=== PATIENT | female | born 1970 | race Caucasian/White ===

== ENCOUNTER 2023-07-26 13:59 | Inpatient (IN) | payer MEDICAID, SELFPAY ==
[2023-07-26] VITALS (73 sets, daily range): BP systolic 99–124; BP diastolic 61–95; PULSE 79–120; RESP 12–30; TEMP 36.8–37.5; O2SAT 90–100
--- NOTE | 2023-07-26 | DI.RAD_ITS ---
Exam(s) XR PORTABLE CHEST AP EXAM: XR PORTABLE CHEST AP CLINICAL HISTORY: Coarse cough with tachypnea TECHNIQUE: 2D digital imaging was performed. COMPARISON: No exams were available for comparison FINDINGS: Leads overlie the chest. LUNGS: Clear. No pleural abnormality seen. HEART: Normal size. AORTA: Normal diameter. BONES: Unremarkable for age. Soft tissues: Unremarkable. IMPRESSION: No acute findings. DATA REPOSITORY: RADIATION DOSE DELIVERED:
--- NOTE | 2023-07-26 14:21 | W.ED.GENAD ---
Discharge Plan Disposition Patient Disposition: Admit to [facility] Condition: Stable Discharge Details Clinical Impression: Anemia, Alcohol use disorder, Liver dysfunction, Acute pancreatitis, Chronic hyponatremia, Acute hypokalemia Primary Care Provider: Unknown,Unknown ED Provider: Diego Roque Home Meds and New Rx's Prescriptions: No Action No Known Home Meds Medical Decision Making This is a 53-year-old female who presents with abdominal pain. Could represent bowel obstruction or intra-abdominal abscess and will get CT abdomen pelvis with contrast. We will get broad labs look for electrolyte or metabolic cause of the patient's symptoms. We will get biliary labs to look for signs of hepatitis, pancreatitis, or other biliary disease. We will get broad labs look for electrolyte or metabolic causes of the patient's symptoms. Could be related to the patient's marijuana use or that daily alcohol use and could have some dyspepsia or GERD/gastritis but this would be a diagnosis of exclusion. We will give some medications to treat her nausea and give some IV fluids while awaiting initial testing and reevaluate. 1920 Labs showing elevated lipase and bilirubin. Added ultrasound that she not showing any biliary pathology or signs of biliary obstruction or stones. CT is showing pancreatitis consistent with the elevated lipase. Likely secondary from alcohol use. Significant hypokalemia likely from the pancreatitis and alcohol use. Repleted with IV potassium and magnesium. Added INR and triglyceride levels at the hospitalist request. Patient and family agreeable with admission. Certainly could withdraw from alcohol while here though no signs of alcohol withdrawal presently. Care transitioned at this time to the hospitalist service. Medical Records Medical records reviewed: Yes I reviewed the patient's medical records. Imaging Data Radiologic Study: Attestation: I personally reviewed and interpreted this imaging study as follows: Imaging: CT Scan (abd and pelvis) Radiologist's impression: ct abd and pelvis IMPRESSION:: Findings consistent with pancreatitis with wall thickening involving the duodenum and left upper quadrant loops of small bowel. Severe hepatic steatosis. Radiologic Study #2: Attestation: I personally reviewed and interpreted this imaging study as follows: Imaging: Ultrasound (ruq) Radiologist's impression: IMPRESSION: Hepatic steatosis. No evidence of gallstones or biliary dilatation. Lab Data Lab results reviewed: Yes I reviewed the patient's lab results. Labs: Hypokalemia. Hyponatremia. Anion gap likely secondary from the patient's elevated EtOH and dehydration. Hypomagnesemia. Elevated bilirubin at 3.4. Very elevated lipase greater than 375. Anemia of unknown chronicity but does have elevated MCV consistent with a chronic anemia. Leukocytosis of unknown significance. HPI General Date/Time Provider Initiated Documentation: 07/26/23 14:10. Limitations to Documentation: no limitations. Information obtained by: patient. HPI Narrative: This is a 53-year-old female with no reported past history who is presenting with abdominal pain. Says she has had intermittent abdominal pain over the last year. Would come and go. Consistent over the last 2 to 3 weeks. Says she is not farting. Says she has not pooped. She says she has only had a small amount of poop over the last 3 weeks. She is nauseous and not eating and is endorsing weight loss. No night sweats or fevers. No urinary symptoms. No black or bloody stools. No vaginal bleeding or discharge. Denying any other complaints. No surgeries ever. Denies any medications or any allergies. Not reporting any family history of any medical conditions. Smokes 10 cigarettes a day. Drinks 3 alcoholic beverages daily. Smokes marijuana occasionally for sleep. Related Data Home Medications Medication Instructions Recorded Confirmed Unknown [No Known Home Meds] 07/26/23 07/26/23 Allergies Allergy/AdvReac Type Severity Reaction Status Date / Time No Known Allergies Allergy Unverified 07/26/23 14:08 General Stated Complaint: Abd Prob BRIAN: 3 Review of Systems Constitutional Constitutional: Denies chills, Denies fever(s) and Denies headache(s) Eyes Eyes: Denies change in vision ENT Ears, Nose, Mouth, and Throat: Denies headache(s) and Denies odynophagia Cardiovascular Cardiovascular: Denies chest pain and Denies dyspnea Respiratory Respiratory: Denies dyspnea Gastrointestinal Gastrointestinal: Reports abdominal pain, Denies melena, Reports constipation, Denies diarrhea, Reports nausea, Denies odynophagia and Reports vomiting Genitourinary Genitourinary: Denies dysuria Musculoskeletal Musculoskeletal: Denies myalgias Integumentary/Breasts Skin/Breast: Denies changing lesions Neurologic Neurologic: Denies behavioral changes and Denies headache(s) Psychiatric Psychiatric: Denies behavioral changes Endocrine Endocrine: Denies heat intolerance Hematologic/Lymphatic Hematologic/Lymphatic: Denies lymphadenopathy PFSH All Active Problems (Updated 07/26/23 @ 19:24 by Diego Roque MD) Acute hypokalemia (Acute) Chronic hyponatremia (Acute) Acute pancreatitis (Acute) Liver dysfunction (Acute) Alcohol use disorder (Acute) Anemia (Chronic) Hypomagnesemia (Acute) Hypokalemia (Acute) Alcoholic hepatitis without ascites (Acute) Pancreatitis, acute (Acute) Social History Smoking/Tobacco Use Status: Current every day Tobacco Type: cigarettes Smoking risk assessment performed?: Yes Alcohol Intake: current Alcohol Intake frequency: 3 or more drinks per day Alcohol type: hard liquor Drug use: Daily Substance use type: marijuana Details: at night to sleep Housing: apartment Do you feel safe at home: Yes Do you feel safe in your relationship?: Yes Exam Const General: cooperative Nutritional Appearance: average body habitus Orientation: alert, awake and oriented x3 HENMT Head: normal to inspection Ears: external ears normal Mouth: moist mucous membranes Eyes Pupils: PERRL EOM: EOM intact bilaterally and No nystagmus Neck Neck: full ROM and no tracheal deviation Chest Chest: normal inspection of the chest Resp Auscultation: clear to auscultation bilaterally Cardio Rate: regular rate Rhythm: regular rhythm GI Inspection: normal to inspection Palpation: soft, no guarding, not rigid and tender Other: Tenderness in all 4 abdominal quadrants. No voluntary guarding and no rigidity or rebound. Otherwise unremarkable abdominal exam. Back/Spine/Pelvis Back: No no CVA tenderness Thoracic/Lumbar Spine: thoracic and lumbar spine normal to inspection Skin General skin exam: no rashes or lesions noted Neuro General: patient alert, patient awake and patient oriented x3 Cranial Nerves: CN's II-XI intact bilaterally, PERRL and no nystagmus Cognition: normal cognition Motor: muscle tone normal throughout and strength 5/5 throughout Sensory Exam: no sensory deficits noted Extrem General: normal to inspection Course Vital Signs Vital signs: Vital Signs Temperature 36.8 C 07/26/23 14:04 Pulse 120 H 07/26/23 14:04 Respiratory Rate 20 07/26/23 14:04 Blood Pressure 112/82 07/26/23 14:04 Pulse Oximetry 97 07/26/23 14:04 Temperature 36.8 C 07/26/23 14:04 Temperature Source Oral 07/26/23 14:04 Pulse 120 H 07/26/23 14:04 Respiratory Rate 20 07/26/23 14:04 Respiratory Effort Normal, Non-Labored 07/26/23 14:09 Blood Pressure 112/82 07/26/23 14:04 Blood Pressure Position Sitting 07/26/23 14:04 Pulse Oximetry 97 07/26/23 14:04 Oxygen Delivery Method Room Air 07/26/23 14:04 Oxygen Flow Rate 0 07/26/23 14:04 Pain Level 10 07/26/23 14:04 PAWSS Have you Been Recently Intoxicated or Drunk Within the Last 30 days?: No Have you Ever Experienced Previous Episodes of Alcohol Withdrawal?: No Have you ever Experienced Withdrawal Seizures?: No Have you ever Experienced Delirium Tremens(DT)s?: No Have you ever undergone Alcohol Rehabilitation Treatment (i.e, inpt ot outpatient treatment programs)?: No Have you ever Experienced Blackouts?: No Have you ever Combined Alcohol with other Downers within the last 90 days?: No Have you ever Combined Alcohol with any other Substance of Abuse during the last 90 days?: No Positive Blood Alcohol level on Presentation? [PCS.BAL]: No Evidence of Increased Autonomic Activity (i.e. HR>120, tremor, sweating, agitation, nausea)?: No Result: 0
[2023-07-26] MEDS: Ondansetron 4 MG/2 ML VIAL IVP ×2 (14:30→16:50)
[2023-07-26] MEDS: Normal Saline 1,000 ML 1000 ML IV (14:30)
[2023-07-26] MEDS: Ketorolac 15 MG/ML VIAL IVP (14:30)
[2023-07-26 14:31] LABS: Abs Immature Grans 0.12 10^3/uL (0.0-0.06); Absolute Lymphocyte Count 1.21 10^3/uL (1.2-3.4); Absolute Monocyte Count 1.27 10^3/uL (0.1-0.8); Absolute Neutrophil Count 19.82 10^3/uL (1.2-6.7); Basophils % 0.4; Eosinophils % 1.1; HCT 27.9 % (36.0-46.0); HGB 9.8 g/dL (11.2-15.7); Immature Grans % 0.5; Lymphocytes % 5.3; MCH 37.5 pg (27.0-33.0); MCHC 35.1 % (32.0-36.0); MCV 107 fL (80-95); MPV 9.6 fL (8.0-11.0); Monocytes % 5.6; Neutrophils % 87.1; Platelet Count 273 10^3/uL (130-400); RBC 2.61 10^6/uL (3.93-5.22); RDW 15.1 % (11.7-14.6); RDW-SD 59.9 fL; WBC 22.76 10^3/uL (4.4-10.8)
[2023-07-26 14:56] LABS: ALT 15 U/L (14-59); AST 82 U/L (15-37); Albumin 2.5 g/dL (3.4-5.0); Alkaline Phosphatase 197 U/L (46-116); Anion Gap 18.7 mmol/L (3-11); BUN 7 mg/dL (7-18); Bilirubin, Total 3.4 mg/dL (0.2-1.0); CO2 21.3 mmol/L (21.0-32.0); CREATININE 0.7 mg/dL (0.55-1.02); Calcium 8.8 mg/dL (8.5-10.1); Chloride 91 mmol/L (98-107); ETHANOL BLOOD 44.6 mg/dL (<10); Estimated GFR 102.71 (mL/min/1.73m2); Glucose 76 mg/dL (74-106); Magnesium 1.6 mg/dL (1.8-2.4); Sodium 131 mmol/L (136-145); Total Protein 7.2 g/dL (6.4-8.2)
[2023-07-26 14:58] LABS: Lipase > 375 U/L (16-77); Potassium 2.3 mmol/L (3.5-5.1)
--- NOTE | 2023-07-26 15:00 | DI.US_ITS ---
Exam(s) US ABDOMEN EXAM: US ABDOMEN CLINICAL HISTORY: ruq abdominal pain. ? biliary colic or obstruction TECHNIQUE: Ultrasound abdomen performed using standard protocol. COMPARISON: CT CT ABDOMEN PELVIS W from 07/26/2023 FINDINGS: LIVER: Enlarged at 19.1 cm. Increased echogenicity and decreased through transmission consistent wit h moderate to severe hepatic steatosis. Posterior portions of the liver are not well seen. No focal liver lesions are seen. GALLBLADDER: No evidence of cholelithiasis. No evidence of wall thickening. No pericholecystic fluid identified. MCKEON'S SIGN: Negative. BILIARY SYSTEM: No intrahepatic or extrahepatic biliary ductal dilation. KIDNEYS: Kidneys are symmetric in size. No evidence of renal calculi. No evidence of hydronephrosis. No renal mass or cyst identified. PANCREAS: Not well visualized. SPLEEN: Not enlarged. ABDOMINAL AORTA AND IVC: Visualized portions normal caliber. ASCITES: None seen. IMPRESSION: Hepatic steatosis. No evidence of gallstones or biliary dilatation. DATA REPOSITORY:
--- NOTE | 2023-07-26 15:00 | RT.EKG_ITS ---
APPROVED REPORT Exam: Resting ECG Reason for Exam: electrolyte abnormality Patient Location: E HR:100 bpm ECG Measurements Heart Rate 100 AXIS NE 148 P 80 QRSd 89 QRS 77 QT 389 T 62 QTc 502 Conclusion Sinus tachycardia...rate> 99
[2023-07-26 15:01] LABS: Absolute Basophil Count 0.09 10^3/uL (0.0-0.2); Absolute Eosinophil Count 0.25 10^3/uL (0.0-0.7); Macrocytosis 2+
[2023-07-26 15:02] LABS: Polychromasia Present; Stomatocytes 2+
[2023-07-26] MEDS: MAGNESIUM SULFATE 2 GM/50 ML BAG IVPB (15:07)
[2023-07-26 15:09] LABS: Bilirubin Large (Negative); Blood Negative (Negative); Clarity Clear (Clear); Glucose Negative (Negative); Ketones >=160 mg/dL (Negative); Leukocyte Esterase Negative (Negative); Nitrite Positive (Negative); Urobilinogen >=8.0 mg/dL (Up to 0.2)
[2023-07-26 15:21] LABS: Bacteria Many HPF (Negative); C & S Indicated? Yes; Casts Negative LPF (Negative); Crystals Negative HPF (Negative); Epithelial Cells Rare HPF (Negative); Mucus Negative (Negative); Other Cells Negative (Negative); RBC Negative HPF (0-2)
--- NOTE | 2023-07-26 16:37 | DI.CT_ITS ---
Exam(s) CT ABDOMEN PELVIS W EXAM: CT ABDOMEN PELVIS W CLINICAL HISTORY: abdominal pain, acute, nonlocalized. TECHNIQUE: Imaging Protocol: Axial computed tomography images with coronal and sagittal reformatted images were created and reviewed CONTRAST MATERIAL: Intravenous: Omnipaque 350 Contrast volume:100 ml Oral: no COMPARISON: US US ABDOMEN from 07/26/2023 FINDINGS: ABDOMEN and PELVIS: Lung Bases: Normal where visualized. Liver: Enlarged. Severe hepatic steatosis. Areas of focal fatty sparing near the gallbladder fossa. No measurable mass. Gallbladder and biliary tract: No radiodense calculus or dilation. Pancreas: Normal density. Stranding in the fat surrounding the pancreas, greater at the tail. No ev idence of mass. Spleen: Normal. Kidneys: Normal size, contour and axis. No radiodense stones. No obstructive uropathy. No suspicious masses seen. Adrenal glands: No masses seen. Vasculature: Abdominal aorta non-dilated. Soft tissues: Unremarkable. Bladder: No gross wall thickening. No calculi.No focal mass. Bowel: No obstruction. Wall thickening of the duodenum as it passes near the head of the pancreas. Also some wall thickening of loops of bowel in the left upper quadrant, near the tail of the pancrea s. Peritoneal cavity: No ascites. No focal collection. Bones: Unremarkable for age. Reproductive organs: Within normal limits. Lymph nodes: Unremarkable. IMPRESSION:: Findings consistent with pancreatitis with wall thickening involving the duodenum and l eft upper quadrant loops of small bowel. Severe hepatic steatosis. RADIATION DOSE DELIVERED: Total DLP DATA REPOSITORY: All CT scans at this facility are submitted to the National Radiology Data Registry (NRDR) Dose Index Registry (DIR) with the [employer] (A[employer]). RADIATION OPTIMIZATION: All CT scans at this facility use at least one of these dose optimization te chniques: automated exposure control; mA and/or kV adjustment per patient size (includes targeted exa ms where dose is matched to clinical indication); or iterative reconstruction.
[2023-07-26] MEDS: Normal Saline - Diluent 50 ML VIAL IV (16:43)
[2023-07-26] MEDS: Nicotine 21 MG/24 HR PATCH TD (16:49)
[2023-07-26] MEDS: POTASSIUM CHLORIDE 20 MEQ/100 ML BAG 50 MEQ (17:16)
[2023-07-26 18:24] LABS: Source Nasal/Nares
[2023-07-26 18:56] LABS: COVID-19 PCR Negative (Negative)
--- NOTE | 2023-07-26 18:59 | HPE_ITS ---
Date of service: 07/26/23 Time of Service: 18:59 Assessment and Plan Assessment and plan (1) Pancreatitis, acute: Start date: 07/26/23 Status: Acute Assessment and plan: This is a 53-year-old lady who drinks daily presenting with abdominal pain over the last year but worsening recently and now acutely worse with nausea and vomiting. She is also constipated. She has not seen physicians recently and has no medical treatment at this time. Evaluation the ED did reveal probable acute pancreatitis alcohol induced with the patient daily alcohol use. She will be on bowel rest with pain management and IV hydration. Follow-up clinically and trend labs. Consider surgical consultation if complications. She is a full code. Qualifiers: Acute pancreatitis complication: no infection or necrosis Pancreatitis type: alcohol induced Qualified Code(s): K85.20 - Alcohol induced acute pancreatitis without necrosis or infection (2) Alcoholic hepatitis without ascites: Status: Chronic Assessment and plan: Patient has not had recent labs and most likely has chronic alcoholic hepatitis which is not severe. Continue to trend labs with bowel rest and no alcohol. Alcohol withdrawal monitoring and treatment with phenobarbital protocol. (3) Alcohol use disorder: Status: Chronic Assessment and plan: Patient has drunk alcohol daily most of her life and at this time there is no indication that she will be stopping. CIWA protocol with phenobarbital treatment. Trend labs. Eventually once acute pancreatitis has cleared, will advance nutrition which may help with electrolyte imbalances and hepatitis. (4) Hypokalemia: Start date: 07/26/23 Status: Acute Assessment and plan: Most likely induced by alcohol intake and recent loss of fluids with nausea and vomiting. Replete IV and trend labs. (5) Hypomagnesemia: Start date: 07/26/23 Status: Acute Assessment and plan: Most likely induced by alcohol intake with IV repletion. Poor nutrition long- term may be an issue. (6) COPD (chronic obstructive pulmonary disease) with emphysema: Status: Chronic Assessment and plan: Patient does smoke tobacco daily and also apparently has THC intake. Clinically patient has COPD with emphysema but does x-ray showed no acute infiltrates are severe changes by plain film. Follow-up clinically and long-term advised tobacco cessation. Secretion clearance should be induced with respiratory therapy consulted as needed. She may have increased chance of plugging as she recovers off cigarettes in the hospital. Nicotine patch if needed. History of Present Illness History of Present Illness Chief Complaint: Abdominal pain with nausea with vomiting Narrative: This is a 53-year-old female patient who drinks alcohol daily with 3 cups of [employer] vodka presenting with worsening abdominal pain and nausea. She also had constipation for the last 3 weeks. She has had abdominal pain for about 1 year worsening over the last 2 to 3 weeks with more severe epigastric discomfort and now nausea and vomiting, unable to eat and drink normally. She does have some bloating with her constipation. She denies hematemesis, melena or hematochezia. She has not been seeking medical care in the recent past. She is very thin and may have been losing weight. She did receive phenobarbital for alcohol withdrawal precaution was sedated during my exam with minimal other conversation. She is a poor historian. She does smoke tobacco. She has had a dry cough with coarse sounding breathing but is not on inhalers. She denies hemoptysis. In the ED the patient was found to have pancreatitis acutely no severe biliary or gallbladder pathology by CT. She also had right abnormalities and liver function abnormalities associate with chronic alcohol use. She did have her electrolytes repleted with potassium and magnesium IV. By default she is a full code but this discussion needs to be further discussed. Review of Systems Narrative: 13 point review of systems otherwise unrevealing or unobtainable with patient being poor historian. PFSH All Active Problems (Updated 07/27/23 @ 11:11 by Ramon Holder) COPD (chronic obstructive pulmonary disease) with emphysema (Chronic) Acute hypokalemia (Acute) Chronic hyponatremia (Acute) Acute pancreatitis (Acute) Liver dysfunction (Acute) Alcohol use disorder (Chronic) Anemia (Chronic) Hypomagnesemia (Acute) Hypokalemia (Acute) Alcoholic hepatitis without ascites (Chronic) Pancreatitis, acute (Acute) Social History Smoking/Tobacco Use Status: Current every day Tobacco Type: cigarettes Smoking risk assessment performed?: Yes Alcohol Intake: current Alcohol Intake frequency: 3 or more drinks per day Alcohol type: hard liquor Drug use: Daily Substance use type: marijuana Details: at night to sleep Housing: apartment Do you feel safe at home: Yes Do you feel safe in your relationship?: Yes Meds Allergies and Home Medications Allergies Allergy/AdvReac Type Severity Reaction Status Date / Time No Known Allergies Allergy Unverified 07/26/23 14:08 Home Medications Medication Instructions Recorded Confirmed Type Unknown [No Known Home Meds] 07/26/23 07/26/23 History Exam Narrative Exam Narrative: General: Patient appears much older than stated age, thin and almost cachectic appearing. She is in moderate distress from abdominal discomfort and bloating. She is sedated from phenobarbital. She is alert and oriented at least to person and place. HEENT: Normocephalic, coarsened facial features. Eyes with pupils equal and react to light symmetrically, extraocular movement intact and sclera anicteric. Oropharynx with dry mucosa and poor dentition. Neck: Supple without JVD. Back: Kyphotic without CVA tenderness. Lungs: Coarse rhonchi diffusely with coarse crackles expiratory and expiratory. Loose cough without production. No expiratory wheeze or increased expiratory phase. Bronchovesicular breath sounds diffusely. Fair aeration. Heart: Regular rhythm and tachycardic rate with 3/6 holosystolic murmur apex. Breast: Exam deferred. Abdomen: Slightly protuberant special in the left compared to right but soft without guarding. Tender to palpation of the epigastrium and right upper quadrant without palpable liver edge. No palpable splenomegaly. Bowel sounds positive all quadrants but decreased. Genitalia/rectal: Exam deferred. Extremities: Muscle wasting diffusely, no joint swelling. No clubbing, cyanosis or grossly pitting edema. Fair capillary refill. Skin: Decreased turgor, warm and dry. Chronic actinic changes. Wrinkly with rough texture. Neuro: Cranial nerves II through XII grossly intact. No focalizing motor deficits. No tremor. Psych: Flattened affect with depressed mood. Patient is sedated. No normal thought processes. Remote and recent memory grossly intact but difficult to assess with patient's sedation. Results Imaging Imaging Studies: EXAM: CT ABDOMEN PELVIS W Date of Exam: 07/26/23 CLINICAL HISTORY: abdominal pain, acute, nonlocalized. TECHNIQUE: Imaging Protocol: Axial computed tomography images with coronal and sagittal reformatted images were created and reviewed CONTRAST MATERIAL: Intravenous: Omnipaque 350 Contrast volume:100 ml Oral: no COMPARISON: US US ABDOMEN from 07/26/2023 FINDINGS: ABDOMEN and PELVIS: Lung Bases: Normal where visualized. Liver: Enlarged. Severe hepatic steatosis. Areas of focal fatty sparing near the gallbladder fossa. No measurable mass. Gallbladder and biliary tract: No radiodense calculus or dilation. Pancreas: Normal density. Stranding in the fat surrounding the pancreas, greater at the tail. No evidence of mass. Spleen: Normal. Kidneys: Normal size, contour and axis. No radiodense stones. No obstructive uropathy. No suspicious masses seen. Adrenal glands: No masses seen. Vasculature: Abdominal aorta non-dilated. Soft tissues: Unremarkable. Bladder: No gross wall thickening. No calculi.No focal mass. Bowel: No obstruction. Wall thickening of the duodenum as it passes near the head of the pancreas. Also some wall thickening of loops of bowel in the left upper quadrant, near the tail of the pancreas. Peritoneal cavity: No ascites. No focal collection. Bones: Unremarkable for age. Reproductive organs: Within normal limits. Lymph nodes: Unremarkable. IMPRESSION:: Findings consistent with pancreatitis with wall thickening involving the duodenum and left upper quadrant loops of small bowel. Severe hepatic steatosis. EXAM: US ABDOMEN Date of Exam: 07/26/23 CLINICAL HISTORY: ruq abdominal pain. ? biliary colic or obstruction TECHNIQUE: Ultrasound abdomen performed using standard protocol. COMPARISON: CT CT ABDOMEN PELVIS W from 07/26/2023 FINDINGS: LIVER: Enlarged at 19.1 cm. Increased echogenicity and decreased through transmission consistent with moderate to severe hepatic steatosis. Posterior portions of the liver are not well seen. No focal liver lesions are seen. GALLBLADDER: No evidence of cholelithiasis. No evidence of wall thickening. No pericholecystic fluid identified. MCKEON'S SIGN: Negative. BILIARY SYSTEM: No intrahepatic or extrahepatic biliary ductal dilation. KIDNEYS: Kidneys are symmetric in size. No evidence of renal calculi. No evidence of hydronephrosis. No renal mass or cyst identified. PANCREAS: Not well visualized. SPLEEN: Not enlarged. ABDOMINAL AORTA AND IVC: Visualized portions normal caliber. ASCITES: None seen. IMPRESSION: Hepatic steatosis. No evidence of gallstones or biliary dilatation. Labs 07/27/23 06:20 07/27/23 06:20 Labs: Laboratory Results - last 24 hr 07/26/23 07/26/23 07/26/23 14:25 15:00 18:15 WBC 22.76 H RBC 2.61 L Hgb 9.8 L Hct 27.9 L MCV 107 H MCH 37.5 H MCHC 35.1 RDW 15.1 H Plt Count 273 MPV 9.6 Immature Gran % 0.5 Neutrophils % 87.1 Lymphocytes % 5.3 Monocytes % 5.6 Eosinophils % 1.1 Basophils % 0.4 Nucleated RBC % 0.0 Absolute Neutrophils 19.82 H Absolute Lymphocytes 1.21 Absolute Monocytes 1.27 H Absolute Eosinophils 0.25 Absolute Basophils 0.09 RBC Morphology See Below Polychromasia Present Macrocytosis 2+ Stomatocytes 2+ Sodium 131 L Potassium 2.3 L* Chloride 91 L Carbon Dioxide 21.3 Anion Gap 18.7 H BUN 7 Creatinine 0.7 Est GFR (CKD-EPI 2020) 102.71 Glucose 76 Calcium 8.8 Magnesium 1.6 L Total Bilirubin 3.4 H AST 82 H ALT 15 Alkaline Phosphatase 197 H Total Protein 7.2 Albumin 2.5 L Lipase > 375 H Urine Color [place] Urine Clarity Clear Urine pH 6.0 Ur Specific [place] 1.020 Urine Protein 30 H Urine Ketones >=160 H Urine Blood Negative Urine Nitrite Positive H Urine Bilirubin Large H Urine Urobilinogen >=8.0 H Ur Leukocyte Esterase Negative Urine RBC Negative Urine WBC 5-10 Ur Epithelial Cells Rare Urine Crystals Negative Urine Bacteria Many Urine Casts Negative Urine Mucus Negative Urine Other Negative Ur Culture Indicated? Yes Urine Glucose Negative Ethyl Alcohol 44.6 H COVID-19 Source Nasal/Nares SARS-CoV-2 (PCR) Negative Last Vital Signs Temp 36.8 C 07/26/23 14:04 Pulse 120 H 07/26/23 14:04 Resp 20 07/26/23 14:04 BP 112/82 07/26/23 14:04 Pulse Ox 97 07/26/23 14:04 PAWSS Have you Been Recently Intoxicated or Drunk Within the Last 30 days?: No Have you Ever Experienced Previous Episodes of Alcohol Withdrawal?: No Have you ever Experienced Withdrawal Seizures?: No Have you ever Experienced Delirium Tremens(DT)s?: No Have you ever undergone Alcohol Rehabilitation Treatment (i.e, inpt ot outpatient treatment programs)?: No Have you ever Experienced Blackouts?: No Have you ever Combined Alcohol with other Downers within the last 90 days?: No Have you ever Combined Alcohol with any other Substance of Abuse during the last 90 days?: No Positive Blood Alcohol level on Presentation? [PCS.BAL]: No Evidence of Increased Autonomic Activity (i.e. HR>120, tremor, sweating, agitation, nausea)?: No Result: 0 Time Spent Time spent with Patient: >75 minutes Time was spent: preparing to see the patient(eg.review tests), obtaining and/or reviewing separately otained hiistory, ordering medications,tests, procedures, referring, communicating with other health neonatal intensive care unit nurse, indepentently interpreting results and care coordination
[2023-07-26 19:08] LABS: Calculated LDL 80 mg/dL (<100); Cholesterol 133 mg/dL (<200); HDL Cholesterol 20 mg/dL (40-60); Triglyceride 168 mg/dL (<150)
[2023-07-26 19:21] LABS: INR 1.4 (0.9-1.1); Prothrombin Time 13.7 sec (9.1-11.1)
--- NOTE | 2023-07-26 20:05 | W.PC.ACHO ---
Registration Status: REG ER Primary Language: Preferred Language: ED Information & Data Chief Complaint Abd Prob 07/26/23 14:25 Triage Note pt c/o abdominal pain, 07/26/23 14:04 vomiting and cant keep anything down for 1 year, states worse today. states has not shit for 2 weeks Most Recent Vital Signs Temperature 36.8 C 07/26/23 14:04 Temperature Source Oral 07/26/23 14:04 Pulse 120 H 07/26/23 14:04 Respiratory Rate 20 07/26/23 14:04 Respiratory Effort Normal, Non-Labored 07/26/23 14:09 Blood Pressure 112/82 07/26/23 14:04 Blood Pressure Position Sitting 07/26/23 14:04 Pulse Oximetry 97 07/26/23 14:04 Oxygen Delivery Method Room Air 07/26/23 14:04 Oxygen Flow Rate 0 07/26/23 14:04 Pain Level 8 07/26/23 16:49 Allergies No Known Allergies Allergy (Unverified 07/26/23 14:08) Precautions Isolation Standard precaution 07/26/23 14:09 Active Medications Generic Name Dose Route Start Last Admin Trade Name Gurpreet PRN Reason Stop Dose Admin Nicotine 21 mg 07/26/23 16:00 07/26/23 16:49 Nicotine 21 Mg/24 Hr Patch TD 21 mg DAILY ZINA Administration Sodium Chloride 50 ml 07/26/23 16:45 07/26/23 16:43 Normal Saline - Diluent 50 Ml Vial IV 50 ml .FOR DI USE ZINA Administration IV IV Catheter Type [Right Saline Lock Antecubital] IV Catheter Gauge [Right 20 Antecubital] Diet Orders Category Date Time Status Nothing Per Oral [DIET] Nutrition 07/27/23 Breakfast Ordered Diagnostics 07/26/23 07/26/23 07/26/23 Range/Units 18:50 18:15 15:00 WBC (4.4-10.8) 10^3/uL RBC (3.93-5.22) 10^6/uL Hgb (11.2-15.7) g/dL Hct (36.0-46.0) % MCV (80-95) fL MCH (27.0-33.0) pg MCHC (32.0-36.0) % RDW (11.7-14.6) % Plt Count (130-400) 10^3/uL MPV (8.0-11.0) fL Immature Gran % Neutrophils % Lymphocytes % Monocytes % Eosinophils % Basophils % Nucleated RBC % (0.0-0.3) % Absolute Neutrophils (1.2-6.7) 10^3/uL Absolute Lymphocytes (1.2-3.4) 10^3/uL Absolute Monocytes (0.1-0.8) 10^3/uL Absolute Eosinophils (0.0-0.7) 10^3/uL Absolute Basophils (0.0-0.2) 10^3/uL RBC Morphology Polychromasia Macrocytosis Stomatocytes PT 13.7 H (9.1-11.1) sec INR 1.4 H (0.9-1.1) Sodium (136-145) mmol/L Potassium (3.5-5.1) mmol/L Chloride (98-107) mmol/L Carbon Dioxide (21.0-32.0) mmol/L Anion Gap (3-11) mmol/L BUN (7-18) mg/dL Creatinine (0.55-1.02) mg/dL Est GFR (CKD-EPI 2020) (mL/min/1.73m2) Glucose (74-106) mg/dL Calcium (8.5-10.1) mg/dL Magnesium (1.8-2.4) mg/dL Total Bilirubin (0.2-1.0) mg/dL AST (15-37) U/L ALT (14-59) U/L Alkaline Phosphatase (46-116) U/L Total Protein (6.4-8.2) g/dL Albumin (3.4-5.0) g/dL Triglycerides (<150) mg/dL Total Cholesterol (<200) mg/dL LDL Cholesterol, Calc (<100) mg/dL HDL Cholesterol (40-60) mg/dL Lipase (16-77) U/L Procalcitonin Urine Color [place] (Yellow) Urine Clarity Clear (Clear) Urine pH 6.0 (5-8) Ur Specific [place] 1.020 (1.005-1.025) Urine Protein 30 H (Negative) mg/dL Urine Ketones >=160 H (Negative) mg/dL Urine Blood Negative (Negative) Urine Nitrite Positive H (Negative) Urine Bilirubin Large H (Negative) Urine Urobilinogen >=8.0 H (Up to 0.2) mg/dL Ur Leukocyte Esterase Negative (Negative) Urine RBC Negative (0-2) HPF Urine WBC 5-10 (0-5) HPF Ur Epithelial Cells Rare (Negative) HPF Urine Crystals Negative (Negative) HPF Urine Bacteria Many (Negative) HPF Urine Casts Negative (Negative) LPF Urine Mucus Negative (Negative) Urine Other Negative (Negative) Ur Culture Indicated? Yes Urine Glucose Negative (Negative) mg/dL Ethyl Alcohol (<10) mg/dL COVID-19 Source Nasal/Nares SARS-CoV-2 (PCR) Negative (Negative) 07/26/23 Range/Units 14:25 WBC 22.76 H (4.4-10.8) 10^3/uL RBC 2.61 L (3.93-5.22) 10^6/uL Hgb 9.8 L (11.2-15.7) g/dL Hct 27.9 L (36.0-46.0) % MCV 107 H (80-95) fL MCH 37.5 H (27.0-33.0) pg MCHC 35.1 (32.0-36.0) % RDW 15.1 H (11.7-14.6) % Plt Count 273 (130-400) 10^3/uL MPV 9.6 (8.0-11.0) fL Immature Gran % 0.5 Neutrophils % 87.1 Lymphocytes % 5.3 Monocytes % 5.6 Eosinophils % 1.1 Basophils % 0.4 Nucleated RBC % 0.0 (0.0-0.3) % Absolute Neutrophils 19.82 H (1.2-6.7) 10^3/uL Absolute Lymphocytes 1.21 (1.2-3.4) 10^3/uL Absolute Monocytes 1.27 H (0.1-0.8) 10^3/uL Absolute Eosinophils 0.25 (0.0-0.7) 10^3/uL Absolute Basophils 0.09 (0.0-0.2) 10^3/uL RBC Morphology See Below Polychromasia Present Macrocytosis 2+ Stomatocytes 2+ PT (9.1-11.1) sec INR (0.9-1.1) Sodium 131 L (136-145) mmol/L Potassium 2.3 L* (3.5-5.1) mmol/L Chloride 91 L (98-107) mmol/L Carbon Dioxide 21.3 (21.0-32.0) mmol/L Anion Gap 18.7 H (3-11) mmol/L BUN 7 (7-18) mg/dL Creatinine 0.7 (0.55-1.02) mg/dL Est GFR (CKD-EPI 2020) 102.71 (mL/min/1.73m2) Glucose 76 (74-106) mg/dL Calcium 8.8 (8.5-10.1) mg/dL Magnesium 1.6 L (1.8-2.4) mg/dL Total Bilirubin 3.4 H (0.2-1.0) mg/dL AST 82 H (15-37) U/L ALT 15 (14-59) U/L Alkaline Phosphatase 197 H (46-116) U/L Total Protein 7.2 (6.4-8.2) g/dL Albumin 2.5 L (3.4-5.0) g/dL Triglycerides 168 H (<150) mg/dL Total Cholesterol 133 (<200) mg/dL LDL Cholesterol, Calc 80 (<100) mg/dL HDL Cholesterol 20 L (40-60) mg/dL Lipase > 375 H (16-77) U/L Procalcitonin Pending Urine Color (Yellow) Urine Clarity (Clear) Urine pH (5-8) Ur Specific [place] (1.005-1.025) Urine Protein (Negative) mg/dL Urine Ketones (Negative) mg/dL Urine Blood (Negative) Urine Nitrite (Negative) Urine Bilirubin (Negative) Urine Urobilinogen (Up to 0.2) mg/dL Ur Leukocyte Esterase (Negative) Urine RBC (0-2) HPF Urine WBC (0-5) HPF Ur Epithelial Cells (Negative) HPF Urine Crystals (Negative) HPF Urine Bacteria (Negative) HPF Urine Casts (Negative) LPF Urine Mucus (Negative) Urine Other (Negative) Ur Culture Indicated? Urine Glucose (Negative) mg/dL Ethyl Alcohol 44.6 H (<10) mg/dL COVID-19 Source SARS-CoV-2 (PCR) (Negative) 07/26/23 15:00 Urine Culture - Pending Urine - Reflex from Ua Intake and Output - 24 Hour Total 07/26/23 13:59 thru 07/26/23 18:41 Intake Total 1050 Balance 1050 Weight 49.895 kg Intake: IV 1050 Falls Risk Assessment History of Falls No History 07/26/23 14:30 Contributing Factors No Factors 07/26/23 14:30 Ambulatory Aids Independent 07/26/23 14:30 Tubes/Lines None 07/26/23 14:30 Gait Evaluation No gait disturbance 07/26/23 14:30 Cognition No cognitive impairment 07/26/23 14:30 Fall Total Score 0 07/26/23 14:30 Level of Risk Standard/Low Risk 07/26/23 14:30 Problems (Last Reviewed 07/26/23 @ 14:24 by Diego Roque MD) Acute hypokalemia (Acute) Chronic hyponatremia (Acute) Acute pancreatitis (Acute) Liver dysfunction (Acute) Alcohol use disorder (Acute) Anemia (Chronic) Hypomagnesemia (Acute) Hypokalemia (Acute) Alcoholic hepatitis without ascites (Acute) Pancreatitis, acute (Acute) v v v v v v v v v Sending and/or Receiving Nurses: Please use comment section below to note any information pertinent to the patient hand-off not included above. Information / Comments: upper abd pain - pancreatitis ETOH 3 drinks a day Her ETOH level on admission was 44.6 @ 14:30 20 MEqs of K in ER Mag replaced in ER 2 gm Morphine 2mg 1650 pain controlled now. no nausea/vomitting #18 in RF A & O Ambulates steady gait Report received from: Bhargavi Duong RN
[2023-07-26 20:09] LABS: Procalcitonin 0.4 ng/mL
[2023-07-26] MEDS: POTASSIUM CHLORIDE/D5-0.45NACL 1,000 ML 150 MEQ IV (23:44)
[2023-07-26] MEDS: Heparin 5,000 UNITS/ML VIAL 5000 UNITS SC (23:55)
[2023-07-27] VITALS (95 sets, daily range): BP systolic 94–123; BP diastolic 51–97; PULSE 84–126; RESP 13–28; TEMP 36.5–39; O2SAT 90–99
[2023-07-27 00:26] LABS: BE (Venous) -3 mmol/L (-2-3); HCO3 (Venous) 20 mmol/L (23-28); O2 Sat (Venous) 95 %; TCO2 (Venous) 19 mmol/L (24-29); pCO2 (Venous) 27 mmHg (41-51); pH (Venous) 7.49 (7.31-7.41); pO2 (Venous) 70 mmHg
[2023-07-27 00:27] LABS: Lactate 1.2 mmol/L (0.6-1.4)
--- NOTE | 2023-07-27 01:01 | DI.VRAD_ITS ---
PROCEDURE INFORMATION: Exam: XR Chest Exam date and time: 07/27/2023 12:17 AM Age: 53 years old Clinical indication: Patient HX: Coarse cough with tachypnea TECHNIQUE: Imaging protocol: Radiologic exam of the chest. Views: 1 view. COMPARISON: CT ABDOMEN PELVIS W 07/26/2023 4:28 PM FINDINGS: Lungs: Unremarkable. No consolidation. Pleural spaces: Unremarkable. No pleural effusion. No pneumothorax. Heart/Mediastinum: Unremarkable. No cardiomegaly. Bones/joints: Unremarkable. IMPRESSION: No acute findings. Dictated and Authenticated by: Claude Collazo MD. Ordering:KAI Navarro MD
[2023-07-27 04:58] LABS: *AMPHETAMINES SCREEN URINE Negative (Negative); *BARBITURATES SCREEN URINE Positive (Negative); *BENZODIAZEPINES SCREEN URINE Negative (Negative); Cannabinoids THC Positive (Negative); Cocaine Screen,Urine Negative (Negative); METHADONE URINE SCREEN Negative (Negative); OPIATES URINE SCREEN Positive (Negative); Tricyclic Antidepressants Negative (Negative)
[2023-07-27 06:42] LABS: HCT 25.2 % (36.0-46.0); HGB 8.9 g/dL (11.2-15.7); MCH 38.4 pg (27.0-33.0); MCHC 35.3 % (32.0-36.0); MCV 109 fL (80-95); MPV 10.1 fL (8.0-11.0); Platelet Count 227 10^3/uL (130-400); RBC 2.32 10^6/uL (3.93-5.22); RDW 15.2 % (11.7-14.6); WBC 17.24 10^3/uL (4.4-10.8)
[2023-07-27 06:55] LABS: Anion Gap 9.7 mmol/L (3-11); BUN 7 mg/dL (7-18); CO2 25.3 mmol/L (21.0-32.0); CREATININE 0.7 mg/dL (0.55-1.02); Calcium 8.4 mg/dL (8.5-10.1); Chloride 96 mmol/L (98-107); Estimated GFR 102.71 (mL/min/1.73m2); Glucose 126 mg/dL (74-106); Sodium 131 mmol/L (136-145)
[2023-07-27 06:59] LABS: ALT 11 U/L (14-59); AST 66 U/L (15-37); Albumin 2.1 g/dL (3.4-5.0); Alkaline Phosphatase 169 U/L (46-116); Bilirubin, Direct 2.3 mg/dL (0.0-0.2); Bilirubin, Total 3.7 mg/dL (0.2-1.0); Magnesium 2.2 mg/dL (1.8-2.4); PHOSPHORUS < 2.0 mg/dL (2.6-4.7); Total Protein 6.2 g/dL (6.4-8.2)
[2023-07-27 07:18] LABS: Potassium 2.3 mmol/L (3.5-5.1)
[2023-07-27] MEDS: POTASSIUM CHLORIDE/D5-0.45NACL 1,000 ML 100 MEQ IV (07:47)
[2023-07-27] MEDS: POTASSIUM CHLORIDE 10 MEQ/100 ML BAG 100 MEQ IVPB ×3 (08:21→21:47)
[2023-07-27] MEDS: Heparin 5,000 UNITS/ML VIAL 5000 UNITS SC ×2 (08:21→15:50)
[2023-07-27] MEDS: Nicotine 21 MG/24 HR PATCH TD (08:22)
--- NOTE | 2023-07-27 08:48 | PDOC.CMIN ---
Date of service: 07/27/23 Time of Service: 08:48 Care Management Initial Assmt Initial Assessment REASON FOR HOSPITALIZATION:: pancreatitis PREVIOUS FUNCTIONAL STATUS/SOCIAL/FAMILY SUPPORTS:: Nyasia lives in an apartment in [place], [place]. 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 Nyasia has 3 children, twin sons and a daughter. All of the children live locally and are very supportive and close. Nyasia is independent at baseline and does not receive any community services. CURRENT FUNCTIONAL STATUS:: Nyasia was sitting up in bed when CM met with her. She was a bit sleepy but was agreeable to conversation. Nyasia talked a bit about her family and her client. 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 Nyasia does not have a PCP or insurance. She informed CM that her daughter was going to visit later and will help her fill out the paperwork to sign up for Medicaid. CM provided her with an application for [facility] Financial Assistance. ADVANCE DIRECTIVES:: none Has patient been provided with info about the portal/API?: Yes Did the patient sign up for the portal?: Yes CODE STATUS:: Full Code CODE STATUS COMMENT:: patient verbalized to staff that she wants to change code status. She has been a DNR/DNI before apparently. CM provided her with [employer] forms. INSURANCE COVERAGE / FINANCIAL ISSUES:: none but plans to sign up for Medicaid CURRENT HOME/COMMUNITY SERVICES/EQUIPMENT:: has a special needs client in her home but does not need or use any assistance herself PRIMARY CARE PHYSICIAN:: none currently. Will be scheduled with T-leonela on yesterday (Marivel eLong) for follow up visit. POTENTIAL DISCHARGE NEEDS:: follow up with outpatient appointments substance use treatment PATIENT/FAMILY EDUCATION NEEDS:: establish with new PCP TRANSPORTATION:: via private vehicle PLAN:: Anticipate that Nyasia will be discharged home with no new services. She will follow up with community providers and plan of care and transport with family/friends. CM will follow and continue to assess for discharge needs. PFSH All Active Problems (Updated 07/27/23 @ 11:11 by Ramon Holder) COPD (chronic obstructive pulmonary disease) with emphysema (Chronic) Acute hypokalemia (Acute) Chronic hyponatremia (Acute) Acute pancreatitis (Acute) Liver dysfunction (Acute) Alcohol use disorder (Chronic) Anemia (Chronic) Hypomagnesemia (Acute) Hypokalemia (Acute) Alcoholic hepatitis without ascites (Chronic) Pancreatitis, acute (Acute) Social History Smoking/Tobacco Use Status: Current every day Tobacco Type: cigarettes Smoking risk assessment performed?: Yes Alcohol Intake: current Alcohol Intake frequency: 3 or more drinks per day Alcohol type: hard liquor Drug use: Daily Substance use type: marijuana Details: at night to sleep Housing: apartment Do you feel safe at home: Yes Do you feel safe in your relationship?: Yes
[2023-07-27] MEDS: MULTIVITAMIN 10 ML, THIAMINE 100 MG, FOLIC ACID 1 MG in DEXTROSE 5%-0.45% SALINE 1,000 ML 166.6 ML IV (08:52)
[2023-07-27] MEDS: MORPHine 2 MG/ML SYR IVP (11:16)
[2023-07-27] MEDS: Normal Saline Flush 10 ML SYR IVP (12:09)
--- NOTE | 2023-07-27 15:24 | W.PM.PROGNOT ---
Date of Service Date of service: 07/27/23 Time of Service: 15:24 Assessment and Plan Assessment and plan (1) Pancreatitis, acute: Start date: 07/26/23 Status: Acute Assessment and plan: -Patient presented with abdominal pain and elevated lipase in the setting of known alcohol use consistent with acute pancreatitis -Pain control significantly improved, however does not improve enough to advance patient's diet -We will continue current IV pain regimen and IV hydration -Plan to advance diet tomorrow morning 07/28/2023 Qualifiers: Pancreatitis type: alcohol induced Acute pancreatitis complication: no infection or necrosis Qualified Code(s): K85.20 - Alcohol induced acute pancreatitis without necrosis or infection (2) COPD (chronic obstructive pulmonary disease) with emphysema: Status: Chronic Assessment and plan: -Significant smoking history and THC intake does not have a formal diagnosis -Consider outpatient pulmonary follow-up for PFTs (3) Hypomagnesemia: Start date: 07/26/23 Status: Acute Assessment and plan: -Most likely induced by alcohol intake with IV repletion -Improved to 2.2 on a.m. 07/27/2023 (4) Alcoholic hepatitis without ascites: Status: Chronic Assessment and plan: -Patient has not had recent labs and most likely has chronic alcoholic hepatitis which is not severe. -Continue to trend labs with bowel rest and no alcohol. -Alcohol withdrawal monitoring and treatment with phenobarbital protocol; though patient has not scored on CIWA (5) Alcohol use disorder: Status: Chronic Assessment and plan: -Patient has drunk alcohol daily most of her life, though she was willing to meet with professional athletes coach today -CIWA protocol with phenobarbital treatment. Trend labs. (6) Hypokalemia: Start date: 07/26/23 Status: Acute Assessment and plan: -Most likely induced by alcohol intake and recent loss of fluids with nausea and vomiting. -Replete IV and trend labs. Assessment and plan: This is a 53-year-old lady who drinks daily presenting with abdominal pain over the last year but worsening recently and now acutely worse with nausea and vomiting. She is also constipated. She has not seen physicians recently and has no medical treatment at this time. Evaluation the ED did reveal probable acute pancreatitis alcohol induced with the patient daily alcohol use. She will be on bowel rest with pain management and IV hydration. Follow-up clinically and trend labs. Consider surgical consultation if complications. She is a full code. Subjective Subjective Interval history since last seen: Patient states that she is feeling better as compared to admission though she continues to have 6 out of 10 ongoing abdominal pain Exam Narrative Exam Narrative: Frail-appearing female laying in bed, appears older than stated age, in mild distress secondary to abdominal pain, AOx4, heart RRR, lungs CTAB, abdomen soft, with diffuse tenderness worse in the epigastric region, nondistended, without rebound or guarding Objective Last Vital Signs Temp 99.0 F 07/27/23 13:55 Pulse 103 H 07/27/23 14:06 Resp 17 07/27/23 14:06 BP 98/63 L 07/27/23 14:06 Pulse Ox 92 07/27/23 14:06 Laboratory Results - last 24 hr 07/26/23 07/26/23 07/26/23 14:25 18:15 18:50 WBC RBC Hgb Hct MCV MCH MCHC RDW Plt Count MPV PT 13.7 H INR 1.4 H VBG pH VBG pCO2 VBG pO2 VBG HCO3 VBG Total CO2 VBG O2 Saturation VBG Base Excess VBG Lactate Sodium Potassium Chloride Carbon Dioxide Anion Gap BUN Creatinine Est GFR (CKD-EPI 2020) Glucose Calcium Phosphorus Magnesium Total Bilirubin Conjugated Bilirubin AST ALT Alkaline Phosphatase Total Protein Albumin Triglycerides 168 H Total Cholesterol 133 LDL Cholesterol, Calc 80 HDL Cholesterol 20 L Procalcitonin 0.4 Urine Opiates Screen Urine Methadone Screen Ur Barbiturates Screen Ur Tricyclics Screen Ur Amphetamines Screen U Benzodiazepines Scrn Urine Cocaine Screen Ur THC Screen COVID-19 Source Nasal/Nares SARS-CoV-2 (PCR) Negative 07/27/23 07/27/23 07/27/23 00:20 04:35 06:20 WBC 17.24 H RBC 2.32 L Hgb 8.9 L Hct 25.2 L MCV 109 H MCH 38.4 H MCHC 35.3 RDW 15.2 H Plt Count 227 MPV 10.1 PT INR VBG pH 7.49 H VBG pCO2 27 L VBG pO2 70 VBG HCO3 20 L VBG Total CO2 19 L VBG O2 Saturation 95 VBG Base Excess -3 L VBG Lactate 1.2 Sodium 131 L Potassium 2.3 L* Chloride 96 L Carbon Dioxide 25.3 Anion Gap 9.7 BUN 7 Creatinine 0.7 Est GFR (CKD-EPI 2020) 102.71 Glucose 126 H Calcium 8.4 L Phosphorus < 2.0 L Magnesium 2.2 Total Bilirubin 3.7 H Conjugated Bilirubin 2.3 H AST 66 H ALT 11 L Alkaline Phosphatase 169 H Total Protein 6.2 L Albumin 2.1 L Triglycerides Total Cholesterol LDL Cholesterol, Calc HDL Cholesterol Procalcitonin Urine Opiates Screen Positive A Urine Methadone Screen Negative Ur Barbiturates Screen Positive A Ur Tricyclics Screen Negative Ur Amphetamines Screen Negative U Benzodiazepines Scrn Negative Urine Cocaine Screen Negative Ur THC Screen Positive A COVID-19 Source SARS-CoV-2 (PCR) PAWSS Have you Been Recently Intoxicated or Drunk Within the Last 30 days?: No Have you Ever Experienced Previous Episodes of Alcohol Withdrawal?: No Have you ever Experienced Withdrawal Seizures?: No Have you ever Experienced Delirium Tremens(DT)s?: No Have you ever undergone Alcohol Rehabilitation Treatment (i.e, inpt ot outpatient treatment programs)?: No Have you ever Experienced Blackouts?: No Have you ever Combined Alcohol with other Downers within the last 90 days?: No Have you ever Combined Alcohol with any other Substance of Abuse during the last 90 days?: No Positive Blood Alcohol level on Presentation? [PCS.BAL]: Yes Evidence of Increased Autonomic Activity (i.e. HR>120, tremor, sweating, agitation, nausea)?: No Result: 1 Time Spent with Patient Time Spent with Patient: >50 minutes Time was spent: preparing to see the patient(eg.review tests), obtaining and/or reviewing separately otained hiistory, ordering medications,tests, procedures, referring, communicating with other health hearing care professional, indepentently interpreting results, counseling the patient and care coordination
[2023-07-27 18:09] LABS: BUN 5 mg/dL (7-18); CREATININE 0.7 mg/dL (0.55-1.02); Calcium 8.2 mg/dL (8.5-10.1); Chloride 96 mmol/L (98-107); Estimated GFR 102.71 (mL/min/1.73m2); Glucose 148 mg/dL (74-106); Sodium 128 mmol/L (136-145)
[2023-07-27 18:16] LABS: Potassium 2.7 mmol/L (3.5-5.1)
[2023-07-27] MEDS: POTASSIUM CHLORIDE/0.9% NACL 1,000 ML 75 MEQ IV (19:47)
--- NOTE | 2023-07-27 20:00 | NUR.NOTE ---
Pt mentioned that she would like code status to be DNR while in discussion with her and her family this AM. Dr. Zuñiga notified at 0904 via [employer]. You 07/27/2023 9:04 AM ? Mary lee says she wants her code status changed to DNR. Reminded MD later in the shift, as code status remained unchanged. You 07/27/2023 2:30 PM ? 221 oralia did you talk with her about code status? just wanted to follow up from this morning. Care management and night nurse aware.
[2023-07-27] MEDS: ACETAMINOPHEN 1,000 MG/100 ML BTL 400 MG IVPB (21:45)
[2023-07-27] MEDS: PIPERACILLIN/TAZO 3.375 GM in Normal Saline 50 ML IVPB (22:52)
[2023-07-27] MEDS: PHENobarbital 130 MG/ML VIAL IVP (23:40)
[2023-07-28] VITALS (118 sets, daily range): BP systolic 62–119; BP diastolic 36–80; PULSE 84–119; RESP 14–34; TEMP 36.4–37.2; O2SAT 88–100
--- NOTE | 2023-07-28 | DI.RAD_ITS ---
Exam(s) XR PORTABLE CHEST AP EXAM: XR PORTABLE CHEST AP CLINICAL HISTORY: worsening cough, chest congestion. TECHNIQUE: 2D digital imaging was performed. COMPARISON: CR,XR XR PORTABLE CHEST AP from 07/27/2023 FINDINGS: Single AP portable view. Heart size is upper normal. The mediastinum is not widened. There is no prominent area of infiltrate in left lower lobe retrocardiac region. Slight blunting lef t costophrenic angle. Right lung is clear. IMPRESSION: New left lower lobe infiltrate. This is in the posterior basal segment of the left lower lobe. Cons ider possible aspiration. DATA REPOSITORY: RADIATION DOSE DELIVERED:
[2023-07-28] MEDS: POTASSIUM CHLORIDE 10 MEQ/100 ML BAG 100 MEQ IVPB ×4 (00:06→22:42)
[2023-07-28] MEDS: Heparin 5,000 UNITS/ML VIAL 5000 UNITS SC ×3 (00:34→16:41)
[2023-07-28] MEDS: PIPERACILLIN/TAZO 3.375 GM in Normal Saline 50 ML IVPB (03:42)
[2023-07-28] MEDS: ACETAMINOPHEN 1,000 MG/100 ML BTL 400 MG IVPB ×4 (03:50→21:50)
[2023-07-28 07:30] LABS: HCT 22.8 % (36.0-46.0); MCH 37.9 pg (27.0-33.0); MCHC 35.1 % (32.0-36.0); MPV 10.5 fL (8.0-11.0); Platelet Count 180 10^3/uL (130-400); RBC 2.11 10^6/uL (3.93-5.22); RDW 15.4 % (11.7-14.6); RDW-SD 61.1 fL
[2023-07-28 07:33] LABS: MCV 108 fL (80-95)
[2023-07-28 07:42] LABS: INR 1.5 (0.9-1.1)
[2023-07-28 07:43] LABS: ALT 10 U/L (14-59); AST 64 U/L (15-37); Albumin 1.8 g/dL (3.4-5.0); Alkaline Phosphatase 145 U/L (46-116); Anion Gap 11.1 mmol/L (3-11); BUN 7 mg/dL (7-18); Bilirubin, Total 4.4 mg/dL (0.2-1.0); CO2 19.9 mmol/L (21.0-32.0); CREATININE 0.7 mg/dL (0.55-1.02); Chloride 100 mmol/L (98-107); Estimated GFR 102.71 (mL/min/1.73m2); Glucose 83 mg/dL (74-106); Sodium 131 mmol/L (136-145); Total Protein 5.3 g/dL (6.4-8.2)
[2023-07-28 07:45] LABS: Potassium 2.8 mmol/L (3.5-5.1)
[2023-07-28] MEDS: Nicotine 21 MG/24 HR PATCH TD (07:59)
--- NOTE | 2023-07-28 08:40 | PDOC.CMPRO ---
Date of service: 07/28/23 Time of Service: 08:40 Care Management Progress Note Progress Note Text Progress Note Text: S/O:Nyasia was sitting up in bed when CM met with her. She stated that she feels better however she has a new LLL infiltrate, possibly an aspiration pneumonia. Nyasia did require a dose of phenobarbital last night for withdrawal symptoms but has scored low on the alcohol assessment scale today.. Nyasia completed advanced directives with CM today and copies were made and filed as appropriate. A: Nyasia is a 53 year old woman admitted on 07/26/23 with pancreatitis P:Anticipate that Nyasia will be discharged home with no new services. She will follow up with community providers and plan of care and transport with family/friends. CM will follow and continue to assess for discharge needs.
[2023-07-28 09:35] LABS: Lactate 2.4 mmol/L (0.6-1.4)
[2023-07-28] MEDS: Lactated Ringers 500 ML IV (09:35)
[2023-07-28 10:20] LABS: Procalcitonin 2.5 ng/mL
[2023-07-28] MEDS: MEROPENEM 1 GM in Normal Saline 100 ML IVPB ×2 (10:33→17:58)
[2023-07-28] MEDS: Norepinephrine in D5W 8 MG/250 ML BAG 9.375 MG IV (10:34)
[2023-07-28] MEDS: Normal Saline 500 ML IV (10:35)
[2023-07-28] MEDS: Normal Saline Flush 10 ML SYR IVP (10:55)
[2023-07-28 12:12] LABS: Lactate 2.3 mmol/L (0.6-1.4)
--- NOTE | 2023-07-28 12:17 | W.PM.PROGNOT ---
Date of Service Date of service: 07/28/23 Time of Service: 12:17 Assessment and Plan Assessment and plan (1) Septic shock: Status: Acute Assessment and plan: - Early a.m. 07/28/2023 patient became febrile with temperatures greater than 101 ?F, as well as low blood pressures with MAP less than 65 -Given the patient was also complained of cough and had coarse breath sounds, chest x-ray was ordered which showed a new left lower lobe infiltrate concerning for aspiration pneumonia -Patient was also tachycardic with a heart rate greater than 99, and her blood pressures remain low despite significant fluid resuscitation since being admitted as well as with a lactic acid of two-point -Therefore, patient met criteria for septic shock secondary to aspiration pneumonia, as she likely aspirated the evening of admission when she became somewhat somnolent after initial loading dose of phenobarbital -Started IV Merrem and Vanco -Start Levophed with goal MAP greater than 65 -Follow-up blood cultures -Follow-up a.m. CBC, repeat lactic's (2) Aspiration pneumonia: Status: Acute Assessment and plan: - As noted above Qualifiers: Aspiration pneumonia type: unspecified Laterality: left Lung location: lower lobe of lung Qualified Code(s): J69.0 - Pneumonitis due to inhalation of food and vomit (3) Pancreatitis, acute: Status: Acute Assessment and plan: -Patient presented with abdominal pain and elevated lipase in the setting of known alcohol use consistent with acute pancreatitis -Pain control significantly improved, advanced to clear liquid diet this morning -We will continue current IV pain regimen and IV hydration -Plan to advance diet tomorrow morning 07/29/2023 Qualifiers: Pancreatitis type: alcohol induced Acute pancreatitis complication: no infection or necrosis Qualified Code(s): K85.20 - Alcohol induced acute pancreatitis without necrosis or infection (4) COPD (chronic obstructive pulmonary disease) with emphysema: Status: Chronic Assessment and plan: -Significant smoking history and THC intake does not have a formal diagnosis -Consider outpatient pulmonary follow-up for PFTs (5) Hypomagnesemia: Status: Acute Assessment and plan: -Most likely induced by alcohol intake with IV repletion -Improved to 2.2 on a.m. 07/27/2023 (6) Alcoholic hepatitis without ascites: Status: Chronic Assessment and plan: -Patient has not had recent labs and most likely has chronic alcoholic hepatitis which is not severe. -Continue to trend labs with bowel rest and no alcohol. -Alcohol withdrawal monitoring and treatment with phenobarbital protocol; though patient has not scored on CIWA (7) Alcohol use disorder: Status: Chronic Assessment and plan: -Patient has drunk alcohol daily most of her life, though she was willing to meet with other sports coach or instructor today -CIWA protocol with phenobarbital treatment. Trend labs. (8) Hypokalemia: Status: Acute Assessment and plan: -Most likely induced by alcohol intake and recent loss of fluids with nausea and vomiting. -Replete IV and trend labs. Subjective Subjective Interval history since last seen: Patient states that she feels significantly better as compared to admission and is looking forward to advancing her diet. She states she has been coughing a little more over the last day, but denies any shortness of breath. Exam Narrative Exam Narrative: Chronically ill appearing female laying in bed, appears older than stated age, in mild distress secondary to abdominal pain, AOx4, heart RRR, lungs with course breath sounds in LLL, abdomen soft, with diffuse tenderness worse in the epigastric region, nondistended, without rebound or guarding Objective Last Vital Signs Temp 98.2 F 07/28/23 07:32 Pulse 105 H 07/28/23 10:43 Resp 19 07/28/23 10:43 BP 80/45 L 07/28/23 10:43 Pulse Ox 100 07/28/23 10:43 Laboratory Results - last 24 hr 07/27/23 07/28/23 07/28/23 17:56 05:50 06:30 WBC 22.80 H RBC 2.11 L Hgb 8.0 L Hct 22.8 L MCV 108 H MCH 37.9 H MCHC 35.1 RDW 15.4 H Plt Count 180 MPV 10.5 PT 15.0 H INR 1.5 H VBG Lactate Sodium 128 L 131 L Potassium 2.7 L* 2.8 L* Chloride 96 L 100 Carbon Dioxide 22.0 19.9 L Anion Gap 10.0 11.1 H BUN 5 L 7 Creatinine 0.7 0.7 Est GFR (CKD-EPI 2020) 102.71 102.71 Glucose 148 H 83 Calcium 8.2 L 8.0 L Total Bilirubin 4.4 H AST 64 H ALT 10 L Alkaline Phosphatase 145 H Total Protein 5.3 L Albumin 1.8 L Procalcitonin 07/28/23 07/28/23 09:15 12:02 WBC RBC Hgb Hct MCV MCH MCHC RDW Plt Count MPV PT INR VBG Lactate 2.4 H* 2.3 H* Sodium Potassium Chloride Carbon Dioxide Anion Gap BUN Creatinine Est GFR (CKD-EPI 2020) Glucose Calcium Total Bilirubin AST ALT Alkaline Phosphatase Total Protein Albumin Procalcitonin 2.5 PAWSS Have you Been Recently Intoxicated or Drunk Within the Last 30 days?: Yes Have you Ever Experienced Previous Episodes of Alcohol Withdrawal?: Yes Have you ever Experienced Withdrawal Seizures?: No Have you ever Experienced Delirium Tremens(DT)s?: No Have you ever undergone Alcohol Rehabilitation Treatment (i.e, inpt ot outpatient treatment programs)?: No Have you ever Experienced Blackouts?: No Have you ever Combined Alcohol with other Downers within the last 90 days?: No Have you ever Combined Alcohol with any other Substance of Abuse during the last 90 days?: No Positive Blood Alcohol level on Presentation? [PCS.BAL]: Yes Evidence of Increased Autonomic Activity (i.e. HR>120, tremor, sweating, agitation, nausea)?: No Result: 3 Time Spent with Patient Time Spent with Patient: >50 minutes Time was spent: preparing to see the patient(eg.review tests), obtaining and/or reviewing separately otained hiistory, ordering medications,tests, procedures, referring, communicating with other health primary care sales representative, indepentently interpreting results, counseling the patient and care coordination
[2023-07-28] MEDS: VANCOMYCIN/WATER (PEG) 1 GM/200 ML BAG IVPB (12:26)
[2023-07-28 12:28] LABS: MRSA PCR Negative (Negative)
[2023-07-28 15:09] LABS: Lactate 2.3 mmol/L (0.6-1.4)
[2023-07-28 20:56] LABS: BUN 6 mg/dL (7-18); CREATININE 0.6 mg/dL (0.55-1.02); Calcium 8.1 mg/dL (8.5-10.1); Chloride 99 mmol/L (98-107); Glucose 107 mg/dL (74-106); Sodium 130 mmol/L (136-145)
[2023-07-28 20:59] LABS: Potassium 2.7 mmol/L (3.5-5.1)
[2023-07-28] MEDS: POTASSIUM CHLORIDE/0.9% NACL 1,000 ML 75 MEQ IV (22:24)
[2023-07-29] VITALS (94 sets, daily range): BP systolic 67–136; BP diastolic 39–80; PULSE 89–116; RESP 16–43; TEMP 36.3–37.1; O2SAT 89–100
--- NOTE | 2023-07-29 | DI.US_ITS ---
Exam(s) US ABDOMEN LIMITED EXAM: US ABDOMEN LIMITED CLINICAL HISTORY: new abdominal distention, EtOH cirrhosis TECHNIQUE: Ultrasound abdomen performed using standard protocol. COMPARISON: CT CT ABDOMEN PELVIS W from 07/26/2023 FINDINGS: LIVER: Enlarged. Coarsening of the echotexture. Decreased through transmission and increased echoge nicity. No focal liver lesions are seen. GALLBLADDER: No evidence of cholelithiasis. No evidence of wall thickening. No pericholecystic fluid identified. MCKEON'S SIGN: Negative. BILIARY SYSTEM: No intrahepatic or extrahepatic biliary ductal dilation. Right kidney.. No evidence of renal calculi. No evidence of hydronephrosis. No renal mass or cyst id entified. PANCREAS: Not well seen. ABDOMINAL AORTA AND IVC: Visualized portions normal caliber. ASCITES: Trace set border of liver. IMPRESSION: Enlarged, cirrhotic appearing liver. Small amount of ascites around liver. DATA REPOSITORY:
[2023-07-29] MEDS: Heparin 5,000 UNITS/ML VIAL 5000 UNITS SC ×3 (00:31→16:50)
[2023-07-29] MEDS: POTASSIUM CHLORIDE 10 MEQ/100 ML BAG 100 MEQ IVPB (00:32)
[2023-07-29] MEDS: MEROPENEM 1 GM in Normal Saline 100 ML IVPB ×3 (02:44→19:06)
[2023-07-29] MEDS: ACETAMINOPHEN 1,000 MG/100 ML BTL 400 MG IVPB ×4 (04:56→22:58)
[2023-07-29 06:55] LABS: HCT 24.5 % (36.0-46.0); HGB 8.3 g/dL (11.2-15.7); MCH 37.7 pg (27.0-33.0); MCHC 33.9 % (32.0-36.0); MPV 10.4 fL (8.0-11.0); Platelet Count 245 10^3/uL (130-400); RDW 15.6 % (11.7-14.6); RDW-SD 63.9 fL; WBC 23.97 10^3/uL (4.4-10.8)
[2023-07-29 06:59] LABS: MCV 111 fL (80-95)
[2023-07-29 07:14] LABS: Anion Gap 11.6 mmol/L (3-11); BUN 6 mg/dL (7-18); CO2 18.4 mmol/L (21.0-32.0); CREATININE 0.5 mg/dL (0.55-1.02); Calcium 8.3 mg/dL (8.5-10.1); Chloride 103 mmol/L (98-107); Estimated GFR 111.39 (mL/min/1.73m2); Glucose 79 mg/dL (74-106); Potassium 3.3 mmol/L (3.5-5.1); Sodium 133 mmol/L (136-145)
[2023-07-29 07:18] LABS: Magnesium 1.6 mg/dL (1.8-2.4)
[2023-07-29] MEDS: Normal Saline Flush 10 ML SYR IVP ×3 (09:31→22:58)
[2023-07-29] MEDS: ALBUMIN HUMAN 25 GM/100 ML BTL IVPB ×2 (09:32→19:13)
[2023-07-29] MEDS: MORPHine 2 MG/ML SYR IVP ×2 (09:32→22:56)
[2023-07-29] MEDS: Nicotine 21 MG/24 HR PATCH TD (09:33)
[2023-07-29] MEDS: Norepinephrine in D5W 8 MG/250 ML BAG 9.375 MG IV (09:51)
[2023-07-29] MEDS: POTASSIUM CHLORIDE/0.9% NACL 1,000 ML 75 MEQ IV ×3 (10:31→22:58)
--- NOTE | 2023-07-29 10:32 | PGE_ITS ---
Date of Service Date of service: 07/29/23 Time of Service: 10:33 Assessment and Plan Assessment and plan (1) Septic shock: Status: Acute Assessment and plan: - Early a.m. 07/28/2023 patient became febrile with temperatures greater than 101 ?F, as well as low blood pressures with MAP less than 65 -Given the patient was also complained of cough and had coarse breath sounds, c hest x-ray was ordered which showed a new left lower lobe infiltrate concerning for aspiration pneumonia -Patient was also tachycardic with a heart rate greater than 99, and her blood pressures remain low despite significant fluid resuscitation since being admitted as well as with a lactic acid of two-point -Therefore, patient met criteria for septic shock secondary to aspiration pneumonia, as she likely aspirated the evening of admission when she became somewhat somnolent after initial loading dose of phenobarbital -Started IV Merrem and Vanco -Remains on 5 mcg of Levophed -Albumin low in the setting of alcoholic cirrhosis, will administer albumin and continue to attempt to wean Levophed -Follow-up blood cultures -Follow-up a.m. CBC, repeat lactic's (2) Aspiration pneumonia: Status: Acute Assessment and plan: - As noted above Qualifiers: Aspiration pneumonia type: unspecified Laterality: left Lung location: lower lobe of lung Qualified Code(s): J69.0 - Pneumonitis due to inhalation of food and vomit (3) Pancreatitis, acute: Status: Acute Assessment and plan: -Patient presented with abdominal pain and elevated lipase in the setting of known alcohol use consistent with acute pancreatitis -Pain control significantly improved, advanced to clear liquid diet this morning -We will continue current IV pain regimen and IV hydration -Continue full liquid diet -Plan to advance again on the morning of 07/30/2023 Qualifiers: Pancreatitis type: alcohol induced Acute pancreatitis complication: no infection or necrosis Qualified Code(s): K85.20 - Alcohol induced acute pancreatitis without necrosis or infection (4) COPD (chronic obstructive pulmonary disease) with emphysema: Status: Chronic Assessment and plan: -Significant smoking history and THC intake does not have a formal diagnosis -Consider outpatient pulmonary follow-up for PFTs (5) Hypomagnesemia: Status: Acute Assessment and plan: -Most likely induced by alcohol intake with IV repletion -Improved to 2.2 on a.m. 07/27/2023 (6) Alcoholic hepatitis without ascites: Status: Chronic Assessment and plan: -Patient has not had recent labs and most likely has chronic alcoholic hepatitis which is not severe. -Continue to trend labs with bowel rest and no alcohol. -Alcohol withdrawal monitoring and treatment with phenobarbital protocol; though patient has not scored on CIWA -Now suspicious for ascites with distended abdomen and positive fluid wave -We will obtain abdominal ultrasound and consult surgery for parents to [place] if there is enough fluid present (7) Alcohol use disorder: Status: Chronic Assessment and plan: -Patient has drunk alcohol daily most of her life, though she was willing to meet with women's swim coach today -CIWA protocol with phenobarbital treatment. Trend labs. (8) Hypokalemia: Status: Acute Assessment and plan: -Most likely induced by alcohol intake and recent loss of fluids with nausea and vomiting. -Replete IV and trend labs. Subjective Subjective Interval history since last seen: patient states that she is feeling better today. We Pop the details about her current medical illness including her aspiration pneumonia, pancreatitis, and ongoing low blood pressure in the setting of alcoholic cirrhosis and the plan to administer albumin as well as get abdominal ultrasound for possible paracentesis. Exam Narrative Exam Narrative: Chronically ill appearing female laying in bed, appears older than stated age, in mild distress secondary to abdominal pain, AOx4, heart RRR, lungs with course breath sounds in LLL, abdomen soft, with diffuse tenderness worse in the epigastric region though improved as compared to admission, moderately distended with positive fluid wave, without rebound or guarding Objective Last Vital Signs Temp 98.2 F 07/29/23 07:45 Pulse 97 H 07/29/23 08:01 Resp 25 H 07/29/23 08:01 BP 84/53 L 07/29/23 08:01 Pulse Ox 95 07/29/23 08:01 Laboratory Results - last 24 hr 07/28/23 07/28/23 07/28/23 10:08 12:02 14:57 WBC RBC Hgb Hct MCV MCH MCHC RDW Plt Count MPV VBG Lactate 2.3 H* 2.3 H* Sodium Potassium Chloride Carbon Dioxide Anion Gap BUN Creatinine Est GFR (CKD-EPI 2020) Glucose Calcium Magnesium Vancomycin Trough MRSA (TEM-PCR) Negative 07/28/23 07/29/23 07/29/23 20:40 06:15 11:00 WBC 23.97 H RBC 2.20 L Hgb 8.3 L Hct 24.5 L MCV 111 H MCH 37.7 H MCHC 33.9 RDW 15.6 H Plt Count 245 MPV 10.4 VBG Lactate Sodium 130 L 133 L Potassium 2.7 L* 3.3 L Chloride 99 103 Carbon Dioxide 19.0 L 18.4 L Anion Gap 12.0 H 11.6 H BUN 6 L 6 L Creatinine 0.6 0.5 L Est GFR (CKD-EPI 2020) 106.60 111.39 Glucose 107 H 79 Calcium 8.1 L 8.3 L Magnesium 1.6 L Vancomycin Trough Cancelled MRSA (TEM-PCR) PAWSS Have you Been Recently Intoxicated or Drunk Within the Last 30 days?: Yes Have you Ever Experienced Previous Episodes of Alcohol Withdrawal?: Yes Have you ever Experienced Withdrawal Seizures?: No Have you ever Experienced Delirium Tremens(DT)s?: No Have you ever undergone Alcohol Rehabilitation Treatment (i.e, inpt ot outpatient treatment programs)?: No Have you ever Experienced Blackouts?: No Have you ever Combined Alcohol with other Downers within the last 90 days?: No Have you ever Combined Alcohol with any other Substance of Abuse during the last 90 days?: No Positive Blood Alcohol level on Presentation? [PCS.BAL]: Yes Evidence of Increased Autonomic Activity (i.e. HR>120, tremor, sweating, agitation, nausea)?: No Result: 3 Time Spent with Patient Time Spent with Patient: >50 minutes Time was spent: preparing to see the patient(eg.review tests), obtaining and/or reviewing separately otained hiistory, ordering medications,tests, procedures, referring, communicating with other health career technical supervisor, indepentently interpreting results, counseling the patient, care coordination and other (60 minutes of critical care time was spent reviewing, examining and discussing care options with the patient and the care team in the setting of patient with alcoholic hepatitis now with cirrhosis and septic shock secondary to aspiration pneumonia continuing to require IV pressor support)
--- NOTE | 2023-07-29 12:55 | PDOC.CMPRO ---
Date of service: 07/29/23 Time of Service: 12:55 Care Management Progress Note Progress Note Text Progress Note Text: S/O: Nyasia was sitting up in bed when CM met with her. She had a visitor in the room, whom she did not introduce. She stated that she is doing ok today. CM provided her original [place] AD as well as copies, at her request, which was filled out with CM yesterday. She stated that her daughter plans to visit her tomorrow. Per report, her WBC remains elevated, and her blood pressures have been low. She remains in the ICU at this time. CM will continue to follow. A: Nyasia is a 53 year old woman admitted on 07/26/23 with pancreatitis P:Anticipate that Nyasia will be discharged home with no new services. She will follow up with community providers and plan of care and transport with family/friends. CM will follow and continue to assess for discharge needs.
--- NOTE | 2023-07-29 14:56 | PHA.REVIEW2 ---
Pharmacy Admission Review Admission Clinical Review Admission Pharmacy Review: (Updated 07/28/23 @ 12:22 by Adam Zuñiga MD) Aspiration pneumonia (Acute) Septic shock (Acute) Acute hypokalemia (Acute) Chronic hyponatremia (Acute) Acute pancreatitis (Acute) Liver dysfunction (Acute) Hypomagnesemia (Acute) Hypokalemia (Acute) Pancreatitis, acute (Acute) No Known Allergies Allergy (Unverified 07/26/23 14:08) Resuscitation Status Full Code Height 5 ft 2 in Weight 58.6 kg Pharmacy Admission Review Renal Dosing Renal Dosing: BUN 6 mg/dL (7-18) L 07/29/23 06:15 Creatinine 0.5 mg/dL (0.55-1.02) L 07/29/23 06:15 Medications needing adjustments: Reviewed (crcl = 118, adjustments not needed) Anticoagulation Anticoagulation: Hgb 8.3 g/dL (11.2-15.7) L 07/29/23 06:15 Hct 24.5 % (36.0-46.0) L 07/29/23 06:15 Plt Count 245 10^3/uL (130-400) 07/29/23 06:15 INR 1.5 (0.9-1.1) H 07/28/23 06:30 Creatinine 0.5 mg/dL (0.55-1.02) L 07/29/23 06:15 DVT Prophylaxis: Reviewed Medications: Heparin (5000 units subq q8h) Therapeutic Anticoagulation: N/A Opiate Usage Evaluate Pain Scale/Pains Meds: Reviewed (morphine 2 mg IV prn (minimal usage so far)) Scheduled Bowel Reg ordered if on Opiates?: No (PRN colace + miralax) Relevant Labs Relevant Labs: Sodium 133 mmol/L (136-145) L 07/29/23 06:15 Potassium 3.3 mmol/L (3.5-5.1) L 07/29/23 06:15 Chloride 103 mmol/L (98-107) 07/29/23 06:15 Phosphorus < 2.0 mg/dL (2.6-4.7) L 07/27/23 06:20 Magnesium 1.6 mg/dL (1.8-2.4) L 07/29/23 06:15 Electrolytes, C-Reactive P, ESR: Reviewed (K+ repletion (has improved from 2.3 on 07/26) - multiple bags of IV K+ given over the past few days, NS w/20 mEq K+ running @ 75 mL/hr. 2g IV mag given 07/26, 4g ordered this evening ) DM Control DM Control: Reviewed (no diabetes diagnosis) Cardiac Review BP, HR, EF%: Reviewed (hypotensive - on norepinephrine drip running @ 9.375 mL/hr) QTc Review QTc: Reviewed (QTc = 502 on 07/26/23) List meds needing interventions: had 2 doses of zofran on 07/26, otherwise does not currently have any QT prolonging medications ordered IV to PO Switch IV Medications: Reviewed (necessary at this time, switch to PO when appropriate) Home Meds Home Med List reviewed: Reviewed (no home meds listed, no Surescripts fill history) Current Meds Current Medication Order Review: Reviewed Pharmacy Antibiotic Review Pharmacy Antibiotic Activity: Abx regimen adjustment (vanco dc'd yesterday, meropenem continues 1g q8h) and C/S review (urine culture: klebsiella, blood cx: preliminary no growth 24 hrs) Comments: narrow coverage once blood cultures are finalized
[2023-07-29] MEDS: MAGNESIUM SULFATE 4 GM/100 ML BAG IVPB (16:51)
[2023-07-29] MEDS: Normal Saline 500 ML 30 ML IV (19:09)
[2023-07-29 19:21] LABS: C Diff PCR Negative (Negative)
[2023-07-30] VITALS (83 sets, daily range): BP systolic 79–134; BP diastolic 44–102; PULSE 92–158; RESP 2–33; TEMP 37.1–38; O2SAT 85–95
--- NOTE | 2023-07-30 | DI.RAD_ITS ---
Exam(s) XR PORTABLE CHEST AP EXAM: XR PORTABLE CHEST AP CLINICAL HISTORY: increasing oxygen requirement TECHNIQUE: 2D digital imaging was performed. COMPARISON: CR,XR XR PORTABLE CHEST AP from 07/27/2023 CR XR PORTABLE CHEST AP from 07/28/2023 FINDINGS: Exam is limited by poor pulmonary inflation. Leads overlie the chest. LUNGS: Increased density is again noted at the left lower lobe, increasing from prior exam. There na rrow bilateral perihilar infiltrates which may indicate superimposed CHF. There is blunting at the l eft costophrenic angle. HEART: Normal size. AORTA: Normal diameter. BONES: Unremarkable for age. Soft tissues: Unremarkable. IMPRESSION: Interval worsening of left lower lobe intra infiltrate as well as new bilateral perihilar infiltrates which may represent pulmonary edema versus bilateral pneumonia. Small left effusion. DATA REPOSITORY: RADIATION DOSE DELIVERED:
[2023-07-30] MEDS: MEROPENEM 1 GM in Normal Saline 100 ML IVPB ×3 (01:40→17:40)
[2023-07-30] MEDS: Heparin 5,000 UNITS/ML VIAL 5000 UNITS SC (01:40)
[2023-07-30 06:48] LABS: HCT 21.9 % (36.0-46.0); MCH 37.5 pg (27.0-33.0); MCHC 34.2 % (32.0-36.0); MCV 110 fL (80-95); MPV 10.3 fL (8.0-11.0); Platelet Count 215 10^3/uL (130-400); RDW 16.3 % (11.7-14.6); RDW-SD 64.8 fL; WBC 21.11 10^3/uL (4.4-10.8)
[2023-07-30 06:57] LABS: INR 2.1 (0.9-1.1); Prothrombin Time 19.5 sec (9.1-11.1)
--- NOTE | 2023-07-30 06:57 | NUR.NOTE ---
At approx 0645 Patient's daughter Angeli called for update on Mom. Angeli expressed a desire to speak to C[employer]inder about support services for Nyasia upon discharge. Voicemail message left for BENIGNO Contreras and email sent as well.
[2023-07-30 07:07] LABS: HGB 7.5 g/dL (11.2-15.7)
[2023-07-30 07:21] LABS: ALT 170 U/L (14-59); Albumin 2.4 g/dL (3.4-5.0); Alkaline Phosphatase 169 U/L (46-116); Anion Gap 12.9 mmol/L (3-11); BUN 9 mg/dL (7-18); Bilirubin, Total 3.8 mg/dL (0.2-1.0); CO2 17.1 mmol/L (21.0-32.0); CREATININE 0.6 mg/dL (0.55-1.02); Calcium 8.5 mg/dL (8.5-10.1); Chloride 102 mmol/L (98-107); Glucose 117 mg/dL (74-106); Potassium 3.4 mmol/L (3.5-5.1); Sodium 132 mmol/L (136-145); Total Protein 5.6 g/dL (6.4-8.2)
[2023-07-30 07:23] LABS: AST 1131 U/L (15-37)
[2023-07-30] MEDS: Norepinephrine in D5W 8 MG/250 ML BAG 14.063 MG IV (08:20)
[2023-07-30] MEDS: Nicotine 21 MG/24 HR PATCH TD (08:20)
--- NOTE | 2023-07-30 08:46 | CMPROGNOTE_ITS ---
Date of service: 07/30/23 Time of Service: 08:47 Care Management Progress Note Progress Note Text Progress Note Text: S/O: Nyasia was sitting up in bed when CM met with her. She continues to feel ill and remains ICU level of care. She has a probable aspiration pneumonia in addition to pancreatitis and is requiring high flow nasal oxygen to maintain her oxygen saturation levels in the high 80s to low 90s. Nyasia's daughter Megan asked for an update from CM. She has concerns about her Mom's lack of insurance and PCP. CM sent a referral to [facility] to address the insurance issue. Nyasia's income is limited so she may qualify for medicaid. Megan also had questions about discharge plans. Nyasia will have a PT evaluation when she is more stable. CM will continue to follow and update Megan as needed. A: Nyasia is a 53 year old woman admitted on 07/26/23 with pancreatitis P:Anticipate that Nyasia will be discharged home with no new services. She will follow up with community providers and plan of care and transport with family /friends. CM will follow and continue to assess for discharge needs.
[2023-07-30] MEDS: Midodrine 2.5 MG TAB PO ×3 (09:31→19:25)
[2023-07-30] MEDS: Normal Saline Flush 10 ML SYR IVP ×2 (09:35→19:25)
--- NOTE | 2023-07-30 11:35 | PGE_ITS ---
Date of Service Date of service: 07/30/23 Time of Service: 11:35 Assessment and Plan Assessment and plan (1) Septic shock: Status: Acute Assessment and plan: - Early a.m. 07/28/2023 patient became febrile with temperatures greater than 101 ?F, as well as low blood pressures with MAP less than 65 -Given the patient was also complained of cough and had coarse breath sounds, c hest x-ray was ordered which showed a new left lower lobe infiltrate concerning for aspiration pneumonia -Patient was also tachycardic with a heart rate greater than 99, and her blood pressures remain low despite significant fluid resuscitation since being admitted as well as with a lactic acid of two-point -Therefore, patient met criteria for septic shock secondary to aspiration pneumonia, as she likely aspirated the evening of admission when she became somewhat somnolent after initial loading dose of phenobarbital -Started IV Merrem and Vanco -Was on 7.5 Levophed overnight 1116 and 1117 -Albumin low in the setting of alcoholic cirrhosis, received a total of 50 of albumin on 07/29/2023 -Initiated 2.5 of midodrine 3 times daily, and this was subsequently able to wean off of norepinephrine -Continue to monitor blood pressures and uptitrate midodrine as needed (2) Aspiration pneumonia: Status: Acute Assessment and plan: - As noted above Qualifiers: Aspiration pneumonia type: unspecified Laterality: left Lung location: lower lobe of lung Qualified Code(s): J69.0 - Pneumonitis due to inhalation of food and vomit (3) Hepatic encephalopathy: Status: Acute Assessment and plan: - Patient appeared more somnolent and confused in the afternoon of 07/30/2023 -Given patient's worsening LFTs (which is likely secondary to hypotension during septic shock), ammonia was checked and is elevated to 40 -We will start twice daily lactulose -Continue to monitor patient's mental status (4) Pancreatitis, acute: Status: Acute Assessment and plan: -Patient presented with abdominal pain and elevated lipase in the setting of known alcohol use consistent with acute pancreatitis -Pain control significantly improved, advanced to clear liquid diet this morning -We will continue current IV pain regimen and IV hydration -Advance to regular diet Qualifiers: Acute pancreatitis complication: no infection or necrosis Pancreatitis type: alcohol induced Qualified Code(s): K85.20 - Alcohol induced acute pancreatitis without necrosis or infection (5) COPD (chronic obstructive pulmonary disease) with emphysema: Status: Chronic Assessment and plan: -Significant smoking history and THC intake does not have a formal diagnosis -Consider outpatient pulmonary follow-up for PFTs (6) Hypomagnesemia: Status: Acute Assessment and plan: -Most likely induced by alcohol intake with IV repletion -Improved to 2.2 on a.m. 07/27/2023 (7) Alcoholic hepatitis without ascites: Status: Chronic Assessment and plan: -Patient has not had recent labs and most likely has chronic alcoholic hepatitis which is not severe. -Continue to trend labs with bowel rest and no alcohol. 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 Trend labs. (9) Hypokalemia: Status: Acute Assessment and plan: -Most likely induced by alcohol intake and recent loss of fluids with nausea and vomiting. -Replete IV and trend labs. Subjective Subjective Interval history since last seen: Patient slightly more lethargic and reportedly confused today as compared to previous days. Exam Narrative Exam Narrative: Chronically ill appearing female laying in bed, appears older than stated age, in mild distress secondary to abdominal pain, awake, alert, oriented to person and place,, heart RRR, lungs with course breath sounds in LLL, abdomen soft, with diffuse tenderness worse in the epigastric region though improved as co mpared to admission, moderately distended with positive fluid wave, without rebound or guarding Objective Last Vital Signs Temp 99.1 F 07/30/23 10:35 Pulse 115 H 07/30/23 11:06 Resp 23 07/30/23 11:06 BP 97/63 L 07/30/23 11:06 Pulse Ox 86 L 07/30/23 11:00 Laboratory Results - last 24 hr 07/29/23 07/30/23 18:18 05:50 WBC 21.11 H RBC 2.00 L Hgb 7.5 L Hct 21.9 L MCV 110 H MCH 37.5 H MCHC 34.2 RDW 16.3 H Plt Count 215 MPV 10.3 PT 19.5 H INR 2.1 H Sodium 132 L Potassium 3.4 L Chloride 102 Carbon Dioxide 17.1 L Anion Gap 12.9 H BUN 9 Creatinine 0.6 Est GFR (CKD-EPI 2020) 106.60 Glucose 117 H Calcium 8.5 Total Bilirubin 3.8 H AST 1131 H ALT 170 H Alkaline Phosphatase 169 H Total Protein 5.6 L Albumin 2.4 L Stl C.difficile Tox PCR Negative PAWSS Have you Been Recently Intoxicated or Drunk Within the Last 30 days?: Yes Have you Ever Experienced Previous Episodes of Alcohol Withdrawal?: Yes Have you ever Experienced Withdrawal Seizures?: No Have you ever Experienced Delirium Tremens(DT)s?: No Have you ever undergone Alcohol Rehabilitation Treatment (i.e, inpt ot outpatient treatment programs)?: No Have you ever Experienced Blackouts?: No Have you ever Combined Alcohol with other Downers within the last 90 days?: No Have you ever Combined Alcohol with any other Substance of Abuse during the last 90 days?: No Positive Blood Alcohol level on Presentation? [PCS.BAL]: Yes Evidence of Increased Autonomic Activity (i.e. HR>120, tremor, sweating, agitation, nausea)?: No Result: 3 Time Spent with Patient Time Spent with Patient: >50 minutes Time was spent: preparing to see the patient(eg.review tests), obtaining and/or reviewing separately otained hiistory, ordering medications,tests, procedures, referring, communicating with other health nursing care partner, indepentently interpreting results, counseling the patient, care coordination and other (60 minutes spent on critically ill patient who just recently had IV pressors discontinued, is on midodrine, and now has worsening mental status likely secondary to hepatic encephalopathy)
[2023-07-30] MEDS: POTASSIUM CHLORIDE/0.9% NACL 1,000 ML 75 MEQ IV (12:30)
[2023-07-30] MEDS: Acetaminophen 325 MG TAB PO ×2 (14:09→19:27)
[2023-07-30 15:31] LABS: Ammonia 39 umol/L (11-32)
[2023-07-30] MEDS: Albuterol 2.5 MG/3 ML INH SOLN VIAL UPD (16:01)
[2023-07-30] MEDS: Normal Saline 500 ML 30 ML IV (17:40)
[2023-07-30] MEDS: Lactulose 20 GM/30 ML CUP PO (19:25)
--- NOTE | 2023-07-30 20:54 | DI.VRAD_ITS ---
PROCEDURE INFORMATION: Exam: XR Chest Exam date and time: 07/30/2023 8:24 PM Age: 53 years old Clinical indication: Other: Increase oxygen requirement TECHNIQUE: Imaging protocol: Radiologic exam of the chest. Views: 1 view. COMPARISON: CR XR PORTABLE CHEST AP 07/28/2023 9:35 AM FINDINGS: Lungs: Bilateral patchy airspace consolidation which is predominantly central and perihilar. This is new since 07/28/2023 and likely represents a developing pulmonary edema process. Differential diagnosis would include a rapidly developing bilateral pneumonitis. Pleural spaces: Small left pleural effusion. No significant right pleural effusion is visible. Heart/Mediastinum: Normal heart size. Bones/joints: No acute skeletal change. IMPRESSION: 1. Bilateral perihilar airspace consolidative features markedly progressive since 07/28/2023. This may represent developing pulmonary edema. Differential diagnosis of a rapidly progressive bilateral pneumonitis. 2. Small left pleural effusion. No significant right pleural effusion. 3. Normal heart size. Dictated and Authenticated by: Tristian Hurtado MD. Ordering:BETSY Navarro MD
[2023-07-30] MEDS: Furosemide 20 MG/2 ML VIAL IVP (23:31)
[2023-07-31] VITALS (52 sets, daily range): BP systolic 80–132; BP diastolic 48–97; PULSE 99–171; RESP 22–33; TEMP 31–37.5; O2SAT 78–94
--- NOTE | 2023-07-31 | DI.CT_ITS ---
Exam(s) CT CHEST PE ABD PELVIS W EXAM: CT CHEST PE ABD PELVIS W CLINICAL HISTORY: acute hypoxic respiratory failure, pancreatitis. TECHNIQUE: Imaging Protocol: Axial CT angiography was performed with multi-slice acquisition and mu lti-planar and/or 3D reconstructions. CONTRAST MATERIAL: Intravenous: Omnipaque 350 Contrast volume:100 ml COMPARISON: CT CT ABDOMEN PELVIS W from 07/26/2023 CR,XR XR PORTABLE CHEST AP from 07/30/2023 FINDINGS: CHEST: Exam limited by respiratory motion. Pulmonary Arteries: No evidence of filling defects to suggest pulmonary emboli. Tracheobronchial tree: No bronchiectasis or mucus plugging. Mediastinum and Sophia: No dominant adenopathy or fluid collection. Pulmonary parenchyma:Severe bilateral infiltrates. Atelectasis at the lung bases. Pleura: A moderate-sized bilateral pleural effusions. No pneumothorax. Heart: The heart is notdilated. No coronary artery calcifications are seen. No pericardial effusio n. Aorta: Thoracic aorta non-dilated. Bones: Unremarkable for age. Tubes, Catheters, and Lines: None. ABDOMEN and PELVIS: Liver: Normal size. Severe hepatic steatosis with focal sparing anteriorly.. No suspicious measurab le mass. Portal, Superior Mesenteric, and Splenic Veins: Unremarkable. Gallbladder and Biliary Tract: No radiodense calculus. No biliary dilatation. Pancreas: Normal density, no abnormal calcifications or inflammatory process. Spleen: Normal. Adrenals: No masses seen. Kidneys: Normal size, contour and axis. No radiodense stones. No obstructive uropathy. No masses seen . Vasculature: Abdominal aorta non-dilated. [id number] atherosclerotic changes Bowel:Mild diffuse wall thickening of the small bowel. The colon is decompressed. There is also cheng arent thickening of the wall of the colon versus under distension. Appendix is unremarkable. Peritoneal Cavity: A moderate amount of ascites is now seen mainly in the low pelvis. Lymph Nodes: Within normal limits. Soft Tissues: Unremarkable. Bladder: Symmetric distention, no gross wall thickening. Reproductive Organs: Unremarkable as visualized. Lymph Nodes: Within normal limits. Bones: Unremarkable for age.. IMPRESSION: 1. Chest: No evidence of pulmonary embolism. Severe bilateral pulmonary infiltrates. Moderate-size d bilateral pleural effusions. 2. Abdomen pelvis: Moderate quantity of ascites. Diffuse bowel wall thickening consistent with enter itis and colitis. RADIATION DOSE DELIVERED: Total DLP DATA REPOSITORY: All CT scans at this facility are submitted to the National Radiology Data Registry (NRDR) Dose Index Registry (DIR) with the [employer] (ACR). RADIATION OPTIMIZATION: All CT scans at this facility use at least one of these dose optimization te chniques: automated exposure control; mA and/or kV adjustment per patient size (includes targeted exa ms where dose is matched to clinical indication); or iterative reconstruction.
[2023-07-31] MEDS: MEROPENEM 1 GM in Normal Saline 100 ML IVPB ×3 (01:40→19:19)
[2023-07-31 06:45] LABS: HCT 22.4 % (36.0-46.0); HGB 7.8 g/dL (11.2-15.7); MCHC 34.8 % (32.0-36.0); MPV 10.5 fL (8.0-11.0); Platelet Count 247 10^3/uL (130-400); RBC 2.05 10^6/uL (3.93-5.22); RDW 17.2 % (11.7-14.6); RDW-SD 67.6 fL; WBC 19.97 10^3/uL (4.4-10.8)
[2023-07-31 06:59] LABS: MCV 109 fL (80-95)
[2023-07-31 07:18] LABS: ALT 219 U/L (14-59); Albumin 2.1 g/dL (3.4-5.0); Alkaline Phosphatase 172 U/L (46-116); Anion Gap 9.8 mmol/L (3-11); BUN 9 mg/dL (7-18); Bilirubin, Total 3.2 mg/dL (0.2-1.0); CO2 20.2 mmol/L (21.0-32.0); CREATININE 0.6 mg/dL (0.55-1.02); Calcium 8.5 mg/dL (8.5-10.1); Chloride 102 mmol/L (98-107); Glucose 109 mg/dL (74-106); Magnesium 2.3 mg/dL (1.8-2.4); Potassium 3.4 mmol/L (3.5-5.1); Sodium 132 mmol/L (136-145); Total Protein 5.5 g/dL (6.4-8.2)
[2023-07-31 07:21] LABS: AST 1058 U/L (15-37)
[2023-07-31 08:01] LABS: INR 1.8 (0.9-1.1); Prothrombin Time 17.5 sec (9.1-11.1)
[2023-07-31 08:51] LABS: Lab Add On Test COMPLETED
--- NOTE | 2023-07-31 08:58 | PT.INIE ---
PT Notes Visit Reasons: Acute Pancreatitis, Alcoholic Hepatitis, Chronic A Inpatient Physical Therapy Evaluation Date: 07/31/23 Referring Doctor: Dr. Zuñiga PT Orders: PT CONSULT: limited ability to ambulate Precautions: fall Patient Profile/Admitting Diagnosis: This is a 53-year-old female who presented to ER with worsening abdominal pain and nausea. Diagnosed with acute pancreatitis, alcoholic hepatitis, COPD, septic shock, aspiration pneumonia, and hepatic encephalopathy. PT consult requested for mobility assessment and discharge planning. Social History/Home Situation: Patient is independent at baseline. 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 Equipment Owned/DME: none Subjective: Nyasia is transferring from commode to bed with assistance from her mother at initiation of session. States that she's feeling well. Denies pain. Objective: General Observation: Transferring slowly and cautiously with CGA from her mother at initiation of session. She is monitored on telemetry, with pulse oximeters to great toe bilat, IV in RUE, on 7LPM supplemental O2 via nasal cannula. Mental Status: A&Ox3 Pain: denies Vital Signs: SaO2 88% at rest on supplemental O2, dropping as low as 80% during session. Cues for pursed lip breathing allow for gradual return to baseline. Highest reading of 90% is fleeting. ROM: Right Upper Extremity: WFL Left Upper Extremity: WFL Right Lower Extremity: WFL Left Lower Extremity: WFL Strength: Right Upper Extremity: 3/5 or greater for all UE motions. Resisted strength testing not performed due to RSUSELL. Left Upper Extremity: 3/5 or greater for all UE motions. Resisted strength testing not performed due to RUSSELL. Right Lower Extremity: Hip flexion 4/5. Quads 4/5. Ankle DF 5/5. Left Lower Extremity: Hip flexion 4/5. Quads 4/5. Ankle DF 5/5. Bed Mobility/Transfers: sit-supine: Supervision sit-stand: CGA stand-sit: CGA bed-commode: CGA Gait: deferred due to rapid desaturation in standing position. Balance: Static Sitting: fair, with intermittent LOB toward left side. Requires SBA during unuspported sitting. Dynamic Sitting: poor Static Standing: fair Dynamic Standing: poor Special Tests: Mobility Limitations Standardized Measure [facility] 6 clicks Basic Mobility Inpatient Short Form: Raw Score: 18 CMS Score: 47% impairment Informed Consent/Education: Patient instructed in purpose of PT consult and plan of care. Treatment: Initial Evaluation: [id number] Therapeutic Activities ([id number]) static standing for improved standing tolerance, 30 seconds x 3 with CGA, with cues for pursed lip breathing in standing, patient demsontrates buckling of knees requiring min A recovery for 2 episodes Assessment: Patient is a 53 year old female referred to physical therapy services for mobility assessment and discharge planning. Patient presents with decreased strength and activity tolernace due to acute medical issues. She is independent at baseline, and anticipate she'll be able to return to the community as her strength and medical status improve. She will likely require continued PT intervention upon discharge, either via HH or outpatient services. She currently demonstrates the following impairment level findings: 1. decreased LE strength 2. decreased activity tolerance 3. decreased balance 4. oxygen desaturation with functional movement Impairments are contributing to the following functional limitations: 1. unable to independently ambulate 2. unable to perform self-care independently (toileting) 3. unable to transfer independently 4. unable to tolerate static standing without assistance Patient is assessed as Moderate 16534 complexity based on the following: History: Patient is a 53 year old female presenting with limited mobility during acute care stay. Complicating factors include multiple medical co-morbidities with ongoing ICU level care required. Examination: funcitonal limitations as noted above Presentation: evolving Decision Making: moderate complexity Goals: Goals X1 week 1. Supine-Sit : supervision 2. Sit-Supine : supervision 3. Sit-Stand : supervision 4. Stand-Sit : supervision 5. Bed-Chair : supervision 6. Chair-Bed : supervision 7. Gait : supervision with FWW x 100' Plan of Care/Treatment Plan: 1-2x/day, 7 days/week x 1 week. Plan of care has been reviewed with the CUSTOMER SUPPORT ASSISTANT providing the service under Physical Therapy direction. Initiate Physical Therapy intervention for strengthening, bed mobility, transfers, gait, stairs, balance training, use of assistive device. DISCHARGE RECOMMENDATIONS: Home with outpatient PT vs HH PT TREATMENT CODE/TIME: [id number] ([id number]) Laura Caceres, PT, DPT [facility]
[2023-07-31 09:16] LABS: NT-proBNP 8276 pg/mL (<300)
[2023-07-31] MEDS: Normal Saline - Diluent 50 ML VIAL IJ (09:22)
[2023-07-31] MEDS: Omnipaque 350 MG/ML 100 ML BTL 70 ML IJ (09:23)
[2023-07-31] MEDS: Normal Saline Flush 10 ML SYR IVP ×3 (09:24→23:35)
[2023-07-31] MEDS: Nicotine 21 MG/24 HR PATCH TD (09:35)
[2023-07-31] MEDS: POTASSIUM CHLORIDE 20 MEQ/100 ML BAG 50 MEQ IVPB (09:35)
[2023-07-31] MEDS: Midodrine 2.5 MG TAB PO ×2 (09:36→19:17)
[2023-07-31] MEDS: Thiamine 100 MG TAB PO (09:36)
[2023-07-31] MEDS: Lactulose 20 GM/30 ML CUP PO (09:36)
[2023-07-31] MEDS: Pantoprazole 40 MG TABCR PO (09:36)
--- NOTE | 2023-07-31 09:41 | DI.VRAD_ITS ---
PROCEDURE INFORMATION: Exam: CTA Chest With Contrast CTA Abdomen and Pelvis With Contrast Exam date and time: 07/31/2023 9:11 AM Age: 53 years old Clinical indication: Other: Acute hypoxic respiratory failure, pancreatitis TECHNIQUE: Imaging protocol: Computed tomographic angiography of the chest with contrast. Exam focused on the arteries. Computed tomographic angiography of the abdomen and pelvis with contrast. Exam focused on the arteries. 3D rendering (Not supervised by radiologist): MIP and/or 3D reconstructed images were created by the technologist. Contrast material: OMNIPAQUE 350; Contrast volume: 70 ml; Contrast route: INTRAVENOUS (IV); COMPARISON: XR PORTABLE CHEST AP 07/30/2023 8:24 PM FINDINGS: VASCULATURE: Pulmonary arteries: No evidence of pulmonary embolus to the segmental level. Aorta: No aneurysm of the aorta. No dissection of the aorta. Celiac trunk and mesenteric arteries: No occlusion or significant stenosis. Renal arteries: No occlusion or significant stenosis. Right iliac arteries: No occlusion or significant stenosis. Left iliac arteries: No occlusion or significant stenosis. CHEST: Lungs: Consolidation throughout the lung santiago consistent with multifocal pneumonia.. Pleural spaces: Moderate bilateral pleural effusions. Heart: Unremarkable. No cardiomegaly. No pericardial effusion. ABDOMEN AND PELVIS: Liver: Fatty infiltration of the liver with focal fatty sparing anteriorly. Gallbladder and bile ducts: Unremarkable. No calcified stones. No ductal dilation. Pancreas: Unremarkable. No mass. No ductal dilation. Spleen: Unremarkable. No splenomegaly. Adrenal glands: Unremarkable. No mass. Kidneys and ureters: Unremarkable. No solid mass. No hydronephrosis. Stomach and bowel: Low-attenuation bowel wall thickening is seen throughout the colon consistent with colitis. Differential diagnosis includes infectious and inflammatory etiologies.. Appendix: No evidence of appendicitis. Intraperitoneal space: Moderate ascites Urinary bladder: Unremarkable. No mass. Reproductive: Unremarkable as visualized. Lymph nodes: Unremarkable. No enlarged lymph nodes. Bones/joints: Unremarkable. No acute fracture. Soft tissues: Unremarkable. IMPRESSION: 1. No evidence of pulmonary embolus to the segmental level. 2. No aneurysm of the aorta. 3. No dissection of the aorta. 4. Consolidation throughout the lung santiago consistent with multifocal pneumonia.. 5. Moderate bilateral pleural effusions. 6. Low-attenuation bowel wall thickening is seen throughout the colon consistent with colitis. Differential diagnosis includes infectious and inflammatory etiologies.. Dictated and Authenticated by: Pia Steen MD. Ordering:REYNALDO Monique MD
[2023-07-31 09:50] LABS: Procalcitonin 6.3 ng/mL
[2023-07-31] MEDS: DOXYCYCLINE 100 MG in Normal Saline 100 ML IVPB ×2 (10:30→23:34)
[2023-07-31 10:49] LABS: BE (Venous) -7 mmol/L (-2-3); HCO3 (Venous) 19 mmol/L (23-28); O2 Sat (Venous) 58 %; TCO2 (Venous) 19 mmol/L (24-29); pCO2 (Venous) 36 mmHg (41-51); pH (Venous) 7.34 (7.31-7.41); pO2 (Venous) 33 mmHg
[2023-07-31 11:47] LABS: C Diff PCR Negative (Negative)
[2023-07-31] MEDS: POTASSIUM CHLORIDE 20 MEQ/100 ML BAG 40 MEQ IVPB (12:16)
[2023-07-31 12:17] LABS: MRSA PCR Negative (Negative)
[2023-07-31] MEDS: Furosemide 40 MG/4 ML VIAL IVP ×2 (12:25→19:15)
[2023-07-31] MEDS: VANCOMYCIN/WATER (PEG) 1.75 GM/350 ML BAG IV (13:45)
--- NOTE | 2023-07-31 16:34 | W.PM.PROGNOT ---
Date of Service Date of service: 07/31/23 Time of Service: 16:34 Assessment and Plan Assessment and plan (1) Acute respiratory failure with hypoxia: Status: Acute Assessment and plan: I am worried about the rapidly worsening O2 requirement. CT w/ multifocal PNA and pleural effusions. Need to consider ARDS. Start steroids. antibiotics were expanded. Diurese. Monitor O2 requirement. The patient is full code, as verified in conversation with her. (2) Septic shock: Status: Resolved Assessment and plan: Due to multifocal PNA. No longer requiring vasopressors - however, on midodrine. Blood culutures negative. Abx expanded to vanco/doxy/meropenem. (3) COPD (chronic obstructive pulmonary disease) with emphysema: Status: Chronic Assessment and plan: Add steroids today as is hypoxic. Target O2 sat 88-92%. (4) Aspiration pneumonia: Status: Acute Assessment and plan: As noted Qualifiers: Aspiration pneumonia type: unspecified Laterality: left Lung location: lower lobe of lung Qualified Code(s): J69.0 - Pneumonitis due to inhalation of food and vomit (5) Acute colitis: Status: Acute Assessment and plan: C. diff negative. Obtain bacterial stool pathogen PCR. (6) Hepatic encephalopathy: Status: Acute Assessment and plan: Continue lactulose. (7) Pancreatitis, acute: Status: Acute Assessment and plan: Clinically this is better. Trialing clear liquids. Abdominal exam is benign today. Qualifiers: Pancreatitis type: alcohol induced Acute pancreatitis complication: no infection or necrosis Qualified Code(s): K85.20 - Alcohol induced acute pancreatitis without necrosis or infection (8) Hypomagnesemia: Status: Acute Assessment and plan: Resolved. Recheck in am. (9) Alcoholic hepatitis without ascites: Status: Chronic Assessment and plan: Maddrey score 33.1. Prognosis is poor. Start prednisolone. C/s palliative care. (10) Alcohol use disorder: Status: Chronic Assessment and plan: S/p phenobarbital load. Appears to be doing quite well from this stand point. C/s palliative care due to severity of alcoholic hepatitis. (11) Hypokalemia: Status: Acute Assessment and plan: Repleted. Recheck in am (12) DVT prophylaxis: Status: Acute Assessment and plan: TEDs (13) Discharge planning issues: Status: Acute Assessment and plan: Full code PT and palliative care consulted. Total Critical Care Time 60 minutes. Discussed with daughter and sister. Subjective Subjective Interval history since last seen: Remains off of vasopressors. O2 requirement up to 7L this am. UOP over the course of 24 hrs yesterday was only 825 cc. Today so far it is 1130. Started on humidified heated high flow O2. 55% fIo2, 30 L saturating 88-89% (after moving up and from the commode). Received 40 mg Of IV furosemide this am and will receive another 40 mg IV x 1. Since then about 1000 cc of urine out. Having diarrhea from lactulose. Denies dizziness, CP, SOB, n/v. Would like to eat something. Exam Narrative Exam Narrative: General: Middle-aged female who is A&Ox3, appears distracted, no asterexis, on humidified heated high flow cannula, no dyspnea/tachypnea/cyanosis HEENT: EOMI, MMM Heart: RRR, no m/r/g Lungs: diminished breath sounds at B bases, rales up to the top of the lungs Abdomen: soft, nontender, mildly distended Extremities: 1+ edema B feet Objective Last Vital Signs Temp 36.9 C 07/31/23 13:16 Pulse 109 H 07/31/23 13:01 Resp 29 H 07/31/23 13:01 BP 103/70 07/31/23 13:01 Pulse Ox 85 L 07/31/23 13:01 Laboratory Results - last 24 hr 07/31/23 07/31/23 07/31/23 05:52 07:42 08:44 WBC 19.97 H RBC 2.05 L Hgb 7.8 L Hct 22.4 L MCV 109 H MCH 38.0 H MCHC 34.8 RDW 17.2 H Plt Count 247 MPV 10.5 PT 17.5 H INR 1.8 H ABG Sample Site Cancelled ABG pH Cancelled ABG pCO2 Cancelled ABG pO2 Cancelled ABG HCO3 Cancelled ABG Total CO2 Cancelled ABG O2 Saturation Cancelled ABG Base Excess Cancelled VBG pH VBG pCO2 VBG pO2 VBG HCO3 VBG Total CO2 VBG O2 Saturation VBG Base Excess Oxygen Liter Flow Cancelled FiO2 Cancelled Sodium 132 L Potassium 3.4 L Chloride 102 Carbon Dioxide 20.2 L Anion Gap 9.8 BUN 9 Creatinine 0.6 Est GFR (CKD-EPI 2020) 106.60 Glucose 109 H Calcium 8.5 Magnesium 2.3 Total Bilirubin 3.2 H AST 1058 H ALT 219 H Alkaline Phosphatase 172 H NT-Pro-B Natriuret Pep 8276 H Total Protein 5.5 L Albumin 2.1 L Procalcitonin 6.3 Stl C.difficile Tox PCR MRSA (TEM-PCR) Add-On Test Request COMPLETED 07/31/23 07/31/23 07/31/23 08:45 10:42 10:54 WBC RBC Hgb Hct MCV MCH MCHC RDW Plt Count MPV PT INR ABG Sample Site ABG pH ABG pCO2 ABG pO2 ABG HCO3 ABG Total CO2 ABG O2 Saturation ABG Base Excess VBG pH 7.34 VBG pCO2 36 L VBG pO2 33 VBG HCO3 19 L VBG Total CO2 19 L VBG O2 Saturation 58 VBG Base Excess -7 L Oxygen Liter Flow FiO2 Sodium Potassium Chloride Carbon Dioxide Anion Gap BUN Creatinine Est GFR (CKD-EPI 2020) Glucose Calcium Magnesium Total Bilirubin AST ALT Alkaline Phosphatase NT-Pro-B Natriuret Pep Total Protein Albumin Procalcitonin Stl C.difficile Tox PCR Negative MRSA (TEM-PCR) Negative Add-On Test Request Objective Narrative Objective Narrative: CT chest/abdomen/pelvis: 1. Chest: No evidence of pulmonary embolism. Severe bilateral pulmonary infiltrates. Moderate-sized bilateral pleural effusions. 2. Abdomen pelvis: Moderate quantity of ascites. Diffuse bowel wall thickening consistent with enteritis and colitis. PAWSS Have you Been Recently Intoxicated or Drunk Within the Last 30 days?: Yes Have you Ever Experienced Previous Episodes of Alcohol Withdrawal?: Yes Have you ever Experienced Withdrawal Seizures?: No Have you ever Experienced Delirium Tremens(DT)s?: No Have you ever undergone Alcohol Rehabilitation Treatment (i.e, inpt ot outpatient treatment programs)?: No Have you ever Experienced Blackouts?: No Have you ever Combined Alcohol with other Downers within the last 90 days?: No Have you ever Combined Alcohol with any other Substance of Abuse during the last 90 days?: No Positive Blood Alcohol level on Presentation? [PCS.BAL]: Yes Evidence of Increased Autonomic Activity (i.e. HR>120, tremor, sweating, agitation, nausea)?: No Result: 3 Time Spent with Patient Time Spent with Patient: >50 minutes Time was spent: preparing to see the patient(eg.review tests), obtaining and/or reviewing separately otained hiistory, ordering medications,tests, procedures, referring, communicating with other health healthcare market consultant, indepentently interpreting results, counseling the patient and care coordination
[2023-07-31] MEDS: Normal Saline 500 ML 30 ML IV (19:18)
[2023-07-31] MEDS: prednisoLONE SOD PHOS. Soln. 3 MG/ML 40 MG PO (19:21)
[2023-08-01] VITALS (59 sets, daily range): BP systolic 75–145; BP diastolic 41–122; PULSE 92–121; RESP 3–39; TEMP 31–36.8; O2SAT 83–95
[2023-08-01] MEDS: MEROPENEM 1 GM in Normal Saline 100 ML IVPB ×3 (01:24→18:54)
[2023-08-01] MEDS: VANCOMYCIN/WATER (PEG) 1 GM/200 ML BAG IV (02:15)
[2023-08-01 06:26] LABS: Abs Immature Grans 0.55 10^3/uL (0.0-0.06); Absolute Basophil Count 0.08 10^3/uL (0.0-0.2); Absolute Monocyte Count 1.35 10^3/uL (0.1-0.8); Basophils % 0.4; HCT 26.4 % (36.0-46.0); HGB 8.9 g/dL (11.2-15.7); Immature Grans % 2.6; Lymphocytes % 5.9; MCHC 33.7 % (32.0-36.0); MCV 113 fL (80-95); MPV 10.3 fL (8.0-11.0); Monocytes % 6.4; Neutrophils % 84.7; Platelet Count 281 10^3/uL (130-400); RBC 2.34 10^6/uL (3.93-5.22); RDW 18.3 % (11.7-14.6); RDW-SD 74.2 fL; WBC 21.03 10^3/uL (4.4-10.8)
[2023-08-01 06:37] LABS: INR 1.9 (0.9-1.1); Prothrombin Time 17.8 sec (9.1-11.1)
[2023-08-01 06:46] LABS: Absolute Lymphocyte Count 1.24 10^3/uL (1.2-3.4); Absolute Neutrophil Count 17.81 10^3/uL (1.2-6.7)
[2023-08-01 06:47] LABS: Diff Comment Agrees w/ Instrument; Macrocytosis 3+
[2023-08-01 06:51] LABS: ALT 169 U/L (14-59); AST 391 U/L (15-37); Alkaline Phosphatase 169 U/L (46-116); Anion Gap 8.6 mmol/L (3-11); BUN 12 mg/dL (7-18); Bilirubin, Direct 2.1 mg/dL (0.0-0.2); Bilirubin, Total 2.8 mg/dL (0.2-1.0); CO2 22.4 mmol/L (21.0-32.0); CREATININE 0.6 mg/dL (0.55-1.02); Calcium 8.5 mg/dL (8.5-10.1); Chloride 105 mmol/L (98-107); Glucose 120 mg/dL (74-106); Lipase 23 U/L (16-77); Magnesium 1.9 mg/dL (1.8-2.4); Potassium 3.6 mmol/L (3.5-5.1); Sodium 136 mmol/L (136-145); Total Protein 5.7 g/dL (6.4-8.2)
[2023-08-01] MEDS: Midodrine 2.5 MG TAB PO ×3 (08:42→21:10)
[2023-08-01] MEDS: Nicotine 21 MG/24 HR PATCH TD (08:42)
[2023-08-01] MEDS: Thiamine 100 MG TAB PO (08:42)
[2023-08-01 09:05] LABS: BE (Venous) -7 mmol/L (-2-3); HCO3 (Venous) 20 mmol/L (23-28); O2 Sat (Venous) 85 %; TCO2 (Venous) 20 mmol/L (24-29); pCO2 (Venous) 45 mmHg (41-51); pH (Venous) 7.26 (7.31-7.41); pO2 (Venous) 56 mmHg
[2023-08-01] MEDS: Furosemide 40 MG/4 ML VIAL IVP ×2 (10:51→11:13)
[2023-08-01] MEDS: prednisoLONE SOD PHOS. Soln. 3 MG/ML 40 MG PO (10:52)
[2023-08-01] MEDS: DOXYCYCLINE 100 MG in Normal Saline 100 ML IVPB ×2 (11:10→21:14)
[2023-08-01] MEDS: Pantoprazole 40 MG VIAL IVP (11:12)
--- NOTE | 2023-08-01 11:59 | PT.INTREAT ---
PT Notes Visit Reasons: Acute Pancreatitis, Alcoholic Hepatitis, Chronic A Date: 08/01/23 PRECAUTIONS: Fall, standard, activity as tolerated. SUBJECTIVE: Pt very disoriented, pt has been sitting in room chair for awhile, nurse is ok with pt doing a transfer going fron room chair to the opposite side of the bed for pt to be able to get in bed per limitation of wires connected to pt, pt family present for this PT session. OBJECTIVE: Pt in room chair, connected to monitors, O2 tube, IV line, urinary catheter and gastrotomy tube.? PAIN: none reported. VITALS: closely monitored by ICU nursing staff. ? BED MOBILITY/TRANSFERS? Rolling L/R: not assessed Supine-sit: not assessed? Sit-supine: not assessed? Sit-stand: max A ? Stand-sit: max A? Bed-Chair: max A? Chair-bed: max A ? Ambulation ? Assistive Device: FWW ? Weight bearing: full Assist: CGA ? Distance:? 15 feet ? Deviation: kyphotic posture, reduced step length. unsteady gait. ? Provided skilled instruction in proper exercise performance Provided skilled manual cues to facilitate proper muscle recruitment and/or form. ASSESSMENT:? Pt very confused, max redirection for pt to move forward, max tactile and verbal cue for stand pivot transfer(pt has tendency for crawl approach towards getting in bed) stood up for a few minutes frozen in place, when pt finally got situated at the EOB pt requested to stay seated so she could visit with family. PLAN: Continue global strengthening per plan of care until patient is medically cleared to return home. TREATMENT CODE/TIME: [id number] 10mins, [id number] 15mins (11:10-11:35am)
[2023-08-01] MEDS: Rifaximin 550 MG TAB PO ×2 (12:41→21:09)
--- NOTE | 2023-08-01 15:39 | PGE_ITS ---
Date of Service Date of service: 08/01/23 Time of Service: 12:00 Assessment and Plan Assessment and plan (1) Acute respiratory failure with hypoxia: Status: Acute Assessment and plan: O2 requirement is worse than yestrerday, but not yet at a point of considering intubation. CT w/ multifocal PNA and pleural effusions. Need to consider ARDS. Continue to diurese, broad spectrum abx (d/c vanco due to negative MRSA nares), continue steroids. Encourage pulmonary toilet. Monitor O2 requirement. The patient is full code, as verified in conversation with her and family. Palliative care is consulted. (2) Septic shock: Status: Resolved Assessment and plan: Due to multifocal PNA. No longer requiring vasopressors - however, on midodrine. Blood culutures negative. Abx expanded to doxy/meropenem. Vancomycin d/c'ed. (3) COPD (chronic obstructive pulmonary disease) with emphysema: Status: Chronic Assessment and plan: Continue steroids. Schedule duonebs; continue prn albuterol. I am adding symbicort. Wean O2 as tolerated. (4) Aspiration pneumonia: Status: Acute Assessment and plan: As above Obtaining a speech therapy consult. Qualifiers: Aspiration pneumonia type: unspecified Laterality: left Lung location: lower lobe of lung Qualified Code(s): J69.0 - Pneumonitis due to inhalation of food and vomit (5) Acute colitis: Status: Acute Assessment and plan: C. diff negative. Await bacterial stool pathogen PCR. (6) Hepatic encephalopathy: Status: Acute Assessment and plan: D/c lactulose given extent of diarrhea and worsening of mental status. Trial rifaximin. Also, add high dose thiamine to ensure that there is no Wernicke's component. (7) Pancreatitis, acute: Status: Acute Assessment and plan: Clinically this is better. Trialing clear liquids. Abdominal exam is benign today. Qualifiers: Pancreatitis type: alcohol induced Acute pancreatitis complication: no infection or necrosis Qualified Code(s): K85.20 - Alcohol induced acute pancreatitis without necrosis or infection (8) Hypomagnesemia: Status: Acute Assessment and plan: Resolved. Recheck in am. (9) Alcoholic hepatitis without ascites: Status: Chronic Assessment and plan: Maddrey score 34.1, up from 33 yesterday. Prognosis is poor. Continue prednisolone. C/s palliative care. (10) Alcohol use disorder: Status: Chronic Assessment and plan: S/p phenobarbital load. Not withdrawing at this time. As above - adding high dose thiamine today. C/s palliative care due to severity of alcoholic hepatitis and poor prognosis. (11) Hypokalemia: Status: Resolved Assessment and plan: Repleted. Recheck in am (12) DVT prophylaxis: Status: Acute Assessment and plan: TEDs (13) Discharge planning issues: Status: Acute Assessment and plan: Full code PT and palliative care consulted. Total Critical Care Time 45 minutes. Discussed with daughter, two sons, and sister. Subjective Subjective Interval history since last seen: Ms Varela is on 67% FiO2 45L saturating in the low 90s. She is more confused and tired today. She thinks she is at rehab and is surprised to find out she is in the assisted. Denies CP, SOB, dizziness, nausea. She states she is not in pain. She has a flexiseal. UOP 1200cc/12 hrs. She did ambulate today without a walker. I had a conversation with the family today in regards to the goals of care and the patient's prognosis. I did recommend a palliative care consult, talked about high mortality from the alcoholic hepatitis stand point and my concerns about her oxygen requirement. We discussed possibility of comfort measures and home hospice, but the family is not there yet and would like me to continue with IV antibiotics, diuretics, steroids. They are worried about her mental status too. Exam Narrative Exam Narrative: General: Middle-aged female who is A&Ox1, somnolent and much less alert than yesterday, does have asterexis, on humidified heated high flow cannula, mild dyspnea. Restless HEENT: EOMI, MMM Heart: RRR, no m/r/g Lungs: Improved aeration B; expiratory wheezing B. Abdomen: soft, nontender, mildly distended Extremities: 2+ edema B feet, wearing TEDs Objective Last Vital Signs Temp 36.7 C 08/01/23 07:42 Pulse 113 H 08/01/23 07:42 Resp 29 H 08/01/23 07:42 BP 100/62 08/01/23 13:33 Pulse Ox 93 08/01/23 09:43 Laboratory Results - last 24 hr 11/19/23 11/19/23 05:28 08:58 WBC 21.03 H RBC 2.34 L Hgb 8.9 L Hct 26.4 L MCV 113 H D MCH 38.0 H MCHC 33.7 RDW 18.3 H Plt Count 281 MPV 10.3 Immature Gran % 2.6 Neutrophils % 84.7 Lymphocytes % 5.9 Monocytes % 6.4 Eosinophils % 0.0 Basophils % 0.4 Nucleated RBC % 0.0 Absolute Neutrophils 17.81 H Absolute Lymphocytes 1.24 Absolute Monocytes 1.35 H Absolute Eosinophils 0.00 Absolute Basophils 0.08 RBC Morphology See Below Macrocytosis 3+ PT 17.8 H INR 1.9 H VBG pH 7.26 L VBG pCO2 45 VBG pO2 56 VBG HCO3 20 L VBG Total CO2 20 L VBG O2 Saturation 85 VBG Base Excess -7 L Sodium 136 Potassium 3.6 Chloride 105 Carbon Dioxide 22.4 Anion Gap 8.6 BUN 12 Creatinine 0.6 Est GFR (CKD-EPI 2020) 106.60 Glucose 120 H Calcium 8.5 Magnesium 1.9 Total Bilirubin 2.8 H Conjugated Bilirubin 2.1 H AST 391 H ALT 169 H Alkaline Phosphatase 169 H Total Protein 5.7 L Albumin 2.0 L Lipase 23 PAWSS Have you Been Recently Intoxicated or Drunk Within the Last 30 days?: Yes Have you Ever Experienced Previous Episodes of Alcohol Withdrawal?: Yes Have you ever Experienced Withdrawal Seizures?: No Have you ever Experienced Delirium Tremens(DT)s?: No Have you ever undergone Alcohol Rehabilitation Treatment (i.e, inpt ot outpatient treatment programs)?: No Have you ever Experienced Blackouts?: No Have you ever Combined Alcohol with other Downers within the last 90 days?: No Have you ever Combined Alcohol with any other Substance of Abuse during the last 90 days?: No Positive Blood Alcohol level on Presentation? [PCS.BAL]: Yes Evidence of Increased Autonomic Activity (i.e. HR>120, tremor, sweating, agitation, nausea)?: No Result: 3 Multi-Disciplinary Checklist Lines/Tubes CENTRAL LINE: no ARTERIAL LINE: no WHITESIDE: yes, Whiteside Day#: 2 ENDOTRACHEAL TUBE: no ICU Maintenance GLUCOSE 140-180mg/dL: yes NUTRITION AT GOAL: yes PRESSURE ULCER: no RESTRAINTS: no ANTIBIOTICS(if yes, consider Stewardship): Yes Social Issues FAMILY UPDATED: yes PT/OT: yes GOALS/DISPOSITION/STAFF ANTISUBMARINE OFFICER: yes CODE STATUS: Full Prophylaxis DVT PROPHYLAXIS: yes GI PROPHYLAXIS: yes, Indication: on steroids Time Spent with Patient Time Spent with Patient: 35-49 minutes Time was spent: preparing to see the patient(eg.review tests), obtaining and/or reviewing separately otained hiistory, ordering medications,tests, procedures, referring, communicating with other health health care marketing specialist, indepentently interpreting results, counseling the patient and care coordination
[2023-08-01] MEDS: THIAMINE 500 MG in Normal Saline 100 ML 200 MG IVPB (16:40)
[2023-08-01 20:51] LABS: Campylobacter PCR Negative (Negative); Salmonella PCR Negative (Negative); Shiga Toxin PCR Negative (Negative); Shigella/Enteroinvasive Ecoli Negative (Negative)
[2023-08-01] MEDS: Normal Saline Flush 10 ML SYR IVP (21:14)
[2023-08-01] MEDS: Albuterol/Ipratropium 3 ML UPD VIAL UPD (22:16)
[2023-08-02] VITALS (60 sets, daily range): BP systolic 75–182; BP diastolic 52–170; PULSE 95–150; RESP 2–38; TEMP 31–36.9; O2SAT 88–95
--- NOTE | 2023-08-02 | DI.US_ITS ---
APPROVED REPORT EXAM: Comprehensive 2D, Doppler, and color-flow Echocardiogram Patient Location: In-Patient Room/Bed: 221 Medical Communication Specialist: Meet Massey RDCS (AE) Indications: bilateral pleural effusions, ? CHF Other Information Study Quality: Adequate Conclusion Normal left ventricular wall thickness and chamber size. Ejection fraction was 63%. Wall motion was normal Normal right ventricular size and systolic function Both atria are normal in size No structural or hemodynamically significant valvular heart disease was identified Right ventricular systolic pressure could not be estimated Wall motion Left Ventricle The left ventricle is normal size. The left ventricular systolic function is normal. The left ventric ular ejection fraction is within the normal range. There is normal left ventricular wall thickness. U nable to obtain measurements due to vertical positioning of left ventricle. There is normal LV segmen surya wall motion. There is no ventricular septal defect visualized. LVEF is 63%. Right Ventricle The right ventricle is normal size. Right ventricular systolic function is grossly normal. Unable to assess PA pressure. Atria The left atrium size is normal. The right atrium size is normal. The interatrial septum is intact wit h no evidence for an atrial septal defect. Aortic Valve The aortic valve is normal in structure. Aortic valve is trileaflet. There is no aortic valvular sten osis. No aortic regurgitation is present. Mitral Valve The mitral valve is normal in structure. No evidence of mitral valve stenosis. There is no mitral yumi ve regurgitation noted. Tricuspid Valve The tricuspid valve is normal in structure. There is no tricuspid valve stenosis. Trace tricuspid reg urgitation. Pulmonic Valve The pulmonary valve is normal in structure. There is no pulmonic valvular stenosis. There is no pulmo sanchez valvular regurgitation. Great Vessels The aortic root is normal in size. Ascending aorta is not well visualized. Aortic arch is not well vi sualized. IVC is normal in size and collapses >50% with inspiration. Pericardium There is no pericardial effusion. 2D Dimensions Ao Root d 3.06 cm F: 2.7 - 3.3 M-Mode TAPSE 2.39 cm (M/F) >1.7 Auto EF LV EDV A4C 102.6 mL LV EDV A2C 101.3 mL LV EDV BP 102.1 mL LV ESV A4C 38.9 mL LV ESV A2C 37.2 mL LV ESV BP 38.1 mL LVEF(%) A4C 62.0 % LVEF(%) A2C 63.3 % LVEF(%) BP 62.7 % LV SV A4C 63.6 ml LV SV A2C 64.1 ml LV SV BP 64.0 ml LV CO A4C 6.4 L/min LV CO A2C 6.6 L/min LV CO BP 6.5 L/min HR A4C 101.14 BPM HR A2C 102.27 BPM LV EDV Index (BP) LA Volume LA Length A4C 2.9 cm LA Length A2C LA Area A4C s 5.22 cm2 LA Area A2C s LA Vol A4C A-L 8.07 mL LA Vol A2C A-L LA Vol Biplane A-L LA Vol A4C MOD 7.6 mL LA Vol A2C MOD LA Vol BP MOD LV Diastology MV E' medial 0.152 (>0.07 m/s) MV E Vmax 0.90 (0.4-1.3 m/s) MV E/E' MED 5.95 (<14) MV A Vmax 0.55 (0.4-1.3 m/s) MV E' lateral 0.128 (>0.1 m/s) E/A Ratio 1.6 MV E/E' LAT 7.06 (<14) MV E' Average 0.140 m/s MV E/E'(average) 6.46 Aortic Valve AoV Vmax 1.27 m/s LVOT Vmax 1.10 m/s AoV Peak Grad 6.5 mmHg LVOT Peak Grad 4.9 mmHg AoV Area (Vmax) 2.62 cm2 LVOT VTI 0.216 m AoV VTI 0.246 m LVOT Mean Grad 2.9 mmHg AoV Mean Nader. 0.90 m/s LVOT SV 65.28 mL AoV Mean Grad 3.5 mmHg LVOT Diam s 1.95 cm AoV Area (VTI) 2.65 cm2 Velocity Ratio 0.87 Mitral Valve MV DT 118 (160-240 msec) Pulmonary Valve PV Vmax 0.93 (0.5-1.5 m/s) RVOT Vmax 0.80 m/s PV Peak Grad 3.5 mmHg RVOT Peak Gr. 2.6 mmHg PV Mean Nader 0.74 m/s RVOT VTI 0.154 m PV Mean Grad 2.4 mmHg RVOT Mean Gr. 1.4 mmHg
[2023-08-02] MEDS: THIAMINE 500 MG in Normal Saline 100 ML 200 MG IVPB ×3 (00:07→20:43)
[2023-08-02] MEDS: Furosemide 20 MG/2 ML VIAL IVP (01:58)
[2023-08-02] MEDS: MEROPENEM 1 GM in Normal Saline 100 ML IVPB ×3 (01:59→20:43)
[2023-08-02] MEDS: Albuterol/Ipratropium 3 ML UPD VIAL UPD ×4 (04:43→21:35)
[2023-08-02 05:40] LABS: Abs Immature Grans 0.38 10^3/uL (0.0-0.06); Absolute Basophil Count 0.05 10^3/uL (0.0-0.2); Absolute Neutrophil Count 19.23 10^3/uL (1.2-6.7); Basophils % 0.2; HCT 25.5 % (36.0-46.0); HGB 8.7 g/dL (11.2-15.7); Immature Grans % 1.7; Lymphocytes % 5.8; MCHC 34.1 % (32.0-36.0); MCV 111 fL (80-95); MPV 10.3 fL (8.0-11.0); Monocytes % 8.4; Neutrophils % 83.9; Nucleated RBC 0.1 % (0.0-0.3); Platelet Count 265 10^3/uL (130-400); RBC 2.29 10^6/uL (3.93-5.22); RDW 18.5 % (11.7-14.6); RDW-SD 72.7 fL; WBC 22.92 10^3/uL (4.4-10.8)
[2023-08-02 06:03] LABS: ALT 121 U/L (14-59); AST 160 U/L (15-37); Albumin 1.8 g/dL (3.4-5.0); Alkaline Phosphatase 155 U/L (46-116); BUN 19 mg/dL (7-18); Bilirubin, Direct 1.7 mg/dL (0.0-0.2); Bilirubin, Total 2.2 mg/dL (0.2-1.0); CREATININE 0.7 mg/dL (0.55-1.02); Chloride 107 mmol/L (98-107); Estimated GFR 102.71 (mL/min/1.73m2); Glucose 147 mg/dL (74-106); Magnesium 1.8 mg/dL (1.8-2.4); Sodium 139 mmol/L (136-145); Total Protein 5.4 g/dL (6.4-8.2)
[2023-08-02 06:05] LABS: INR 1.6 (0.9-1.1); Prothrombin Time 15.8 sec (9.1-11.1)
[2023-08-02 06:10] LABS: Potassium 2.9 mmol/L (3.5-5.1)
[2023-08-02 06:16] LABS: Ammonia < 10 umol/L (11-32)
[2023-08-02 06:44] LABS: Absolute Lymphocyte Count 1.33 10^3/uL (1.2-3.4); Absolute Monocyte Count 1.93 10^3/uL (0.1-0.8)
[2023-08-02 06:46] LABS: Diff Comment Diff Reviewed; Macrocytosis 2+; Target Cells 2+
[2023-08-02] MEDS: POTASSIUM CHLORIDE 20 MEQ/100 ML BAG 50 MEQ IVPB ×2 (07:03→09:11)
[2023-08-02] MEDS: Budesonide/Formoterol 160/4.5 6 GM 60 PUFF INH IH ×2 (08:33→20:32)
[2023-08-02] MEDS: Normal Saline Flush 10 ML SYR IVP ×3 (09:11→22:33)
[2023-08-02] MEDS: Pantoprazole 40 MG VIAL IVP (09:12)
[2023-08-02] MEDS: prednisoLONE SOD PHOS. Soln. 3 MG/ML 40 MG PO (09:13)
[2023-08-02] MEDS: Nicotine 21 MG/24 HR PATCH TD (09:13)
--- NOTE | 2023-08-02 09:17 | PDOC.CMPRO ---
Date of service: 08/02/23 Time of Service: 09:17 Care Management Progress Note Progress Note Text Progress Note Text: S/O: Nyasia was lying in bed when CM met with her. She had her eyes closed and did not engage in conversation. Her daughter and 2 sisters were visiting and had many questions about what will happen next. Nyasia remains critically ill in the ICU. Her liver function is slightly improved, however she continues to require high flow nasal oxygen to maintain saturation levels between 88 and 91%. CM informed the family that a Palliative Care consult has been requested and will take place this afternoon. Per provider, the consultation went well and Nyasia's code status has now been changed to DNR/DNI. If Nyasia recovers from this acute illness, it is likely she will need short term rehab before returning home. Her daughter/HCA is in support of that plan and further discussion will take place if/when appropriate. A: Nyasia is a 53 year old woman admitted on 07/26/23 with pancreatitis P:Nyasia remains critically ill in the ICU. Her prognosis is not clear at this time. If she survives this acute illness she will very likely need short term rehab before returning home. CM will continue to support Nyasia, her family and any discharge planning needs.
--- NOTE | 2023-08-02 09:47 | W.SPSTE ---
Date of service: 08/02/23 Time of Service: 08:00 Subjective Clinical (Bedside) Swallow Evaluation Speech Language Pathology Referred by: Dr. Jackson Referral Type: Clinical Swallow Evaluation Reason for Referral/HPI: Nyasia Varela is a 53 yo female with history of daily ETOH use, +smoker, COPD, with limited medical attention in several years who was admitted 07/27/23 with acute pancreatitis including nausea/vomiting. On 07/28 she was found to be febrile, with new left side LL pneumonia, and + sepsis. She has demonstrated decline in status, including delirium and increased oxygen demands. Family present and report she had a concerning coughing/? aspiration event while eating over the weekend, which triggered SOCIAL ORGANIZATION PROFESSOR referral. SOCIAL ORGANIZATION PROFESSOR IMPRESSIONS & RECOMMENDATIONS: Nyasia was seen for non-instrumental swallow evaluation during breakfast. She was seeing sitting upright in a chair- alert, though highly confused with non-sensible verbal responses to questions. She was easily distracted/concerned with individuals talking at nursing station and benefitted from closed curtain during meal. Patient currently on nasal cannula, 6 LPM. Her vital signs remained stable throughout breakfast, with SPo2 95%. She accepted very small amounts of PO - 1-2 ounces of jello, 1 bite of buttered toast (which she expectorated), and 8ounces of thin liquid. She demonstrated mild intermittent throat clearing with initial sips of liquid, though no additional overt s/s aspiration appreciated. Overall she presents with at least moderate acute oral pharyngeal dysphagia largely impacted by confusion/delirium and deconditioned status. Patient currently on Clear Liquid Diet- per RN/MD this is for aspiration concerns, not pancreatitis. In goal of increasing nutrition options to increase PO intake while maintaining swallow safety, recommend change from clear liquids to puree solids/thin liquid diet - MD in agreement. Please continue strict aspiration precautions as outlined below, including 1:1 assist with meals, oral hygiene before/after meals, upright positioning for all PO (up in chair if able). Education was provided to family present in room, who expressed concern re: swallow safety for puree solids/preferring liquids only as they witnessed the coughing/choking episode. Education provided re: risks for swallowing thin liquids vs solids, and rationale behind diet recommendations, and swallowing precautions with feeding. FURTHER SOCIAL ORGANIZATION PROFESSOR SERVICES: Patient to be followed while on unit. Plan of care following discharge TBD. Diet Recommendations: L4 Puree Pudding Thick Solids, L0 Thin Liquids, 1:1 Supervision/Assist SUBJECTIVE: Patient received alert/awake, confused Pain Reported? None reported Baseline Swallow Function: Unable to report PO Trials Assessed: IDDSI 0 Thin Liquids (8oz juice via straw) IDDSI 4 Puree Solid (Jello) IDDSI 6 Soft & Bite Size Solid (1/4 piece of toast- lightly toasted w/ butter) Oral Mechanism Examination: Unable to be assessed in light of confusion. Dentition is WFL. Oral mucosa appears dry. Oral Phase Findings: Difficulty with bolus manipulation Oral holding with liquids Pharyngeal Phase Findings: Delayed swallow initiation Throat clearing?with initial sips of thin only ? [place] Swallow Protocol Results: Unable to assess ??? ASSESSMENT: Further SOCIAL ORGANIZATION PROFESSOR Services indicated. Patient to be followed while on unit. Recommendation at Discharge: to be determined Suggested Referrals: N/A Recommended Procedures: N/A Recommendations: ? SOLIDS: 4-Pureed Solids LIQUIDS: 0-Thin Liquids MEDICATIONS: Whole or crushed in applesauce/pudding RISK MANAGEMENT: HOB upright as tolerated; upright for all PO intake. Up in a chair if possible. Encourage physical mobility as tolerated. Oral hygiene BID/2x per day Level of Assistance/Supervision: 1:1 close supervision for all PO intake, Assistive feeding only by trained staff/family PO intake only when awake/alert? Strategies/Adaptations/Assistive Equipment: Reduce auditory and/or visual distractions when eating, Small sips and bites when eating, Slow rate of intake Posture/Positioning Needs: Maintain upright position at least 30 minutes after meals Education Provided to: Nursing, Physician, Family Topics Addressed:overt s/sx to monitor for re: potential aspiration of food / liquids, recommendations for improved oral care PLAN: Frequency: 2-3x/week for 1-2 weeks Goals: Hand Pleater Goals: Patient will remain free from aspiration-related illness, malnutrition, and dehydration. Patient/family will verbalize comprehension of education provided re: dx dysphagia, strategies to maximize functioning, and role of ST. Short Term Goals: Patient will tolerate Puree Diet and Thin liquids without overt s/s aspiration across 2/2 visits. Patient will tolerate PO trials for consideration of diet upgrade without overt s/s aspiration across 2/2 visits. SOCIAL ORGANIZATION PROFESSOR CPT Code: 63922 Clinical Swallowing Evaluation TOTAL TIME: 35 Minutes ([id number]) Coding CPT Codes EVALUATE SWALLOWING FUNCTION - 61818 ([id number]) Additional Codes Date of Service (67176) Date of service: 08/02/23
[2023-08-02] MEDS: DOXYCYCLINE 100 MG in Normal Saline 100 ML IVPB ×2 (11:20→22:27)
[2023-08-02] MEDS: Furosemide 100 MG/10 ML VIAL 80 MG IVP (11:26)
--- NOTE | 2023-08-02 13:59 | PGE_ITS ---
Date of Service Date of service: 08/02/23 Time of Service: 10:50 Assessment and Plan Assessment and plan (1) Acute respiratory failure with hypoxia: Status: Acute Assessment and plan: O2 requirement is improved. Now on a regular high flow NC at 6L of O2. CT w/ multifocal PNA and pleural effusions. Discussed with Dr Sorensen. Intensify diuresis. Continue abx (doxy, meropenem), steroids. Encourage pulmonary toilet. Monitor O2 requirement. The patient is full code, as verified in conversation with her and family. Palliative care is seeing the patient today. (2) Septic shock: Status: Resolved Assessment and plan: Due to multifocal PNA. No longer requiring vasopressors - however, on midodrine. Blood culutures negative. Continue doxy/meropenem. Vancomycin d/c'ed. (3) COPD (chronic obstructive pulmonary disease) with emphysema: Status: Chronic Assessment and plan: Continue steroids. Schedule duonebs; continue prn albuterol, symbicort. Wean O2 as tolerated. (4) Aspiration pneumonia: Status: Acute Assessment and plan: As above Discussed with speech therapy: recommended to have pureed solids/pudding and thin liquids. Qualifiers: Aspiration pneumonia type: unspecified Laterality: left Lung location: lower lobe of lung Qualified Code(s): J69.0 - Pneumonitis due to inhalation of food and vomit (5) Acute colitis: Status: Acute Assessment and plan: C. diff negative. Remaining stool studies are negative. Consider outpatient colonoscopy. (6) Hepatic encephalopathy: Status: Acute Assessment and plan: Reintroduce lactulose in addition to rifaximin. Continue high dose thiamine to ensure that there is no Wernicke's component. (7) Pancreatitis, acute: Status: Acute Assessment and plan: Clinically this is better. Tolerating a diet. Abdominal exam is benign today. Qualifiers: Acute pancreatitis complication: no infection or necrosis Pancreatitis type: alcohol induced Qualified Code(s): K85.20 - Alcohol induced acute pancreatitis without necrosis or infection (8) Hypomagnesemia: Status: Acute Assessment and plan: Resolved. Recheck in am. (9) Alcoholic hepatitis without ascites: Status: Chronic Assessment and plan: Maddrey score 24.3 today, improved. Continue prednisolone. Await palliative care consult. (10) Alcohol use disorder: Status: Chronic Assessment and plan: S/p phenobarbital load. Not withdrawing at this time. As above - Continue thiamine C/s palliative care due to severity of alcoholic hepatitis and poor prognosis. (11) Hypokalemia: Status: Resolved Assessment and plan: Replete, Recheck in am (12) DVT prophylaxis: Status: Acute Assessment and plan: TEDs (13) Discharge planning issues: Status: Acute Assessment and plan: Full code PT and palliative care consulted. Total Critical Care Time 35 minutes. Discussed with daughter, son, and sister. Discussed with Dr Sorensen Subjective Subjective Interval history since last seen: Ms Varela was up to the chair this morning, but then went back to bed to rest. When I came to see her, she had just fallen asleep. She was difficult to wake up, but did wake up. She did not answer my questions. Family reports seeing a muscle twitch. She was transitioned to 6L of O2 by NC because she would not wear the humidified heated high flow NC anymore. Nursing reports that the patient had purulent sputum. Midline was placed yesterday. UOP 1150 cc in 12 hours. Did receive another dose of furosemide last night. Exam Narrative Exam Narrative: General: Middle-aged female who lethargic, arousable, but falls back asleep, is A&Ox1, on 6L of O2 by NC HEENT: EOMI, MMM Heart: RRR, no m/r/g Lungs: Improved aeration B; expiratory wheezing B. Abdomen: soft, nontender, mildly distended Extremities: 2+ edema B feet, wearing TEDs Objective Last Vital Signs Temp 36.3 C L 08/02/23 07:46 Pulse 108 H 08/02/23 12:00 Resp 27 H 08/02/23 12:00 BP 105/70 08/02/23 12:00 Pulse Ox 91 L 08/02/23 12:59 Laboratory Results - last 24 hr 08/01/23 08/02/23 05:26 05:15 WBC 22.92 H RBC 2.29 L Hgb 8.7 L Hct 25.5 L MCV 111 H MCH 38.0 H MCHC 34.1 RDW 18.5 H Plt Count 265 MPV 10.3 Immature Gran % 1.7 Neutrophils % 83.9 Lymphocytes % 5.8 Monocytes % 8.4 Eosinophils % 0.0 Basophils % 0.2 Nucleated RBC % 0.1 Absolute Neutrophils 19.23 H Absolute Lymphocytes 1.33 Absolute Monocytes 1.93 H Absolute Eosinophils 0.00 Absolute Basophils 0.05 RBC Morphology See Below Macrocytosis 2+ PT 15.8 H INR 1.6 H Sodium 139 Potassium 2.9 L* Chloride 107 Carbon Dioxide 24.0 Anion Gap 8.0 BUN 19 H Creatinine 0.7 Est GFR (CKD-EPI 2020) 102.71 Glucose 147 H Calcium 9.0 Magnesium 1.8 Total Bilirubin 2.2 H Conjugated Bilirubin 1.7 H AST 160 H ALT 121 H Alkaline Phosphatase 155 H Ammonia < 10 L Total Protein 5.4 L Albumin 1.8 L Stool Campylobacter PCR Negative Stool Salmonella PCR Negative Stool Shigella PCR Negative Shiga Toxin (PCR) Negative PAWSS Have you Been Recently Intoxicated or Drunk Within the Last 30 days?: Yes Have you Ever Experienced Previous Episodes of Alcohol Withdrawal?: Yes Have you ever Experienced Withdrawal Seizures?: No Have you ever Experienced Delirium Tremens(DT)s?: No Have you ever undergone Alcohol Rehabilitation Treatment (i.e, inpt ot outpatient treatment programs)?: No Have you ever Experienced Blackouts?: No Have you ever Combined Alcohol with other Downers within the last 90 days?: No Have you ever Combined Alcohol with any other Substance of Abuse during the last 90 days?: No Positive Blood Alcohol level on Presentation? [PCS.BAL]: Yes Evidence of Increased Autonomic Activity (i.e. HR>120, tremor, sweating, agitation, nausea)?: No Result: 3 Time Spent with Patient Time Spent with Patient: 35-49 minutes Time was spent: preparing to see the patient(eg.review tests), obtaining and/or reviewing separately otained hiistory, ordering medications,tests, procedures, referring, communicating with other health inspector health care facilities, indepentently interpreting results, counseling the patient and care coordination
[2023-08-02] MEDS: Lactulose 20 GM/30 ML CUP PO ×2 (14:19→20:46)
[2023-08-02] MEDS: Midodrine 2.5 MG TAB PO ×2 (14:19→20:41)
--- NOTE | 2023-08-02 14:41 | W.PALLCONSUL ---
Date of service: 08/02/23 Time of Service: 13:15 History of Present Illness Narrative: Ms. Murrell is a 53y/o F currently inpatient in ICU 2/2 septic shock c/b aspiration PNA and pancreatitis; PMHx sig for newly dx acute hepatitis c/b AUD, newly dx COPD; present today daughter/HCA Megan, mother/co-agent GINA Hanna, sister Aissatou Hospital course: Nyasia presented to [facility] ED on 07/26 after 3 wks constipation, worsening abdominal pain/nausea; work up consisted w/pancreatitis and started on CIWA protocol for alcohol withdrawal; over the weekend she took a dramatic turn, going into septic shock c/b aspiration PNA, LLL infiltrate w/pleural effusions; in ICU requiring pressors, only on midodrine currently; acute respiratory failure w/hypoxia, was requiring high flow O2 w/some concern over potential need for intubation, this has resolved now and is stable on 4-6L NC w/goal maintaining >88%. HAT STOCK LAMINATING MACHINE OPERATOR consult w/recommendations made, HOB elevated for all food intake, 1:1 supervision w/all feeds. Maddrey score improving, however overall poor prognosis remains concern per staff: Nyasia was OOB yesterday 3x, which she tolerated well; was OOB for 3 hours earlier and is now too weak/delirious to engage; has been tolerating sips, but not that intersted in eating today, however during visit was engaging and ate entire pudding. remains a total care assist at this time; concerns over pain, would like to start something scheduled for chronic pain, morphine was lowering BP - AD completed and reviewed w/Janice and Nyasia via CM last week prior to decline over the weekend report from family Nyasia has said for years she would want to be a DNR on several different occasions, unclear why she selected yes CPR on most recent AD, was clear about only wanting life sustained if able to care for self, communicate w/family, live w/o pain and be aware of surroundings. They agree that in this current state she is not there however remain hopeful she will continue to improve, she is slightly better today compared to over the weekend. They do want antibiotics and IVF continued at this time - chronic hip pain; - she would want to be in hospital if dying. would want to be home if not at end of life and return for hospital for EoL Nyasia denies pain, nausea or discomfort today Assessment and Plan Assessment and plan (1) Septic shock: Status: Resolved Assessment and plan: multifocal PNA continue doxycylcine and meropenem plan to continue current tx plan (2) Aspiration pneumonia: Status: Acute Assessment and plan: HAT STOCK LAMINATING MACHINE OPERATOR following 1:1 supervision w/HOB up for all intake Qualifiers: Aspiration pneumonia type: unspecified Laterality: left Lung location: lower lobe of lung Qualified Code(s): J69.0 - Pneumonitis due to inhalation of food and vomit (3) Acute respiratory failure with hypoxia: Status: Acute Assessment and plan: now using NC, ranging from 4-6L today w/goal maintaining O2 >88% continue abx, steroids, diuresis, duonebs, albuterol plan to continue current tx plan (4) Hepatic encephalopathy: Status: Acute Assessment and plan: restart lactulose today high dose thiamine r/t alcohol use and Wernicke's contribution (5) COPD (chronic obstructive pulmonary disease) with emphysema: Status: Chronic Assessment and plan: as above continue Symbicort (6) Discharge planning issues: Status: Acute (7) Acute pancreatitis: Status: Acute Assessment and plan: improving, tolerating advanced diet pudding today (8) Alcohol use disorder: Status: Chronic (9) Alcoholic hepatitis without ascites: Status: Chronic Assessment and plan: Maddrey score improving did not review end stage liver disease - need for prognosis review (10) DNR (do not resuscitate): Status: Acute (11) Do not attempt intubation: Status: Acute (12) Pain: Status: Acute Assessment and plan: chronic, hips recommend scheduled tylenol, 2g daily max lidocaine patches continue low dose morphine, which has not required; concerns over low BP and liver metabolism consider switch to oxycodone for pain if no effect w/apap (13) Weakness: Status: Acute Assessment and plan: worse today, improving slightly continue to monitor (14) ACP (advance care planning): Status: Acute Assessment and plan: reviewed hospital course, aspiration PNA, septic shock, alcohol related pancreatitis and liver function; reviewed CODE status and treatment preferences, reviewed previously completed AD - continue current treatment plan, aiming at treating current diseases/illnesses; if respiratory status fails to point of intubation DO NOT INTUBATE; if heart stops DO NOT RESUSCITATE; no feeding tube - would want to be in hospital for end of life, not in home; would want to be home if not imminently dying and return for EoL; she has asked to go home a few times to various family/staff; unable to participate in conversation today, will f/u in future visits spent 35 mins w/ACP (15) Palliative care encounter: Status: Acute Assessment and plan: PC will continue to follow w/Ms. Murrell plan for f/u on Wed form as appropriate, review care plan, prognosis and symptom management harnessmaker apprentice consult placed Review of Systems Narrative: as per HPI; pt unable to participate d/t mental status PFSH All Active Problems (Updated 08/02/23 @ 14:50 by Mita Hernandez NP) Palliative care encounter (Acute) Weakness (Acute) Pain (Acute) Do not attempt intubation (Acute) DNR (do not resuscitate) (Acute) ACP (advance care planning) (Acute) Acute colitis (Acute) Acute respiratory failure with hypoxia (Acute) Discharge planning issues (Acute) DVT prophylaxis (Acute) Hepatic encephalopathy (Acute) Aspiration pneumonia (Acute) COPD (chronic obstructive pulmonary disease) with emphysema (Chronic) Acute hypokalemia (Acute) Chronic hyponatremia (Acute) Acute pancreatitis (Acute) Liver dysfunction (Acute) Alcohol use disorder (Chronic) Anemia (Chronic) Hypomagnesemia (Acute) Alcoholic hepatitis without ascites (Chronic) Pancreatitis, acute (Acute) Social History Smoking/Tobacco Use Status: Current every day Tobacco Type: cigarettes Smoking risk assessment performed?: Yes Alcohol Intake: current Alcohol Intake frequency: 3 or more drinks per day Alcohol type: hard liquor Drug use: Daily Substance use type: marijuana Details: at night to sleep Housing: apartment Do you feel safe at home: Yes Do you feel safe in your relationship?: Yes Exam Narrative Exam Narrative: General: appears older than stated age; awake and alert, confused. lying in ICU bed w/HOB elevated, mumbles incoherent throughout, able to answer closed ended questions 50% of time HEENT: hard of hearing, dry mucus membranes, normocephalic, atraumatic Resp: tachynpic, NC 4L increased to 5L in visit w/decreased resp effort; lips appropriate color; no acute distress Skin: dry, atrophy Psych: MS altered, confused, mumbles throughout, fatigued; insight/judgment poor Results Last Vital Signs Temp 96.8 F L 08/02/23 13:50 Pulse 108 H 08/02/23 14:01 Resp 34 H 08/02/23 14:01 BP 107/69 08/02/23 14:01 Pulse Ox 90 L 08/02/23 14:01 Labs 08/02/23 05:15 08/02/23 05:15 Labs: Laboratory Results - last 24 hr 08/01/23 08/02/23 05:26 05:15 WBC 22.92 H RBC 2.29 L Hgb 8.7 L Hct 25.5 L MCV 111 H MCH 38.0 H MCHC 34.1 RDW 18.5 H Plt Count 265 MPV 10.3 Immature Gran % 1.7 Neutrophils % 83.9 Lymphocytes % 5.8 Monocytes % 8.4 Eosinophils % 0.0 Basophils % 0.2 Nucleated RBC % 0.1 Absolute Neutrophils 19.23 H Absolute Lymphocytes 1.33 Absolute Monocytes 1.93 H Absolute Eosinophils 0.00 Absolute Basophils 0.05 RBC Morphology See Below Macrocytosis 2+ PT 15.8 H INR 1.6 H Sodium 139 Potassium 2.9 L* Chloride 107 Carbon Dioxide 24.0 Anion Gap 8.0 BUN 19 H Creatinine 0.7 Est GFR (CKD-EPI 2020) 102.71 Glucose 147 H Calcium 9.0 Magnesium 1.8 Total Bilirubin 2.2 H Conjugated Bilirubin 1.7 H AST 160 H ALT 121 H Alkaline Phosphatase 155 H Ammonia < 10 L Total Protein 5.4 L Albumin 1.8 L Stool Campylobacter PCR Negative Stool Salmonella PCR Negative Stool Shigella PCR Negative Shiga Toxin (PCR) Negative
--- NOTE | 2023-08-02 16:23 | PT.INNT ---
Date of service: 08/02/23 Time of Service: 13:06 PT Notes Visit Reasons: Acute Pancreatitis, Alcoholic Hepatitis, Chronic A Patient on hold per RN Yvette at 13:06, come back at 14:00. Returned at 14:15, patient in a meeting with Palliative Care. Returned again at 16:16, Patient to sleep if able per RN Yvette. Patient refused therapy due to fatigue, family agreed due to fatigue and confusion.
[2023-08-02] MEDS: Rifaximin 550 MG TAB PO (20:40)
[2023-08-02] MEDS: Acetaminophen 500 MG TAB PO (20:41)
[2023-08-02] MEDS: Furosemide 40 MG/4 ML VIAL IVP (20:42)
[2023-08-02] MEDS: Lidocaine 5% Patch 2 PATCH TP (20:44)
[2023-08-03] VITALS (39 sets, daily range): BP systolic 100–118; BP diastolic 59–88; PULSE 88–144; RESP 2–35; TEMP 36.1–36.9; O2SAT 82–98
[2023-08-03] MEDS: THIAMINE 500 MG in Normal Saline 100 ML 200 MG IVPB ×3 (00:07→23:20)
[2023-08-03] MEDS: MEROPENEM 1 GM in Normal Saline 100 ML IVPB ×3 (03:00→18:18)
[2023-08-03] MEDS: Normal Saline Flush 10 ML SYR IVP ×3 (03:11→23:18)
[2023-08-03] MEDS: Albuterol/Ipratropium 3 ML UPD VIAL UPD ×4 (04:35→21:30)
[2023-08-03 07:30] LABS: Abs Immature Grans 0.91 10^3/uL (0.0-0.06); Absolute Lymphocyte Count 1.53 10^3/uL (1.2-3.4); Basophils % 0.3; Eosinophils % 0.2; HCT 23.2 % (36.0-46.0); HGB 8.1 g/dL (11.2-15.7); Immature Grans % 3.8; Lymphocytes % 6.4; MCH 37.9 pg (27.0-33.0); MCHC 34.9 % (32.0-36.0); MCV 108 fL (80-95); MPV 10.5 fL (8.0-11.0); Monocytes % 5.6; Neutrophils % 83.7; Platelet Count 247 10^3/uL (130-400); RBC 2.14 10^6/uL (3.93-5.22); RDW-SD 75.5 fL
[2023-08-03 07:33] LABS: Absolute Basophil Count 0.07 10^3/uL (0.0-0.2); Absolute Eosinophil Count 0.05 10^3/uL (0.0-0.7); Absolute Monocyte Count 1.34 10^3/uL (0.1-0.8)
[2023-08-03 07:37] LABS: INR 1.5 (0.9-1.1); Prothrombin Time 14.5 sec (9.1-11.1)
[2023-08-03 07:44] LABS: Diff Comment Diff Reviewed; Target Cells 2+
[2023-08-03] MEDS: Budesonide/Formoterol 160/4.5 6 GM 60 PUFF INH IH ×2 (08:08→19:54)
--- NOTE | 2023-08-03 08:08 | PDOC.CMPRO ---
Date of service: 08/03/23 Time of Service: 08:08 Care Management Progress Note Progress Note Text Progress Note Text: Nyasia remains critically ill in the ICU. Her prognosis is not clear at this time. If she survives this acute illness she will very likely need short term rehab before returning home. CM will continue to support Nyasia, her family and any discharge planning needs.
[2023-08-03 08:10] LABS: ALT 105 U/L (14-59); AST 142 U/L (15-37); Albumin 1.8 g/dL (3.4-5.0); Alkaline Phosphatase 174 U/L (46-116); Anion Gap 8.2 mmol/L (3-11); BUN 18 mg/dL (7-18); Bilirubin, Direct 1.5 mg/dL (0.0-0.2); Bilirubin, Total 2.1 mg/dL (0.2-1.0); CO2 24.8 mmol/L (21.0-32.0); CREATININE 0.5 mg/dL (0.55-1.02); Calcium 9.1 mg/dL (8.5-10.1); Chloride 110 mmol/L (98-107); Estimated GFR 111.39 (mL/min/1.73m2); Glucose 96 mg/dL (74-106); Magnesium 1.6 mg/dL (1.8-2.4); Sodium 143 mmol/L (136-145); Total Protein 5.4 g/dL (6.4-8.2)
[2023-08-03 08:15] LABS: Potassium 2.3 mmol/L (3.5-5.1)
[2023-08-03] MEDS: Nicotine 21 MG/24 HR PATCH TD (09:32)
[2023-08-03] MEDS: Pantoprazole 40 MG VIAL IVP (09:32)
[2023-08-03] MEDS: prednisoLONE SOD PHOS. Soln. 3 MG/ML 40 MG PO (09:33)
[2023-08-03] MEDS: THIAMINE 500 MG in Normal Saline 100 ML 100 MG IVPB (09:35)
[2023-08-03] MEDS: Midodrine 2.5 MG TAB PO ×3 (09:36→20:44)
[2023-08-03] MEDS: Lactulose 20 GM/30 ML CUP PO ×2 (09:36→20:44)
[2023-08-03] MEDS: Rifaximin 550 MG TAB PO ×2 (09:36→20:44)
[2023-08-03] MEDS: MAGNESIUM SULFATE 2 GM/50 ML BAG IVPB (09:37)
[2023-08-03] MEDS: POTASSIUM CHLORIDE 20 MEQ/100 ML BAG 50 MEQ IVPB ×5 (10:49→20:43)
[2023-08-03] MEDS: DOXYCYCLINE 100 MG in Normal Saline 100 ML IVPB ×2 (11:44→22:15)
--- NOTE | 2023-08-03 12:10 | SPP_ITS ---
Date of service: 08/03/23 Time of Service: 12:10 Subjective Patient received alert/awake, confused. Appearing very weak. Uninterested in PO intake but willing to take several bites of puree and sips of thin liquid before refusing further trials. Objective/Assessment/Plan Objective Treatment Techniques & Outcomes: PO Trials Assessed: IDDSI 0 Thin Liquids (8oz juice via straw) IDDSI 4 Puree Solid (Jello) IDDSI 6 Soft & Bite Size Solid (1/4 piece of toast- lightly toasted w/ butter) Oral Mechanism Examination: Unable to be assessed in light of confusion. Dentition is WFL. Oral mucosa appears dry. Crusted food/drink around lips from prior meal. Oral Phase Findings: Poor spoon stripping. Effortful straw suction. No anterior loss. Pharyngeal Phase Findings: Delayed swallow initiation Weak/reduced hyolaryngeal displacement No cough/throat clear, wet voice. ? [place] Swallow Protocol Results: Unable to assess ??? Assessment Nyasia was seen for PALLIATIVE CARE PHYSICIAN follow-up to monitor for diet tolerance this date. Currently on 3LPM O2 via nasal cannula. SPO2 remained 90-91 throughout session, having just completed 2 person assisted transfer from bed to chair. While she accepted only very small amounts of PO (3-4 bites/sips each of puree and thin liquids), she did appear to tolerate these well without s/sx aspiration and demonstrates mild improvements of oral phase deficits demonstrated on earlier assessment. She was unable to follow any instructions for oral-motor exam. Despite some reported improvement in mental status this morning, and decreasing oxygen needs over previous evaluation by PALLIATIVE CARE PHYSICIAN, she does appear extremely fatigued and weak on exam today. Recommend to maintain current diet of puree solids/thin liquid for energy conservation and to reduce risk of aspiration. Please continue strict precautions as below including 1:1 assist with meals, oral hygiene before/after meals, upright positioning for all PO (up in chair if able). Education was provided to family and nursing present in room re: rationale behind diet recommendations, oral care instructions and and swallowing precautions with feeding. FURTHER PALLIATIVE CARE PHYSICIAN SERVICES: Patient to be followed while on unit. Plan of care following discharge TBD. Recommendations: ? SOLIDS: 4-Pureed Solids LIQUIDS: 0-Thin Liquids MEDICATIONS: Whole or crushed in applesauce/pudding RISK MANAGEMENT: HOB upright as tolerated; upright for all PO intake. Up in a chair if possible. Encourage physical mobility as tolerated. Oral hygiene BID/2x per day Level of Assistance/Supervision: 1:1 close supervision for all PO intake, Assistive feeding only by trained staff/family PO intake only when awake/alert? Strategies/Adaptations/Assistive Equipment: Reduce auditory and/or visual distractions when eating, Small sips and bites when eating, Slow rate of intake Posture/Positioning Needs: Maintain upright position at least 30 minutes after meals Education Provided to: Nursing, Physician, Family Topics Addressed:overt s/sx to monitor for re: potential aspiration of food / liquids, recommendations for improved oral care PLAN: Frequency: 2-3x/week for 1-2 weeks Goals: Mcc Goals: Patient will remain free from aspiration-related illness, malnutrition, and dehydration. Patient/family will verbalize comprehension of education provided re: dx dysphagia, strategies to maximize functioning, and role of ST. Short Term Goals: Patient will tolerate Puree Diet and Thin liquids without overt s/s aspiration across 2/2 visits. Patient will tolerate PO trials for consideration of diet upgrade without overt s/s aspiration across 2/2 visits. Time spent: 20 minutes Coding CPT Codes ORAL FUNCTION THERAPY - 69716 ([id number]) Additional Codes Date of Service (62470) Date of service: 08/03/23
[2023-08-03] MEDS: Acetaminophen 500 MG TAB PO ×3 (12:57→22:16)
--- NOTE | 2023-08-03 16:53 | PT.INTREAT ---
Date of service: 08/03/23 Time of Service: 13:32 PT Notes Visit Reasons: Acute Pancreatitis, Alcoholic Hepatitis, Chronic A Inpatient Physical Therapy Treatment Note [facility] Date: 08/03/23 PRECAUTIONS: Fall, standard, activity as tolerated. SUBJECTIVE: Per family report, this is the most alert and like herself that Bertin has been since coming to the hospital. OBJECTIVE: ?Patient is up with FREDERICK Crawford and a family member. Agreeable to walking. ? PAIN: None reported VITALS: closely monitored by nursing staff. ? BED MOBILITY/TRANSFERS? Rolling L/R: Not assessed Supine-sit: Not assessed ? Sit-supine: Not assessed ? Sit-stand: Not assessed ? Stand-sit: CGA ? Bed-Chair: CGA ? Chair-bed: CGA Gait Training ([id number]): Direct one-on-one instruction and skilled instruction in: [] employing an assistive device [] modified weight-bearing status [] movement sequencing [x] turning and movement with proper form [x] Provided verbal cues for equipment management and technique [] Provided instruction in gait pattern [] Patient education regarding pacing and breathing techniques to maximize activity tolerance? GAIT? Assistive Device: FWW ? Weight bearing: full Assist: CGA, wheelchair follow ? Distance:? 60 feet ? Deviation: reduced step height, reduced stride length, mechanical appearing stride. ? ASSESSMENT:? After ambulation patient reports being very fatigued, needing rest. PLAN: Continue global strengthening per plan of care until patient is medically cleared for discharge. TREATMENT CODE/TIME: 9 minutes beginning at 13:32
[2023-08-03] MEDS: Lidocaine Patch Removal 2 EACH TP (16:55)
[2023-08-03 17:34] LABS: Anion Gap 5.7 mmol/L (3-11); BUN 16 mg/dL (7-18); CO2 25.3 mmol/L (21.0-32.0); CREATININE 0.6 mg/dL (0.55-1.02); Calcium 9.3 mg/dL (8.5-10.1); Chloride 109 mmol/L (98-107); Glucose 143 mg/dL (74-106); Potassium 3.4 mmol/L (3.5-5.1); Sodium 140 mmol/L (136-145)
--- NOTE | 2023-08-03 18:38 | PGE_ITS ---
Date of Service Date of service: 08/03/23 Time of Service: 10:10 Assessment and Plan Assessment and plan (1) Acute respiratory failure with hypoxia: Status: Acute Assessment and plan: O2 requirement is improved to the point of being able to be transferred out of the ICU. CT w/ multifocal PNA and pleural effusions. Discussed with Dr Sorensen. Continue diuresis,doxy, meropenem, steroids. Encourage pulmonary toilet. Wean O2 as tolerated. Code status is now DNR/DNI. (2) Septic shock: Status: Resolved Assessment and plan: Due to multifocal PNA. No longer requiring vasopressors - however, on midodrine. Blood culutures negative. Continue doxy/meropenem. Vancomycin d/c'ed. (3) COPD (chronic obstructive pulmonary disease) with emphysema: Status: Chronic Assessment and plan: Continue steroids. Schedule duonebs; continue prn albuterol, symbicort. Wean O2 as tolerated. (4) Aspiration pneumonia: Status: Acute Assessment and plan: As above Discussed with speech therapy: recommended to have pureed solids/pudding and thin liquids. Qualifiers: Aspiration pneumonia type: unspecified Laterality: left Lung location: lower lobe of lung Qualified Code(s): J69.0 - Pneumonitis due to inhalation of food and vomit (5) Acute colitis: Status: Acute Assessment and plan: C. diff negative. Remaining stool studies are negative. Consider outpatient colonoscopy. (6) Hepatic encephalopathy: Status: Acute Assessment and plan: Continue lactulose and rifaximine. Continue high dose thiamine to ensure that there is no Wernicke's component. (7) Pancreatitis, acute: Status: Resolved Assessment and plan: Clinically resolved. Tolerating a diet. Abdominal exam is benign today. Qualifiers: Acute pancreatitis complication: no infection or necrosis Pancreatitis type: alcohol induced Qualified Code(s): K85.20 - Alcohol induced acute pancreatitis without necrosis or infection (8) Hypomagnesemia: Status: Acute Assessment and plan: Repleted Recheck in am. (9) Alcoholic hepatitis without ascites: Status: Chronic Assessment and plan: Maddrey score 18, 2 today, again improved. Continue prednisolone. (10) Alcohol use disorder: Status: Chronic Assessment and plan: S/p phenobarbital load. Not withdrawing at this time. As above - Continue thiamine Seen by palliative care yesterday and will be again seen tomorrow. (11) Hypokalemia: Status: Acute Assessment and plan: Replete, Recheck in am (12) DVT prophylaxis: Status: Acute Assessment and plan: SC heparin. (13) Discharge planning issues: Status: Acute Assessment and plan: Full code PT and palliative care consulted. Transferred out of the ICU. Discussed with daughter, and son at the bedside. Subjective Subjective Interval history since last seen: Ms Varela states she is feeling better today. Nursing notes that she has been a lot more alert/awake. She did not sleep well last night, however. She is A&Ox2. She denies dizziness, CP, SOB, n/v. She participates in conversation, follows commands. She has been emotional. Exam Narrative Exam Narrative: General: Middle-aged female who lA&Ox2, on 2L of O2 by NC, much more alert and interactive today than yesterday HEENT: EOMI, MMM Heart: RRR, no m/r/g Lungs: slight expiratory squeek, otherwise CTAB Abdomen: soft, nontender, mildly distended Extremities: 1+ edema B feet, wearing TEDs Objective Last Vital Signs Temp 36.5 C 08/03/23 11:12 Pulse 102 H 08/03/23 17:29 Resp 18 08/03/23 16:34 BP 104/68 08/03/23 17:29 Pulse Ox 92 08/03/23 17:50 Laboratory Results - last 24 hr 08/01/23 08/03/23 08/03/23 05:28 06:11 17:15 WBC 23.90 H RBC 2.14 L Hgb 8.1 L Hct 23.2 L MCV 108 H MCH 37.9 H MCHC 34.9 RDW 19.0 H Plt Count 247 MPV 10.5 Immature Gran % 3.8 Neutrophils % 83.7 Lymphocytes % 6.4 Monocytes % 5.6 Eosinophils % 0.2 Basophils % 0.3 Nucleated RBC % 0.0 Absolute Neutrophils 20.00 H Absolute Lymphocytes 1.53 Absolute Monocytes 1.34 H Absolute Eosinophils 0.05 Absolute Basophils 0.07 RBC Morphology See Below PT 14.5 H INR 1.5 H Sodium 143 140 Potassium 2.3 L* 3.4 L D Chloride 110 H 109 H Carbon Dioxide 24.8 25.3 Anion Gap 8.2 5.7 BUN 18 16 Creatinine 0.5 L 0.6 Est GFR (CKD-EPI 2020) 111.39 106.60 Glucose 96 143 H Calcium 9.1 9.3 Magnesium 1.6 L Total Bilirubin 2.1 H Conjugated Bilirubin 1.5 H AST 142 H ALT 105 H Alkaline Phosphatase 174 H Total Protein 5.4 L Albumin 1.8 L Path Cons Comment PAWSS Have you Been Recently Intoxicated or Drunk Within the Last 30 days?: Yes Have you Ever Experienced Previous Episodes of Alcohol Withdrawal?: Yes Have you ever Experienced Withdrawal Seizures?: No Have you ever Experienced Delirium Tremens(DT)s?: No Have you ever undergone Alcohol Rehabilitation Treatment (i.e, inpt ot outpatient treatment programs)?: No Have you ever Experienced Blackouts?: No Have you ever Combined Alcohol with other Downers within the last 90 days?: No Have you ever Combined Alcohol with any other Substance of Abuse during the last 90 days?: No Positive Blood Alcohol level on Presentation? [PCS.BAL]: Yes Evidence of Increased Autonomic Activity (i.e. HR>120, tremor, sweating, agitation, nausea)?: No Result: 3 Time Spent with Patient Time Spent with Patient: 35-49 minutes Time was spent: preparing to see the patient(eg.review tests), obtaining and/or reviewing separately otained hiistory, ordering medications,tests, procedures, referring, communicating with other health pediatric critical care nurse, indepentently interpreting results, counseling the patient and care coordination
[2023-08-03] MEDS: Furosemide 40 MG/4 ML VIAL IVP (18:44)
[2023-08-03] MEDS: Heparin 5,000 UNITS/ML VIAL 5000 UNITS SC (20:44)
[2023-08-03] MEDS: Melatonin 3 MG TAB PO (22:16)
[2023-08-04] VITALS (18 sets, daily range): BP systolic 115–133; BP diastolic 72–80; PULSE 74–103; RESP 2–30; TEMP 36.2–36.9; O2SAT 88–97
--- NOTE | 2023-08-04 | DI.US_ITS ---
Exam(s) US EXTREMITY VENOUS BI EXAM: US EXTREMITY VENOUS BI CLINICAL HISTORY: asymmetric edema BLEs, ?DVT. TECHNIQUE: Bilateral lower extremity venous ultrasound performed using grayscale, color-flow, and sp ectral Doppler analysis. COMPARISON: No exams were available for comparison FINDINGS: The bilateral common femoral, femoral and popliteal veins demonstrate normal compressibility, augment ation, and color Doppler. The posterior tibial veins are patent. IMPRESSION: Right: Negative for DVT Left: Negative for DVT DATA REPOSITORY:
[2023-08-04] MEDS: MEROPENEM 1 GM in Normal Saline 100 ML IVPB ×3 (01:22→22:15)
[2023-08-04] MEDS: Acetaminophen 500 MG TAB PO ×4 (03:11→22:14)
[2023-08-04] MEDS: Lidocaine 5% Patch 2 PATCH TP (03:12)
[2023-08-04] MEDS: Albuterol/Ipratropium 3 ML UPD VIAL UPD ×4 (03:13→23:04)
[2023-08-04] MEDS: Normal Saline Flush 10 ML SYR IVP (05:12)
[2023-08-04 06:05] LABS: Abs Immature Grans 0.54 10^3/uL (0.0-0.06); HCT 23.4 % (36.0-46.0); MCH 37.7 pg (27.0-33.0); MCHC 34.2 % (32.0-36.0); MCV 110 fL (80-95); Platelet Count 234 10^3/uL (130-400); RBC 2.12 10^6/uL (3.93-5.22); RDW 18.8 % (11.7-14.6); RDW-SD 75.3 fL; WBC 21.75 10^3/uL (4.4-10.8)
[2023-08-04 06:22] LABS: INR 1.5 (0.9-1.1); Prothrombin Time 14.8 sec (9.1-11.1)
[2023-08-04 06:47] LABS: Absolute Lymphocyte Count 1.09 10^3/uL (1.2-3.4); Absolute Monocyte Count 0.87 10^3/uL (0.1-0.8); Absolute Neutrophil Count 19.58 10^3/uL (1.2-6.7); Bands % 1; Diff Comment Manual Differential
[2023-08-04 06:48] LABS: Macrocytosis 2+; Metamyelocytes % 1; Polychromasia Present
[2023-08-04 06:50] LABS: ALT 88 U/L (14-59); AST 109 U/L (15-37); Albumin 1.8 g/dL (3.4-5.0); Alkaline Phosphatase 172 U/L (46-116); Anion Gap 8.5 mmol/L (3-11); BUN 17 mg/dL (7-18); Bilirubin, Direct 1.3 mg/dL (0.0-0.2); Bilirubin, Total 1.9 mg/dL (0.2-1.0); CO2 24.5 mmol/L (21.0-32.0); CREATININE 0.6 mg/dL (0.55-1.02); Calcium 9.3 mg/dL (8.5-10.1); Chloride 110 mmol/L (98-107); Glucose 117 mg/dL (74-106); Magnesium 1.9 mg/dL (1.8-2.4); Potassium 3.3 mmol/L (3.5-5.1); Sodium 143 mmol/L (136-145); Total Protein 5.5 g/dL (6.4-8.2)
[2023-08-04] MEDS: Budesonide/Formoterol 160/4.5 6 GM 60 PUFF INH IH ×2 (08:24→19:48)
[2023-08-04] MEDS: Pantoprazole 40 MG VIAL IVP (09:21)
[2023-08-04] MEDS: Furosemide 40 MG/4 ML VIAL IVP (09:22)
[2023-08-04] MEDS: Heparin 5,000 UNITS/ML VIAL 5000 UNITS SC ×2 (09:22→22:14)
[2023-08-04] MEDS: Nicotine 21 MG/24 HR PATCH TD (09:23)
[2023-08-04] MEDS: prednisoLONE SOD PHOS. Soln. 3 MG/ML 40 MG PO (09:23)
[2023-08-04] MEDS: Rifaximin 550 MG TAB PO ×2 (09:24→22:14)
[2023-08-04] MEDS: Lactulose 20 GM/30 ML CUP PO ×2 (09:24→22:14)
[2023-08-04] MEDS: Midodrine 2.5 MG TAB PO ×3 (09:24→22:14)
--- NOTE | 2023-08-04 09:24 | PDOC.CMPRO ---
Date of service: 08/04/23 Time of Service: 09:25 Care Management Progress Note Progress Note Text Progress Note Text: S/O: Nyasia was sitting up in bed when CM met with her. She was smiling and engaged easily with CM. Nyasia's daughter Megan was also present and informed CM that she was pleased with the progress her mother has made in just a couple of days. She is now able to maintain her oxygen saturation levels at 95% on room air. She is no longer ICU level of care and was moved out to the Med-Surg unit today. Nyasia is agreeable to going to a SNF for short term rehab prior to returning home. Referrals were sent to [facility] and [facility] and [facility] at her request. A: Nyasia is a 53 year old woman admitted on 07/26/23 with pancreatitis P:Nyasia has made significant progress in the last 24-48 hours. She is now able to maintain her oxygen saturation levels at 95% on room air. Nyasia has agreed to go to short term rehab prior to returning home. Referrals were sent to [facility] and [facility]. CM will continue to support Nyasia, her family and any discharge planning needs.
[2023-08-04] MEDS: POTASSIUM CHLORIDE 20 MEQ/100 ML BAG 50 MEQ IVPB ×2 (09:25→11:43)
[2023-08-04] MEDS: THIAMINE 500 MG in Normal Saline 100 ML 200 MG IVPB (09:40)
--- NOTE | 2023-08-04 09:58 | W.PM.PROGNOT ---
Date of Service Date of service: 08/04/23 Time of Service: 09:58 Assessment and Plan Assessment and plan (1) Acute respiratory failure with hypoxia: Status: Resolved Assessment and plan: on RA. Much improved. CT w/ multifocal PNA and pleural effusions. Continue diuresis (decrease to 40 mg IV furosemide daily),doxy, meropenem, steroids. Encourage pulmonary toilet. Wean O2 as tolerated. Code status is now DNR/DNI. (2) Septic shock: Status: Resolved Assessment and plan: Due to multifocal PNA. No longer requiring vasopressors - however, on midodrine. Blood culutures negative. Continue doxy/meropenem. Vancomycin d/c'ed. (3) COPD (chronic obstructive pulmonary disease) with emphysema: Status: Chronic Assessment and plan: Continue steroids. Schedule duonebs; continue prn albuterol, symbicort. Wean O2 as tolerated. improved. (4) Aspiration pneumonia: Status: Acute Assessment and plan: As above Discussed with speech therapy: recommended to have pureed solids/pudding and thin liquids. Qualifiers: Aspiration pneumonia type: unspecified Laterality: left Lung location: lower lobe of lung Qualified Code(s): J69.0 - Pneumonitis due to inhalation of food and vomit (5) Acute colitis: Status: Acute Assessment and plan: C. diff negative. Remaining stool studies are negative. Consider outpatient colonoscopy. (6) Hepatic encephalopathy: Status: Acute Assessment and plan: Continue lactulose and rifaximine. Continue high dose thiamine to ensure that there is no Wernicke's component. (7) Pancreatitis, acute: Status: Resolved Assessment and plan: Clinically resolved. Tolerating a diet. Abdominal exam is benign today. Qualifiers: Pancreatitis type: alcohol induced Acute pancreatitis complication: no infection or necrosis Qualified Code(s): K85.20 - Alcohol induced acute pancreatitis without necrosis or infection (8) Hypomagnesemia: Status: Resolved Assessment and plan: Recheck in am. (9) Alcoholic hepatitis without ascites: Status: Chronic Assessment and plan: Maddrey score 19.4, improved. Continue prednisolone. (10) Alcohol use disorder: Status: Chronic Assessment and plan: S/p phenobarbital load. Not withdrawing at this time. As above - Continue thiamine F/u palliative care visit today. (11) Hypokalemia: Status: Acute Assessment and plan: Replete, Recheck in am (12) DVT prophylaxis: Status: Acute Assessment and plan: SC heparin. (13) Discharge planning issues: Status: Acute Assessment and plan: Full code PT and palliative care consulted. Transferred out of the ICU on 08/03/23. Subjective Subjective Interval history since last seen: Doing quite a bit better. Denies dizziness, CP, SOB, n/v, pain. A&Ox2, sitting up in a chair, on RA. Ambulated at least x4 yesterday. Mentating better, smiling, making jokes. Exam Narrative Exam Narrative: General: Middle-aged female who A&Ox2, on RA, sitting up in a chair, smiling, answering quickly and appropriately HEENT: EOMI, MMM Heart: RRR, no m/r/g Lungs: CTAB Abdomen: soft, nontender, mildly distended Extremities: trace edema B feet, wearing TEDs Objective Last Vital Signs Temp 36.2 C L 08/04/23 03:22 Pulse 103 H 08/04/23 09:53 Resp 30 H 08/04/23 09:53 BP 115/75 08/04/23 03:22 Pulse Ox 96 08/04/23 09:53 Laboratory Results - last 24 hr 08/03/23 08/04/23 17:15 05:15 WBC 21.75 H RBC 2.12 L Hgb 8.0 L Hct 23.4 L MCV 110 H MCH 37.7 H MCHC 34.2 RDW 18.8 H Plt Count 234 MPV 11.0 Immature Gran % 0.0 Neutrophils % 89.0 Band Neutrophils % 1 Lymphocytes % 5.0 Monocytes % 4.0 Eosinophils % 0.0 Basophils % 0.0 Metamyelocytes % 1 Nucleated RBC % 0.0 Absolute Neutrophils 19.58 H Absolute Lymphocytes 1.09 L Absolute Monocytes 0.87 H Absolute Eosinophils 0.00 Absolute Basophils 0.00 RBC Morphology See Below Polychromasia Present Macrocytosis 2+ PT 14.8 H INR 1.5 H Sodium 140 143 Potassium 3.4 L D 3.3 L Chloride 109 H 110 H Carbon Dioxide 25.3 24.5 Anion Gap 5.7 8.5 BUN 16 17 Creatinine 0.6 0.6 Est GFR (CKD-EPI 2020) 106.60 106.60 Glucose 143 H 117 H Calcium 9.3 9.3 Magnesium 1.9 Total Bilirubin 1.9 H Conjugated Bilirubin 1.3 H AST 109 H ALT 88 H Alkaline Phosphatase 172 H Total Protein 5.5 L Albumin 1.8 L PAWSS Have you Been Recently Intoxicated or Drunk Within the Last 30 days?: Yes Have you Ever Experienced Previous Episodes of Alcohol Withdrawal?: Yes Have you ever Experienced Withdrawal Seizures?: No Have you ever Experienced Delirium Tremens(DT)s?: No Have you ever undergone Alcohol Rehabilitation Treatment (i.e, inpt ot outpatient treatment programs)?: No Have you ever Experienced Blackouts?: No Have you ever Combined Alcohol with other Downers within the last 90 days?: No Have you ever Combined Alcohol with any other Substance of Abuse during the last 90 days?: No Positive Blood Alcohol level on Presentation? [PCS.BAL]: Yes Evidence of Increased Autonomic Activity (i.e. HR>120, tremor, sweating, agitation, nausea)?: No Result: 3 Time Spent with Patient Time Spent with Patient: 35-49 minutes Time was spent: preparing to see the patient(eg.review tests), obtaining and/or reviewing separately otained hiistory, ordering medications,tests, procedures, referring, communicating with other health attending ambulatory care, indepentently interpreting results, counseling the patient and care coordination
[2023-08-04] MEDS: DOXYCYCLINE 100 MG in Normal Saline 100 ML IVPB ×2 (13:05→23:30)
--- NOTE | 2023-08-04 14:03 | PCPN_ITS ---
Date of service: 08/04/23 Time of Service: 12:30 Assessment and Plan Assessment and plan (1) Septic shock: Status: Resolved Assessment and plan: resolved (2) Aspiration pneumonia: Status: Acute Assessment and plan: STRATEGY INTERN following 1:1 supervision w/HOB up for all intake Blood cultures negative. Continue doxy/meropenem Qualifiers: Aspiration pneumonia type: unspecified Laterality: left Lung location: lower lobe of lung Qualified Code(s): J69.0 - Pneumonitis due to inhalation of food and vomit (3) Acute respiratory failure with hypoxia: Status: Resolved Assessment and plan: now on RA CT w/ multifocal PNA and pleural effusions. Continue diuresis (decrease to 40 mg IV furosemide daily),doxy, meropenem, steroids. Encourage pulmonary toilet. (4) Hepatic encephalopathy: Status: Acute Assessment and plan: continue lactulose high dose thiamine r/t alcohol use and Wernicke's contribution (5) Discharge planning issues: Status: Acute Assessment and plan: not cleared for discharge yet PT consult pending - SNF vs home w/HH - family concerned w/returning home w/o assistance (6) Acute pancreatitis: Status: Acute Assessment and plan: resolved (7) Decreased appetite: Status: Acute Assessment and plan: improved, however remains reduced reviewed cheng stimulant, will hold for now, continue to monitor (8) Alcohol use disorder: Status: Chronic Assessment and plan: Nyasia states she would like to stop using alcohol, she would like to engage in some time of recovery, unclear of type but does want resources for different options: online, in person, recovery centers, etc - 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, will follow for now (9) Alcoholic hepatitis without ascites: Status: Chronic Assessment and plan: Maddrey scores improving (10) Pain: Status: Acute Assessment and plan: improved w/scheduled apap has not required opioid dosing, switched to oxycodone; per review w/PC doc, recommend Dilaudid for acute opioid, consider switch if starts requiring stronger pain medication (11) Weakness: Status: Acute Assessment and plan: ongoing PT consult pending (12) ACP (advance care planning): Status: Acute Assessment and plan: reviewed previous AD completion, CODE status, POC for discharge/home vs SNF, alcohol use and preferences for ongoing use vs cessation; - Discussion regarding Code Status preferences - patient wants to be a Full Code - consider SNF pending PT eval and status at time of discharge, recommend SNF - recover learning coach currently following, will provide resources for ongoing support spent 22 mins w/ACP (13) Palliative care encounter: Status: Acute Assessment and plan: PC to continue to follow, will f/u on Wednesday if still here, or outpatient pending discharge plan ongoing to review liver disease, fibrosis vs cirrhosis, COPD, ACP planning (14) Does not have primary care provider: Status: Acute Assessment and plan: CM will coordinate an outpatient f/u w/PCP - will need to f/u w/PCP regarding preferences for ongoing hepatalogic work up: hepatitis panel, screenings for HCC etc Subjective Subjective Interval history since last seen: Natacha has continued to improve since previous PC visit on 08/02; she has notable increased awareness and decreased confusion, she has been out of bed several times yesterday and already 3x today; she is now on RA and has been transferred to [facility] She continues w/1:1 supersized feeds, on pureed solids; she was able to eat 100% of meals today, despite not having an appetite, she is comfortable w/forcing herself to eat at this time OOB w/supervision/assistance, feels weak but stable; urgency w/bowels d/t lactulose, has been able to make it to toilet barely, moving bowels a lot today Pain is controlled w/scheduled apap, has not needed any opioid medications BLE Edema persists, RN notes RLE 4+ and will review w/hospitalist Nyasia is aware that if she continues to drink her liver disease will progress, her intentions today are to stop using alcohol. She would like resources for her ongoing recovery. 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 She is aware that she is not safe to return home today, despite wanting to return home. There are several difficult stairs to get into home. She has not had PT consult yet, would consider SNF for a short time, family would like this Nyasia agrees with her previously completed AD, Megan as HCA, would want LST at htis time, including CPR, would was LST as long as able to communicate with friends/family, live w/o pain, be aware of surroundings. visiting at time of visit: daughter/HCA Megan, mom Cyndi, sister Aissatou, sister Jewels, friend Karen Exam Narrative Exam Narrative: General: appears older than stated age; awake, alert, oriented. lying in MS bed, transfers w/assistance to toilet; HEENT:normocephalic, atraumatic, MMM Resp: normal respiratory effort, speaks full sentences w/o SOB, no audible wheeze or couch Skin: dry, atrophy Psych: cooperative, pleasant, speech/movement WNL, thought process clear; insight/judgment fair Objective Last Vital Signs Temp 97.9 F 08/04/23 11:28 Pulse 100 H 08/04/23 11:28 Resp 20 08/04/23 11:28 BP 115/72 08/04/23 11:28 Pulse Ox 95 08/04/23 11:28 Laboratory Results - last 24 hr 08/03/23 08/04/23 17:15 05:15 WBC 21.75 H RBC 2.12 L Hgb 8.0 L Hct 23.4 L MCV 110 H MCH 37.7 H MCHC 34.2 RDW 18.8 H Plt Count 234 MPV 11.0 Immature Gran % 0.0 Neutrophils % 89.0 Band Neutrophils % 1 Lymphocytes % 5.0 Monocytes % 4.0 Eosinophils % 0.0 Basophils % 0.0 Metamyelocytes % 1 Nucleated RBC % 0.0 Absolute Neutrophils 19.58 H Absolute Lymphocytes 1.09 L Absolute Monocytes 0.87 H Absolute Eosinophils 0.00 Absolute Basophils 0.00 RBC Morphology See Below Polychromasia Present Macrocytosis 2+ PT 14.8 H INR 1.5 H Sodium 140 143 Potassium 3.4 L D 3.3 L Chloride 109 H 110 H Carbon Dioxide 25.3 24.5 Anion Gap 5.7 8.5 BUN 16 17 Creatinine 0.6 0.6 Est GFR (CKD-EPI 2020) 106.60 106.60 Glucose 143 H 117 H Calcium 9.3 9.3 Magnesium 1.9 Total Bilirubin 1.9 H Conjugated Bilirubin 1.3 H AST 109 H ALT 88 H Alkaline Phosphatase 172 H Total Protein 5.5 L Albumin 1.8 L
--- NOTE | 2023-08-04 15:00 | PT.INNT ---
Date of service: 08/04/23 Time of Service: 09:26 PT Notes Visit Reasons: Acute Pancreatitis, Alcoholic Hepatitis, Chronic A Patient refuses therapy at 9:26 due to visitors and just wanting to relax, at 11:22 due to moving to a new room, and at 14:52 due to fatigue from walking back and forth to bathroom 4x since leaving the ICU. CM aware.
--- NOTE | 2023-08-04 16:26 | W.SPSTP ---
Date of service: 08/04/23 Time of Service: 16:26 Subjective Subjective Patient received alert/awake, mental status much improved over yesterday, patient able to respond reliably to questions, make jokes, etc. She does continue to appear very weak and with slow movement and speech, but much more participatory. This date she is willing to take water and several bites of cheese and pudding. Patient tolerating room air this date without s/sx dyspnea. Objective Treatment Techniques & Outcomes: PO Trials Assessed: IDDSI 0 Thin Liquids (Water via cup edge) IDDSI 4 Puree Solid (Pudding) IDDSI 6 Soft & Bite Size Solid (cheese bites) Oral care is improved over yesterday. Oral mucosa is dry and red, without much buildup. With oral care, patient demonstrates some cognitive oral fixation, unable to inhibit tongue movement & clamping despite multiple instructions. Otherwise patient is able to follow simple instructions reliably this date. Oral Phase Findings: Poor spoon stripping. Slow and prolonged mastication with complete recollection. No anterior loss. Pharyngeal Phase Findings: Delayed swallow initiation Weak/reduced hyolaryngeal displacement Only 1x congested cough post-prandially, patient/family state she has had intermittent productive coughing like this throughout the day. ? Assessment Nyasia was seen for SUPERVISOR [employer] follow-up to monitor for diet tolerance this date. Currently on room air and has t/f to med-surg status. She did appear to tolerate small bites of soft solids, purees, and small sips of thin liquid this session without s/sx aspiration and continues to demonstrate mild improvements of oral phase deficits over previous sessions. Given improved dysphagia and increased awareness, patient appears appropriate to conservatively upgrade to minced/moist solids & thin liquid for energy conservation and to reduce risk of aspiration. Please continue strict precautions as below including 1:1 assist with meals, oral hygiene before/after meals, upright positioning for all PO (up in chair if able). Education was provided to family and nursing present in room re: rationale behind diet recommendations, oral care instructions and and swallowing precautions with feeding. FURTHER SUPERVISOR PAPER COATING SERVICES: Patient to be followed while on unit. Plan of care following discharge TBD. Likely to benefit from SUPERVISOR P[employer]ER [employer]ATING services at SNF if qualifies for services. Recommendations: ? SOLIDS: 5-Minced/Moist solids LIQUIDS: 0-Thin Liquids MEDICATIONS: Whole or crushed in applesauce/pudding RISK MANAGEMENT: HOB upright as tolerated; upright for all PO intake. Up in a chair if possible. Encourage physical mobility as tolerated. Oral hygiene BID/2x per day Level of Assistance/Supervision: 1:1 close supervision for all PO intake, Assistive feeding only by trained staff/family PO intake only when awake/alert? Strategies/Adaptations/Assistive Equipment: Reduce auditory and/or visual distractions when eating, Small sips and bites when eating, Slow rate of intake Posture/Positioning Needs: Maintain upright position at least 30 minutes after meals Education Provided to: Nursing, Physician, Family Topics Addressed:overt s/sx to monitor for re: potential aspiration of food / liquids, recommendations for improved oral care PLAN: Frequency: 2-3x/week for 1-2 weeks Goals: [facility] Goals: Patient will remain free from aspiration-related illness, malnutrition, and dehydration. Patient/family will verbalize comprehension of education provided re: dx dysphagia, strategies to maximize functioning, and role of ST. Short Term Goals: Patient will tolerate Puree Diet and Thin liquids without overt s/s aspiration across 2/2 visits. GOAL MET New Goal: Patient will tolerate minced/moist diet and thin liquids without overt s/sx aspiration across 2/2 visits. Patient will tolerate PO trials for consideration of diet upgrade without overt s/s aspiration across 2/2 visits. GOAL MET Time spent: 20 minutes Coding CPT Codes ORAL FUNCTION THERAPY - [id number] ([id number]) Additional Codes Date of Service (45496) Date of service: 08/04/23
[2023-08-04] MEDS: Lidocaine Patch Removal 2 EACH TP (17:14)
[2023-08-04] MEDS: Melatonin 3 MG TAB PO (22:14)
[2023-08-05 01:25] VITALS: O2SAT 95
[2023-08-05] MEDS: Lidocaine 5% Patch 2 PATCH TP (05:40)
[2023-08-05] MEDS: Acetaminophen 500 MG TAB PO ×3 (05:40→20:27)
[2023-08-05] MEDS: MEROPENEM 1 GM in Normal Saline 100 ML IVPB ×3 (05:41→22:30)
[2023-08-05] MEDS: Lactulose 20 GM/30 ML CUP PO (07:57)
[2023-08-05] MEDS: Nicotine 21 MG/24 HR PATCH TD (07:58)
[2023-08-05] MEDS: Pantoprazole 40 MG VIAL IVP (07:58)
[2023-08-05] MEDS: Heparin 5,000 UNITS/ML VIAL 5000 UNITS SC ×2 (07:58→20:28)
[2023-08-05] MEDS: Furosemide 40 MG/4 ML VIAL IVP (07:58)
[2023-08-05] MEDS: Thiamine 100 MG TAB PO (07:59)
[2023-08-05] MEDS: prednisoLONE SOD PHOS. Soln. 3 MG/ML 40 MG PO (07:59)
[2023-08-05] MEDS: Rifaximin 550 MG TAB PO ×2 (07:59→20:28)
[2023-08-05] MEDS: Midodrine 2.5 MG TAB PO ×3 (07:59→20:28)
[2023-08-05] MEDS: Budesonide/Formoterol 160/4.5 6 GM 60 PUFF INH IH ×2 (08:05→21:59)
[2023-08-05 08:34] LABS: Abs Immature Grans 0.32 10^3/uL (0.0-0.06); Absolute Monocyte Count 0.96 10^3/uL (0.1-0.8); Basophils % 0.1; Eosinophils % 0.5; HCT 23.8 % (36.0-46.0); HGB 8.2 g/dL (11.2-15.7); Immature Grans % 1.6; Lymphocytes % 9.7; MCH 37.6 pg (27.0-33.0); MCHC 34.5 % (32.0-36.0); MCV 109 fL (80-95); Monocytes % 4.8; Neutrophils % 83.3; Nucleated RBC 0.1 % (0.0-0.3); Platelet Count 246 10^3/uL (130-400); RBC 2.18 10^6/uL (3.93-5.22); RDW 19.6 % (11.7-14.6); WBC 20.05 10^3/uL (4.4-10.8)
[2023-08-05 08:35] LABS: Absolute Basophil Count 0.02 10^3/uL (0.0-0.2); Absolute Lymphocyte Count 1.94 10^3/uL (1.2-3.4)
[2023-08-05 08:45] LABS: INR 1.5 (0.9-1.1); Prothrombin Time 14.8 sec (9.1-11.1)
[2023-08-05 09:05] LABS: ALT 74 U/L (14-59); AST 106 U/L (15-37); Albumin 1.8 g/dL (3.4-5.0); Alkaline Phosphatase 153 U/L (46-116); Anion Gap 6.6 mmol/L (3-11); BUN 17 mg/dL (7-18); Bilirubin, Direct 1.3 mg/dL (0.0-0.2); Bilirubin, Total 1.9 mg/dL (0.2-1.0); CO2 25.4 mmol/L (21.0-32.0); CREATININE 0.5 mg/dL (0.55-1.02); Calcium 9.2 mg/dL (8.5-10.1); Chloride 109 mmol/L (98-107); Estimated GFR 111.39 (mL/min/1.73m2); Glucose 82 mg/dL (74-106); Magnesium 1.6 mg/dL (1.8-2.4); Potassium 3.6 mmol/L (3.5-5.1); Sodium 141 mmol/L (136-145); Total Protein 5.4 g/dL (6.4-8.2)
[2023-08-05 09:11] LABS: Lab Add On Test DONE
[2023-08-05 09:23] LABS: C-Reactive Protein 1.14 mg/dL (0.0-0.3)
--- NOTE | 2023-08-05 09:35 | DI.RAD_ITS ---
Exam(s) XR CHEST 2V PA LATERAL EXAM: XR CHEST 2V PA LATERAL CLINICAL HISTORY: FOLLOW UP pneumonia TECHNIQUE: 2D digital imaging was performed of the chest. Two images were obtained. PA and lateral views were obtained. COMPARISON: CR,XR XR PORTABLE CHEST AP from 07/30/[address] CHEST PE ABD PELVIS W from 07/31/2023 FINDINGS: MEDIASTINUM: Normal. HEART: Normal. PULMONARY VASCULATURE: Normal. LUNGS: There are persistent bilateral pulmonary infiltrates which have improved compared to the prior examinations on 07/30 and 07/31. PLEURAL SPACE: There are persistent small bilateral pleural effusions, left greater than right. BONE:Within normal limits for the patient's age. OTHER FINDINGS:Normal. IMPRESSION: Overall, has been improvement of the lungs compared to the prior examination. However, there are per sistent bilateral pulmonary infiltrates and pleural effusions. DATA REPOSITORY: RADIATION DOSE DELIVERED:
[2023-08-05 09:42] VITALS: BP 102/64; PULSE 89; RESP 18; TEMP 36.2; O2SAT 96
[2023-08-05 09:48] LABS: Procalcitonin 0.2 ng/mL
--- NOTE | 2023-08-05 10:10 | DI.VRAD_ITS ---
PROCEDURE INFORMATION: Exam: XR Chest Exam date and time: 08/05/2023 9:32 AM Age: 53 years old Clinical indication: Other: F/u pneumonia TECHNIQUE: Imaging protocol: Radiologic exam of the chest. Views: 2 views. COMPARISON: CT CHEST PE ABD PELVIS W 07/31/2023 9:11 AM FINDINGS: Lungs: Persistent bilateral patchy airspace opacities, interstitial prominence, appearing decreased bilaterally compared to images from CT chest 07/31/2023. Pleural spaces: Persistent small pleural effusions, also appearing decreased bilaterally. No pneumothorax seen. Persistent small pleural effusions, also appearing decreased bilaterally Heart/Mediastinum: Heart size appears within normal. Bones/joints: Degenerative changes spine. IMPRESSION: Persistent bilateral patchy airspace opacities, interstitial prominence, appearing decreased bilaterally compared to images from CT chest 07/31/2023. Persistent small pleural effusions, also appearing decreased bilaterally. Dictated and Authenticated by: Ramon Rey MD. Ordering:[facility] Bandar Stephens MD
[2023-08-05] MEDS: DOXYCYCLINE 100 MG in Normal Saline 100 ML IVPB ×2 (10:11→21:59)
[2023-08-05 12:12] VITALS: BP 108/63; PULSE 91; RESP 18; TEMP 36.6; O2SAT 96
[2023-08-05 15:39] VITALS: BP 114/75; PULSE 82; RESP 18; TEMP 35.9; O2SAT 97
--- NOTE | 2023-08-05 16:17 | W.PM.PROGNOT ---
Date of Service Date of service: 08/05/23 Time of Service: 16:18 Assessment and Plan Assessment and plan (1) Acute respiratory failure with hypoxia: Status: Resolved Assessment and plan: continues to improve. Not dyspneic, minimal cough today. However CXR shows persistent bilateral pulmonary infiltratrates and pleural effusions but has significantly improved. Remains on Meropenem and doxycycline. Clinically she is improving although her leukocytosis persists but this may just be from the corticosteroids for her alcoholic hepatitis. Continue current treatment, she should finish 10 day course of antibiotics considering she was in septic shock. (2) Septic shock: Status: Resolved Assessment and plan: Due to multifocal PNA. No longer requiring vasopressors - however, on midodrine. Blood culutures negative. Continue doxy/meropenem (day #9 meropenem, d#6 doxycycline; Vancomycin d/c'ed. recheck inflammatory markers, i.e. CRP and PROCALCITONIN, if procalcitonin is normal then dc her antibiotics. (3) COPD (chronic obstructive pulmonary disease) with emphysema: Status: Chronic Assessment and plan: Continue steroids (day 5 of methylprednisolone 40 mg daily. Schedule duonebs; continue prn albuterol, symbicort. Wean O2 as tolerated. improved. Qualifiers: Emphysema type: unspecified Qualified Code(s): J43.9 - Emphysema, unspecified (4) Aspiration pneumonia: Status: Acute Assessment and plan: As above per GENERAL MANAGER [employer]D diet upgraded to moist and minced w/ thin liquids. Qualifiers: Aspiration pneumonia type: unspecified Laterality: left Lung location: lower lobe of lung Qualified Code(s): J69.0 - Pneumonitis due to inhalation of food and vomit (5) Thrush, oral: Status: Suspected Assessment and plan: sputum w/ Anita, however she denies any dysphagia or odynophagia and there if no visible evidence for thrush. I started her on Diflucan empircally but now that I do not see any evidence for thrush. (6) Acute colitis: Status: Acute Assessment and plan: C. diff negative. Remaining stool studies are negative. Consider outpatient colonoscopy. (7) Hepatic encephalopathy: Status: Acute Assessment and plan: Continue lactulose and rifaximine. Continue high dose thiamine to ensure that there is no Wernicke's component. (8) Pancreatitis, acute: Status: Resolved Assessment and plan: Clinically resolved. Tolerating a diet. Abdominal exam is benign today. Qualifiers: Acute pancreatitis complication: no infection or necrosis Pancreatitis type: alcohol induced Qualified Code(s): K85.20 - Alcohol induced acute pancreatitis without necrosis or infection (9) Hypomagnesemia: Status: Resolved Assessment and plan: Recheck in am. (10) Alcoholic hepatitis without ascites: Status: Chronic Assessment and plan: Maddrey score 18.9 improving. Lille score no 0,210 points (<0.45 predicts 6 month survival of over 85%) Continue prednisolone for another 4 weeks (11) Alcohol use disorder: Status: Chronic Assessment and plan: S/p phenobarbital load. Not withdrawing at this time. As above - Continue thiamine (12) Hypokalemia: Status: Acute Assessment and plan: up to 3.6, as she still needs diuresis, I have added low dose spironolactone. (13) DVT prophylaxis: Status: Acute Assessment and plan: SC heparin. (14) Discharge planning issues: Status: Acute Assessment and plan: Full code PT and palliative care consulted. Transferred out of the ICU on 08/03/23. May need short term SNF vs HH w/ PT and nursing. Subjective Subjective Interval history since last seen: Patient continues to improve. No coughing or choking spells w/ meals. Tolerating moist and minced solids w/ thin liquids. She remains on meropenem and doxycycline for aspiration pneumonia. She remains on steroids for her alcholic hepatitis. She is not encephalopathic and seems to answer questions appropriately. Exam Narrative Exam Narrative: Thin white female, alert and oriented, N.A.D Lungs: decreased breath sounds at right lung base, rales on the left, no wheezing Heart: RRR Abdomen: soft, nontender Legs: no edema Objective Last Vital Signs Temp 35.9 C L 08/05/23 15:39 Pulse 82 08/05/23 15:39 Resp 18 08/05/23 15:39 BP 114/75 08/05/23 15:39 Pulse Ox 97 08/05/23 15:39 Laboratory Results - last 24 hr 08/05/23 08/05/23 08:25 Unknown WBC 20.05 H RBC 2.18 L Hgb 8.2 L Hct 23.8 L MCV 109 H MCH 37.6 H MCHC 34.5 RDW 19.6 H Plt Count 246 MPV 11.0 Immature Gran % 1.6 Neutrophils % 83.3 Lymphocytes % 9.7 Monocytes % 4.8 Eosinophils % 0.5 Basophils % 0.1 Nucleated RBC % 0.1 Absolute Neutrophils 16.70 H Absolute Lymphocytes 1.94 Absolute Monocytes 0.96 H Absolute Eosinophils 0.10 Absolute Basophils 0.02 PT 14.8 H INR 1.5 H Sodium 141 Potassium 3.6 Chloride 109 H Carbon Dioxide 25.4 Anion Gap 6.6 BUN 17 Creatinine 0.5 L Est GFR (CKD-EPI 2020) 111.39 Glucose 82 Calcium 9.2 Magnesium 1.6 L Total Bilirubin 1.9 H Conjugated Bilirubin 1.3 H AST 106 H ALT 74 H Alkaline Phosphatase 153 H C-Reactive Protein 1.14 H Total Protein 5.4 L Albumin 1.8 L Procalcitonin 0.2 Add-On Test Request DONE PAWSS Have you Been Recently Intoxicated or Drunk Within the Last 30 days?: Yes Have you Ever Experienced Previous Episodes of Alcohol Withdrawal?: Yes Have you ever Experienced Withdrawal Seizures?: No Have you ever Experienced Delirium Tremens(DT)s?: No Have you ever undergone Alcohol Rehabilitation Treatment (i.e, inpt ot outpatient treatment programs)?: No Have you ever Experienced Blackouts?: No Have you ever Combined Alcohol with other Downers within the last 90 days?: No Have you ever Combined Alcohol with any other Substance of Abuse during the last 90 days?: No Positive Blood Alcohol level on Presentation? [PCS.BAL]: Yes Evidence of Increased Autonomic Activity (i.e. HR>120, tremor, sweating, agitation, nausea)?: No Result: 3 Time Spent with Patient Time Spent with Patient: 35-49 minutes Time was spent: preparing to see the patient(eg.review tests), ordering medications,tests, procedures, referring, communicating with other health women's health care nurse practitioner, indepentently interpreting results, counseling the patient and care coordination
[2023-08-05] MEDS: Lidocaine Patch Removal 2 EACH TP (16:28)
[2023-08-05] MEDS: Fluconazole 100 MG TAB 200 MG PO (17:28)
[2023-08-05] MEDS: Spironolactone 25 MG TAB PO (17:28)
[2023-08-05] MEDS: Furosemide 40 MG TAB PO (17:28)
[2023-08-05] MEDS: Nystatin 500000 UNITS/5 ML SUSP 5ML CUP PO ×2 (17:28→20:28)
[2023-08-05] MEDS: Melatonin 3 MG TAB PO (20:27)
[2023-08-05] MEDS: Albuterol/Ipratropium 3 ML UPD VIAL UPD (21:59)
[2023-08-05 22:29] VITALS: RESP 5
[2023-08-05 23:40] VITALS: BP 108/79; PULSE 76; RESP 18; TEMP 36.8; O2SAT 96
[2023-08-06] MEDS: Nystatin 500000 UNITS/5 ML SUSP 5ML CUP PO ×5 (05:00→19:38)
[2023-08-06] MEDS: Albuterol/Ipratropium 3 ML UPD VIAL UPD ×2 (05:00→10:04)
[2023-08-06] MEDS: Lidocaine 5% Patch 2 PATCH TP (05:01)
[2023-08-06] MEDS: Acetaminophen 500 MG TAB PO ×4 (05:01→19:38)
[2023-08-06] MEDS: MEROPENEM 1 GM in Normal Saline 100 ML IVPB ×3 (06:25→23:15)
[2023-08-06] MEDS: Pantoprazole 40 MG VIAL IVP (07:53)
[2023-08-06] MEDS: prednisoLONE SOD PHOS. Soln. 3 MG/ML 40 MG PO (07:53)
[2023-08-06] MEDS: Heparin 5,000 UNITS/ML VIAL 5000 UNITS SC ×2 (07:53→19:38)
[2023-08-06] MEDS: Fluconazole 100 MG TAB 200 MG PO (07:54)
[2023-08-06] MEDS: Nicotine 21 MG/24 HR PATCH TD (07:54)
[2023-08-06] MEDS: Furosemide 40 MG TAB PO ×2 (07:54→16:19)
[2023-08-06] MEDS: Midodrine 2.5 MG TAB PO ×3 (07:54→19:39)
[2023-08-06] MEDS: Rifaximin 550 MG TAB PO ×2 (07:54→19:39)
[2023-08-06] MEDS: Thiamine 100 MG TAB PO (07:55)
[2023-08-06] MEDS: Spironolactone 25 MG TAB PO (07:55)
[2023-08-06] MEDS: Budesonide/Formoterol 160/4.5 6 GM 60 PUFF INH IH ×2 (08:06→20:43)
[2023-08-06 09:03] LABS: ALT 69 U/L (14-59); AST 113 U/L (15-37); Albumin 1.8 g/dL (3.4-5.0); Alkaline Phosphatase 159 U/L (46-116); Anion Gap 6.7 mmol/L (3-11); BUN 18 mg/dL (7-18); Bilirubin, Total 1.8 mg/dL (0.2-1.0); C-Reactive Protein 0.81 mg/dL (0.0-0.3); CO2 24.3 mmol/L (21.0-32.0); CREATININE 0.6 mg/dL (0.55-1.02); Chloride 107 mmol/L (98-107); Glucose 84 mg/dL (74-106); Potassium 3.4 mmol/L (3.5-5.1); Sodium 138 mmol/L (136-145); Total Protein 5.5 g/dL (6.4-8.2)
[2023-08-06] MEDS: DOXYCYCLINE 100 MG in Normal Saline 100 ML IVPB (09:31)
[2023-08-06 10:04] VITALS: PULSE 83; RESP 16; RESP 9; O2SAT 97
[2023-08-06 10:11] VITALS: PULSE 81
[2023-08-06 11:19] VITALS: BP 127/80; PULSE 95; RESP 18; TEMP 37.3; O2SAT 98
[2023-08-06 12:16] LABS: Lab Add On Test DONE
[2023-08-06 12:28] LABS: Magnesium 1.6 mg/dL (1.8-2.4)
[2023-08-06] MEDS: Potassium Chloride Liquid 20 MEQ PKT PO (13:21)
--- NOTE | 2023-08-06 13:42 | CHAPLAIN ---
Nyasia was up in the chair when I visited. She has four family members/friends in the room visiting. I explained my role and offered support. I will continue to visit.
--- NOTE | 2023-08-06 15:58 | W.PM.PROGNOT ---
Date of Service Date of service: 08/06/23 Time of Service: 15:58 Assessment and Plan Assessment and plan (1) Acute respiratory failure with hypoxia: Status: Resolved Assessment and plan: Patient continues to improve. She was treated for pneumonia septic shock. She has been hemodynamically stable and from a respiratory standpoint she is clinically improved to the point where she is on room air not requiring supplemental oxygen and not dyspneic with her ADLs. She remains on meropenem and doxycycline. She had previously been on vancomycin. Today is day #10 on meropenem and day #7 doxycycline. Recheck her inflammatory markers in the morning and if her procalcitonin has normalized I will consider discontinuing her IV antibiotics but will probably continue the doxycycline for another 3 days for total of 10 days. Chest x-ray was checked yesterday showed some residual infiltrates but these may lag behind her clinical response and in fact it did look markedly improved from her admission chest x-ray. I think she is near ready for discharge. We will get an ambulatory pulse oximetry in the morning. Professional time spent interviewing and examining patient, discussion of goals of care with hospital team (care management, nursing and consulting professionals) was 30 minutes. (2) Aspiration pneumonia: Status: Acute Assessment and plan: As above per [employer] EVENTS PLANNER diet upgraded to moist and minced w/ thin liquids which she seems to be tolerating quite well. Qualifiers: Aspiration pneumonia type: unspecified Laterality: left Lung location: lower lobe of lung Qualified Code(s): J69.0 - Pneumonitis due to inhalation of food and vomit (3) Septic shock: Status: Resolved Assessment and plan: Due to multifocal PNA. No longer requiring vasopressors - however, on midodrine. Blood culutures negative. Continue doxy/meropenem (day #10 meropenem, d#7 doxycycline; Vancomycin d/c'ed. recheck inflammatory markers, i.e. CRP and PROCALCITONIN, if procalcitonin is normal then dc her antibiotics. (4) COPD (chronic obstructive pulmonary disease) with emphysema: Status: Chronic Assessment and plan: Continue steroids (day 6 of methylprednisolone 40 mg daily. Schedule duonebs; continue prn albuterol, symbicort. Wean O2 as tolerated. improved. Qualifiers: Emphysema type: unspecified Qualified Code(s): J43.9 - Emphysema, unspecified (5) Alcoholic hepatitis without ascites: Status: Chronic Assessment and plan: Maddrey score 18.9 improving. Lille score no 0,210 points (<0.45 predicts 6 month survival of over 85%) Continue prednisolone for another 4 weeks (6) Hepatic encephalopathy: Status: Acute Assessment and plan: Continue lactulose and rifaximine. Continue high dose thiamine to ensure that there is no Wernicke's component. (7) Thrush, oral: Status: Suspected Assessment and plan: sputum w/ Anita, however she denies any dysphagia or odynophagia and there if no visible evidence for thrush. I started her on Diflucan empircally but now that I do not see any evidence for thrush. I will continue the Diflucan while she is on antibiotic treatment. (8) Pancreatitis, acute: Status: Resolved Assessment and plan: Clinically resolved. Tolerating a diet. Abdominal exam is benign today. Qualifiers: Pancreatitis type: alcohol induced Acute pancreatitis complication: no infection or necrosis Qualified Code(s): K85.20 - Alcohol induced acute pancreatitis without necrosis or infection (9) Hypomagnesemia: Status: Resolved Assessment and plan: Recheck in am. (10) Alcohol use disorder: Status: Chronic Assessment and plan: S/p phenobarbital load. Not withdrawing at this time. As above - Continue thiamine (11) Hypokalemia: Status: Acute Assessment and plan: 3.4, still require supplementation as she still needs diuresis, I have added low dose spironolactone. (12) DVT prophylaxis: Status: Acute Assessment and plan: SC heparin. (13) Discharge planning issues: Status: Acute Assessment and plan: Full code PT and palliative care consulted. Transferred out of the ICU on 08/03/23. I do not anticipate that she will need prison facility. However I am awaiting PTs final assessment regarding her disposition needs. Subjective Subjective Interval history since last seen: Patient was seen this afternoon sitting up in her chair she is alert and oriented in no acute distress denies any pain she is eating well. No symptoms of choking or coughing spells with eating. She is currently on a moist and minced diet along with thin liquids. Exam Narrative Exam Narrative: Nyasia is alert and oriented to person place and circumstance. No acute distress. Able to talk in complete paragraphs without dyspnea. Neck is supple no accessory respiratory muscle use Lungs are clear to auscultation Heart is regular rate and rhythm Abdomen soft nontender nondistended Extremities just a trace of pedal edema Objective Last Vital Signs Temp 37.3 C 08/06/23 11:19 Pulse 95 H 08/06/23 11:19 Resp 18 08/06/23 11:19 BP 127/80 08/06/23 11:19 Pulse Ox 98 08/06/23 11:19 Laboratory Results - last 24 hr 08/06/23 08/06/23 08:10 Unknown Sodium 138 Potassium 3.4 L Chloride 107 Carbon Dioxide 24.3 Anion Gap 6.7 BUN 18 Creatinine 0.6 Est GFR (CKD-EPI 2020) 106.60 Glucose 84 Calcium 9.0 Magnesium 1.6 L Total Bilirubin 1.8 H AST 113 H ALT 69 H Alkaline Phosphatase 159 H C-Reactive Protein 0.81 H Total Protein 5.5 L Albumin 1.8 L Add-On Test Request DONE PAWSS Have you Been Recently Intoxicated or Drunk Within the Last 30 days?: Yes Have you Ever Experienced Previous Episodes of Alcohol Withdrawal?: Yes Have you ever Experienced Withdrawal Seizures?: No Have you ever Experienced Delirium Tremens(DT)s?: No Have you ever undergone Alcohol Rehabilitation Treatment (i.e, inpt ot outpatient treatment programs)?: No Have you ever Experienced Blackouts?: No Have you ever Combined Alcohol with other Downers within the last 90 days?: No Have you ever Combined Alcohol with any other Substance of Abuse during the last 90 days?: No Positive Blood Alcohol level on Presentation? [PCS.BAL]: Yes Evidence of Increased Autonomic Activity (i.e. HR>120, tremor, sweating, agitation, nausea)?: No Result: 3 Time Spent with Patient Time Spent with Patient: 25-34 minutes Time was spent: preparing to see the patient(eg.review tests), ordering medications,tests, procedures, referring, communicating with other health memory care program director, indepentently interpreting results, counseling the patient and care coordination
--- NOTE | 2023-08-06 17:02 | PT.INPN ---
PT Notes Visit Reasons: Acute Pancreatitis, Alcoholic Hepatitis, Chronic A Inpatient Physical Therapy Progress Note Date: 08/06/2023 Dates of Service: 07/30/2023 through 08/06/2023 Referring Doctor: Adam Zuñiga MD Precautions: Fall. Activity as tolerated. Subjective: Nyasia is transferring from commode to bed with assistance from her mother at initiation of session. States that she's feeling well. Denies pain. Objective: General Observation: Roberts catheter in place Mental Status: A&Ox3 Pain: Denies Vital Signs: WNL throughout session ROM: Right Upper Extremity: WFL Left Upper Extremity: WFL Right Lower Extremity: WFL Left Lower Extremity: WFL Strength: Right Upper Extremity: Shoulder flexors 4-/5. Shoulder abductors 4-/5. Elbow flexors 4-/5. Elbow extensors 4-/5. Senior Technical Project Manager strong. Left Upper Extremity: Shoulder flexors 4-/5. Shoulder abductors 4-/5. Elbow flexors 4-/5. Elbow extensors 4-/5. Senior Technical Project Manager strong. Right Lower Extremity: Hip flexors 4-/5. Hip abductors 4-/5. Knee flexors 4-/5. Knee extensors 4-/5. Ankle dorsiflexors 4-/5. Ankle plantarflexors 4-/5. Left Lower Extremity: Hip flexors 4-/5. Hip abductors 4-/5. Knee flexors 4-/5. Knee extensors 4-/5. Ankle dorsiflexors 4-/5. Ankle plantarflexors 4-/5. Bed Mobility/Transfers: sit-supine: independent sit-stand: supervision stand-sit: supervision bed-toilet seat: supervision Gait: 100 feet + 100 feet using FWW with slowed ramesh and some tendency to lag behind FWW needing moderate cueing to stay close throughout the walk. Minimal shortness of breath that resolved with rest. Stairs: Up and down 3 x 4-inch steps and 4 x 6-inch steps while holding onto B rails with step-to gait pattern requring stand by assist only. Balance: Static Sitting: Normal Dynamic Sitting:Normal Static Standing: Fair Dynamic Standing: Fair Special Tests: Mobility Limitations Standardized Measure [facility] 6 clicks Basic Mobility Inpatient Short Form: Raw Score: 23 CMS Score: 11% impairment Informed Consent/Education: Patient instructed in purpose of PT consult and plan of care. Assessment: Patient is a 53 year old female referred to physical therapy services for mobility assessment and discharge planning. Patient presents with decreased strength and activity tolernace due to acute medical issues. She is independent at baseline, and anticipate she'll be able to return to the community as her strength and medical status improve. She will likely require continued PT intervention upon discharge, either via HH or outpatient services. She currently demonstrates the following impairment level findings: 1. decreased LE strength 2. decreased activity tolerance 3. decreased balance 4. oxygen desaturation with functional movement Impairments are contributing to the following functional limitations: 1. unable to independently ambulate 2. unable to perform self-care independently (toileting) 3. unable to transfer independently 4. unable to tolerate static standing without assistance Patient is assessed as Moderate 44644 complexity based on the following: History: Patient is a 53 year old female presenting with limited mobility during acute care stay. Complicating factors include multiple medical co-morbidities with ongoing ICU level care required. Examination: funcitonal limitations as noted above Presentation: evolving Decision Making: moderate complexity Goals: Goals X1 week 1. Supine-Sit : supervision MET 2. Sit-Supine : supervision MET 3. Sit-Stand : supervision MET 4. Stand-Sit : supervision MET 5. Bed-Chair : supervision MET 6. Chair-Bed : supervision MET 7. Gait : supervision with FWW x 100' NOT MET, CONTINUE Plan of Care/Treatment Plan: 1-2x/day, 7 days/week x 1 week. Plan of care has been reviewed with the PRINCIPAL HARDWARE ARCHITECT providing the service under Physical Therapy direction. Initiate Physical Therapy intervention for strengthening, bed mobility, transfers, gait, stairs, balance training, use of assistive device. DISCHARGE RECOMMENDATIONS: Home with outpatient HH PT TREATMENT CODE/TIME: [id number] x 18 minutes for 1 unit beginning at 16:23 PM.
[2023-08-06] MEDS: Lidocaine Patch Removal 2 EACH TP (18:21)
[2023-08-06] MEDS: LIDOCAINE Patch Removal 1 EACH TP (19:00)
[2023-08-06] MEDS: Melatonin 3 MG TAB PO (19:39)
[2023-08-06 23:20] VITALS: BP 126/79; PULSE 70; RESP 16; TEMP 36; O2SAT 95
[2023-08-07] MEDS: Lidocaine 5% Patch 2 PATCH TP (06:16)
[2023-08-07] MEDS: MEROPENEM 1 GM in Normal Saline 100 ML IVPB ×2 (06:16→14:22)
[2023-08-07] MEDS: Nystatin 500000 UNITS/5 ML SUSP 5ML CUP PO ×3 (06:16→14:06)
[2023-08-07 07:19] LABS: HCT 23.7 % (36.0-46.0); HGB 8.1 g/dL (11.2-15.7); MCH 36.8 pg (27.0-33.0); MCHC 34.2 % (32.0-36.0); MCV 108 fL (80-95); MPV 11.3 fL (8.0-11.0); Platelet Count 240 10^3/uL (130-400); RDW 18.7 % (11.7-14.6); RDW-SD 73.8 fL; WBC 23.01 10^3/uL (4.4-10.8)
[2023-08-07 07:30] LABS: INR 1.4 (0.9-1.1); Prothrombin Time 13.9 sec (9.1-11.1)
[2023-08-07 07:38] VITALS: BP 114/69; PULSE 73; RESP 16; TEMP 36.2; O2SAT 97
[2023-08-07] MEDS: Budesonide/Formoterol 160/4.5 6 GM 60 PUFF INH IH (08:13)
[2023-08-07] MEDS: Nicotine 21 MG/24 HR PATCH TD (08:39)
[2023-08-07] MEDS: Rifaximin 550 MG TAB PO (08:40)
[2023-08-07] MEDS: Potassium Chloride 10 MEQ CAPCR 20 MEQ PO (08:40)
[2023-08-07] MEDS: Fluconazole 100 MG TAB 200 MG PO (08:41)
[2023-08-07] MEDS: Furosemide 40 MG TAB PO ×2 (08:41→15:51)
[2023-08-07] MEDS: Midodrine 2.5 MG TAB PO ×2 (08:41→14:05)
[2023-08-07] MEDS: Pantoprazole 40 MG TABCR PO (08:42)
[2023-08-07] MEDS: Thiamine 100 MG TAB PO (08:42)
[2023-08-07] MEDS: Spironolactone 25 MG TAB PO (08:42)
[2023-08-07] MEDS: Heparin 5,000 UNITS/ML VIAL 5000 UNITS SC (08:43)
[2023-08-07 08:50] LABS: Lab Add On Test DONE
[2023-08-07 09:12] LABS: Iron 56 ug/dL (50-170); Total Iron Binding Capacity 91 ug/dL (250-450); Transferrin Sat 62 % (15-50)
[2023-08-07 09:49] LABS: Ferritin 1417 ng/mL (8-252); Folate 2.3 ng/mL (8.6-20.0); Vitamin B12 981 pg/mL (193-986)
[2023-08-07 09:59] LABS: PHOSPHORUS 3.6 mg/dL (2.6-4.7)
[2023-08-07 10:35] LABS: Procalcitonin 0.2 ng/mL
[2023-08-07] MEDS: Acetaminophen 500 MG TAB PO ×2 (10:38→15:50)
[2023-08-07] MEDS: prednisoLONE SOD PHOS. Soln. 3 MG/ML 40 MG PO (10:40)
[2023-08-07] MEDS: DOXYCYCLINE 100 MG in Normal Saline 100 ML IVPB ×2 (11:16)
[2023-08-07 11:38] LABS: ALT 70 U/L (14-59); AST 122 U/L (15-37); Albumin 1.9 g/dL (3.4-5.0); Alkaline Phosphatase 154 U/L (46-116); Anion Gap 8.2 mmol/L (3-11); BUN 18 mg/dL (7-18); Bilirubin, Total 1.5 mg/dL (0.2-1.0); CO2 23.8 mmol/L (21.0-32.0); CREATININE 0.6 mg/dL (0.55-1.02); Calcium 8.9 mg/dL (8.5-10.1); Chloride 105 mmol/L (98-107); Glucose 79 mg/dL (74-106); Magnesium 1.5 mg/dL (1.8-2.4); Potassium 3.6 mmol/L (3.5-5.1); Sodium 137 mmol/L (136-145); Total Protein 5.3 g/dL (6.4-8.2)
--- NOTE | 2023-08-07 12:01 | PTTR_ITS ---
PT Notes Visit Reasons: Acute Pancreatitis, Alcoholic Hepatitis, Chronic A Date: 08/07/23 PRECAUTIONS: Fall, standard, activity as tolerated. SUBJECTIVE: Feeling really good. She has been up to the bathroom herself with the walker. She feels dependent on a walker, not steady to be without. She will be discharged to her daughters when the time comes, who has a few stairs to enter. She did stairs with PT yesterday. Feels energentic, no pain. OBJECTIVE: Patient is sitting qamar cross apple sauce in bed, with family and friends visiting. Exciting to do PT. ?IV in place ? PAIN: None reported VITALS: closely monitored by nursing staff. ? BED MOBILITY/TRANSFERS? Rolling L/R: Independent Supine-sit: Independent ? Sit-supine: Independent? Sit-stand: Independent? Stand-sit: Independent? Bed-Chair: Independent ? Chair-bed: Independent GAIT? Assistive Device: FWW ? Weight bearing: full Assist: Supervision ? Distance:? feet ? Deviation: reduced step height, reduced stride length, mechanical appearing stride. ? Therapeutic activities: Activities to improve dynamic mobility designed to improve specific functional tasks STS from bed to RW x 10 Marching for step over activity in place x 10 rip Standing UE flex x 10 rip, for aching, hair washing stability Static stand no hands for balance with cooking and showering x 1 min HR x 10 for step up and gait strength and stability Therapeutic Procedures: Skilled exercise prescription for ROM, strengthening, and flexibility specific to patients problem Ambulation to improve dynamic strength with household ambulation to limit falls and promote safe household function x 350 ft RW, supervision ASSESSMENT:? Patient doing great. No fatigue, no pain. Essential Independent with RW with dynamic ambulation. Requires service to transition to premorbid level of function with no AD with walking and improve stability with dynamic functional tasks, as she is fearful of tasks such as showering, and toileting. Patient safe to ambulate halls with family with RW. PLAN: Continue global strengthening per plan of care until patient is medically cleared for discharge. Treatment to include Therapeutic activities: Activities to improve dynamic activities designed to imp rove specific functional tasks Therapeutic Procedures: Skilled exercise prescription for ROM, strengthening, and flexibility specific to patients problem TREATMENT CODE/TIME: Began at 11:30 Direct treatment time 23min Total treatment time 23min Units Time 9716 Manual therapy (58819) min Therapeutic Procedures (95216) 1 8min Neurological Reeducation (79011) min Therapeutic Activity (35995) 1 15min [] [] []min [] [] []min
[2023-08-07] MEDS: Folic Acid 1 MG TAB 5 MG PO (12:41)
--- NOTE | 2023-08-07 15:06 | PDOC.CMDIS ---
Date of service: 08/07/23 Time of Service: 15:06 LACE Index Scoring Tool Questions: Length of Stay (in days): 7 - 13 Was the patient admitted via the E.D.?: Yes Comorbidities: Chronic Pulmonary Disease and Liver or Renal Disease E.D. Visits: 0 Answers: Total Score: 13 Risk of Readmission: High Risk Care Management Discharge Plan Reason for Hospitalization: pancreatitis Discharge Plan: Nyasia will stay with her daughter post hospitalization for a short period of time before returning home. Her daughter will drive her home via private vehicle. She does not have a primary care provider; CM will set up a hospital discharge follow up appointment at the [facility] (Marivel Leong was refinery operator polymerization plant the day of her arrival to the ED). She will follow her discharge plan of care. She is very happy to be returning home today. Patient/Family Education Needs: Review discharge instructions and limitations, discussion of self care needs including ask me three.
[2023-08-07 15:22] VITALS: BP 103/65; PULSE 84; RESP 16; TEMP 36.7; O2SAT 94
[2023-08-07] MEDS: Lidocaine Patch Removal 2 EACH TP (15:51)
--- NOTE | 2023-08-07 15:57 | W.PM.DS.N ---
Date of service: 08/07/23 Time of Service: 15:57 DS: Diagnosis Discharge Diagnosis (1) Acute respiratory failure with hypoxia: Status: Resolved Asessment and Plan: . Aspiration pneumonia leading to sepsis and septic shock. Patient treated with 11 days of broad-spectrum antibiotics including initial treatment with Zosyn and subsequent treatment with meropenem and doxycycline and vancomycin. Clinically improved. Remains afebrile and not requiring any supplemental oxygen. Patient discharged home without any further antibiotics. Follow-up chest x-ray ordered for next week. (2) Aspiration pneumonia: Status: Acute (3) Septic shock: Status: Resolved Asessment and Plan: Patient required vasopressor including norepinephrine which was weaned off and transition to midodrine. (4) COPD (chronic obstructive pulmonary disease) with emphysema: Status: Chronic Asessment and Plan: Patient discharged on Symbicort and as needed albuterol. (5) Alcoholic hepatitis without ascites: Status: Chronic Asessment and Plan: Severe alcoholic hepatitis complicated by shock liver from hypotension. Transaminases and bilirubin have been improving. Liver function tests need continued monitoring. Repeat CMP has been ordered for next week. Patient should complete a 28-day course with prednisolone 40 mg daily. She needs another 3 weeks. (6) Hepatic encephalopathy: Status: Resolved Asessment and Plan: Hepatic encephalopathy treated with lactulose and rifaximin. Encephalopathy has resolved (7) Pancreatitis, acute: Status: Resolved Asessment and Plan: Resolved initially caused by alcohol abuse (8) Hypomagnesemia: Status: Resolved Asessment and Plan: Repeat magnesium for next week. (9) Alcohol use disorder: Status: Chronic (10) Hypokalemia: Status: Acute Asessment and Plan: Needs continued potassium replacement in light of her need for continued diuretics to control her ascites. Discharge Plan Disposition Patient Disposition: Home Condition: Improving Discharge Details Reason For Visit: Acute Pancreatitis, Alcoholic Hepatitis, Chronic A Admit Date/Time: 07/26/23 19:11 Admit Provider: Ramon Holder Attending Provider: Ramon Holder Primary Care Provider: Unknown,Unknown Hospital Course Hospital Course: This 53-year-old female with a lifelong history of alcohol consumption presented to the emergency room on 07/26/2023 with abdominal pain nausea and vomiting found to have acute pancreatitis and alcoholic hepatitis. CT scan of the abdomen pelvis was consistent with pancreatitis with wall thickening involving the duodenum and left upper quadrant loops of small bowel with severe hepatic steatosis. No evidence of gallstones or biliary distention. Admission labs were notable for hypokalemia potassium 2.3 anion gap of 18.7 sodium 131 magnesium 1.6 elevated total bilirubin 3.4 with an AST of 82 alkaline phosphatase 197 and a low albumin of 2.5. Triglycerides were elevated at 168. Lipase was greater than 375. Procalcitonin was 0.4. She was admitted to the medical/surgical floor placed on IV fluids given antiemetics pain medications and was started on phenobarbital protocol for alcohol withdrawal. On the morning of 07/28/2023 she spiked a fever of 101 had hypotension with mean arterial pressure less than 65 had a coarse cough and chest x-ray showed new left lower lobe infiltrate concerning for aspiration. She was tachycardic and despite significant fluid resuscitation remained hypotensive meeting criteria for septic shock. She was transferred to the intensive care unit. She was started on IV meropenem and vancomycin and Levophed. By 07/30/2023 she was transition over midodrine and Levophed was discontinued. However by this time she was showing worsening liver function tests with an AST of 1131 and ALT of 170 alkaline phosphatase 169 and a total bilirubin of 3.8. Coags are also were becoming more abnormal with an INR 1.8 and a pro time of 17.5. WBCs had peaked at 24,000 on 07/29/2023, she is now showing signs of hepatic encephalopathy and ammonia level was checked and found to be elevated at 39. Of note her urine toxicology screen on admission was positive for barbiturates and THC as well as opiates. Stool was checked for C. difficile twice and found to be negative. MRSA screen was checked twice and also negative. Patient had worsening oxygen requirements and CT scan was checked showing multifocal pneumonia and pleural effusions. Patient was started on stress dose steroids and antibiotics were expanded. Patient was treated with vancomycin doxycycline and meropenem she was started on lactulose and rifaximin for her hepatic encephalopathy. Patient did not require intubation however she was felt to be volume overloaded from the initial resuscitation and she was started on diuretics which improved her oxygen requirements. Midodrine was continued which help with her blood pressure. Palliative care consultation was obtained with paris Hernandez see her note from 08/02/2023 for details. Maddrey score was complicated daily the patient was placed on prednisolone 40 mg daily for treatment of her alcoholic hepatitis. Patient improved and was transferred out of the intensive care unit patient continued to receive broad-spectrum antibiotics with meropenem and doxycycline and after multiple negative MRSA screens vancomycin was discontinued. Patient improved to the point where she could be discharged home on 08/07/2023. At that time she had been on room air since 08/03/2023. Vital signs were stable at the time of discharge she was afebrile. Her liver function was continuing to improve with her AST down to 113 ALT down to 69 alkaline phosphatase of 159 and a total bilirubin of 1.8. Procalcitonin has been down to 0.2. Follow-up chest x-ray showed some mild persistent infiltrates but clinically she had improved and had completed 10 days of meropenem and 7 days of doxycycline. While with her initial treatment with Zosyn. Patient was discharged on continued diuretics with furosemide 40 mg orally twice a day and spironolactone 25 mg daily to control her ascites and fluid retention she was kept on potassium supplementation. For GI protection she was kept on Protonix. She was kept on rifaximin and lactulose for her hepatic encephalopathy. She was sent home on thiamine and folic acid and multivitamin. For her COPD she was kept on Symbicort. She was prescribed prednisolone 40 mg daily she is to take this for another 3 weeks. She has been referred to a new primary care provider Marivel Leong in [facility]. Patient has been given orders for follow-up labs including CMP, CBC, magnesium level and a follow-up chest x-ray. Patient's condition on discharge markedly improved and clinically stable enough for discharge. Patient strongly encouraged to refrain from further drinking of any alcohol whatsoever and she is encouraged to follow-up with an outpatient motorcoach operator or Alcoholics Anonymous. Home Meds and New Rx's Prescriptions: New furosemide 40 mg Tablet 40 mg PO BID@0830,1600 Qty: 60 0RF folic acid 1 mg Tablet 5 mg PO DAILY 15 Days Qty: 75 0RF budesonide-formoterol [Symbicort] 160-4.5 mcg/actuation Hfa Aerosol Inhaler 2 puff inhalation BID Qty: 0 0RF lactulose 20 gram/30 mL Solution 20 g PO DAILY Qty: 1200 0RF Inhaler, Assist Devices [Pocket Chamber] 1 ea miscellaneous DIRECTED Qty: 0 0RF L. Acidophilus,Casei,Rhamnosus [Bio-K Plus] 1 cap PO DAILY 30 Days 0RF lidocaine 5 % Adhesive Patch,Medicated 2 patch topical Q24H 15 Days Qty: 30 0RF pantoprazole 40 mg Tablet,Delayed Release (Dr/Ec) 40 mg PO DAILY@0730 30 Days Qty: 30 0RF nicotine 21 mg/24 hr Patch 24 Hour 21 mg transdermal DAILY 28 Days Qty: 28 0RF midodrine 2.5 mg Tablet 2.5 mg PO TID 30 Days Qty: 90 0RF potassium chloride 10 mEq Capsule, Extended Release 20 meq PO DAILY Qty: 60 0RF prednisolone sodium phosphate 15 mg/5 mL (3 mg/mL) Solution 40 mg PO DAILY Qty: 237 0RF spironolactone 25 mg Tablet 25 mg PO DAILY Qty: 30 0RF Xifaxan 550 mg Tablet 550 mg PO BID Qty: 60 0RF thiamine mononitrate (vit B1) [Vitamin B-1 (mononitrate)] 100 mg Tablet 100 mg PO QAM Qty: 30 0RF magnesium 250 mg tablet 250 mg PO BID Qty: 60 0RF Discharge Instructions Instructions: Prednisolone (By mouth), Alcohol Dependence (DC), Alcoholic Hepatitis (DC) Additional Instructions: You were treated for sepsis from aspiration pneumonia, acute alcohol related hepatitis, hepatic encephalopathy (a delirium brought on by chronic liver disease), pancreatitis, fluid retention and electrolyte abnormalities. You need to refrain from further alcohol intake and should seek alcohol counseling such as alcoholics anonymous for support in maintaining sobriety. You have completed 10 days of antibiotics and should not need further antibiotics. Please get follow up labs next week to monitor your blood counts and liver and kidney function and electrolytes. Get follow up chest xray next week. [facility] should call you with an appointment w/ Marivel Leong, who was the escalation engineer primary care provider the day you came to the emergency room. She should go over your follow up tests with you. Return to the hospital if you experience fever, shaking chills, acute shortness of breath, or increasing confusion. Be sure to get your medications filled and take them as prescribed. Stand Alone Forms: Nursing Discharge Form Referrals: Marivel Leong [ NON-RESEARCH [facility] STAFF PHYSICIAN] - (patient needs acute post hospital follow up. No known PCP. Patient was admitted 07/26 and per CM and the switchboard, you were on telephone call. Please follow up discharge labs: cmp, cbc, mg level and cxr You information has been faxed to [facility] please call them on wednesday to set up a f/u appointment.) Activity:: Activity as Tolerated Equipment/Supplies:: No Equipment Needed Diet:: Normal Diet Discharge Orders Discharge Orders: Discharge Order (Routine); Ordered 08/07/23 Ordered By: Angelo Portillo Other Ambulatory Orders: Complete Blood Count w/Diff (Routine) Timeframe: 1 Week Facility: [facility] - Location: Laboratory Outpatient - [facility] Ordered By: Angelo Portillo Comprehensive Metabolic Panel (Routine) Timeframe: 1 Week Facility: [facility] - Location: Laboratory Outpatient - [facility] Ordered By: Angelo Portillo XR chest 2V PA & lateral (Routine) Timeframe: 1 Week Facility: [facility] - Location: DIAGNOSTIC IMAGING DEPT Ordered By: Angelo Portillo Magnesium (Routine) Timeframe: 1 Week Facility: [facility] - Location: Laboratory Outpatient - [facility] Ordered By: Angelo Portillo Discharge Data Discharge Date/Time-TO BE ENTERED AT DEPARTURE: 08/07/23 17:32 DS: Summary Time Spent with Patient providing and/or coordinating discharge services: Greater than 30 minutes Status at Discharge Functional status at discharge: uses cane/walker Overall status at discharge: patient is progressing back to baseline Mental Status: mental status grossly normal Speech and Movement: speech and movement normal Mood: congruent mood Affect: normal affect Exam Narrative Exam Narrative: Naysia is alert and oriented to person place and circumstance. No acute distress. Able to talk in complete paragraphs without dyspnea. Not requiring oxygen Neck is supple no accessory respiratory muscle use Lungs are clear to auscultation Heart is regular rate and rhythm Abdomen soft nontender nondistended Extremities 1+ pedal edema and ankle edema. No edema of her thighs or pretibial Psych Mental Status: mental status grossly normal Speech and Movement: speech and movement normal Mood: congruent mood Affect: normal affect DS: Data Vitals/I&O Vitals and I&O: Vital Signs Temperature 36.7 C 08/07/23 15:22 Temperature Source Tympanic 08/07/23 15:22 Pulse 84 08/07/23 15:22 Pulse Rhythm Regular 08/07/23 12:57 Pulse 100 H 08/04/23 04:00 Respiratory Rate 16 08/07/23 15:22 Respiratory Effort Normal, Non-Labored 08/07/23 12:57 Respiratory Depth Normal 08/07/23 12:57 Respiratory Pattern Normal 08/07/23 12:57 Blood Pressure 103/65 08/07/23 15:22 Blood Pressure Mean 88 08/04/23 03:22 Blood Pressure Position Sitting 08/03/23 11:12 Pulse Oximetry 94 08/07/23 15:22 Oxygen Delivery Method Room Air 08/07/23 15:22 Oxygen Flow Rate 0 08/07/23 15:22 Fraction of Inspired Oxygen (FIO2) 56 08/02/23 21:42 Pain Level 0 08/07/23 15:22 Comment Sitting up in bed/neb/meds 08/04/23 03:22 Intake & Output 08/06/23 08/07/23 08/07/23 23:59 11:59 23:59 Intake Total 300 / 500 200 / 200 Output Total 300 / 1950 Balance 0 / -1450 200 / 200 Weight 53.2 kg Intake: IV 300 / 500 200 / 200 Output: Urine 300 / 1950 Other: Urine Appearance Clear Clear Clear Stool Size Small Stool Characteristics Soft Formed Voiding Methods Toilet Data Completed and Pending Labs on day of discharge: Labs from last 24 hours 08/07/23 06:46 WBC 23.01 H RBC 2.20 L Hgb 8.1 L Hct 23.7 L MCV 108 H MCH 36.8 H MCHC 34.2 RDW 18.7 H Plt Count 240 MPV 11.3 H PT 13.9 H INR 1.4 H Sodium 137 Potassium 3.6 Chloride 105 Carbon Dioxide 23.8 Anion Gap 8.2 BUN 18 Creatinine 0.6 Est GFR (CKD-EPI 2020) 106.60 Glucose 79 Calcium 8.9 Phosphorus 3.6 Magnesium 1.5 L Iron 56 TIBC 91 L Transferrin % Sat 62 H Ferritin 1417 H Total Bilirubin 1.5 H AST 122 H ALT 70 H Alkaline Phosphatase 154 H Total Protein 5.3 L Albumin 1.9 L Vitamin B12 981 Folate 2.3 L Procalcitonin 0.2 Add-On Test Request DONE 08/07/23 14:01 Stool Stool Occult Blood (SILVIA) - Pending Preliminary micro results at discharge 08/07/23 14:01 Stool Occult Blood (SILVIA) - Pending Stool PFSH All Active Problems (Updated 08/08/23 @ 00:03 by VIRGILIO UGARTE) Decreased appetite (Acute) Does not have primary care provider (Acute) Palliative care encounter (Acute) Weakness (Acute) Pain (Acute) Do not attempt intubation (Acute) DNR (do not resuscitate) (Acute) ACP (advance care planning) (Acute) Aspiration pneumonia (Acute) COPD (chronic obstructive pulmonary disease) with emphysema (Chronic) Acute hypokalemia (Acute) Chronic hyponatremia (Acute) Liver dysfunction (Acute) Alcohol use disorder (Chronic) Anemia (Chronic) Hypokalemia (Acute) Alcoholic hepatitis without ascites (Chronic) Social History Smoking/Tobacco Use Status: Current every day Tobacco Type: cigarettes Smoking risk assessment performed?: Yes Alcohol Intake: current Alcohol Intake frequency: 3 or more drinks per day Alcohol type: hard liquor Drug use: Daily Substance use type: marijuana Details: at night to sleep Housing: apartment Do you feel safe at home: Yes Do you feel safe in your relationship?: Yes Time Spent with Patient Time Spent with Patient: 45-69 minutes Time was spent: preparing to see the patient(eg.review tests), ordering medications,tests, procedures, referring, communicating with other health career based intervention coordinator, indepentently interpreting results, counseling the patient and care coordination
--- NOTE | 2023-08-07 16:26 | PDOC.HHF2F_ITS ---
Home Health Referral Home Health Orders Clinical synopsis of why skilled professionals are needed: Patient was hospitalized from 07/26/2023 through 08/07/2023 with acute alcoholic pancreatitis and alcoholic hepatitis developed hepatic encephalopathy and aspiration pneumonia. She was treated with broad-spectrum antibiotics and completed 10-day course of meropenem and doxycycline. Patient's alcoholic hepatitis was treated with prednisolone. Physical therapy was ordered during hospital stay to treat her for generalized weakness and deconditioning. Speech therapy saw her for her swallowing abilities and her diet was upgraded to minced and moist with thin liquids. She was tolerating her diet without any coughing or choking spells. Patient's encephalopathy improved with rifaximin and lactulose. She is now being discharged home and needs follow-up home health services including nursing physical therapy occupational therapy and speech therapy. Nursing is to monitor her medications and her compliance with her medical regiment as well as to monitor lab abnormalities and to coordinate with her PCP regarding any medication changes or any follow-up lab work or chest x- rays. Nursing also monitor blood pressure and monitor for ascites and peripheral edema as well as any respiratory changes. At the time of discharge patient had no dyspnea and was on room air. Repeat labs including CMP, CBC, magnesium to be done in one week. Orders sent to [facility] labs. Repeat CXR in one week. Order sent to DI at [facility]. Physical therapy to continue therapy program established in the hospital please see [facility] therapist note for details. Continue to work with her strength and gait training and ambulation with a goal of helping her achieve independent ADL performance. OT also work on her ADL performance. Follow-up speech therapy to ensure that she continues to improve in terms of her swallowing ability and to educate family and other providers on proper nutrition. Medical diagnosis necessitation home health referral: Aspiration pneumonia, hepatic encephalopathy, alcoholic hepatitis, chronic alcohol use disorder, COPD, hypokalemia, hypomagnesemia, peripheral edema and ascites secondary to chronic liver disease, Registered Nurse: Check all that apply Instruct on new or changed medication(s)/assess compliance: Ordered Assess for exacerbation of medical condition, instruct patient/caregivers on signs and symptoms to report for early detection: Ordered Physical Therapist: Check all that apply Increase strength & endurance for safe mobility at home: Ordered To design/establish home maintenance program: Ordered Fall reduction therapy program for patient with history of frequent falls: Ordered Home safety evaluation and teaching/gait training including stair management (if applicable): Ordered Better Breathing Program: Ordered Occupational Therapist: Evaluate and treat for patient unable to perform ADL/IADL/self-care: Ordered Upper extremity strengthening, range and motion: Ordered Speech Therapist: Check all that apply For swallow evaluation/therapy due to dysphagia: Ordered Cognition/memory: Ordered Customer Agent: Assist with community resources: Ordered Assist with superintendent container terminal care planning: Ordered Home Bound Status Requires the aid of supportive device (check all that apply): Walker Patient has a condition such that leaving home is medically contraindicated (Describe): Acute confusion secondary to hepatic encephalopathy and frequent falls Describe why leaving home would require a considerable and taxing effort: Side effects from pain medication (sedation/drowsiness), Confusion and Safety Concerns: describe (Hepatic encephalopathy) Encounter Date and Reason: I certify that a FTF encounter for this patient was performed on August 07, 2023 and that such encounter was related to the primary reason the patient requires home health services. The encounter was conducted in the following manner: * By me as the certifying physician, TOOL LIAISON, PA or * By an inpatient physician, TOOL LIAISON or PA during an inpatient stay who communicated findings to me, Certification And Authentication I certify that I composed the above information based on my clinical judgment relating to this patient's medical condition and, if applicable, clinical findings communicated to me by the NPP or inpatient physician who performed the FTF encounter. Name of Provider that will be monitoring home health services: Marivel Leong
== END 2023-08-07 17:32 | disposition home or self-care (01) | DRG 438 ==
LOC: ER 19:24 → ICU 20:15 → MS 08-04 11:21
PROVIDERS: Family Medicine; Internal Medicine; Admitting Provider Family Medicine; Emergency Provider Student in an Organized Health Care Education/Training Program; Visit Provider Family Medicine
DX: K85.20 Alcohol induced acute pancreatitis without necrosis or infection (principal); A41.9 Sepsis, unspecified organism; R65.21 Severe sepsis with septic shock; J69.0 Pneumonitis due to inhalation of food and vomit; J96.01 Acute respiratory failure with hypoxia; K70.11 Alcoholic hepatitis with ascites; J43.9 Emphysema, unspecified; K76.82 Hepatic encephalopathy; D64.9 Anemia, unspecified; F10.90 Alcohol use, unspecified, uncomplicated; E83.42 Hypomagnesemia; E87.6 Hypokalemia; K52.9 Noninfective gastroenteritis and colitis, unspecified; Z66 Do not resuscitate; R53.1 Weakness; R63.0 Anorexia; D72.829 Elevated white blood cell count, unspecified; Z68.21 Body mass index [BMI] 21.0-21.9, adult; F17.210 Nicotine dependence, cigarettes, uncomplicated; F12.90 Cannabis use, unspecified, uncomplicated; K59.00 Constipation, unspecified
CPT/HCPCS: 00123; 36410; 36415; 36592; 71275; 74177; 80048; 80053; 80061; 80076; 80307; 82805; 83690; 84145; 85027; 87040; 87077; 87493; 87505; 87635; 87641; 92526; 92610; 93005; 94640; 96361; 96365; 96366; 96375; 96376; 97110; 97116; 97162; 97530; 99285; 71045; 71046; 76700; 76705; 80202; 80320; 81003; 81015; 82140; 82270; 82607; 82728; 82746; 83540; 83550; 83605; 83735; 83880; 84100; 85025; 85610; 86140; 87070; 87086; 87186; 87205; 93010; 93306; 93970; 94664; 94668; 94760; 99223; 99232; 99233; 99239; 99291; J0131; J1644; J1885; J1940; J1941; J2270; J2405; J2543; J2560; J3475; J3480; J3490; J7613; J7620

== ENCOUNTER → 2023-08-16 03:20 | Outpatient (CLI) | payer MEDICAID, SELFPAY ==
--- NOTE | 2023-08-16 07:30 | DI.RAD_ITS ---
Exam(s) XR CHEST 2V PA LATERAL EXAM: XR CHEST 2V PA LATERAL CLINICAL HISTORY: F/U ASPIRATION PNEUMONIA,J69.0 TECHNIQUE: 2D digital imaging was performed. COMPARISON: No exams were available for comparison FINDINGS: HEART: Normal size. Aorta: Not dilated. PULMONARY VASCULATURE: Normal. LUNGS: Clear. Previously noted infiltrates have resolved. PLEURAL SPACE: No pleural effusion or pneumothorax. BONE:Unremarkable for age. Soft tissues: Unremarkable. IMPRESSION: No acute abnormality. DATA REPOSITORY: RADIATION DOSE DELIVERED:
== END ==
PROVIDERS: Visit Provider Internal Medicine
DX: J69.0 Pneumonitis due to inhalation of food and vomit (principal)
CPT/HCPCS: 71046

== ENCOUNTER 2023-08-17 02:34 | Outpatient (CLI) | payer MEDICAID, SELFPAY ==
[2023-08-17 13:18] LABS: Absolute Basophil Count 0.05 10^3/uL (0.0-0.2); Absolute Monocyte Count 0.65 10^3/uL (0.1-0.8); Absolute Neutrophil Count 16.49 10^3/uL (1.2-6.7); Basophils % 0.3; Eosinophils % 1.2; HCT 30.6 % (36.0-46.0); HGB 9.8 g/dL (11.2-15.7); Immature Grans % 1.1; Lymphocytes % 2.5; MCV 113 fL (80-95); MPV 10.3 fL (8.0-11.0); Monocytes % 3.6; Neutrophils % 91.3; Platelet Count 264 10^3/uL (130-400); RBC 2.72 10^6/uL (3.93-5.22); RDW 16.3 % (11.7-14.6); RDW-SD 68.1 fL; WBC 18.06 10^3/uL (4.4-10.8)
[2023-08-17 13:24] LABS: Absolute Eosinophil Count 0.22 10^3/uL (0.0-0.7); Absolute Lymphocyte Count 0.45 10^3/uL (1.2-3.4)
[2023-08-17 13:35] LABS: Diff Comment RBC Morph Reviewed; Macrocytosis 2+; Polychromasia Present
[2023-08-17 14:19] LABS: ALT 78 U/L (14-59); AST 69 U/L (15-37); Albumin 2.9 g/dL (3.4-5.0); Alkaline Phosphatase 156 U/L (46-116); Anion Gap 10.9 mmol/L (3-11); BUN 26 mg/dL (7-18); Bilirubin, Total 0.9 mg/dL (0.2-1.0); CO2 25.1 mmol/L (21.0-32.0); CREATININE 0.8 mg/dL (0.55-1.02); Calcium 9.4 mg/dL (8.5-10.1); Chloride 102 mmol/L (98-107); Glucose 259 mg/dL (74-106); Magnesium 1.7 mg/dL (1.8-2.4); Potassium 4.1 mmol/L (3.5-5.1); Sodium 138 mmol/L (136-145); Total Protein 7.3 g/dL (6.4-8.2)
== END 2023-08-17 02:35 | disposition home or self-care (01) ==
LOC: LBO 02:34
PROVIDERS: PCP Family Medicine; Visit Provider Internal Medicine
DX: E83.42 Hypomagnesemia; E87.6 Hypokalemia; K70.10 Alcoholic hepatitis without ascites; K76.89 Other specified diseases of liver
CPT/HCPCS: 36415; 80053; 83735; 85025

== ENCOUNTER 2023-08-30 15:25 | Emergency (ER) | payer MEDICAID, SELFPAY ==
[2023-08-30] VITALS (32 sets, daily range): BP systolic 104–134; BP diastolic 52–70; PULSE 85–97; RESP 14–16; TEMP 37.5–38; O2SAT 91–98
--- NOTE | 2023-08-30 17:21 | ED.GENADUL_ITS ---
Discharge Plan Disposition Patient Disposition: Home Condition: Stable Discharge Details Clinical Impression: Abdominal pain Primary Care Provider: Paul Moore ED Provider: Ayla Ramon Home Meds and New Rx's Prescriptions: Continued budesonide-formoterol [Symbicort] 160-4.5 mcg/actuation HFA aerosol inhaler 2 puff inhalation BID Qty: 10.2 1RF furosemide 40 mg Tablet 40 mg PO BID@0830,1600 Qty: 60 0RF lactulose 20 gram/30 mL Solution 20 g PO DAILY Qty: 1200 0RF Inhaler, Assist Devices [Pocket Chamber] 1 ea miscellaneous DIRECTED Qty: 0 0RF L. Acidophilus,Casei,Rhamnosus [Bio-K Plus] 1 cap PO DAILY 30 Days 0RF pantoprazole 40 mg Tablet,Delayed Release (Dr/Ec) 40 mg PO DAILY@0730 30 Days Qty: 30 0RF nicotine 21 mg/24 hr Patch 24 Hour 21 mg transdermal DAILY 28 Days Qty: 28 0RF midodrine 2.5 mg Tablet 2.5 mg PO TID 30 Days Qty: 90 0RF potassium chloride 10 mEq Capsule, Extended Release 20 meq PO DAILY Qty: 60 0RF prednisolone sodium phosphate 15 mg/5 mL (3 mg/mL) Solution 40 mg PO DAILY Qty: 237 0RF spironolactone 25 mg Tablet 25 mg PO DAILY Qty: 30 0RF Xifaxan 550 mg Tablet 550 mg PO BID Qty: 60 0RF thiamine mononitrate (vit B1) [Vitamin B-1 (mononitrate)] 100 mg Tablet 100 mg PO QAM Qty: 30 0RF magnesium 250 mg tablet 250 mg PO BID Qty: 60 0RF Discharge Instructions Instructions: Abdominal Pain (ED) Additional Instructions: Continue to push fluids to stay well-hydrated drinking at least 6 to 8 glasses of water daily. You can use acetaminophen 650 mg 3 times daily for fever or aches or pains recommended that you keep daily dose under 2000 mg unless directed otherwise by your physician Referrals: Paul Moore MD [Primary Care Provider] - (Please keep doctor appointment tomorrow as scheduled or return here sooner for new or worsening symptoms) Discharge Data Discharge Date/Time-TO BE ENTERED AT DEPARTURE: 08/30/23 22:03 Medical Decision Making Is a 53-year-old female patient presents with abdominal pain and fever 3-day history. Denies any recent alcohol intake. No respiratory complaints. Will obtain IV access bolus with IV fluid check CMP CBC lipase lactic acid and CAT scan of the abdomen and pelvis. This is all been reviewed and only notable lab was elevated white blood cell count at 20 which has been consistent over the past month. She received a dose of Tylenol 650 mg orally for headache body aches with improvement. Her CAT scan is unremarkable. She is able to tolerate fluids well. Hemodynamically she has remained stable is afebrile oxygenating in the high 90s on room air with a respiratory rate of 16 not tachycardic stable blood pressure. Her labs and CAT scan results are reviewed and she is stable for ready for discharge to home and she is agreeable to this plan. She has a primary care provider appointment in the morning which she will keep. She will return here sooner for new or worsening symptoms Medical Records Medical records reviewed: Yes I reviewed the patient's medical records. Imaging Data Radiologic Study: Imaging: CT Scan Radiologist's impression: Exam(s) PROCEDURE INFORMATION: Exam: CT Abdomen And Pelvis With Contrast Exam date and time: 08/30/2023 8:36 PM Age: 53 years old Clinical indication: Abdominal pain; Localized; Patient HX: Left sided abd pain TECHNIQUE: Imaging protocol: Computed tomography of the abdomen and pelvis with contrast. Radiation optimization: All CT scans at this facility use at least one of these dose optimization techniques: automated exposure control; mA and/or kV adjustment per patient size (includes targeted exams where dose is matched to clinical indication); or iterative reconstruction. Contrast material: OMNIPAQUE 350; Contrast volume: 74 ml; Contrast route: INTRAVENOUS (IV); COMPARISON: CT CHEST PE ABD PELVIS W 07/31/2023 9:11 AM FINDINGS: Liver: Normal. No mass. Gallbladder and bile ducts: Mild pericholecystic fluid. No calcified gallstones. Pancreas: Normal. No ductal dilation. Spleen: Normal. No splenomegaly. Adrenal glands: Normal. No mass. Kidneys and ureters: Normal. No hydronephrosis. Stomach and bowel: Unremarkable. No obstruction. No mucosal thickening. Appendix: No evidence of appendicitis. Intraperitoneal space: Unremarkable. No free air. No significant fluid collection. Vasculature: Moderate atherosclerotic calcification throughout the aorta. No evidence of aneurysm or dissection. Prominent vasculature in the bilateral pelvis compatible pelvic venous congestion. Lymph nodes: Unremarkable. No enlarged lymph nodes. Urinary bladder: Unremarkable as visualized. Reproductive: Unremarkable as visualized. Bones/joints: Unremarkable. No acute fracture. Soft tissues: Unremarkable. IMPRESSION: 1. Mild nonspecific pericholecystic fluid. No CT evidence of cholelithiasis or biliary obstruction. 2. Findings suggesting pelvic venous congestion. Dictated and Authenticated by: Trevon Appiah MD. Ordering:FAUSTINO Aguila MD Lab Data Lab results reviewed: Yes I reviewed the patient's lab results. Lab results narrative: Fluvid [id number] testing negative 08/30/23 15:32 Tonsil - Not Specified Group A Streptococcus Culture - Pending Laboratory Tests Range/Units 08/30/23 08/30/23 08/30/23 15:38 17:30 19:08 WBC (4.4-10.8) 10^3/uL 21.12 H RBC (3.93-5.22) 10^6/uL 3.34 L Hgb (11.2-15.7) g/dL 11.8 Hct (36.0-46.0) % 34.9 L MCV (80-95) fL 105 H MCH (27.0-33.0) pg 35.3 H MCHC (32.0-36.0) % 33.8 RDW (11.7-14.6) % 14.0 Plt Count (130-400) 10^3/uL 340 MPV (8.0-11.0) fL 9.8 Immature Gran % 1.9 Neutrophils % 81.2 Lymphocytes % 7.5 Monocytes % 6.8 Eosinophils % 2.1 Basophils % 0.5 Nucleated RBC % (0.0-0.3) % 0.0 Absolute Neutrophils (1.2-6.7) 10^3/uL 17.15 H Absolute Lymphocytes (1.2-3.4) 10^3/uL 1.58 Absolute Monocytes (0.1-0.8) 10^3/uL 1.44 H Absolute Eosinophils (0.0-0.7) 10^3/uL 0.44 Absolute Basophils (0.0-0.2) 10^3/uL 0.11 VBG Lactate (0.6-1.4) mmol/L 1.1 Sodium (136-145) mmol/L 131 L Potassium (3.5-5.1) mmol/L 4.0 Chloride (98-107) mmol/L 96 L Carbon Dioxide (21.0-32.0) mmol/L 23.2 Anion Gap (3-11) mmol/L 11.8 H BUN (7-18) mg/dL 19 H Creatinine (0.55-1.02) mg/dL 0.6 Est GFR (CKD-EPI 2020) (mL/min/1.73m2) 106.60 Glucose (74-106) mg/dL 102 Calcium (8.5-10.1) mg/dL 9.2 Magnesium (1.8-2.4) mg/dL 1.8 Total Bilirubin (0.2-1.0) mg/dL 0.8 AST (15-37) U/L 40 H ALT (14-59) U/L 59 Alkaline Phosphatase (46-116) U/L 127 H Total Protein (6.4-8.2) g/dL 7.5 Albumin (3.4-5.0) g/dL 3.2 L Lipase (16-77) U/L 38 Procalcitonin ng/mL 0.3 Urine Color (Yellow) Yellow Urine Clarity (Clear) Clear Urine pH (5-8) 7.0 Ur Specific [place] (1.005-1.025) 1.015 Urine Protein (Negative) mg/dL Negative Urine Ketones (Negative) mg/dL Negative Urine Blood (Negative) Negative Urine Nitrite (Negative) Negative Urine Bilirubin (Negative) Negative Urine Urobilinogen (Up to 0.2) mg/dL 0.2 Ur Leukocyte Esterase (Negative) Negative Urine Glucose (Negative) mg/dL Negative COVID-19 Source Cancelled SARS-CoV-2 (PCR) Cancelled Influenza Type A (PCR) Cancelled Influenza Type B (PCR) Cancelled RSV (PCR) Cancelled HPI General Mode of arrival: ambulatory . Date/Time Provider Initiated Documentation: 08/30/23 15:31 . Limitations to Documentation: no limitations . Information obtained by: patient . HPI Narrative: This is a 53-year-old female patient with a history of alcoholic cirrhosis, acute alcoholic hepatitis without ascites who presents with c/o abdominal pain, 3 day history. Also noted to have fever headache chills body aches. She has no cough chest pain or shortness of breath. Related Data Home Medications Medication Instructions Recorded Confirmed Inhaler, Assist Devices [Pocket 1 ea miscellaneous DIRECTED ##0 08/07/23 08/30/23 Chamber] L. Acidophilus,Casei,Rhamnosus 1 cap PO DAILY 30 days 08/07/23 08/30/23 [Bio-K PLUS] furosemide 40 mg tablet 40 mg PO BID@0830,1600 #60 tabs 08/07/23 08/30/23 lactulose 20 gram/30 mL oral 20 g (30 mL) PO DAILY #1,200 mL 08/07/23 08/30/23 solution magnesium 250 mg tablet 250 mg PO BID #60 tabs 08/07/23 08/30/23 midodrine 2.5 mg tablet 2.5 mg PO TID 30 days #90 tabs 08/07/23 08/30/23 nicotine 21 mg/24 hr daily 21 mg transdermal DAILY 28 days 08/07/23 08/30/23 transdermal patch #28 ea pantoprazole 40 mg tablet,delayed 40 mg PO DAILY@0730 30 days #30 08/07/23 08/30/23 release tabs potassium chloride 10 mEq 20 meq (2 x 10 mEq) PO DAILY #60 08/07/23 08/30/23 capsule,extended release caps prednisolone sodium phosphate 15 40 mg (13.3333 mL) PO DAILY #237 mL 08/07/23 08/30/23 mg/5 mL (3 mg/mL) oral solution rifaximin 550 mg tablet (Xifaxan) 550 mg PO BID #60 tabs 08/07/23 08/30/23 spironolactone 25 mg tablet 25 mg PO DAILY #30 tabs 08/07/23 08/30/23 thiamine mononitrate (vit B1) 100 100 mg PO QAM #30 tabs 08/07/23 08/30/23 mg tablet (Vitamin B-1 (mononitrate)) budesonide-formoterol HFA 160 2 puff inhalation BID #10.2 grams 08/18/23 08/30/23 mcg-4.5 mcg/actuation aerosol inhaler (Symbicort) Previous Rx's Medication Instructions Recorded Inhaler, Assist Devices [Pocket 1 ea miscellaneous DIRECTED ##0 08/07/23 Chamber] L. Acidophilus,Casei,Rhamnosus 1 cap PO DAILY 30 days 08/07/23 [Bio-K PLUS] furosemide 40 mg tablet 40 mg PO BID@0830,1600 #60 tabs 08/07/23 lactulose 20 gram/30 mL oral 20 g (30 mL) PO DAILY #1,200 mL 08/07/23 solution magnesium 250 mg tablet 250 mg PO BID #60 tabs 08/07/23 midodrine 2.5 mg tablet 2.5 mg PO TID 30 days #90 tabs 08/07/23 nicotine 21 mg/24 hr daily 21 mg transdermal DAILY 28 days 08/07/23 transdermal patch #28 ea pantoprazole 40 mg tablet,delayed 40 mg PO DAILY@0730 30 days #30 08/07/23 release tabs potassium chloride 10 mEq 20 meq (2 x 10 mEq) PO DAILY #60 08/07/23 capsule,extended release caps prednisolone sodium phosphate 15 40 mg (13.3333 mL) PO DAILY #237 mL 08/07/23 mg/5 mL (3 mg/mL) oral solution rifaximin 550 mg tablet (Xifaxan) 550 mg PO BID #60 tabs 08/07/23 spironolactone 25 mg tablet 25 mg PO DAILY #30 tabs 08/07/23 thiamine mononitrate (vit B1) 100 100 mg PO QAM #30 tabs 08/07/23 mg tablet (Vitamin B-1 (mononitrate)) budesonide-formoterol HFA 160 2 puff inhalation BID #10.2 grams 08/18/23 mcg-4.5 mcg/actuation aerosol inhaler (Symbicort) Allergies Allergy/AdvReac Type Severity Reaction Status Date / Time No Known Allergies Allergy Unverified 08/30/23 15:33 General Stated Complaint: GenMedical BRIAN: 3 Review of Systems All systems reviewed & are unremarkable except as noted in HPI and below PFSH All Active Problems (Updated 08/30/23 @ 21:54 by Ayla Ramon NP) Abdominal pain (Acute) Decreased appetite (Acute) Does not have primary care provider (Acute) Palliative care encounter (Acute) Weakness (Acute) Pain (Acute) Do not attempt intubation (Acute) DNR (do not resuscitate) (Acute) ACP (advance care planning) (Acute) COPD (chronic obstructive pulmonary disease) with emphysema (Chronic) Acute hypokalemia (Acute) Chronic hyponatremia (Acute) Liver dysfunction (Acute) Alcohol use disorder (Chronic) Anemia (Chronic) Hypokalemia (Acute) Alcoholic hepatitis without ascites (Chronic) Social History Smoking/Tobacco Use Status: Current every day Tobacco Type: cigarettes Smoking risk assessment performed?: Yes Alcohol Intake: former Substance use type: former substance user Details: at night to sleep Housing: apartment Do you feel safe at home: Yes Do you feel safe in your relationship?: Yes Course Vital Signs Vital signs: Vital Signs Temperature 38.0 C H 08/30/23 15:29 Pulse 91 H 08/30/23 15:29 Respiratory Rate 16 08/30/23 15:29 Blood Pressure 116/66 08/30/23 15:29 Pulse Oximetry 98 08/30/23 15:29 Temperature 38.0 C H 08/30/23 15:29 Temperature Source Temporal Artery Scan 08/30/23 15:29 Pulse 91 H 08/30/23 15:29 Respiratory Rate 16 08/30/23 15:29 Respiratory Effort Normal, Non-Labored 08/30/23 15:36 Blood Pressure 116/66 08/30/23 15:29 Blood Pressure Position Sitting 08/30/23 15:29 Pulse Oximetry 98 08/30/23 15:29 Oxygen Delivery Method Room Air 08/30/23 15:29 Oxygen Flow Rate 0 08/30/23 15:29 Lab/Test Results Lab/Test Results: 08/30/23 15:32 Tonsil - Not Specified Group A Streptococcus Culture - Pending Laboratory Tests Range/Units 08/30/23 15:38 COVID-19 Source Cancelled SARS-CoV-2 (PCR) Cancelled Influenza Type A (PCR) Cancelled Influenza Type B (PCR) Cancelled RSV (PCR) Cancelled POC Strep Test-KARI(Rapid) Start: 08/30/23 15:41 Freq: .Rapid Strep Test Status: Active Protocol: Document 08/30/23 15:43 MAYR (Rec: 08/30/23 15:43 MARY [id number]) Strep test-KARI(Rapid)-POC POC-Strep test-KARI (Rapid) Negative POC-Strep test-KARI (Rapid) Negative
[2023-08-30 17:35] LABS: Lactate 1.1 mmol/L (0.6-1.4)
[2023-08-30 17:37] LABS: Absolute Eosinophil Count 0.44 10^3/uL (0.0-0.7); Absolute Lymphocyte Count 1.58 10^3/uL (1.2-3.4); Absolute Monocyte Count 1.44 10^3/uL (0.1-0.8); Basophils % 0.5; Eosinophils % 2.1; HCT 34.9 % (36.0-46.0); HGB 11.8 g/dL (11.2-15.7); Immature Grans % 1.9; Lymphocytes % 7.5; MCH 35.3 pg (27.0-33.0); MCHC 33.8 % (32.0-36.0); MCV 105 fL (80-95); MPV 9.8 fL (8.0-11.0); Monocytes % 6.8; Neutrophils % 81.2; Platelet Count 340 10^3/uL (130-400); RBC 3.34 10^6/uL (3.93-5.22); RDW-SD 53.8 fL; WBC 21.12 10^3/uL (4.4-10.8)
[2023-08-30 17:38] LABS: Absolute Basophil Count 0.11 10^3/uL (0.0-0.2); Absolute Neutrophil Count 17.15 10^3/uL (1.2-6.7)
[2023-08-30 17:56] LABS: ALT 59 U/L (14-59); AST 40 U/L (15-37); Albumin 3.2 g/dL (3.4-5.0); Alkaline Phosphatase 127 U/L (46-116); Anion Gap 11.8 mmol/L (3-11); BUN 19 mg/dL (7-18); Bilirubin, Total 0.8 mg/dL (0.2-1.0); CO2 23.2 mmol/L (21.0-32.0); CREATININE 0.6 mg/dL (0.55-1.02); Calcium 9.2 mg/dL (8.5-10.1); Chloride 96 mmol/L (98-107); Glucose 102 mg/dL (74-106); Lipase 38 U/L (16-77); Magnesium 1.8 mg/dL (1.8-2.4); Sodium 131 mmol/L (136-145); Total Protein 7.5 g/dL (6.4-8.2)
--- NOTE | 2023-08-30 19:00 | DI.CT_ITS ---
Exam(s) CT ABDOMEN PELVIS W EXAM: CT ABDOMEN PELVIS W CLINICAL HISTORY: left sided abd pain. TECHNIQUE: Imaging Protocol: Axial computed tomography images with coronal and sagittal reformatted images were created and reviewed CONTRAST MATERIAL: Intravenous: Omnipaque-350 100cc Oral: None COMPARISON: CT CT CHEST PE ABD PELVIS W from 07/31/2023 FINDINGS: VISUALIZED LUNG BASES: No nodules nor pleural effusions evident. There has been significant improvem ent in the appearance of the lung bases when compared to the CT scan of 1 month ago (07/31/2023). Th e bilateral pleural effusions have resolved, as have the extensive bilateral infiltrates. ABDOMEN: There has been almost complete resolution of the perihepatic ascites which was evident on the scan of 1 month ago. LIVER: Hepatomegaly again noted. The severe liver steatosis seen on the scan 1 month ago has resolve d. The liver presently exhibits normal density. There are no focal hepatic lesions. No dilated intrah epatic ducts. GALLBLADDER/BILIARY: Slight thickening of gallbladder wall evident. No obvious calcified gallstones. CBD is not dilated. PANCREAS: No evidence of pancreatic mass nor dilatation of the pancreatic duct. SPLEEN: Spleen size is upper normal. There are no intrasplenic lesions evident. Splenic and portal veins are patent. ADRENALS: There are no significant adrenal masses. KIDNEYS:No cysts evident. No solid renal masses. No calculi nor hydronephrosis.. ABDOMINAL AORTA: Calcified but not enlarged. LYMPH NODES:There is no retroperitoneal nor paraaortic adenopathy. ABDOMINAL WALL: No evidence of significant anterior abdominal wall nor inguinal hernia. GI: There is no evidence of bowel obstruction, free air, nor abscess. PELVIS: GI: No evidence of appendicitis.Dependence is retrocecal and is located in the upper abdomen adjacent to the lower right hepatic lobe. LYMPH NODES: There is no intrapelvic nor inguinal adenopathy. REPRODUCTIVE: Uterus size normal. No ovarian masses seen. However, there are multiple dilated veins on both sides the uterus which drain into prominent bilateral gonadal veins. These nonthrombosed ba nal veins drain into the IVC on the right side and into a nonthrombosed pre aortic left renal vein on the left side. URINARY BLADDER: No calculi nor obvious masses evident OSSEOUS: No fractures and no significant osseous lesions. IMPRESSION: 1. Compared to the prior CT scan of 07/31/2023 (1 month ago) there has been significant improvement i n the visualized lung bases with resolution of the extensive bilateral infiltrates and bilateral pleu ral effusions which were previously present on the study of 07/31/2023. 2. In the abdomen there is only a minimal amount of remaining perihepatic ascites. The liver is agai n noted to be enlarged but the severe hepatic steatosis seen on the scan 1 month ago has resolved, wi th the liver now exhibiting uniform normal density. There are no liver lesions. Spleen size upper n ormal. 3. Pelvic congestion syndrome. Dilated veins are again noted on both sides of the uterus which drain into dilated gonadal veins. These veins are not thrombosed. 4. Slight gallbladder wall thickening noted. No obvious calcified gallstones. If clinically indicat ed follow-up ultrasound can be performed. RADIATION DOSE DELIVERED: Total DLP DATA REPOSITORY: All CT scans at this facility are submitted to the National Radiology Data Registry (NRDR) Dose Index Registry (DIR) with the [employer] (ACR). RADIATION OPTIMIZATION: All CT scans at this facility use at least one of these dose optimization te chniques: automated exposure control; mA and/or kV adjustment per patient size (includes targeted exa ms where dose is matched to clinical indication); or iterative reconstruction.
[2023-08-30 19:18] LABS: Bilirubin Negative (Negative); Blood Negative (Negative); Clarity Clear (Clear); Glucose Negative (Negative); Ketones Negative (Negative); Leukocyte Esterase Negative (Negative); Nitrite Negative (Negative); Specific Gravity 1.015 (1.005-1.025); Urobilinogen 0.2 mg/dL (Up to 0.2)
[2023-08-30] MEDS: Rifaximin 550 MG TAB PO (19:34)
[2023-08-30] MEDS: Omnipaque 350 MG/ML 100 ML BTL IJ (20:34)
[2023-08-30] MEDS: Normal Saline - Diluent 50 ML VIAL IJ (20:34)
[2023-08-30] MEDS: Normal Saline Flush 10 ML SYR IVP (20:35)
--- NOTE | 2023-08-30 21:19 | DI.VRAD_ITS ---
PROCEDURE INFORMATION: Exam: CT Abdomen And Pelvis With Contrast Exam date and time: 08/30/2023 8:36 PM Age: 53 years old Clinical indication: Abdominal pain; Localized; Patient HX: Left sided abd pain TECHNIQUE: Imaging protocol: Computed tomography of the abdomen and pelvis with contrast. Radiation optimization: All CT scans at this facility use at least one of these dose optimization techniques: automated exposure control; mA and/or kV adjustment per patient size (includes targeted exams where dose is matched to clinical indication); or iterative reconstruction. Contrast material: OMNIPAQUE 350; Contrast volume: 74 ml; Contrast route: INTRAVENOUS (IV); COMPARISON: CT CHEST PE ABD PELVIS W 07/31/2023 9:11 AM FINDINGS: Liver: Normal. No mass. Gallbladder and bile ducts: Mild pericholecystic fluid. No calcified gallstones. Pancreas: Normal. No ductal dilation. Spleen: Normal. No splenomegaly. Adrenal glands: Normal. No mass. Kidneys and ureters: Normal. No hydronephrosis. Stomach and bowel: Unremarkable. No obstruction. No mucosal thickening. Appendix: No evidence of appendicitis. Intraperitoneal space: Unremarkable. No free air. No significant fluid collection. Vasculature: Moderate atherosclerotic calcification throughout the aorta. No evidence of aneurysm or dissection. Prominent vasculature in the bilateral pelvis compatible pelvic venous congestion. Lymph nodes: Unremarkable. No enlarged lymph nodes. Urinary bladder: Unremarkable as visualized. Reproductive: Unremarkable as visualized. Bones/joints: Unremarkable. No acute fracture. Soft tissues: Unremarkable. IMPRESSION: 1. Mild nonspecific pericholecystic fluid. No CT evidence of cholelithiasis or biliary obstruction. 2. Findings suggesting pelvic venous congestion. Dictated and Authenticated by: Trevon Appiah MD. Ordering:FAUSTINO Aguila MD
[2023-08-30 23:00] LABS: Procalcitonin 0.3 ng/mL
== END 2023-08-30 22:03 | disposition home or self-care (01) ==
PROVIDERS: Emergency Provider Nurse Practitioner Acute Care; PCP Family Medicine
DX: R10.9 Unspecified abdominal pain (principal); R51.9 Headache, unspecified; R93.89 Abnormal findings on diagnostic imaging of other specified body structures; R50.9 Fever, unspecified
CPT/HCPCS: 80053; 83690; 84145; 87426; 87637; 87880; 96360; 99285; 74177; 81003; 83605; 83735; 85025; 87081; 99284; J3490

== ENCOUNTER 2023-08-31 12:44 | Outpatient (CLI) | payer MEDICAID, SELFPAY ==
[2023-08-31 11:24] LABS: Ammonia < 10 umol/L (11-32)
[2023-08-31 12:56] LABS: TSH (W/Ref FT4) 1.48 uIU/mL (0.36-3.74)
[2023-08-31 19:06] LABS: Hepatitis A Antibody IgM Negative (Negative); Hepatitis B Core Antibody Negative (Negative); Hepatitis B surface Ag Negative (Negative); Hepatitis C Ab w Rflx HCV PCR Negative (Negative)
--- NOTE | 2023-09-01 09:54 | NUR.NOTE ---
Accessed Pt chart to see if Pt was prescribed antibiotics.
== END 2023-08-31 12:45 | disposition home or self-care (01) ==
LOC: LBO 12:44
PROVIDERS: PCP Family Medicine; Visit Provider Family Medicine
DX: R20.2 Paresthesia of skin (principal); K70.31 Alcoholic cirrhosis of liver with ascites
CPT/HCPCS: 36415; 86704; 86706; 86709; 86803; 87340; 82140; 84443

== ENCOUNTER → 2023-09-08 01:02 | Outpatient (CLI) | payer MEDICAID, SELFPAY ==
--- NOTE | 2023-09-08 | DI.US_ITS ---
Exam(s) US ABDOMEN EXAM: US ABDOMEN CLINICAL HISTORY: ALCOHOLIC CIRRHOSIS, K70.31 TECHNIQUE: Ultrasound of complete upper abdomen performed using standard protocol. COMPARISON: CT CT ABDOMEN PELVIS W from 08/30/2023 FINDINGS: There is very minimal ascites/perihepatic in location. This is subtle. LIVER: Liver size is slightly prominent. Mildly hyperechoic indicating mild steatosis. There are no discrete focal hepatic lesions evident. GALLBLADDER/BILIARY: No gallstones. No obvious gallbladder wall edema. Gallbladder wall thickness i s upper normal. The common hepatic duct isnot dilated, measuring 2-3mm at the level of jone hepatis. PANCREAS: There is no evidence of pancreatic mass nor dilatation of the pancreatic duct. SPLEEN: Spleen size is upper normal. No splenic lesions evident. KIDNEYS:Kidneys exhibit normal size with no evidence of solid mass, calculus, nor hydronephrosis. No cortical cysts evident. ABDOMINAL AORTA: There is no evidence of abdominal aortic aneurysm. IVC: Normal diameter where visualized. IMPRESSION: 1. No evidence of cholelithiasis. No dilatation of the biliary tree. There is a minimal amount of fluid in the region the gallbladder. Difficult to determine if this is residual of generalized ascit es which was previously present or if this is related to intrinsic gallbladder pathology. Gallbladde r otherwise appears unremarkable. 2. Hepatomegaly and mild hepatic steatosis. Spleen size upper normal. DATA REPOSITORY:
== END ==
PROVIDERS: PCP Family Medicine; Visit Provider Family Medicine
DX: R16.0 Hepatomegaly, not elsewhere classified (principal); K76.0 Fatty (change of) liver, not elsewhere classified; K70.31 Alcoholic cirrhosis of liver with ascites
CPT/HCPCS: 76700

== ENCOUNTER 2023-09-09 19:44 | Emergency (ER) | payer MEDICAID, SELFPAY ==
[2023-09-09 19:47] VITALS: BP 136/64; PULSE 75; RESP 16; TEMP 36.4; O2SAT 100
--- NOTE | 2023-09-09 19:57 | ED.GENADUL_ITS ---
Discharge Plan Disposition Patient Disposition: Home Condition: Stable Discharge Details Clinical Impression: Liver dysfunction Primary Care Provider: Paul Moore ED Provider: Ayla Ramon Home Meds and New Rx's Prescriptions: Continued budesonide-formoterol [Symbicort] 160-4.5 mcg/actuation HFA aerosol inhaler 2 puff inhalation BID Qty: 10.2 1RF furosemide 40 mg Tablet 40 mg PO BID@0830,1600 Qty: 60 0RF lactulose 20 gram/30 mL Solution 20 g PO DAILY Qty: 1200 0RF Inhaler, Assist Devices [Pocket Chamber] 1 ea miscellaneous DIRECTED Qty: 0 0RF potassium chloride 10 mEq Capsule, Extended Release 20 meq PO DAILY Qty: 60 0RF spironolactone 25 mg Tablet 25 mg PO DAILY Qty: 30 0RF Xifaxan 550 mg Tablet 550 mg PO BID Qty: 60 0RF thiamine mononitrate (vit B1) [Vitamin B-1 (mononitrate)] 100 mg Tablet 100 mg PO QAM Qty: 30 0RF magnesium 250 mg tablet 250 mg PO BID Qty: 60 0RF Discharge Instructions Additional Instructions: Take all your medications as previously prescribed Keep any scheduled follow-up appointments you have Referrals: Paul Moore MD [Primary Care Provider] - Medical Decision Making Patient presents requesting medication refill medically no new complaints. Not requesting emergency evaluation. Will dispense 2 tabs of 550 mg rifaximin for home use. She states she will obtain additional prescription from her pharmacy tomorrow Medical Records Medical records reviewed: Yes I reviewed the patient's medical records. HPI General Mode of arrival: ambulatory . Date/Time Provider Initiated Documentation: 09/09/23 19:55 . Limitations to Documentation: no limitations . Information obtained by: patient . HPI Narrative: Patient presents requesting dose of rifaximin 550 mg as her pharmacy is out and awaiting a order for tomorrow. She denies any other complaints her presentation is for the medication only. Related Data Home Medications Medication Instructions Recorded Confirmed Inhaler, Assist Devices [Pocket 1 ea miscellaneous DIRECTED ##0 08/07/23 09/09/23 Chamber] furosemide 40 mg tablet 40 mg PO BID@0830,1600 #60 tabs 08/07/23 09/09/23 lactulose 20 gram/30 mL oral 20 g (30 mL) PO DAILY #1,200 mL 08/07/23 09/09/23 solution magnesium 250 mg tablet 250 mg PO BID #60 tabs 08/07/23 09/09/23 potassium chloride 10 mEq 20 meq (2 x 10 mEq) PO DAILY #60 08/07/23 09/09/23 capsule,extended release caps rifaximin 550 mg tablet (Xifaxan) 550 mg PO BID #60 tabs 08/07/23 09/09/23 spironolactone 25 mg tablet 25 mg PO DAILY #30 tabs 08/07/23 09/09/23 thiamine mononitrate (vit B1) 100 100 mg PO QAM #30 tabs 08/07/23 09/09/23 mg tablet (Vitamin B-1 (mononitrate)) budesonide-formoterol HFA 160 2 puff inhalation BID #10.2 grams 08/18/23 09/09/23 mcg-4.5 mcg/actuation aerosol inhaler (Symbicort) Previous Rx's Medication Instructions Recorded Inhaler, Assist Devices [Pocket 1 ea miscellaneous DIRECTED ##0 08/07/23 Chamber] furosemide 40 mg tablet 40 mg PO BID@0830,1600 #60 tabs 08/07/23 lactulose 20 gram/30 mL oral 20 g (30 mL) PO DAILY #1,200 mL 08/07/23 solution magnesium 250 mg tablet 250 mg PO BID #60 tabs 08/07/23 potassium chloride 10 mEq 20 meq (2 x 10 mEq) PO DAILY #60 08/07/23 capsule,extended release caps rifaximin 550 mg tablet (Xifaxan) 550 mg PO BID #60 tabs 08/07/23 spironolactone 25 mg tablet 25 mg PO DAILY #30 tabs 08/07/23 thiamine mononitrate (vit B1) 100 100 mg PO QAM #30 tabs 08/07/23 mg tablet (Vitamin B-1 (mononitrate)) budesonide-formoterol HFA 160 2 puff inhalation BID #10.2 grams 08/18/23 mcg-4.5 mcg/actuation aerosol inhaler (Symbicort) Allergies Allergy/AdvReac Type Severity Reaction Status Date / Time No Known Allergies Allergy Unverified 09/09/23 19:51 General Stated Complaint: RX Refill BRIAN: 5 Review of Systems All systems reviewed & are unremarkable except as noted in HPI and below PFSH All Active Problems (Updated 09/09/23 @ 19:59 by Ayla Ramon NP) Abdominal pain (Acute) Decreased appetite (Acute) Does not have primary care provider (Acute) Palliative care encounter (Acute) Weakness (Acute) Pain (Acute) Do not attempt intubation (Acute) DNR (do not resuscitate) (Acute) ACP (advance care planning) (Acute) COPD (chronic obstructive pulmonary disease) with emphysema (Chronic) Acute hypokalemia (Acute) Chronic hyponatremia (Acute) Liver dysfunction (Acute) Alcohol use disorder (Chronic) Anemia (Chronic) Hypokalemia (Acute) Alcoholic hepatitis without ascites (Chronic) Social History Smoking/Tobacco Use Status: Current every day Tobacco Type: cigarettes Smoking risk assessment performed?: Yes Alcohol Intake: former Drug use: Occasionally Substance use type: former substance user and marijuana Details: at night to sleep Housing: apartment Do you feel safe at home: Yes Do you feel safe in your relationship?: Yes Exam Narrative Exam Narrative: White female stated age no acute distress sitting in the chair skin is pink warm dry well-perfused eyes nonicteric , , head is atraumatic respirations are even and unlabored. Course Vital Signs Vital signs: Vital Signs Temperature 36.4 C L 09/09/23 19:47 Pulse 75 09/09/23 19:47 Respiratory Rate 16 09/09/23 19:47 Blood Pressure 136/64 09/09/23 19:47 Pulse Oximetry 100 09/09/23 19:47 Temperature 36.4 C L 09/09/23 19:47 Temperature Source Temporal Artery Scan 09/09/23 19:47 Pulse 75 09/09/23 19:47 Respiratory Rate 16 09/09/23 19:47 Blood Pressure 136/64 09/09/23 19:47 Blood Pressure Position Sitting 09/09/23 19:47 Pulse Oximetry 100 09/09/23 19:47 Pain Level 2 09/09/23 19:47
[2023-09-09] MEDS: Rifaximin 550 MG TAB 1100 MG PO (20:11)
== END 2023-09-09 20:12 | disposition home or self-care (01) ==
PROVIDERS: Emergency Provider Nurse Practitioner Acute Care; PCP Family Medicine
DX: K76.89 Other specified diseases of liver (principal)
CPT/HCPCS: 99282

== ENCOUNTER → 2023-09-29 01:48 | Outpatient (CLI) | payer MEDICAID, SELFPAY ==
--- NOTE | 2023-09-29 | DI.MAMMO_ITS ---
Exam(s) MAMMO SCREENING EXAM: MAMMO SCREENING CLINICAL HISTORY: SCREENING MAMMO FOR BREAST CANCER Z12.31. TECHNIQUE: Bilateral full field digital CC and MLO mammographic images were obtained with 3D tomosyn thesis and utilizing computer aided detection (CAD). COMPARISON: None. This is a baseline mammogram on a 49-year-old patient. FINDINGS: Fibroglandular tissue pattern is moderately dense, this somewhat decreasing the sensitivity of the ma mmogram for finding hidden underlying lesions. There are no obvious spiculated masses nor malignant appearing microcalcification groups. Scattered benign microcalcifications and macrocalcifications are noted. There is no significant architectural distortion nor skin thickening-retraction. IMPRESSION: No radiographic evidence of malignancy. BI-RADS Category 1 - Negative Breast Density - Category C - Heterogeneously dense Breast density Category C or D implies that the patient has dense breast tissue. Dense breast tissue can make it harder to find cancer on a mammogram. Dense breast tissue is also associated with an incr eased risk of breast cancer. This information about the result of the mammogram report was provided to the patient to raise their awareness. Use this report when you speak with the patient about their risks for breast cancer, which includes their family history. At that time, you may recommend additional screening tests (Ultrasoun d or MRI) as these tests may add significant information. A negative radiographic report should not delay biopsy if a dominant or clinically suspicious mass is present. Up to ten percent of cancers are not identified on mammography. A negative report may reinforce clinical impression. Adenosis and dense breasts may obscure an underlying neoplasm. False positive reports average 6 to 10%. Patient will receive a letter notifying them of these results.
== END ==
PROVIDERS: PCP Family Medicine; Visit Provider Family Medicine
DX: Z12.31 Encounter for screening mammogram for malignant neoplasm of breast (principal)
CPT/HCPCS: 77063; 77067

== ENCOUNTER 2023-11-24 12:42 | Outpatient (REF) | payer MEDICAID, SELFPAY ==
--- NOTE | 2023-11-24 11:25 | PAPFT_PTH ---
PATIENT: Nyasia Varela LOC: [facility]#:[id number] AGE/SX: 53/F ROOM: RE11/24/[address]: Paul Moore : 1970 BED: DIS: 11/24/2023 SPEC #: [id number] RECD: 11/25/23 12:43 STATUS: OZIEL REFranki #: [id number] NANY: 11/24/23 11:[address]: Paul Moore DEPT: [facility] Cytology RECD BY: Pretty Delaney Tissues: 1 - CX/ENDOCX FOR PAP SMEARS Procedures: PAP THIN PREP/UVM Screening HPV DNA PROBE Comments: [id number]
== END 2023-11-24 12:43 | disposition home or self-care (01) ==
LOC: NCHCN 12:42
PROVIDERS: PCP Family Medicine; Visit Provider Family Medicine
DX: Z12.4 Encounter for screening for malignant neoplasm of cervix (principal); Z11.51 Encounter for screening for human papillomavirus (HPV); Z01.419 Encounter for gynecological examination (general) (routine) without abnormal findings
CPT/HCPCS: 88142; 87624

== ENCOUNTER 2024-01-15 12:27 | Inpatient (IN) | payer MEDICAID, SELFPAY ==
[2024-01-15] VITALS (35 sets, daily range): BP systolic 121–165; BP diastolic 63–122; PULSE 65–132; RESP 11–23; TEMP 36.1–37; O2SAT 97–100
--- NOTE | 2024-01-15 13:30 | RT.EKG_ITS ---
APPROVED REPORT Exam: Resting ECG Reason for Exam: weakness Patient Location: E HR:87 bpm ECG Measurements Heart Rate 87 AXIS IN 135 P 80 QRSd 87 QRS 77 QT 369 T 67 QTc 444 Conclusion Sinus rhythm normal axis no stemi
--- NOTE | 2024-01-15 13:30 | DI.CT_ITS ---
Exam(s) CT ABDOMEN PELVIS W EXAM: CT ABDOMEN PELVIS W CLINICAL HISTORY: left lower quadrant pain. TECHNIQUE: Imaging Protocol: Axial computed tomography images with coronal and sagittal reformatted images were created and reviewed CONTRAST MATERIAL: Intravenous: Omnipaque 350 Contrast volume:80 ml Oral: no COMPARISON: CT CT ABDOMEN PELVIS W from 08/30/2023 FINDINGS: ABDOMEN and PELVIS: Lung Bases: No acute findings. Liver: Enlarged. Similar to prior. Mild hepatic steatosis with fatty sparing above gallbladder. No suspicious mass. Gallbladder and biliary tract: No radiodense calculus. No biliary dilation. Pancreas: Stranding around the pancreas consistent with pancreatitis. No evidence of pseudocyst. No evidence of mass. Spleen: Normal. Kidneys: Normal size, contour and axis. No radiodense stones. No obstructive uropathy. No suspicious masses seen. Adrenal glands: No masses seen. Vasculature: Abdominal aorta non-dilated. Atherosclerotic changes. Soft tissues: Unremarkable. Bladder: No gross wall thickening. No calculi.No focal mass. Bowel: No obstruction. No bowel wall thickening. Appendix normal. Peritoneal cavity: No ascites. No focal collection. No mesenteric inflammatory response. Bones: Unremarkable for age. Reproductive organs: Unremarkable. Lymph nodes: No pathologically enlarged lymph nodes. IMPRESSION:: Findings consistent with acute pancreatitis. RADIATION DOSE DELIVERED: Total DLP DATA REPOSITORY: All CT scans at this facility are submitted to the National Radiology Data Registry (NRDR) Dose Index Registry (DIR) with the [employer] (ACR). RADIATION OPTIMIZATION: All CT scans at this facility use at least one of these dose optimization te chniques: automated exposure control; mA and/or kV adjustment per patient size (includes targeted exa ms where dose is matched to clinical indication); or iterative reconstruction.
[2024-01-15 14:05] LABS: Lactate 1.1 mmol/L (0.6-1.4)
[2024-01-15] MEDS: Normal Saline 1,000 ML 1000 ML IV ×2 (14:08→15:53)
[2024-01-15] MEDS: Ondansetron 4 MG/2 ML VIAL IVP (14:09)
[2024-01-15] MEDS: MORPHine 4 MG/ML SYR IVP ×2 (14:09→15:38)
[2024-01-15 14:22] LABS: Abs Immature Grans 0.04 10^3/uL (0.0-0.06); Absolute Basophil Count 0.02 10^3/uL (0.0-0.2); Absolute Eosinophil Count 0.02 10^3/uL (0.0-0.7); Absolute Lymphocyte Count 0.85 10^3/uL (1.2-3.4); Absolute Monocyte Count 1.09 10^3/uL (0.1-0.8); Absolute Neutrophil Count 7.71 10^3/uL (1.2-6.7); Basophils % 0.2 %; Eosinophils % 0.2 %; HGB 16.1 g/dL (11.2-15.7); Immature Grans % 0.4 %; Lymphocytes % 8.7 %; MCH 32.2 pg (27.0-33.0); MCHC 34.3 % (32.0-36.0); MCV 94 fL (80-95); MPV 9.9 fL (8.0-11.0); Monocytes % 11.2 %; Neutrophils % 79.3 %; Platelet Count 180 10^3/uL (130-400); RDW 14.6 % (11.7-14.6); RDW-SD 50.1 fL; WBC 9.73 10^3/uL (4.4-10.8)
[2024-01-15 14:24] LABS: ALT 36 U/L (14-59); AST 43 U/L (15-37); Albumin 4.1 g/dL (3.4-5.0); Alkaline Phosphatase 133 U/L (46-116); Anion Gap 13.1 mmol/L (3-11); BUN 11 mg/dL (7-18); Bilirubin, Total 1.4 mg/dL (0.2-1.0); CO2 20.9 mmol/L (21.0-32.0); CREATININE 0.7 mg/dL (0.55-1.02); Calcium 9.7 mg/dL (8.5-10.1); Chloride 96 mmol/L (98-107); Estimated GFR 102.71 (mL/min/1.73m2); Glucose 137 mg/dL (74-106); Potassium 3.9 mmol/L (3.5-5.1); Sodium 130 mmol/L (136-145); Total Protein 8.1 g/dL (6.4-8.2)
[2024-01-15 14:25] LABS: ETHANOL BLOOD < 3.0 mg/dL (<10); Lipase > 375 U/L (16-77)
[2024-01-15] MEDS: Normal Saline - Diluent 50 ML VIAL IJ (14:30)
[2024-01-15] MEDS: Omnipaque 350 MG/ML 100 ML BTL 80 ML IJ (14:34)
[2024-01-15] MEDS: Normal Saline Flush 10 ML SYR IVP ×2 (14:34→23:17)
[2024-01-15 14:36] LABS: Acetaminophen 14 ug/mL (10-30)
--- NOTE | 2024-01-15 15:26 | DI.VRAD_ITS ---
PROCEDURE INFORMATION: Exam: CT Abdomen And Pelvis With Contrast Exam date and time: 01/15/2024 2:27 PM Age: 53 years old Clinical indication: Other: Llq pain TECHNIQUE: Imaging protocol: Computed tomography of the abdomen and pelvis with contrast. Contrast material: OMNIPAQUE 350; Contrast volume: 80 ml; Contrast route: INTRAVENOUS (IV); COMPARISON: CT ABDOMEN PELVIS W 08/30/2023 8:36 PM FINDINGS: Lungs: Atelectatic changes in the left lung base. Liver: There is increased enhancement segment 4 of the liver, suggestive of transient hepatic attenuation differences. No suspicious liver lesion. Gallbladder and bile ducts: Normal. No calcified stones. No ductal dilation. Pancreas: There is fat stranding surrounding the pancreas, more pronounced around the body and tail. No necrosis. No peripancreatic collections. No pancreatic duct dilatation. Spleen: Normal. No splenomegaly. Adrenal glands: Normal. No mass. Kidneys and ureters: Normal. No hydronephrosis. Stomach and bowel: Unremarkable. No obstruction. No mucosal thickening. Appendix: No evidence of appendicitis. Intraperitoneal space: Unremarkable. No free air. No significant fluid collection. Vasculature: There are vascular calcifications. Lymph nodes: Unremarkable. No enlarged lymph nodes. Urinary bladder: Unremarkable as visualized. Reproductive: Unremarkable as visualized. Bones/joints: Mild degenerative of both hip joints. Small anterior osteophytes in the lumbar spine. Soft tissues: See Pancreas finding. IMPRESSION: Acute interstitial pancreatitis. No necrosis or collections. Dictated and Authenticated by: Geoff Haley MD. Ordering:CLAUDIA Olsen MD
--- NOTE | 2024-01-15 15:41 | ED.GENADUL_ITS ---
Discharge Plan Discharge Details Chief Complaint: Abd Prob Admit Date/Time: 01/15/24 15:49 Admit Provider: Adam Zuñiga Attending Provider: Adam Zuñiga Primary Care Provider: Paul Moore ED Provider: Pretty Allen Discharge Data Discharge Date/Time-TO BE ENTERED AT DEPARTURE: 01/15/24 17:37 HPI General Date/Time Provider Initiated Documentation: 01/15/24 13:21 . HPI Narrative: This 53-year-old female presents with report of history of chronic alcoholism and hepatitis without ascites, liver dysfunction, COPD with left upper quadrant and left lower quadrant abdominal pain which started yesterday evening. States she drank alcohol on Wednesday, she drinks intermittently and denies daily alcohol use. She denies any prior history of alcohol withdrawal. She states she had a prior episode of pancreatitis and this feels worse than her prior episode. She has had nausea and had difficulty drinking secondary to her nausea but not vomited. Related Data Home Medications Medication Instructions Recorded Confirmed Inhaler, Assist Devices [Pocket 1 ea miscellaneous DIRECTED ##0 08/07/23 01/16/24 Chamber] potassium chloride 10 mEq 20 meq (2 x 10 mEq) PO DAILY #60 08/07/23 01/16/24 capsule,extended release caps spironolactone 25 mg tablet 25 mg PO DAILY #30 tabs 08/07/23 01/16/24 thiamine mononitrate (vit B1) 100 100 mg PO QAM #30 tabs 08/07/23 01/16/24 mg tablet (Vitamin B-1 (mononitrate)) budesonide-formoterol HFA 160 2 puff inhalation BID #10.2 grams 08/18/23 01/16/24 mcg-4.5 mcg/actuation aerosol inhaler (Symbicort) Previous Rx's Medication Instructions Recorded Inhaler, Assist Devices [Pocket 1 ea miscellaneous DIRECTED ##0 08/07/23 Chamber] potassium chloride 10 mEq 20 meq (2 x 10 mEq) PO DAILY #60 08/07/23 capsule,extended release caps spironolactone 25 mg tablet 25 mg PO DAILY #30 tabs 08/07/23 thiamine mononitrate (vit B1) 100 100 mg PO QAM #30 tabs 08/07/23 mg tablet (Vitamin B-1 (mononitrate)) budesonide-formoterol HFA 160 2 puff inhalation BID #10.2 grams 08/18/23 mcg-4.5 mcg/actuation aerosol inhaler (Symbicort) Allergies Allergy/AdvReac Type Severity Reaction Status Date / Time No Known Allergies Allergy Unverified 09/20/23 09:33 General Stated Complaint: Abd Prob BRIAN: 3 Exam Narrative Exam Narrative: This 53-year-old female presenting in acute distress, pupils equal round reactive to light and accommodation, moist mucous membranes, no respiratory distress, cardiac rate rhythm regular, exquisite tenderness left upper quadrant and left lower quadrant, no visible signs of trauma, no pallor, alert and oriented x 4, no peripheral edema, distal pulses intact Course Vital Signs Vital signs: Vital Signs Temperature 37.0 C 01/15/24 12:42 Pulse 132 H 01/15/24 12:42 Respiratory Rate 20 01/15/24 12:42 Blood Pressure 131/84 01/15/24 12:42 Pulse Oximetry 98 01/15/24 12:42 Temperature 37.0 C 01/15/24 13:38 Temperature Source Tympanic 01/15/24 13:38 Pulse 132 H 01/15/24 13:38 Respiratory Rate 20 01/15/24 13:38 Respiratory Effort Normal 01/15/24 14:17 Blood Pressure 131/84 01/15/24 13:38 Blood Pressure Position Sitting 01/15/24 13:38 Pulse Oximetry 98 01/15/24 13:38 Oxygen Delivery Method Room Air 01/15/24 13:38 Oxygen Flow Rate 0 01/15/24 13:38 Pain Level 6 01/15/24 13:38 Lab/Test Results Lab/Test Results: 01/15/24 14:15 Blood Blood Culture - Pending 01/15/24 13:54 Blood Blood Culture - Pending Laboratory Tests Range/Units 01/15/24 01/15/24 13:54 14:15 WBC (4.4-10.8) 10^3/uL 9.73 RBC (3.93-5.22) 10^6/uL 5.00 Hgb (11.2-15.7) g/dL 16.1 H Hct (36.0-46.0) % 47.0 H MCV (80-95) fL 94 MCH (27.0-33.0) pg 32.2 MCHC (32.0-36.0) % 34.3 RDW (11.7-14.6) % 14.6 Plt Count (130-400) 10^3/uL 180 MPV (8.0-11.0) fL 9.9 Immature Gran % % 0.4 Neutrophils % % 79.3 Lymphocytes % % 8.7 Monocytes % % 11.2 Eosinophils % % 0.2 Basophils % % 0.2 Nucleated RBC % (0.0-0.3) % 0.0 Absolute Neutrophils (1.2-6.7) 10^3/uL 7.71 H Absolute Lymphocytes (1.2-3.4) 10^3/uL 0.85 L Absolute Monocytes (0.1-0.8) 10^3/uL 1.09 H Absolute Eosinophils (0.0-0.7) 10^3/uL 0.02 Absolute Basophils (0.0-0.2) 10^3/uL 0.02 VBG Lactate (0.6-1.4) mmol/L 1.1 Sodium (136-145) mmol/L 130 L Potassium (3.5-5.1) mmol/L 3.9 Chloride (98-107) mmol/L 96 L Carbon Dioxide (21.0-32.0) mmol/L 20.9 L Anion Gap (3-11) mmol/L 13.1 H BUN (7-18) mg/dL 11 Creatinine (0.55-1.02) mg/dL 0.7 Est GFR (CKD-EPI 2020) (mL/min/1.73m2) 102.71 Glucose (74-106) mg/dL 137 H Calcium (8.5-10.1) mg/dL 9.7 Total Bilirubin (0.2-1.0) mg/dL 1.4 H AST (15-37) U/L 43 H ALT (14-59) U/L 36 Alkaline Phosphatase (46-116) U/L 133 H Total Protein (6.4-8.2) g/dL 8.1 Albumin (3.4-5.0) g/dL 4.1 Lipase (16-77) U/L > 375 H Acetaminophen (10-30) ug/mL 14 Ethyl Alcohol (<10) mg/dL < 3.0 Medical Decision Making This is a complex 53-year-old female with history of chronic alcoholism and COPD presenting with acute abdominal pain left upper quadrant left lower quadrant, nausea without vomiting, tachycardia in the 130s, received 2 L of fluid, persistently tachycardic 108 time of reassessment with persistent pain, received 8 mg of morphine in the emergency department Last drink of alcohol was on Wednesday, denies history of alcohol withdrawal and has not had any episodes of vomiting in the emergency department. Lipase is greater than 375 and remainder of labs are stable for patient consistent with dehydration and elevated LFTs not grossly changed. Does not meet any Fatoumata's criteria. Patient denies history of withdrawal, however she will need CIWA monitoring, she is not exhibiting any signs of withdrawal in the emergency department. She appears more comfortable after the second dose of IV morphine. Patient had CT for further evaluation and evidence of interstitial pancreatitis on CT scan which is acute from prior CT that was reviewed. Dr. Zuñiga is agreeable to admission at this time for continued IV fluids and pain control and likely observation admission Quality:SDOH Health Related Social Needs: No Data to Display PFSH All Active Problems (Updated 01/15/24 @ 15:54 by Adam Zuñiga MD) Acute pancreatitis (Acute) Decreased appetite (Acute) Does not have primary care provider (Acute) Palliative care encounter (Acute) Weakness (Acute) Pain (Acute) Do not attempt intubation (Acute) DNR (do not resuscitate) (Acute) ACP (advance care planning) (Acute) COPD (chronic obstructive pulmonary disease) with emphysema (Chronic) Acute hypokalemia (Acute) Chronic hyponatremia (Acute) Liver dysfunction (Acute) Alcohol use disorder (Chronic) Anemia (Chronic) Hypokalemia (Acute) Alcoholic hepatitis without ascites (Chronic) Social History Smoking/Tobacco Use Status: Current every day Tobacco Type: cigarettes Smoking risk assessment performed?: Yes Alcohol Intake: former Drug use: Occasionally Substance use type: former substance user and marijuana Details: at night to sleep Housing: apartment Do you feel safe at home: Yes Do you feel safe in your relationship?: Yes
--- NOTE | 2024-01-15 15:49 | W.PM.HP.N ---
Date of service: 01/15/24 Time of Service: 15:49 Assessment and Plan Assessment and plan (1) Acute pancreatitis: Status: Acute Assessment and plan: -Patient presented with abdominal pain that was ultimately determined to be due to acute pancreatitis with greater than 375 lipase and signs of inflammation on CT abdomen pelvis -Patient required multiple doses of IV morphine in the emergency department, will trial half a milligram of Dilaudid every 4 hours as needed -Will be n.p.o. at this time -As needed Zofran -Normal saline at 75 MLS per hour -Will consider advancing diet in the morning (2) Alcoholic hepatitis without ascites: Status: Chronic Assessment and plan: - Continue home regimen of 40 mg Lasix, sprionolactone and xifaxan -hold lactulose while patient is NPO/not tolerating PO intake (3) Alcohol use disorder: Status: Chronic (4) COPD (chronic obstructive pulmonary disease) with emphysema: Status: Chronic Assessment and plan: -continue home inhaler regimen Qualifiers: Emphysema type: unspecified Qualified Code(s): J43.9 - Emphysema, unspecified History of Present Illness History of Present Illness Chief Complaint: Abdominal pain Narrative: 53-year-old female with past medical history of COPD with emphysema, alcohol use disorder alcoholic hepatitis and frequent episodes of alcohol induced acute pancreatitis presents to the emergency department with abdominal pain. Patient states that her last drink was 4 days prior to her arrival and that she now only intermittently consumes alcohol and denies having a history of alcohol withdrawal. She states that her abdominal pain started evening prior to arrival and while she has felt nauseous and has had difficulty tolerating p.o. intake she has not experienced any vomiting, fever, lightheadedness or dizziness. In the emergency department the patient was noted as being tachycardic likely secondary to pain with heart rates up to the 120s, with otherwise normal vital signs, physical exam was notable for epigastric and right upper quadrant tenderness. CBC and CMP were unremarkable, but lipase was greater than 375, and CT abdomen pelvis did show acute pancreatitis without signs of pseudocyst. Patient was given multiple doses of IV morphine without significant proven of her pain, and given that she continues to not be able to tolerate p.o. intake emergency room PA paged hospitalist for admission for patient with acute pancreatitis. Review of Systems All systems reviewed & are unremarkable except as noted in HPI and below PFSH All Active Problems (Updated 01/15/24 @ 15:54 by Adam Zuñiga MD) Acute pancreatitis (Acute) Decreased appetite (Acute) Does not have primary care provider (Acute) Palliative care encounter (Acute) Weakness (Acute) Pain (Acute) Do not attempt intubation (Acute) DNR (do not resuscitate) (Acute) ACP (advance care planning) (Acute) COPD (chronic obstructive pulmonary disease) with emphysema (Chronic) Acute hypokalemia (Acute) Chronic hyponatremia (Acute) Liver dysfunction (Acute) Alcohol use disorder (Chronic) Anemia (Chronic) Hypokalemia (Acute) Alcoholic hepatitis without ascites (Chronic) Social History Smoking/Tobacco Use Status: Current every day Tobacco Type: cigarettes Smoking risk assessment performed?: Yes Alcohol Intake: former Drug use: Occasionally Substance use type: former substance user and marijuana Details: at night to sleep Housing: apartment Do you feel safe at home: Yes Do you feel safe in your relationship?: Yes Meds Allergies and Home Medications Allergies Allergy/AdvReac Type Severity Reaction Status Date / Time No Known Allergies Allergy Unverified 09/20/23 09:33 Home Medications Medication Instructions Recorded Confirmed Type Inhaler, Assist Devices [Pocket 1 ea miscellaneous DIRECTED ##0 08/07/23 09/20/23 Rx Chamber] furosemide 40 mg tablet 40 mg PO BID@0830,1600 #60 tabs 08/07/23 09/20/23 Rx lactulose 20 gram/30 mL oral 20 g (30 mL) PO DAILY #1,200 mL 08/07/23 09/20/23 Rx solution magnesium 250 mg tablet 250 mg PO BID #60 tabs 08/07/23 09/20/23 Rx potassium chloride 10 mEq 20 meq (2 x 10 mEq) PO DAILY #60 08/07/23 09/20/23 Rx capsule,extended release caps rifaximin 550 mg tablet (Xifaxan) 550 mg PO BID #60 tabs 08/07/23 09/20/23 Rx spironolactone 25 mg tablet 25 mg PO DAILY #30 tabs 08/07/23 09/20/23 Rx thiamine mononitrate (vit B1) 100 100 mg PO QAM #30 tabs 08/07/23 09/20/23 Rx mg tablet (Vitamin B-1 (mononitrate)) budesonide-formoterol HFA 160 2 puff inhalation BID #10.2 grams 08/18/23 09/20/23 Rx mcg-4.5 mcg/actuation aerosol inhaler (Symbicort) Exam Narrative Exam Narrative: Chronically ill-appearing female laying in bed in mild abdominal distress, ANO x 4, heart regular rhythm, lungs clear to auscultation bilaterally, abdomen with moderate epigastric and right upper quadrant tenderness to palpation without rebound or guarding Results Labs 01/15/24 14:15 01/15/24 13:54 Labs: Laboratory Results - last 24 hr 01/15/24 01/15/24 13:54 14:15 WBC 9.73 RBC 5.00 Hgb 16.1 H Hct 47.0 H MCV 94 MCH 32.2 MCHC 34.3 RDW 14.6 Plt Count 180 MPV 9.9 Immature Gran % 0.4 Neutrophils % 79.3 Lymphocytes % 8.7 Monocytes % 11.2 Eosinophils % 0.2 Basophils % 0.2 Nucleated RBC % 0.0 Absolute Neutrophils 7.71 H Absolute Lymphocytes 0.85 L Absolute Monocytes 1.09 H Absolute Eosinophils 0.02 Absolute Basophils 0.02 VBG Lactate 1.1 Sodium 130 L Potassium 3.9 Chloride 96 L Carbon Dioxide 20.9 L Anion Gap 13.1 H BUN 11 Creatinine 0.7 Est GFR (CKD-EPI 2020) 102.71 Glucose 137 H Calcium 9.7 Total Bilirubin 1.4 H AST 43 H ALT 36 Alkaline Phosphatase 133 H Total Protein 8.1 Albumin 4.1 Lipase > 375 H Acetaminophen 14 Ethyl Alcohol < 3.0 Last Vital Signs Temp 98.6 F 01/15/24 13:38 Pulse 132 H 01/15/24 13:38 Resp 20 01/15/24 13:38 BP 131/84 01/15/24 13:38 Pulse Ox 98 01/15/24 13:38 Time Spent Time spent with Patient: >75 minutes Time was spent: preparing to see the patient(eg.review tests), obtaining and/or reviewing separately otained hiistory, ordering medications,tests, procedures, referring, communicating with other health healthcare representative, indepentently interpreting results, counseling the patient and care coordination
[2024-01-15] MEDS: Nicotine 21 MG/24 HR PATCH TD (15:54)
[2024-01-15] MEDS: HYDROmorphone 2 MG/ML SYR 0.5 MG IVP ×2 (19:07→23:17)
[2024-01-15] MEDS: Normal Saline 1,000 ML 75 ML IV (19:11)
[2024-01-15] MEDS: Budesonide/Formoterol 160/4.5 6 GM 60 PUFF INH IH (19:56)
[2024-01-15 20:35] LABS: Bilirubin Negative (Negative); Blood Negative (Negative); Clarity Clear (Clear); Glucose Negative (Negative); Ketones Negative (Negative); Leukocyte Esterase Negative (Negative); Nitrite Negative (Negative); Urobilinogen 0.2 mg/dL (Up to 0.2)
[2024-01-16] MEDS: HYDROmorphone 2 MG/ML SYR 0.5 MG IVP ×4 (03:32→19:33)
[2024-01-16] MEDS: Normal Saline Flush 10 ML SYR IVP ×3 (03:34→19:34)
[2024-01-16 04:12] VITALS: RESP 14
[2024-01-16 06:51] LABS: HCT 36.6 % (36.0-46.0); MCHC 34.2 % (32.0-36.0); MCV 97 fL (80-95); MPV 9.8 fL (8.0-11.0); Platelet Count 140 10^3/uL (130-400); RBC 3.79 10^6/uL (3.93-5.22); RDW-SD 53.2 fL; WBC 6.98 10^3/uL (4.4-10.8)
[2024-01-16 06:54] LABS: HGB 12.5 g/dL (11.2-15.7)
[2024-01-16 07:22] LABS: BUN 7 mg/dL (7-18); CREATININE 0.6 mg/dL (0.55-1.02); Calcium 8.4 mg/dL (8.5-10.1); Chloride 103 mmol/L (98-107); Glucose 75 mg/dL (74-106); Magnesium 1.3 mg/dL (1.8-2.4); Potassium 3.7 mmol/L (3.5-5.1); Sodium 134 mmol/L (136-145)
[2024-01-16] MEDS: Enoxaparin 40 MG/0.4 ML SYR SC (07:23)
[2024-01-16] MEDS: Budesonide/Formoterol 160/4.5 6 GM 60 PUFF INH IH ×2 (08:02→19:47)
[2024-01-16 08:07] VITALS: BP 143/78; PULSE 78; RESP 18; TEMP 36.8; O2SAT 99
[2024-01-16] MEDS: Spironolactone 25 MG TAB PO (08:21)
[2024-01-16] MEDS: Normal Saline 1,000 ML 75 ML IV ×2 (08:40→19:38)
--- NOTE | 2024-01-16 10:32 | PDOC.CMIN ---
Date of service: 01/16/24 Time of Service: 10:37 Care Management Initial Assmt Initial Assessment REASON FOR HOSPITALIZATION:: pancreatitis PREVIOUS FUNCTIONAL STATUS/SOCIAL/FAMILY SUPPORTS:: Nyasia lives alone in an apartment in [place], [place] Nyasia has 3 children, twin sons and a daughter. All of the children live locally and are very supportive and close. 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 Nyasia is independent at baseline and does not receive any community services. CURRENT FUNCTIONAL STATUS:: Nyasia was sitting up in bed when CM met with her. She was open to conversation and engaged well with CM. She informed CM that she no longer has a client in her home. She stated that it is much better for her to be able to go and help her daughter with clients than to have total 05/04 responsibility. She was admitted with pancreatitis yesterday but is already feeling markedly improved, she stated. She anticipates being able to go home tomorrow with no services. She was able to tolerate a regular diet at lunchtime with no pain or nausea/vomiting. ADVANCE DIRECTIVES:: On file. [facility] Megan Wong Has patient been provided with info about the portal/API?: Yes Did the patient sign up for the portal?: Yes CODE STATUS:: DNR/DNI INSURANCE COVERAGE / FINANCIAL ISSUES:: Medicaid CURRENT HOME/COMMUNITY SERVICES/EQUIPMENT:: none PRIMARY CARE PHYSICIAN:: Paul Moore POTENTIAL DISCHARGE NEEDS:: follow up with PCP and plan of care PATIENT/FAMILY EDUCATION NEEDS:: Review of discharge instructions, activity, diet, limitations, follow up plan, discuss Ask Me Three TRANSPORTATION:: via private vehicle PLAN:: Anticipate that Nyasia will be discharged home with no new services. She will follow up with community providers and plan of care and transport with family/friends. CM will follow and continue to assess for discharge needs. PFSH All Active Problems (Updated 01/15/24 @ 15:54 by Adam Zuñiga MD) Acute pancreatitis (Acute) Decreased appetite (Acute) Does not have primary care provider (Acute) Palliative care encounter (Acute) Weakness (Acute) Pain (Acute) Do not attempt intubation (Acute) DNR (do not resuscitate) (Acute) ACP (advance care planning) (Acute) COPD (chronic obstructive pulmonary disease) with emphysema (Chronic) Acute hypokalemia (Acute) Chronic hyponatremia (Acute) Liver dysfunction (Acute) Alcohol use disorder (Chronic) Anemia (Chronic) Hypokalemia (Acute) Alcoholic hepatitis without ascites (Chronic) Social History Smoking/Tobacco Use Status: Current every day Tobacco Type: cigarettes Smoking risk assessment performed?: Yes Alcohol Intake: former Drug use: Occasionally Substance use type: former substance user and marijuana Details: at night to sleep Housing: apartment Do you feel safe at home: Yes Do you feel safe in your relationship?: Yes SDOH(Care Management) Screening Will the Patient Participate in the Screening?: Yes Do you worry about having a steady place to live?: no In the past 12 months, have you had to go without electric, gas, oil or water in your home?: no Have you or anyone in your house had to go without enough food to eat?: no Has lack of transportation kept you from medical appointments or from doing things needed for daily living?: no Has anyone in your support network made you feel unsafe for any reason?: no
--- NOTE | 2024-01-16 11:37 | W.PM.PROGNOT ---
Date of Service Date of service: 01/16/24 Time of Service: 11:37 Assessment and Plan Assessment and plan (1) Acute pancreatitis: Status: Acute Assessment and plan: -Patient presented with abdominal pain that was ultimately determined to be due to acute pancreatitis with greater than 375 lipase and signs of inflammation on CT abdomen pelvis -Patient required multiple doses of IV morphine in the emergency department, will trial half a milligram of Dilaudid every 4 hours as needed -Will be n.p.o. at this time -As needed Zofran -Normal saline at 75 MLS per hour -tolerated full liquid diet this morning and has been transitioned to full diet (2) Alcoholic hepatitis without ascites: Status: Chronic Assessment and plan: - Continue home regimen sprionolactone (3) Alcohol use disorder: Status: Chronic (4) COPD (chronic obstructive pulmonary disease) with emphysema: Status: Chronic Assessment and plan: -continue home inhaler regimen Qualifiers: Emphysema type: unspecified Qualified Code(s): J43.9 - Emphysema, unspecified Subjective Subjective Interval history since last seen: Patient states that she is feeling better today. She understands the plan to continue to advance her diet and to discharge her tomorrow is she is able to tolerate. She has no other complaints or concerns at this time. Exam Narrative Exam Narrative: Chronically ill-appearing female laying in bed in mild abdominal distress, ANO x 4, heart regular rhythm, lungs clear to auscultation bilaterally, abdomen with moderate epigastric and right upper quadrant tenderness to palpation without rebound or guarding Objective Last Vital Signs Temp 98.2 F 01/16/24 08:07 Pulse 78 01/16/24 08:07 Resp 18 01/16/24 08:07 BP 143/78 H 01/16/24 08:07 Pulse Ox 99 01/16/24 08:07 Laboratory Results - last 24 hr 01/15/24 01/15/24 01/15/24 13:36 13:54 14:15 WBC 9.73 RBC 5.00 Hgb 16.1 H Hct 47.0 H MCV 94 MCH 32.2 MCHC 34.3 RDW 14.6 Plt Count 180 MPV 9.9 Immature Gran % 0.4 Neutrophils % 79.3 Lymphocytes % 8.7 Monocytes % 11.2 Eosinophils % 0.2 Basophils % 0.2 Nucleated RBC % 0.0 Absolute Neutrophils 7.71 H Absolute Lymphocytes 0.85 L Absolute Monocytes 1.09 H Absolute Eosinophils 0.02 Absolute Basophils 0.02 VBG Lactate 1.1 Sodium 130 L Potassium 3.9 Chloride 96 L Carbon Dioxide 20.9 L Anion Gap 13.1 H BUN 11 Creatinine 0.7 Est GFR (CKD-EPI 2020) 102.71 Glucose 137 H Calcium 9.7 Magnesium Total Bilirubin 1.4 H AST 43 H ALT 36 Alkaline Phosphatase 133 H Ammonia Cancelled Total Protein 8.1 Albumin 4.1 Lipase > 375 H Urine Color Urine Clarity Urine pH Ur Specific [place] Urine Protein Urine Ketones Urine Blood Urine Nitrite Urine Bilirubin Urine Urobilinogen Ur Leukocyte Esterase Urine Glucose Acetaminophen 14 Ethyl Alcohol < 3.0 01/15/24 01/16/24 20:30 06:36 WBC 6.98 RBC 3.79 L Hgb 12.5 D Hct 36.6 MCV 97 H MCH 33.0 MCHC 34.2 RDW 15.0 H Plt Count 140 MPV 9.8 Immature Gran % Neutrophils % Lymphocytes % Monocytes % Eosinophils % Basophils % Nucleated RBC % Absolute Neutrophils Absolute Lymphocytes Absolute Monocytes Absolute Eosinophils Absolute Basophils VBG Lactate Sodium 134 L Potassium 3.7 Chloride 103 Carbon Dioxide 21.0 Anion Gap 10.0 BUN 7 Creatinine 0.6 Est GFR (CKD-EPI 2020) 106.60 Glucose 75 Calcium 8.4 L Magnesium 1.3 L Total Bilirubin AST ALT Alkaline Phosphatase Ammonia Total Protein Albumin Lipase Urine Color Yellow Urine Clarity Clear Urine pH 7.0 Ur Specific [place] 1.010 Urine Protein Negative Urine Ketones Negative Urine Blood Negative Urine Nitrite Negative Urine Bilirubin Negative Urine Urobilinogen 0.2 Ur Leukocyte Esterase Negative Urine Glucose Negative Acetaminophen Ethyl Alcohol Time Spent with Patient Time Spent with Patient: >50 minutes Time was spent: preparing to see the patient(eg.review tests), obtaining and/or reviewing separately otained hiistory, ordering medications,tests, procedures, referring, communicating with other health physician locums urgent care, indepentently interpreting results, counseling the patient and care coordination
[2024-01-16] MEDS: Acetaminophen 325 MG TAB PO (11:38)
[2024-01-16 12:28] VITALS: BP 124/67; PULSE 73; RESP 17; TEMP 37.1; O2SAT 96
[2024-01-16] MEDS: Magnesium Oxide 400 MG TAB 800 MG PO (14:43)
[2024-01-16 15:54] VITALS: BP 110/81; PULSE 60; RESP 18; TEMP 36; O2SAT 95
[2024-01-16] MEDS: Nicotine 21 MG/24 HR PATCH TD (16:35)
[2024-01-16 19:31] VITALS: BP 148/86; PULSE 67; RESP 18; TEMP 36.6; O2SAT 98
[2024-01-16] MEDS: Docusate Sodium 100 MG CAP PO (19:37)
[2024-01-17] MEDS: HYDROmorphone 2 MG/ML SYR 0.5 MG IVP ×3 (00:14→08:08)
[2024-01-17] MEDS: Acetaminophen 325 MG TAB PO ×3 (00:17→08:09)
[2024-01-17 04:17] VITALS: BP 140/90; PULSE 72; RESP 18; TEMP 36; O2SAT 96
[2024-01-17 07:34] VITALS: BP 147/76; PULSE 61; RESP 17; TEMP 36.2; O2SAT 98
--- NOTE | 2024-01-17 07:38 | W.PM.DS.N ---
Date of service: 01/17/24 Time of Service: 10:34 DS: Diagnosis Discharge Diagnosis (1) Acute pancreatitis: Status: Acute Asessment and Plan: -Patient presented with abdominal pain that was ultimately determined to be due to acute pancreatitis with greater than 375 lipase and signs of inflammation on CT abdomen pelvis -required multiple doses of IV morphine in the emergency department, will trial half a milligram of Dilaudid every 4 hours as needed -was NPO on admission -tolerated full liquid diet this morning and has been transitioned to full diet on 01/15 -Had no worsening of abdominal pain nausea or vomiting on a regular diet was determined to be stable for discharge -Has been discharged with 4 doses of 5 mg p.o. oxycodone if abdominal pain recurs as well as sublingual Zofran (2) Alcoholic hepatitis without ascites: Status: Chronic (3) Alcohol use disorder: Status: Chronic (4) COPD (chronic obstructive pulmonary disease) with emphysema: Status: Chronic Discharge Plan Disposition Patient Disposition: Home Condition: Good Discharge Details Reason For Visit: Acute Pancreatitis Admit Date/Time: 01/15/24 15:49 Admit Provider: Adam Zuñiga Attending Provider: Adam Zuñiga Primary Care Provider: Paul Moore Hospital Course Hospital Course: Patient initially presented with nausea and vomiting that was ultimately determined to be due to an acute pancreatitis. Patient's last drink was 2 days prior to arrival and does have a history of alcohol use disorder and an alcoholic hepatitis. She was initially n.p.o. and was fluid rehydrated via IV. Her diet was slowly advanced which she was able to tolerate without worsening nausea, vomiting or abdominal pain and was ultimately determined to be stable for discharge home. Home Meds and New Rx's Prescriptions: New oxycodone 5 mg capsule 5 mg PO Q8H PRNQty: 4 0RF ondansetron HCl 4 mg tablet 4 mg PO Q6H PRNQty: 10 0RF Continued budesonide-formoterol [Symbicort] 160-4.5 mcg/actuation HFA aerosol inhaler 2 puff inhalation BID Qty: 10.2 1RF Inhaler, Assist Devices [Pocket Chamber] 1 ea miscellaneous DIRECTED Qty: 0 0RF potassium chloride 10 mEq Capsule, Extended Release 20 meq PO DAILY Qty: 60 0RF spironolactone 25 mg Tablet 25 mg PO DAILY Qty: 30 0RF thiamine mononitrate (vit B1) [Vitamin B-1 (mononitrate)] 100 mg Tablet 100 mg PO QAM Qty: 30 0RF Discharge Instructions Stand Alone Forms: Nursing Discharge Form Referrals: Paul Moore MD [Primary Care Provider] - 01/27/24 9:55 am Activity:: Activity as Tolerated Equipment/Supplies:: No Equipment Needed Diet:: As Tolerated Discharge Orders Discharge Orders: Discharge Order (Routine); Ordered 01/17/24 Ordered By: Adam Zuñiga Discharge Data Discharge Date/Time-TO BE ENTERED AT DEPARTURE: 01/17/24 10:27 DS: Summary Time Spent with Patient providing and/or coordinating discharge services: Greater than 30 minutes Status at Discharge Functional status at discharge: independent ambulation Overall status at discharge: patient is back to baseline Mental Status: mental status grossly normal Speech and Movement: speech and movement normal Mood: congruent mood Affect: normal affect Quality:SDOH Health Related Social Needs: No Data to Display Exam Narrative Exam Narrative: Chronically ill-appearing female laying in bed in mild abdominal distress, ANO x 4, heart regular rhythm, lungs clear to auscultation bilaterally, abdomen with moderate epigastric and right upper quadrant tenderness to palpation without rebound or guarding Psych Mental Status: mental status grossly normal Speech and Movement: speech and movement normal Mood: congruent mood Affect: normal affect DS: Data Vitals/I&O Vitals and I&O: Vital Signs Temperature 97.2 F L 01/17/24 07:34 Temperature Source Tympanic 01/17/24 07:34 Pulse 61 01/17/24 07:34 Pulse Rhythm Regular 01/16/24 20:06 Pulse 80 01/15/24 17:30 Respiratory Rate 17 01/17/24 07:34 Respiratory Effort Normal 01/16/24 20:06 Respiratory Depth Normal 01/16/24 20:06 Respiratory Pattern Normal 01/16/24 20:06 Blood Pressure 147/76 H 01/17/24 07:34 Blood Pressure Mean 135 01/15/24 16:01 Blood Pressure Position Sitting 01/15/24 13:38 Pulse Oximetry 98 01/17/24 07:34 Oxygen Delivery Method Room Air 01/17/24 07:34 Oxygen Flow Rate 0 01/17/24 07:34 Pain Level 0 01/17/24 07:34 Intake & Output 01/16/24 01/17/24 01/17/24 17:59 05:59 17:59 Intake Total 1120 / 1120 822.5 / 1942.5 Balance 1120 / 1120 822.5 / 1942.5 Intake: IV 1000 / 1000 822.5 / 1822.5 Oral 120 / 120 Other: Comment Voids independently. voids independently Voiding Methods Toilet Toilet Data Completed and Pending Labs on day of discharge: Preliminary micro results at discharge 01/15/24 14:15 Blood Culture - Preliminary Blood NO GROWTH 24 HOURS 01/15/24 13:54 Blood Culture - Preliminary Blood NO GROWTH 24 HOURS PFSH All Active Problems (Updated 01/15/24 @ 15:54 by Adam Zuñiga MD) Acute pancreatitis (Acute) Decreased appetite (Acute) Does not have primary care provider (Acute) Palliative care encounter (Acute) Weakness (Acute) Pain (Acute) Do not attempt intubation (Acute) DNR (do not resuscitate) (Acute) ACP (advance care planning) (Acute) COPD (chronic obstructive pulmonary disease) with emphysema (Chronic) Acute hypokalemia (Acute) Chronic hyponatremia (Acute) Liver dysfunction (Acute) Alcohol use disorder (Chronic) Anemia (Chronic) Hypokalemia (Acute) Alcoholic hepatitis without ascites (Chronic) Social History Smoking/Tobacco Use Status: Current every day Tobacco Type: cigarettes Smoking risk assessment performed?: Yes Alcohol Intake: former Drug use: Occasionally Substance use type: former substance user and marijuana Details: at night to sleep Housing: apartment Do you feel safe at home: Yes Do you feel safe in your relationship?: Yes Time Spent with Patient Time Spent with Patient: <45 minutes Time was spent: preparing to see the patient(eg.review tests), obtaining and/or reviewing separately otained hiistory, ordering medications,tests, procedures, referring, communicating with other health patient care provider, indepentently interpreting results, counseling the patient and care coordination
[2024-01-17] MEDS: Enoxaparin 40 MG/0.4 ML SYR SC (07:56)
[2024-01-17] MEDS: Nicotine 21 MG/24 HR PATCH TD (07:56)
[2024-01-17] MEDS: Pantoprazole 40 MG TABCR PO (07:57)
[2024-01-17] MEDS: Spironolactone 25 MG TAB PO (07:58)
[2024-01-17] MEDS: Budesonide/Formoterol 160/4.5 6 GM 60 PUFF INH IH (08:19)
--- NOTE | 2024-01-17 10:37 | PDOC.CMDIS ---
Date of service: 01/17/24 Time of Service: 10:37 LACE Index Scoring Tool Questions: Length of Stay (in days): 2 Was the patient admitted via the E.D.?: Yes Comorbidities: Chronic Pulmonary Disease and Liver or Renal Disease E.D. Visits: 4 Answers: Total Score: 14 Risk of Readmission: High Risk Care Management Discharge Plan Reason for Hospitalization: pancreatitis Discharge Plan: Nyasia will be discharged home with no new services. She will follow up with community providers and plan of care and transport with family/friends. Patient/Family Education Needs: Review of discharge instructions, activity, diet, limitations, follow up plan, discuss Ask Me Three [facility] Health Related Social Needs: No Data to Display
== END 2024-01-17 10:27 | disposition home or self-care (01) | DRG 439 ==
LOC: ER 16:11 → MS 17:38
PROVIDERS: Admitting Provider Family Medicine; Emergency Provider Physician Assistant; PCP Family Medicine; Visit Provider Family Medicine
DX: K85.90 Acute pancreatitis without necrosis or infection, unspecified (principal); E87.1 Hypo-osmolality and hyponatremia; K70.10 Alcoholic hepatitis without ascites; F10.90 Alcohol use, unspecified, uncomplicated; J43.9 Emphysema, unspecified; Z79.899 Other long term (current) drug therapy; Z66 Do not resuscitate; D64.9 Anemia, unspecified; F17.210 Nicotine dependence, cigarettes, uncomplicated; F12.90 Cannabis use, unspecified, uncomplicated
CPT/HCPCS: 00123; 80048; 80053; 83690; 85027; 87040; 93005; 94640; 96361; 96374; 96375; 96376; 99285; J1650; 74177; 80320; 80329; 81003; 82140; 83605; 83735; 85025; 93010; 94664; 99223; 99233; 99238; J1170; J2270; J2405; J3490

== ENCOUNTER 2024-05-09 14:01 | Inpatient (IN) | payer MEDICAID, SELFPAY ==
[2024-05-09 14:06] VITALS: BP 125/80; PULSE 110; RESP 18; TEMP 36.4
--- NOTE | 2024-05-09 14:15 | RT.EKG_ITS ---
APPROVED REPORT Exam: Resting ECG Reason for Exam: Abd pain Patient Location: E HR:100 bpm ECG Measurements Heart Rate 100 AXIS ND 152 P 87 QRSd 88 QRS 86 QT 348 T 73 QTc 449 Conclusion Sinus tachycardia...rate> 99 ST elevation suggests acute pericarditis...ST >0.10mV, ant/lat/inf
[2024-05-09 14:52] LABS: Lactate 0.8 mmol/L (0.6-1.4)
[2024-05-09 14:55] LABS: Abs Immature Grans 0.03 10^3/uL (0.0-0.06); Absolute Basophil Count 0.01 10^3/uL (0.0-0.2); Absolute Lymphocyte Count 0.26 10^3/uL (1.2-3.4); Absolute Monocyte Count 1.55 10^3/uL (0.1-0.8); Basophils % 0.1 %; HCT 34.4 % (36.0-46.0); HGB 11.7 g/dL (11.2-15.7); Immature Grans % 0.3 %; Lymphocytes % 2.4 %; MCV 100 fL (80-95); MPV 8.7 fL (8.0-11.0); Monocytes % 14.1 %; Neutrophils % 83.1 %; Platelet Count 267 10^3/uL (130-400); RBC 3.44 10^6/uL (3.93-5.22); RDW 14.8 % (11.7-14.6); RDW-SD 54.9 fL
[2024-05-09] MEDS: HYDROmorphone 2 MG/ML SYR 0.5 MG IVP (14:57)
[2024-05-09] MEDS: Lactated Ringers 1,000 ML 1000 ML IV (14:58)
[2024-05-09] MEDS: Ondansetron 4 MG/2 ML VIAL IVP ×3 (14:58→23:47)
[2024-05-09 14:59] LABS: Absolute Neutrophil Count 9.14 10^3/uL (1.2-6.7)
[2024-05-09 15:10] LABS: ALT 65 U/L (14-59); AST 72 U/L (15-37); Albumin 4.8 g/dL (3.4-5.0); Alkaline Phosphatase 121 U/L (46-116); Anion Gap 23.5 mmol/L (3-11); BUN 13 mg/dL (7-18); Bilirubin, Total 0.68 mg/dL (0.2-1.0); CO2 14.5 mmol/L (21.0-32.0); CREATININE 1.3 mg/dL (0.55-1.02); Calcium 10.2 mg/dL (8.5-10.1); Chloride 88 mmol/L (98-107); Estimated GFR 48.56 (mL/min/1.73m2); Glucose 70 mg/dL (74-106); Potassium 4.5 mmol/L (3.5-5.1); Sodium 126 mmol/L (136-145); Total Protein 8.6 g/dL (6.4-8.2)
[2024-05-09 15:11] LABS: Diff Comment Agrees w/ Instrument; Macrocytosis 1+
[2024-05-09 15:12] LABS: Troponin I < 50 ng/L (< or =60)
[2024-05-09 15:13] LABS: Lipase > 375 U/L (16-77)
[2024-05-09] MEDS: HYDROmorphone 2 MG/ML SYR 1 MG IVP (15:19)
[2024-05-09] MEDS: Omnipaque 350 MG/ML 100 ML BTL IJ (16:28)
[2024-05-09] MEDS: Normal Saline - Diluent 50 ML VIAL IJ (16:29)
--- NOTE | 2024-05-09 16:40 | ED.GENADUL_ITS ---
Discharge Plan Discharge Details Chief Complaint: Abd Prob Primary Care Provider: Paul Moore ED Provider: Adela Tan Home Meds and New Rx's Prescriptions: No Action budesonide-formoterol [Symbicort] 160-4.5 mcg/actuation HFA aerosol inhaler 2 puff inhalation BID Qty: 10.2 1RF Inhaler, Assist Devices [Pocket Chamber] 1 ea miscellaneous DIRECTED Qty: 0 0RF potassium chloride 10 mEq Capsule, Extended Release 20 meq PO DAILY Qty: 60 0RF spironolactone 25 mg Tablet 25 mg PO DAILY Qty: 30 0RF ondansetron HCl 4 mg tablet 4 mg PO Q6H PRNQty: 10 0RF pantoprazole 40 mg tablet,delayed release (DR/EC) PO Patient Comments: TAKE ONE TABLET BY MOUTH EVERY DAY lidocaine 5 % adhesive patch,medicated 1 patch topical DAILY Patient Comments: APPLY ONE PATCH TOPICALLY TO THE SKIN DIRECTED, 12 HOURS ON AND THEN 12 HOURS OFF HPI General Date/Time Provider Initiated Documentation: 05/09/24 14:02 . Limitations to Documentation: no limitations . Information obtained by: patient, family and old records reviewed . HPI Narrative: MDM: In brief, this is a 54-year-old female patient with a past medical history significant for alcoholic hepatitis, with liver dysfunction and history of pancreatitis, COPD, presenting for evaluation of abdominal pain, nausea, and has been present for 1 day. Differential includes but is not limited to pancreatitis, hepatitis, cholecystitis, choledocholithiasis, cholangitis was considered though the patient is reassuringly mentating appropriately, afebrile, and hemodynamically appropriate other than her mild tachycardia. I considered other intra-abdominal pathologies including appendicitis, diverticulitis, mesenteric ischemia, aortic disease, urinary tract infection, pyelonephritis. I considered metabolic electrolyte derangements, anemia, liver dysfunction, kidney injury. Will obtain laboratory studies to include CBC, CMP, lipase, lactate, UA, and will proceed with CT abdomen pelvis. I will provide the patient with a liter of IV fluids for rehydration, as well as pain and nausea management. ED Course: I reviewed the patient's laboratory studies, which show a very mild leukocytosis to 11, no anemia or thrombocytopenia. Chemistry panel with a new hyponatremia to 126 and hypochloremia to 88, which may be due to the patient reported vomiting. Her creatinine is 1.3 with no comorbid elevation in her BUN, but she does have an anion gap elevation to 23 and a decrease in her bicarb to 14. The patient does not have any elevation in her blood glucose, has a mild transaminitis with no bilirubin elevation, has a normal troponin, but a lactate that is significantly elevated above the level of 375, concerning for pancreatitis. UA is noninfectious, and I independently interpreted the patient's CT scan, discussed the findings with the radiologist. She has findings consistent with pancreatitis with peripancreatic fluid, no evidence of pseudocyst or gallbladder dysfunction. The patient required several doses of intravenous pain medications without successful management of her pain. She was able to tolerate sips of water but I have concerns that the patient will not be successful in the outpatient environment due to her uncontrolled pain and my concern that she will not be able to tolerate p.o. intake. For this reason we reached out to the hospitalist to discuss admission. They have graciously accepted this patient for admission to their service and she was transferred from our department without incident. Adela Tan MD HPI: This is a 54-year-old female patient with a past medical history significant for alcoholic pancreatitis, alcoholic hepatitis, COPD, presenting for evaluation of abdominal pain. Reports that yesterday she felt nauseated and had some nonbloody vomiting, started to develop abdominal pain this morning that is located on either side of her epigastric and periumbilical region. She tried Tylenol and Motrin today without improvement in her pain. The patient reports that this feels like her similar episodes of pancreatitis. She states that she does have a few glasses of wine every evening, has not had an alcoholic drink since Wednesday. She has not had fevers or chills, denies dysuria or hematuria, no changes in bowel habits. The patient reports no history of abdominal surgeries. Exam: Gen: Awake and alert, appears notably uncomfortable HEENT: Non-icteric sclera Neck: Supple Lungs: No apparent respiratory distress, normal respiratory effort. CV: Appears well perfused, strong distal pulses, tachycardic rate Abdomen: Non-distended, soft, diffusely tender in the periumbilical and epigastric regions, with no rigidity, rebound, or guarding. Boyce sign is negative and there is no CVA tenderness MSK: Moves 4 extremities without apparent limitation in ROM Skin: Visualized skin without rashes, cyanosis. Neuro: Normal Gait, no obvious focal deficits or facial asymmetry. Speaks in full, clear sentences. Psych: Appropriate for situation. Related Data Home Medications ?Medication ?Instructions ?Recorded ?Confirmed Inhaler, Assist Devices [Pocket 1 ea miscellaneous DIRECTED ##0 08/07/23 05/09/24 Chamber] potassium chloride 10 mEq 20 meq (2 x 10 mEq) PO DAILY #60 08/07/23 05/09/24 capsule,extended release caps spironolactone 25 mg tablet 25 mg PO DAILY #30 tabs 08/07/23 05/09/24 budesonide-formoterol HFA 160 2 puff inhalation BID #10.2 grams 08/18/23 05/09/24 mcg-4.5 mcg/actuation aerosol inhaler (Symbicort) ondansetron HCl 4 mg tablet 4 mg PO Q6H PRN #10 tabs 01/17/24 05/09/24 lidocaine 5 % topical patch 1 patch topical DAILY 05/09/24 05/09/24 pantoprazole 40 mg tablet,delayed mg PO 05/09/24 release Previous Rx's ?Medication ?Instructions ?Recorded Inhaler, Assist Devices [Pocket 1 ea miscellaneous DIRECTED ##0 08/07/23 Chamber] potassium chloride 10 mEq 20 meq (2 x 10 mEq) PO DAILY #60 08/07/23 capsule,extended release caps spironolactone 25 mg tablet 25 mg PO DAILY #30 tabs 08/07/23 budesonide-formoterol HFA 160 2 puff inhalation BID #10.2 grams 08/18/23 mcg-4.5 mcg/actuation aerosol inhaler (Symbicort) ondansetron HCl 4 mg tablet 4 mg PO Q6H PRN #10 tabs 01/17/24 Allergies Allergy/AdvReac Type Severity Reaction Status Date / Time No Known Allergies Allergy Unverified 05/09/24 14:09 General Stated Complaint: Abd Prob BRIAN: 3 Course Vital Signs Vital signs: Vital Signs Temperature 36.4 C L 05/09/24 14:06 Pulse 110 H 05/09/24 14:06 Respiratory Rate 18 05/09/24 14:06 Blood Pressure 125/80 05/09/24 14:06 Temperature 36.4 C L 05/09/24 14:06 Temperature Source Oral 05/09/24 14:06 Pulse 110 H 05/09/24 14:06 Respiratory Rate 18 05/09/24 14:06 Blood Pressure 125/80 05/09/24 14:06 Blood Pressure Position Sitting 05/09/24 14:06 Oxygen Delivery Method Room Air 05/09/24 14:06 Oxygen Flow Rate 0 05/09/24 14:06 Pain Level 10 05/09/24 14:57 Lab/Test Results Lab/Test Results: Laboratory Tests Range/Units 05/09/24 05/09/24 14:45 17:29 WBC (4.4-10.8) 10^3/uL 11.00 H RBC (3.93-5.22) 10^6/uL 3.44 L Hgb (11.2-15.7) g/dL 11.7 Hct (36.0-46.0) % 34.4 L MCV (80-95) fL 100 H MCH (27.0-33.0) pg 34.0 H MCHC (32.0-36.0) % 34.0 RDW (11.7-14.6) % 14.8 H Plt Count (130-400) 10^3/uL 267 MPV (8.0-11.0) fL 8.7 Immature Gran % % 0.3 Neutrophils % % 83.1 Lymphocytes % % 2.4 Monocytes % % 14.1 Eosinophils % % 0.0 Basophils % % 0.1 Nucleated RBC % (0.0-0.3) % 0.0 Absolute Neutrophils (1.2-6.7) 10^3/uL 9.14 H Absolute Lymphocytes (1.2-3.4) 10^3/uL 0.26 L Absolute Monocytes (0.1-0.8) 10^3/uL 1.55 H Absolute Eosinophils (0.0-0.7) 10^3/uL 0.00 Absolute Basophils (0.0-0.2) 10^3/uL 0.01 RBC Morphology See Below Macrocytosis 1+ VBG Lactate (0.6-1.4) mmol/L 0.8 Sodium (136-145) mmol/L 126 L Potassium (3.5-5.1) mmol/L 4.5 Chloride (98-107) mmol/L 88 L Carbon Dioxide (21.0-32.0) mmol/L 14.5 L Anion Gap (3-11) mmol/L 23.5 H BUN (7-18) mg/dL 13 Creatinine (0.55-1.02) mg/dL 1.3 H Est GFR (CKD-EPI 2020) (mL/min/1.73m2) 48.56 Glucose (74-106) mg/dL 70 L Calcium (8.5-10.1) mg/dL 10.2 H Magnesium (1.8-2.4) mg/dL 2.0 Total Bilirubin (0.2-1.0) mg/dL 0.68 AST (15-37) U/L 72 H ALT (14-59) U/L 65 H Alkaline Phosphatase (46-116) U/L 121 H Troponin I (< or =60) ng/L < 50 Cancelled Total Protein (6.4-8.2) g/dL 8.6 H Albumin (3.4-5.0) g/dL 4.8 Lipase (16-77) U/L > 375 H Medical Decision Making Quality:SDOH Health Related Social Needs: No Data to Display PFSH All Active Problems (Updated 01/18/24 @ 00:09 by VIRGILIO UGARTE) Decreased appetite (Acute) Does not have primary care provider (Acute) Palliative care encounter (Acute) Weakness (Acute) Pain (Acute) Do not attempt intubation (Acute) DNR (do not resuscitate) (Acute) ACP (advance care planning) (Acute) COPD (chronic obstructive pulmonary disease) with emphysema (Chronic) Acute hypokalemia (Acute) Chronic hyponatremia (Acute) Liver dysfunction (Acute) Alcohol use disorder (Chronic) Anemia (Chronic) Hypokalemia (Acute) Alcoholic hepatitis without ascites (Chronic) Social History Smoking/Tobacco Use Status: Current every day Tobacco Type: cigarettes Smoking risk assessment performed?: Yes Alcohol Intake: former Drug use: Occasionally Substance use type: former substance user and marijuana Details: at night to sleep Housing: apartment Do you feel safe at home: Yes Do you feel safe in your relationship?: Yes
--- NOTE | 2024-05-09 16:49 | DI.CT_ITS ---
Exam(s) CT ABDOMEN PELVIS W EXAM: CT ABDOMEN PELVIS W CLINICAL HISTORY: Hx pancreatitis, abd pain. TECHNIQUE: Imaging Protocol: Axial computed tomography images with coronal and sagittal reformatted images were created and reviewed CONTRAST MATERIAL: Intravenous: Omnipaque 350 Contrast volume:100 ml Oral: no COMPARISON: CT CT ABDOMEN PELVIS W from 01/15/2024 FINDINGS: ABDOMEN and PELVIS: Lung Bases: No acute findings. Liver: Mild hepatic steatosis, some improvement from prior. Elongation of the left lobe again noted. Area of scarring near gallbladder fossa. No suspicious mass. Gallbladder and biliary tract: No radiodense calculus. No biliary dilation. Pancreas: Normal density. Inflammation and fluid surrounding the pancreas, consistent with pancreati tis. No pseudocyst visible. No area of hemorrhage or necrosis. No evidence of mass. Spleen: Normal. Kidneys: Normal size, contour and axis. No radiodense stones. No obstructive uropathy. No suspicious masses seen. Adrenal glands: No masses seen. Vasculature: Abdominal aorta non-dilated. Soft tissues: Unremarkable. Bladder: No gross wall thickening. No calculi.No focal mass. Bowel: No obstruction. Mild wall thickening of the duodenum, secondary to pancreatic inflammation. Peritoneal cavity: No ascites. No focal collection. No mesenteric inflammatory response. Bones: Unremarkable for age. Reproductive organs: Unremarkable. Lymph nodes: No pathologically enlarged lymph nodes. IMPRESSION:: Findings consistent with pancreatitis. There is surrounding fluid but no visible pseud ocyst. Secondary inflammation of the duodenum. The gallbladder appears normal. Findings called to Dr. Tan of the emergency department. RADIATION DOSE DELIVERED: Total DLP DATA REPOSITORY: All CT scans at this facility are submitted to the National Radiology Data Registry (NRDR) Dose Index Registry (DIR) with the [employer] (ACR). RADIATION OPTIMIZATION: All CT scans at this facility use at least one of these dose optimization te chniques: automated exposure control; mA and/or kV adjustment per patient size (includes targeted exa ms where dose is matched to clinical indication); or iterative reconstruction.
[2024-05-09 16:58] LABS: Bilirubin Small (Negative); Blood Negative (Negative); Clarity Clear (Clear); Glucose Negative (Negative); Ketones 40 mg/dL (Negative); Leukocyte Esterase Negative (Negative); Nitrite Negative (Negative); Specific Gravity 1.015 (1.005-1.025); Urobilinogen 0.2 mg/dL (Up to 0.2); pH 5.5 (5-8)
[2024-05-09] MEDS: MORPHine 4 MG/ML SYR IVP (17:43)
[2024-05-09] MEDS: MORPHine 10 MG/ML VIAL 6 MG IVP ×2 (19:23→21:56)
--- NOTE | 2024-05-09 19:35 | HPE_ITS ---
Date of service: 05/09/24 Time of Service: 19:35 Assessment and Plan Assessment and plan (1) Acute alcoholic pancreatitis: Start date: 05/09/24 Status: Acute Assessment and plan: This is a 54-year-old lady with a history of pancreatitis and chronic drinking though decreased recently. She has never had alcohol withdrawal but did present with acute pancreatitis which is most likely alcoholic pancreatitis. Does have slight discomfort over the right upper quadrant and also gallbladder will be obtained. She will continue with IV fluid resuscitation for mild dehydration and for IV analgesic treatment of her acute abdominal pain. Overall she is stabilizing. Consider reimaging if lipase continues to rise or patient is not stabilizing. Alcohol level will be added to admission labs and if positive we need to watch closely for possible alcohol withdrawal although patient denies this is a problem in the past. She may be minimizing her alcohol use. She does have electrolyte abnormalities and elevated liver function test consistent with chronic alcohol use. She is a full code. Qualifiers: Acute pancreatitis complication: no infection or necrosis Qualified Code(s): K85.20 - Alcohol induced acute pancreatitis without necrosis or infection (2) Acute dehydration: Start date: 05/09/24 Status: Acute Assessment and plan: Gentle IV hydration watch for fluid overload. (3) Hypoglycemia: Status: Chronic Assessment and plan: Monitor for exacerbation with acute process. Only treat if symptomatic. (4) Chronic hyponatremia: Status: Chronic Assessment and plan: This is slightly worsened and monitor lab well IV hydration bowel rest of alcohol. (5) Alcohol use disorder: Status: Chronic Assessment and plan: Check alcohol level and patient should consider complete cessation of alcohol use with her hepatitis and recurrent pancreatitis. (6) Alcoholic hepatitis without ascites: Status: Chronic Assessment and plan: This appeared to be exacerbated and will be trended the patient off alcohol. (7) COPD (chronic obstructive pulmonary disease) with emphysema: Status: Chronic Assessment and plan: More aggressive nebulizer treatments with continued controller therapy while inpatient. Follow-up chest x-ray. Monitor for hypoxemia on complications such as pneumonia with guarding and decrease in inhalation with pancreatitis. Qualifiers: Emphysema type: unspecified Qualified Code(s): J43.9 - Emphysema, unspecified (8) Tobacco abuse disorder: Status: Chronic Assessment and plan: Advised chronic cessation of tobacco use with COPD. Nicotine supplement if needed. History of Present Illness History of Present Illness Chief Complaint: Acute, severe epigastric abdominal pain Narrative: This is a 54-year-old female patient who has a history of chronic alcohol use having decreased her intake of alcohol from hard liquor to beer and now only wine. She did have a couple of drinks of wine 2 to 3 days ago and has a 1 day history of sudden onset acute epigastric abdominal pain without radiation but with associated nausea and vomiting. She denies any hematemesis. She has a history of pancreatitis in the past. She also has COPD with tobacco abuse on chronic inhaler therapy. She denies any fever or cough or change in sputum. He does have a gallbladder and thought that eating a piece of may have worsened or brought her acute symptoms. She is thirsty and feels hungry though she continues with nausea. She denies any recent alcohol use and has never had alcohol withdrawal. Patient symptoms began more than 24 hours became more severe prompting ED evaluation which resulted in imaging findings of acute pancreatitis with elevated lipase but no evidence of pseudocyst or necrosis and no evidence of gallbladder pathology. Patient is having better pain control with Toradol and wants to use Tylenol and that she does at home take ibuprofen and Tylenol for her occasional epigastric pain. She may have mild cases of pancreatitis at home with her continuous drinking. She does have electrolyte abnormalities and elevated liver function test consistent with chronic alcohol use and probable alcoholic hepatitis with no mention of cirrhosis or ascites on imaging. She is also slightly dehydrated with her recent fluid losses with vomiting and decreased appetite. She does have Zofran to take at home and is chronically on Protonix. She is on IV therapy for these medications and will be admitted for IV analgesia and bowel rest with gentle IV hydration along with further imaging with ultrasound of gallbladder in the morning. She is NPO. She is a full code. Review of Systems Narrative: 13 point review of system otherwise feeling or stable. Patient does have a chronic cough with her smoking. She has had no weight gain or loss. She denies fever or change in sputum color [facility] All Active Problems (Updated 05/09/24 @ 20:32 by Ramon Holder) Tobacco abuse disorder (Chronic) Hypoglycemia (Chronic) Acute dehydration (Acute) Acute alcoholic pancreatitis (Acute) Decreased appetite (Acute) Does not have primary care provider (Acute) Palliative care encounter (Acute) Weakness (Acute) Pain (Acute) Do not attempt intubation (Acute) DNR (do not resuscitate) (Acute) ACP (advance care planning) (Acute) COPD (chronic obstructive pulmonary disease) with emphysema (Chronic) Acute hypokalemia (Acute) Chronic hyponatremia (Chronic) Liver dysfunction (Acute) Alcohol use disorder (Chronic) Anemia (Chronic) Hypokalemia (Acute) Alcoholic hepatitis without ascites (Chronic) Social History Smoking/Tobacco Use Status: Current every day Tobacco Type: cigarettes Smoking risk assessment performed?: Yes Alcohol Intake: former Drug use: Occasionally Substance use type: former substance user and marijuana Details: at night to sleep Housing: apartment Do you feel safe at home: Yes Do you feel safe in your relationship?: Yes Meds Allergies and Home Medications Allergies Allergy/AdvReac Type Severity Reaction Status Date / Time No Known Allergies Allergy Unverified 05/09/24 14:09 Home Medications ?Medication ?Instructions ?Recorded ?Confirmed ?Type Inhaler, Assist Devices [Pocket 1 ea miscellaneous DIRECTED ##0 08/07/23 05/09/24 Rx Chamber] potassium chloride 10 mEq 20 meq (2 x 10 mEq) PO DAILY #60 08/07/23 05/09/24 Rx capsule,extended release caps spironolactone 25 mg tablet 25 mg PO DAILY #30 tabs 08/07/23 05/09/24 Rx budesonide-formoterol HFA 160 2 puff inhalation BID #10.2 grams 08/18/23 05/09/24 Rx mcg-4.5 mcg/actuation aerosol inhaler (Symbicort) ondansetron HCl 4 mg tablet 4 mg PO Q6H PRN #10 tabs 01/17/24 05/09/24 Rx lidocaine 5 % topical patch 1 patch topical DAILY 05/09/24 05/09/24 History pantoprazole 40 mg tablet,delayed mg PO 05/09/24 History release Exam Narrative Exam Narrative: General: Patient appears older than stated age, alert and oriented x 3 and in moderate distress from her abdominal discomfort while awake. HEENT: Normocephalic, eyes with pupils equal and reactive to light symmetrically, extraocular movement intact and sclera anicteric. Oropharynx with dry mucosa.. Edition. Neck: Supple without JVD. Back: Kyphotic without CVA tenderness. Lungs: Bronchovesicular breath sounds diffusely with rhonchi and coarse crackles nonfocal with no expiratory wheeze. Slight increased expiratory phase. No focalizing rales. Breast: Exam deferred. Heart: Regular rate and rhythm with no murmur or gallops appreciated. Abdomen: Scaphoid contour, soft with tenderness over the epigastrium and guarding without rebound. Slight discomfort to deep palpation over the right upper quadrant but no Boyce sign. No palpable hepatosplenomegaly. Bowel sounds positive all quadrants. Genitalia/rectal: Exam deferred. Extremities: Without clubbing, cyanosis or pitting edema. Good capillary refill. Skin: Darkly tanned, exam changes of the sun exposed areas, otherwise normal color, warm and dry. Normal skin turgor without tenting. Neuro: Cranial nerves II through XII intact, no focal motor deficits and no tremor. Psych: Slightly anxious, normal affect otherwise and normal mood. No abnormal thought processes. Remote and recent memory intact. Results Imaging Imaging Studies: EXAM: CT ABDOMEN PELVIS W CLINICAL HISTORY: Hx pancreatitis, abd pain. TECHNIQUE: Imaging Protocol: Axial computed tomography images with coronal and sagittal reformatted images were created and reviewed CONTRAST MATERIAL: Intravenous: Omnipaque 350 Contrast volume:100 ml Oral: no COMPARISON: CT CT ABDOMEN PELVIS W from 01/15/2024 FINDINGS: ABDOMEN and PELVIS: Lung Bases: No acute findings. Liver: Mild hepatic steatosis, some improvement from prior. Elongation of the left lobe again noted. Area of scarring near gallbladder fossa. No suspicious mass. Gallbladder and biliary tract: No radiodense calculus. No biliary dilation. Pancreas: Normal density. Inflammation and fluid surrounding the pancreas, consistent with pancreatitis. No pseudocyst visible. No area of hemorrhage or necrosis. No evidence of mass. Spleen: Normal. Kidneys: Normal size, contour and axis. No radiodense stones. No obstructive uropathy. No suspicious masses seen. Adrenal glands: No masses seen. Vasculature: Abdominal aorta non-dilated. Soft tissues: Unremarkable. Bladder: No gross wall thickening. No calculi.No focal mass. Bowel: No obstruction. Mild wall thickening of the duodenum, secondary to pancreatic inflammation. Peritoneal cavity: No ascites. No focal collection. No mesenteric inflammatory response. Bones: Unremarkable for age. Reproductive organs: Unremarkable. Lymph nodes: No pathologically enlarged lymph nodes. IMPRESSION:: Findings consistent with pancreatitis. There is surrounding fluid but no visible pseudocyst. Secondary inflammation of the duodenum. The gallbladder appears normal. Labs 05/09/24 14:45 05/09/24 14:45 Labs: Laboratory Results - last 24 hr 05/09/24 05/09/24 05/09/24 14:45 16:35 17:29 WBC 11.00 H RBC 3.44 L Hgb 11.7 Hct 34.4 L MCV 100 H MCH 34.0 H MCHC 34.0 RDW 14.8 H Plt Count 267 MPV 8.7 Immature Gran % 0.3 Neutrophils % 83.1 Lymphocytes % 2.4 Monocytes % 14.1 Eosinophils % 0.0 Basophils % 0.1 Nucleated RBC % 0.0 Absolute Neutrophils 9.14 H Absolute Lymphocytes 0.26 L Absolute Monocytes 1.55 H Absolute Eosinophils 0.00 Absolute Basophils 0.01 RBC Morphology See Below Macrocytosis 1+ VBG Lactate 0.8 Sodium 126 L Potassium 4.5 Chloride 88 L Carbon Dioxide 14.5 L Anion Gap 23.5 H BUN 13 Creatinine 1.3 H Est GFR (CKD-EPI 2020) 48.56 Glucose 70 L Calcium 10.2 H Magnesium 2.0 Total Bilirubin 0.68 AST 72 H ALT 65 H Alkaline Phosphatase 121 H Troponin I < 50 Cancelled Total Protein 8.6 H Albumin 4.8 Lipase > 375 H Urine Color Yellow Urine Clarity Clear Urine pH 5.5 Ur Specific [place] 1.015 Urine Protein Trace Urine Ketones 40 H Urine Blood Negative Urine Nitrite Negative Urine Bilirubin Small H Urine Urobilinogen 0.2 Ur Leukocyte Esterase Negative Urine Glucose Negative Last Vital Signs Temp 36.4 C L 05/09/24 14:06 Pulse 110 H 05/09/24 14:06 Resp 18 05/09/24 14:06 BP 125/80 05/09/24 14:06 Time Spent Time spent with Patient: >75 minutes Time was spent: preparing to see the patient(eg.review tests), obtaining and/or reviewing separately otained hiistory, ordering medications,tests, procedures, indepentently interpreting results, counseling the patient and care coordination
[2024-05-09 21:20] VITALS: BP 125/80; PULSE 110; RESP 18; TEMP 36.4; O2SAT 96
--- NOTE | 2024-05-09 21:24 | W.PC.ACHO ---
Registration Status: Primary Language: Preferred Language: ED Information & Data Chief Complaint Abd Prob 05/09/24 16:41 Triage Note patient states she has 05/09/24 14:06 abdominal pain that started this morning. had n/v yesterday and still. had apap and motrin at 1000 today. Most Recent Vital Signs Temperature 36.4 C L 05/09/24 14:06 Temperature Source Oral 05/09/24 14:06 Pulse 110 H 05/09/24 14:06 Respiratory Rate 18 05/09/24 14:06 Blood Pressure 125/80 05/09/24 14:06 Blood Pressure Position Sitting 05/09/24 14:06 Oxygen Delivery Method Room Air 05/09/24 14:06 Oxygen Flow Rate 0 05/09/24 14:06 Pain Level 10 05/09/24 14:57 Allergies No Known Allergies Allergy (Unverified 05/09/24 14:09) Active Medications Generic Name Dose Route Start Last Admin Trade Name Abhijeetq PRN Reason Stop Dose Admin Iohexol 100 ml 05/09/24 16:30 05/09/24 16:28 Omnipaque 350 Mg/Ml 100 Ml Btl IJ 06/08/24 23:59 100 ml DIRECTED ZINA Administration Sodium Chloride 50 ml 05/09/24 16:30 05/09/24 16:29 Normal Saline - Diluent 50 Ml Vial IJ 50 ml .FOR DI USE ZINA Administration IV IV Catheter Type [Right Saline Lock Antecubital] IV Catheter Gauge [Right 18 Antecubital] Diet Orders Category Date Time Status Nothing Per Oral [DIET] Nutrition 05/10/24 Breakfast Ordered Diagnostics 05/09/24 05/09/24 05/09/24 Range/Units 17:29 16:35 14:45 WBC 11.00 H (4.4-10.8) 10^3/uL RBC 3.44 L (3.93-5.22) 10^6/uL Hgb 11.7 (11.2-15.7) g/dL Hct 34.4 L (36.0-46.0) % MCV 100 H (80-95) fL MCH 34.0 H (27.0-33.0) pg MCHC 34.0 (32.0-36.0) % RDW 14.8 H (11.7-14.6) % Plt Count 267 (130-400) 10^3/uL MPV 8.7 (8.0-11.0) fL Immature Gran % 0.3 % Neutrophils % 83.1 % Lymphocytes % 2.4 % Monocytes % 14.1 % Eosinophils % 0.0 % Basophils % 0.1 % Nucleated RBC % 0.0 (0.0-0.3) % Absolute Neutrophils 9.14 H (1.2-6.7) 10^3/uL Absolute Lymphocytes 0.26 L (1.2-3.4) 10^3/uL Absolute Monocytes 1.55 H (0.1-0.8) 10^3/uL Absolute Eosinophils 0.00 (0.0-0.7) 10^3/uL Absolute Basophils 0.01 (0.0-0.2) 10^3/uL RBC Morphology See Below Macrocytosis 1+ VBG Lactate 0.8 (0.6-1.4) mmol/L Sodium 126 L (136-145) mmol/L Potassium 4.5 (3.5-5.1) mmol/L Chloride 88 L (98-107) mmol/L Carbon Dioxide 14.5 L (21.0-32.0) mmol/L Anion Gap 23.5 H (3-11) mmol/L BUN 13 (7-18) mg/dL Creatinine 1.3 H (0.55-1.02) mg/dL Est GFR (CKD-EPI 2020) 48.56 (mL/min/1.73m2) Glucose 70 L (74-106) mg/dL Calcium 10.2 H (8.5-10.1) mg/dL Magnesium 2.0 (1.8-2.4) mg/dL Total Bilirubin 0.68 (0.2-1.0) mg/dL AST 72 H (15-37) U/L ALT 65 H (14-59) U/L Alkaline Phosphatase 121 H (46-116) U/L Troponin I Cancelled < 50 (< or =60) ng/L Total Protein 8.6 H (6.4-8.2) g/dL Albumin 4.8 (3.4-5.0) g/dL Lipase > 375 H (16-77) U/L Urine Color Yellow (Yellow) Urine Clarity Clear (Clear) Urine pH 5.5 (5-8) Ur Specific [place] 1.015 (1.005-1.025) Urine Protein Trace (Neg-Trace) mg/dL Urine Ketones 40 H (Negative) mg/dL Urine Blood Negative (Negative) Urine Nitrite Negative (Negative) Urine Bilirubin Small H (Negative) Urine Urobilinogen 0.2 (Up to 0.2) mg/dL Ur Leukocyte Esterase Negative (Negative) Urine Glucose Negative (Negative) mg/dL Intake and Output - 24 Hour Total 05/09/24 14:01 thru 05/09/24 16:03 Intake Total 1010 Balance 1010 Weight 54.431 kg Intake: IV 1010 Problems (Last Reviewed 05/09/24 @ 19:35 by Ramon Holder) Tobacco abuse disorder (Chronic) Hypoglycemia (Chronic) Acute dehydration (Acute) Acute alcoholic pancreatitis (Acute) COPD (chronic obstructive pulmonary disease) with emphysema (Chronic) Chronic hyponatremia (Chronic) Alcohol use disorder (Chronic) Alcoholic hepatitis without ascites (Chronic) v v v v v v v v v Sending and/or Receiving Nurses: Please use comment section below to note any information pertinent to the patient hand-off not included above. Information / Comments: Given toradol, 6mg morphine, hydromorphone, but none help the pain. Patient A/O, independent. Vitals Afebrile, HR 90's, BP 125/80, Patient is resting at this moment. Report received from: PD, high lead yarder.
[2024-05-09] MEDS: Normal Saline Flush 10 ML SYR IVP ×2 (21:57→23:20)
[2024-05-09 21:58] VITALS: BP 173/83; PULSE 90; RESP 15; TEMP 36.4; O2SAT 100
[2024-05-09] MEDS: Normal Saline 1,000 ML 125 ML IV (22:40)
[2024-05-09] MEDS: Pantoprazole 40 MG VIAL IVP (23:19)
[2024-05-09] MEDS: Dextrose 50%-Water 25 GM/50 ML SYR IVP (23:21)
[2024-05-09] MEDS: Heparin 5,000 UNITS/ML VIAL 5000 UNITS SC (23:21)
[2024-05-10] VITALS (9 sets, daily range): BP systolic 127–170; BP diastolic 56–78; PULSE 86–102; RESP 15–20; TEMP 36.6–37.4; O2SAT 97–100
[2024-05-10] MEDS: Albuterol/Ipratropium 3 ML UPD VIAL UPD (00:30)
[2024-05-10] MEDS: MORPHine 10 MG/ML VIAL 6 MG IVP ×6 (00:45→20:33)
[2024-05-10] MEDS: Normal Saline Flush 10 ML SYR IVP ×2 (00:46→09:10)
[2024-05-10] MEDS: Ketorolac 30 MG/ML VIAL IVP ×4 (03:20→22:48)
[2024-05-10] MEDS: ACETAMINOPHEN 1,000 MG/100 ML BTL 400 MG IVPB (06:05)
[2024-05-10] MEDS: Heparin 5,000 UNITS/ML VIAL 5000 UNITS SC ×3 (06:06→22:31)
[2024-05-10 06:52] LABS: HCT 31.7 % (36.0-46.0); HGB 10.5 g/dL (11.2-15.7); MCH 33.7 pg (27.0-33.0); MCHC 33.1 % (32.0-36.0); MCV 102 fL (80-95); MPV 8.8 fL (8.0-11.0); Platelet Count 217 10^3/uL (130-400); RBC 3.12 10^6/uL (3.93-5.22); RDW-SD 56.6 fL; WBC 9.33 10^3/uL (4.4-10.8)
[2024-05-10] MEDS: Normal Saline 1,000 ML 125 ML IV (07:02)
[2024-05-10 07:03] LABS: INR 1.1 (0.9-1.1); Prothrombin Time 10.9 sec (9.1-11.1)
[2024-05-10 07:11] LABS: ALT 55 U/L (14-59); AST 49 U/L (15-37); Albumin 3.8 g/dL (3.4-5.0); Alkaline Phosphatase 101 U/L (46-116); Anion Gap 19.9 mmol/L (3-11); BUN 10 mg/dL (7-18); Bilirubin, Total 0.58 mg/dL (0.2-1.0); CO2 16.1 mmol/L (21.0-32.0); Calcium 9.2 mg/dL (8.5-10.1); Chloride 93 mmol/L (98-107); Estimated GFR 66.53 (mL/min/1.73m2); Glucose 65 mg/dL (74-106); Magnesium 1.9 mg/dL (1.8-2.4); Potassium 4.1 mmol/L (3.5-5.1); Sodium 129 mmol/L (136-145); Total Protein 7.3 g/dL (6.4-8.2)
[2024-05-10 07:12] LABS: Lipase > 375 U/L (16-77)
--- NOTE | 2024-05-10 08:00 | DI.RAD_ITS ---
Exam(s) XR CHEST 2V PA LATERAL EXAM: XR CHEST 2V PA LATERAL CLINICAL HISTORY: COPD with elevated WBC but no fever in smoker. TECHNIQUE: 2D digital imaging was performed. COMPARISON: CR,XR XR CHEST 2V PA LATERAL from 08/05/2023 CR XR CHEST 2V PA LATERAL from 08/16/2023 FINDINGS: 2 views: Heart size is normal. The mediastinum is not widened. Lungs are clear. No infiltrates nor pleural effusions. There has been no recurrence of the infiltrates and pleural effusions which were evident on chest x-r ay of 08/05/2023. IMPRESSION: No acute pulmonary findings. DATA REPOSITORY: RADIATION DOSE DELIVERED:
[2024-05-10] MEDS: Budesonide/Formoterol 160/4.5 6 GM 60 PUFF INH IH ×2 (08:06→19:57)
--- NOTE | 2024-05-10 09:01 | PGE_ITS ---
Date of Service Date of service: 05/10/24 Time of Service: 09:01 Assessment and Plan Assessment and plan (1) Acute alcoholic pancreatitis: Start date: 05/09/24 Status: Acute Assessment and plan: -patient presented again with abdominal pain and found to have acute alcoholic pancreatits with elevated lipase of -continue IV fluids while NPO -f/u RUQ US -advance diet as tolerated Qualifiers: Acute pancreatitis complication: no infection or necrosis Qualified Code(s): K85.20 - Alcohol induced acute pancreatitis without necrosis or infection (2) Acute dehydration: Start date: 05/09/24 Status: Acute Assessment and plan: -continue IV hydration while NPO (3) Hypoglycemia: Status: Chronic Assessment and plan: -Monitor for exacerbation with acute process. Only treat if symptomatic. (4) Chronic hyponatremia: Status: Chronic Assessment and plan: -baseline Na in low 130's, was 126 on admission -Na up to 129 AM 05/10 -f/u AM BMP (5) Alcohol use disorder: Status: Chronic Assessment and plan: -EtOH negative on admission -patient does not have history of withdrawal, but will monitor and administer phenobarbital if needed (6) Alcoholic hepatitis without ascites: Status: Chronic (7) COPD (chronic obstructive pulmonary disease) with emphysema: Status: Chronic Assessment and plan: -PRN home nebulizers Qualifiers: Emphysema type: unspecified Qualified Code(s): J43.9 - Emphysema, unspecified (8) Tobacco abuse disorder: Status: Chronic Assessment and plan: Advised chronic cessation of tobacco use with COPD. Nicotine supplement if needed. Subjective Subjective Interval history since last seen: Patient states that she is beginning to feel better and is looking forwar to advancing her diet. Exam Narrative Exam Narrative: well appearing female laying in bed in no acute distress, AOx4, heart RRR, lungs CTAB, abdomen soft, non-tender, non-distended Objective Last Vital Signs Temp 98.4 F 05/10/24 07:26 Pulse 91 H 05/10/24 07:26 Resp 18 05/10/24 07:26 BP 127/66 05/10/24 07:26 Pulse Ox 99 05/10/24 08:11 Laboratory Results - last 24 hr 05/09/24 05/09/24 05/09/24 14:45 16:35 17:29 WBC 11.00 H RBC 3.44 L Hgb 11.7 Hct 34.4 L MCV 100 H MCH 34.0 H MCHC 34.0 RDW 14.8 H Plt Count 267 MPV 8.7 Immature Gran % 0.3 Neutrophils % 83.1 Lymphocytes % 2.4 Monocytes % 14.1 Eosinophils % 0.0 Basophils % 0.1 Nucleated RBC % 0.0 Absolute Neutrophils 9.14 H Absolute Lymphocytes 0.26 L Absolute Monocytes 1.55 H Absolute Eosinophils 0.00 Absolute Basophils 0.01 RBC Morphology See Below Macrocytosis 1+ PT INR VBG Lactate 0.8 Sodium 126 L Potassium 4.5 Chloride 88 L Carbon Dioxide 14.5 L Anion Gap 23.5 H BUN 13 Creatinine 1.3 H Est GFR (CKD-EPI 2020) 48.56 Glucose 70 L Calcium 10.2 H Magnesium 2.0 Total Bilirubin 0.68 AST 72 H ALT 65 H Alkaline Phosphatase 121 H Troponin I < 50 Cancelled Total Protein 8.6 H Albumin 4.8 Lipase > 375 H Urine Color Yellow Urine Clarity Clear Urine pH 5.5 Ur Specific [place] 1.015 Urine Protein Trace Urine Ketones 40 H Urine Blood Negative Urine Nitrite Negative Urine Bilirubin Small H Urine Urobilinogen 0.2 Ur Leukocyte Esterase Negative Urine Glucose Negative 05/10/24 06:30 WBC 9.33 RBC 3.12 L Hgb 10.5 L Hct 31.7 L MCV 102 H MCH 33.7 H MCHC 33.1 RDW 15.0 H Plt Count 217 MPV 8.8 Immature Gran % Neutrophils % Lymphocytes % Monocytes % Eosinophils % Basophils % Nucleated RBC % Absolute Neutrophils Absolute Lymphocytes Absolute Monocytes Absolute Eosinophils Absolute Basophils RBC Morphology Macrocytosis PT 10.9 INR 1.1 VBG Lactate Sodium 129 L Potassium 4.1 Chloride 93 L Carbon Dioxide 16.1 L Anion Gap 19.9 H BUN 10 Creatinine 1.0 Est GFR (CKD-EPI 2020) 66.53 Glucose 65 L Calcium 9.2 Magnesium 1.9 Total Bilirubin 0.58 AST 49 H ALT 55 Alkaline Phosphatase 101 Troponin I Total Protein 7.3 Albumin 3.8 Lipase > 375 H Urine Color Urine Clarity Urine pH Ur Specific [place] Urine Protein Urine Ketones Urine Blood Urine Nitrite Urine Bilirubin Urine Urobilinogen Ur Leukocyte Esterase Urine Glucose PAWSS Have you Been Recently Intoxicated or Drunk Within the Last 30 days?: No Have you Ever Experienced Previous Episodes of Alcohol Withdrawal?: No Have you ever Experienced Withdrawal Seizures?: No Have you ever Experienced Delirium Tremens(DT)s?: No Have you ever undergone Alcohol Rehabilitation Treatment (i.e, inpt ot outpatient treatment programs)?: No Have you ever Experienced Blackouts?: No Have you ever Combined Alcohol with other Downers within the last 90 days?: No Have you ever Combined Alcohol with any other Substance of Abuse during the last 90 days?: No Positive Blood Alcohol level on Presentation? [PCS.BAL]: No Evidence of Increased Autonomic Activity (i.e. HR>120, tremor, sweating, agitation, nausea)?: No Result: 0 Time Spent with Patient Time Spent with Patient: >50 minutes Time was spent: preparing to see the patient(eg.review tests), obtaining and/or reviewing separately otained hiistory, ordering medications,tests, procedures, referring, communicating with other health wound care center consultant, indepentently interpreting results, counseling the patient and care coordination
[2024-05-10] MEDS: Nicotine 21 MG/24 HR PATCH TD (09:08)
[2024-05-10] MEDS: Pantoprazole 40 MG VIAL IVP (09:10)
[2024-05-10] MEDS: Spironolactone 25 MG TAB PO (09:11)
[2024-05-10] MEDS: Dextrose 50%-Water 25 GM/50 ML SYR IVP (09:38)
[2024-05-10] MEDS: DEXTROSE 5%-0.45% SALINE 1,000 ML 75 ML IV ×2 (09:45→22:52)
--- NOTE | 2024-05-10 12:54 | DI.US_ITS ---
Exam(s) US ABDOMEN LIMITED EXAM: US ABDOMEN LIMITED CLINICAL HISTORY: Acute pancreatitis with right upper quadrant pain TECHNIQUE: Ultrasound abdomen performed using standard protocol. COMPARISON: CT CT ABDOMEN PELVIS W from 08/30/2023 US US ABDOMEN from 09/08/[address] ABDOMEN PELVIS W from 05/09/2024 FINDINGS: There is no ascites evident. LIVER: Liver is hyperechoic indicating steatosis. Liver size upper normal. There are no hepatic les ions evident nor dilatation of intrahepatic ducts. GALLBLADDER/BILIARY: Gallbladder is mildly distended but not edematous. There are no intraluminal ga llstones evident. The common hepatic duct isnot dilated, measuring 6mm at the level of jone hepatis. PANCREAS: There is no evidence of pancreatic mass nor dilatation of the pancreatic duct. Pancreatic echotexture is mildly heterogeneous. There are no peripancreatic fluid collections. RIGHT KIDNEY:No evidence of solid mass, calculus, nor hydronephrosis. No cortical cysts evident. IMPRESSION: 1. No evidence of cholelithiasis nor significant dilatation of the biliary tree. 2. No focal ultrasound findings in the pancreas. The pancreatic echotexture is mildly heterogeneous consistent with element of pancreatitis, as better seen on yesterday's CT scan. There is no distinc t peripancreatic fluid collection nor fluid collection in the lesser sac between the pancreas and pos terior wall the stomach. No evidence of pseudocyst within nor extrinsic to the pancreas. DATA REPOSITORY:
[2024-05-10] MEDS: Ondansetron 4 MG/2 ML VIAL IVP (13:24)
--- NOTE | 2024-05-10 17:04 | INITIAL_ITS ---
Date of service: 05/10/24 Time of Service: 13:30 Care Management Initial Assmt Initial Assessment Reason for Hospitalization: acute alcoholic pancreatitis Functional Status/Living Situation Patient Presentation: Nyasia was sitting up in the chair when met with her. She was very pleasant and easily engaged. She was weepy on occasion, but couldn't really say why that was happening. She stated she is having more pain than she has had with previous episodes of the pancreatitis. Nyasia was very open regarding her drinking. She used to drink hard alcohol. Switched to only wine, 2 glasses after dinner. She thinks this is probably still too much for her body. She would like to quit altogether, has a grand baby due in December. Nyasia feels that stress in her life may have contributed to this flare up. 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 She stated she had an anxiety attack on Wednesday while caring for him, and again on Wednesday for an unknown reason. Nyasia stated she is not interested in counseling for alcohol or anxiety at this time Town of Residence: [place] Resides with: Alone (dog and a cat) Significant Other/Family: Local (Daughter Megan, and twin sons live in the area. Megan, especially is very helpful, but they are a close family and she can rely on any of her kids) Natural Supports: 3 kids, has a good group of girl friends. 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) Instrumental Activities of Daily Living (ADLs): Independent Activities/Hobbies/SocialSupport: likes to shop, likes jewelry and hanging out with the girls Medications Medication Management: No Issues/Barriers identified Advance Directives Advance Directives: Do you have an Advance Directive: Y 07/29/23 08:56 AD On File at [facility]: Y 07/29/23 08:56 Date Asked 07/29/23 07/29/23 08:56 AD Date Reviewed 05/09/24 05/10/24 12:02 COLST On File at [facility] Yes 01/15/24 16:11 COLST Date Scanned Code Status Resuscitation Status DNR/DNI Insurance Coverage/Financial Issues Insurance: medicaid Financial Issues: denied Care Team Visit Care Team Role Provider Type Paul Moore MD Primary Care Provider NON-[facility] STAFF PHYSICIAN Adela Tan MD Emergency Provider [facility] STAFF PHYSICIAN Ramon Holder Admit Provider NON-[facility] STAFF PHYSICIAN Attending Provider Discharge Potential Discharge Needs: PCP F/U Appt Anticipated Barriers to Discharge: None Identified Patient/Family Education Needs: Review discharge instructions, discuss Ask Me Three Transportation: Private vehicle Plan: Anticipate that Nyasia will be discharged home with no new services. She will follow up with her PCP and per her plan of care. CM will continue to follow. PFSH All Active Problems (Updated 05/09/24 @ 20:32 by Ramon Holder) Tobacco abuse disorder (Chronic) Hypoglycemia (Chronic) Acute dehydration (Acute) Acute alcoholic pancreatitis (Acute) Decreased appetite (Acute) Does not have primary care provider (Acute) Palliative care encounter (Acute) Weakness (Acute) Pain (Acute) Do not attempt intubation (Acute) DNR (do not resuscitate) (Acute) ACP (advance care planning) (Acute) COPD (chronic obstructive pulmonary disease) with emphysema (Chronic) Acute hypokalemia (Acute) Chronic hyponatremia (Chronic) Liver dysfunction (Acute) Alcohol use disorder (Chronic) Anemia (Chronic) Hypokalemia (Acute) Alcoholic hepatitis without ascites (Chronic) Social History Smoking/Tobacco Use Status: Current every day Tobacco Type: cigarettes Smoking risk assessment performed?: Yes Alcohol Intake: former Drug use: Occasionally Substance use type: former substance user and marijuana Details: at night to sleep Housing: apartment Do you feel safe at home: Yes Do you feel safe in your relationship?: Yes SDOH(Care Management) Screening Will the Patient Participate in the Screening?: Declined to provide Do you worry about having a steady place to live?: no In the past 12 months, have you had to go without electric, gas, oil or water in your home?: no Have you or anyone in your house had to go without enough food to eat?: no Has lack of transportation kept you from medical appointments or from doing things needed for daily living?: no Has anyone in your support network made you feel unsafe for any reason?: no
[2024-05-10] MEDS: Patch Removal 1 EACH TP (22:21)
[2024-05-11] VITALS (11 sets, daily range): BP systolic 121–159; BP diastolic 54–93; PULSE 62–89; RESP 16–18; TEMP 36.3–38.7; O2SAT 97–100
[2024-05-11] MEDS: ACETAMINOPHEN 1,000 MG/100 ML BTL 400 MG IVPB ×3 (03:10→20:15)
[2024-05-11] MEDS: Ketorolac 30 MG/ML VIAL IVP ×3 (05:01→21:11)
[2024-05-11] MEDS: Heparin 5,000 UNITS/ML VIAL 5000 UNITS SC ×3 (06:09→22:57)
[2024-05-11 07:07] LABS: HCT 26.6 % (36.0-46.0); HGB 9.1 g/dL (11.2-15.7); MCH 33.8 pg (27.0-33.0); MCHC 34.2 % (32.0-36.0); MCV 99 fL (80-95); MPV 9.1 fL (8.0-11.0); Platelet Count 171 10^3/uL (130-400); RBC 2.69 10^6/uL (3.93-5.22); RDW 14.9 % (11.7-14.6); RDW-SD 54.2 fL; WBC 7.84 10^3/uL (4.4-10.8)
[2024-05-11] MEDS: Spironolactone 25 MG TAB PO (07:34)
[2024-05-11] MEDS: Nicotine 21 MG/24 HR PATCH TD (07:34)
[2024-05-11] MEDS: Normal Saline Flush 10 ML SYR IVP ×6 (07:35→21:12)
[2024-05-11] MEDS: Docusate Sodium 100 MG CAP PO ×2 (07:49→20:16)
[2024-05-11 08:06] LABS: ALT 35 U/L (14-59); AST 30 U/L (15-37); Albumin 2.9 g/dL (3.4-5.0); Alkaline Phosphatase 87 U/L (46-116); BUN 8 mg/dL (7-18); Bilirubin, Total 0.64 mg/dL (0.2-1.0); CREATININE 0.9 mg/dL (0.55-1.02); Calcium 8.6 mg/dL (8.5-10.1); Chloride 92 mmol/L (98-107); Glucose 112 mg/dL (74-106); Potassium 3.1 mmol/L (3.5-5.1); Total Protein 6.1 g/dL (6.4-8.2)
[2024-05-11 08:08] LABS: Sodium 123 mmol/L (136-145)
[2024-05-11] MEDS: Budesonide/Formoterol 160/4.5 6 GM 60 PUFF INH IH ×2 (08:08→20:45)
[2024-05-11] MEDS: MORPHine 10 MG/ML VIAL 6 MG IVP ×4 (09:57→21:11)
[2024-05-11] MEDS: Pantoprazole 40 MG VIAL IVP (10:07)
--- NOTE | 2024-05-11 10:16 | PDOC.CMPRO ---
Date of service: 05/11/24 Time of Service: 10:16 Care Management Progress Note Progress Note Text Progress Note Text: Nyasia was sitting up in bed when CM met with her. She looked well. She engaged easily and was very pleasant. Stated she is feeling better today, although still with some pain. She was allowed clear liquids for breakfast and lunch. Stated she did have some mild pain after completing her meals, but is eager to advance to full diet. Discharge Potential Discharge Needs: PCP F/U Appt Anticipated Barriers to Discharge: None Identified Patient/Family Education Needs: Review discharge instructions, discuss Ask Me Three Transportation: Private vehicle (Daughter Megan will drive her home) Plan: Anticipate that Nyasia will be discharged home with no new services. She will follow up with her PCP and per her plan of care. CM will continue to follow. SDOH(Care Management) Screening Will the Patient Participate in the Screening?: Yes Do you worry about having a steady place to live?: no In the past 12 months, have you had to go without electric, gas, oil or water in your home?: no Have you or anyone in your house had to go without enough food to eat?: no Has lack of transportation kept you from medical appointments or from doing things needed for daily living?: no Has anyone in your support network made you feel unsafe for any reason?: no
[2024-05-11] MEDS: POTASSIUM CHLORIDE 20 MEQ/100 ML BAG 50 MEQ IVINF ×2 (11:39→14:26)
--- NOTE | 2024-05-11 14:13 | W.PM.PROGNOT ---
Date of Service Date of service: 05/11/24 Time of Service: 14:14 Assessment and Plan Assessment and plan (1) Acute alcoholic pancreatitis: Start date: 05/09/24 Status: Acute Assessment and plan: -patient presented again with abdominal pain and found to have acute alcoholic pancreatits with elevated lipase, c/w CT and now u/s. -stopping IV fluids today -RUQ US 05/10 with no new findings -advancing diet as tolerated -has morphine prn Qualifiers: Acute pancreatitis complication: no infection or necrosis Qualified Code(s): K85.20 - Alcohol induced acute pancreatitis without necrosis or infection (2) Chronic hyponatremia: Status: Chronic Assessment and plan: -baseline Na in low 130's, was 126 on admission, up to 129 AM 05/10 but down this morning. -fluid restrict, stop D5 1/2NS as we progress diet. -follow in AM. (3) Alcohol use disorder: Status: Chronic Assessment and plan: -EtOH negative on admission, c/w her current moderate use. -patient does not have history of withdrawal. I am not starting CIWA as I don't want to encourage benzodiazepines without a clear indication given AUD. -she agreed today that abstenance from alcohol is indicated given her medical issues, and this is her goal. She does not think she needs medical help. (4) Alcoholic hepatitis without ascites: Status: Chronic Assessment and plan: Was never severe with normal INR and bili, AST/ALT now normalizing. (5) COPD (chronic obstructive pulmonary disease) with emphysema: Status: Chronic Assessment and plan: -minimally active, PRN home nebulizers Qualifiers: Emphysema type: unspecified Qualified Code(s): J43.9 - Emphysema, unspecified (6) Tobacco abuse disorder: Status: Chronic Assessment and plan: Advised chronic cessation of tobacco use with COPD and pancreatitis. Nicotine supplement if needed. (7) Hypokalemia: Status: Acute Assessment and plan: has been a chronic issue with EtOH. Replace, follow labs. Subjective Subjective Patient reports: no new complaints, still having pain and voiding w/o difficulty; denies diarrhea, vomiting, shortness of breath or fever Interval history since last seen: still getting abdominal pain, across mid abdomen. Not clearly worse after clears this morning. Received 6mg morphine this morning without oversedation, it did help. She would like to eat more real food. She states she was drinking 2 glasses of wine/night before coming in. Exam Narrative Exam Narrative: well appearing female laying in bed in no acute distress, AOx4. Heart RRR without murmur. Lungs CTAB, normal effort. Abdomen active BS, soft, mildly tender tender across mid abdomen to epigastrum, no rebound/guarding, non-distended, no masses. Ext: non-tender, no edema, no cyanosis. Objective Last Vital Signs Temp 36.4 C L 05/11/24 11:14 Pulse 82 05/11/24 11:14 Resp 17 05/11/24 11:14 BP 133/93 H 05/11/24 11:14 Pulse Ox 98 05/11/24 11:14 Laboratory Results - last 24 hr 05/11/24 06:45 WBC 7.84 RBC 2.69 L Hgb 9.1 L Hct 26.6 L MCV 99 H MCH 33.8 H MCHC 34.2 RDW 14.9 H Plt Count 171 MPV 9.1 Sodium 123 L* Potassium 3.1 L D Chloride 92 L Carbon Dioxide 20.0 L Anion Gap 11.0 BUN 8 Creatinine 0.9 Est GFR (CKD-EPI 2020) 75.50 Glucose 112 H Calcium 8.6 Total Bilirubin 0.64 AST 30 ALT 35 Alkaline Phosphatase 87 Total Protein 6.1 L Albumin 2.9 L PAWSS Have you Been Recently Intoxicated or Drunk Within the Last 30 days?: No Have you Ever Experienced Previous Episodes of Alcohol Withdrawal?: No Have you ever Experienced Withdrawal Seizures?: No Have you ever Experienced Delirium Tremens(DT)s?: No Have you ever undergone Alcohol Rehabilitation Treatment (i.e, inpt ot outpatient treatment programs)?: No Have you ever Experienced Blackouts?: No Have you ever Combined Alcohol with other Downers within the last 90 days?: No Have you ever Combined Alcohol with any other Substance of Abuse during the last 90 days?: No Positive Blood Alcohol level on Presentation? [PCS.BAL]: No Evidence of Increased Autonomic Activity (i.e. HR>120, tremor, sweating, agitation, nausea)?: No Result: 0 Time Spent with Patient Time Spent with Patient: 35-49 minutes Time was spent: preparing to see the patient(eg.review tests), obtaining and/or reviewing separately [facility] hiistory, ordering medications,tests, procedures, referring, communicating with other health wound care physician, indepentently interpreting results, counseling the patient and care coordination
[2024-05-12] MEDS: MORPHine 10 MG/ML VIAL 6 MG IVP ×9 (00:17→21:08)
[2024-05-12] MEDS: Normal Saline Flush 10 ML SYR IVP ×6 (00:18→21:07)
[2024-05-12] MEDS: Polyethylene Glycol 3350 17 GM PACKET PO (00:19)
[2024-05-12] MEDS: Docusate Sodium 100 MG CAP PO ×2 (00:19→19:38)
[2024-05-12 02:56] VITALS: BP 146/101; PULSE 94; RESP 18; TEMP 36.8; O2SAT 96
[2024-05-12] MEDS: Ondansetron 4 MG/2 ML VIAL IVP (03:57)
[2024-05-12] MEDS: Heparin 5,000 UNITS/ML VIAL 5000 UNITS SC ×3 (06:08→21:08)
[2024-05-12 07:02] LABS: Anion Gap 10.3 mmol/L (3-11); BUN 6 mg/dL (7-18); CO2 20.7 mmol/L (21.0-32.0); CREATININE 0.6 mg/dL (0.55-1.02); Calcium 8.6 mg/dL (8.5-10.1); Chloride 94 mmol/L (98-107); Estimated GFR 105.94 (mL/min/1.73m2); Glucose 123 mg/dL (74-106); Potassium 3.7 mmol/L (3.5-5.1); Sodium 125 mmol/L (136-145)
[2024-05-12 07:33] VITALS: BP 127/72; PULSE 65; RESP 20; TEMP 36.7; O2SAT 100
[2024-05-12] MEDS: Budesonide/Formoterol 160/4.5 6 GM 60 PUFF INH IH ×2 (07:44→19:57)
--- NOTE | 2024-05-12 08:38 | PDOC.CMPRO ---
Date of service: 05/12/24 Time of Service: 08:41 Care Management Progress Note Progress Note Text Progress Note Text: Nyasia was sitting up in bed, enjoying a visit with her sister and sister in law, when CM met with her. CM asked if she would like me to come back, but she stated I could talk with her visitors there. Nyasia had just finished her full liquid lunch, and is eager to advance to full diet at dinner. Nyasia looked well, easily engaged and was very pleasant. She stated she is still having some pain, but thinks it may be related to constipation. While CM in the room, RN brought her some medication to help with that. Nyasia is hoping to go home tomorrow. Discharge Potential Discharge Needs: PCP F/U Appt Anticipated Barriers to Discharge: None Identified Patient/Family Education Needs: Review discharge instructions, discuss Ask Me Three Plan: Anticipate that Nyasia will be discharged home with no new services. She will follow up with her PCP and per her plan of care. CM will continue to follow. SDOH(Care Management) Screening Will the Patient Participate in the Screening?: Yes Do you worry about having a steady place to live?: no In the past 12 months, have you had to go without electric, gas, oil or water in your home?: no Have you or anyone in your house had to go without enough food to eat?: no Has lack of transportation kept you from medical appointments or from doing things needed for daily living?: no Has anyone in your support network made you feel unsafe for any reason?: no
[2024-05-12] MEDS: Nicotine 21 MG/24 HR PATCH TD (08:51)
[2024-05-12] MEDS: Lidocaine 5% Patch 1 PATCH TP (08:51)
[2024-05-12] MEDS: Ketorolac 30 MG/ML VIAL IVP ×2 (08:52→16:02)
[2024-05-12] MEDS: Spironolactone 25 MG TAB PO (08:52)
[2024-05-12] MEDS: ACETAMINOPHEN 1,000 MG/100 ML BTL 100 MG IVPB (08:52)
--- NOTE | 2024-05-12 10:52 | NUR.NOTE ---
Nursing Note:Patient cont's to complain of vague pain that radiates around her abd, mostly left sided, she is very focused on receiving medication.
[2024-05-12] MEDS: Pantoprazole 40 MG VIAL IVP (10:58)
[2024-05-12 11:26] VITALS: BP 145/76; PULSE 70; RESP 18; TEMP 36.8; O2SAT 99
[2024-05-12] MEDS: Lactulose 20 GM/30 ML CUP PO (12:22)
[2024-05-12] MEDS: Acetaminophen 500 MG TAB 1000 MG PO ×2 (13:58→18:30)
[2024-05-12] MEDS: Bisacodyl 10 MG SUPP PR (13:59)
--- NOTE | 2024-05-12 16:03 | W.PM.PROGNOT ---
Date of Service Date of service: 05/12/24 Time of Service: 16:14 Assessment and Plan Assessment and plan (1) Acute alcoholic pancreatitis: Start date: 05/09/24 Status: Acute Assessment and plan: -patient presented again with abdominal pain and found to have acute alcoholic pancreatits with elevated lipase, c/w CT. -RUQ US 05/10 with no new findings, c/w pancreatitis -Tolerating liquids, off IVF 05/11, advancing diet today -has morphine prn Qualifiers: Acute pancreatitis complication: no infection or necrosis Qualified Code(s): K85.20 - Alcohol induced acute pancreatitis without necrosis or infection (2) Chronic hyponatremia: Status: Chronic Assessment and plan: -baseline Na in low 130's, in low 120s yesterday, some improvement today after stopping 1/2NS and staring fluid restriction -Acute abdominal pain likely contributing -She reported salt tablets at home but bottles she showed are no NaCl. -continue to follow (3) Alcohol use disorder: Status: Chronic Assessment and plan: -EtOH negative on admission, c/w her current moderate use. -patient does not have history of withdrawal, she did not need CIWA/benzos. -she agrees that abstinence from alcohol is indicated given her medical issues, and this is her goal. She does not think she needs medical help. sister part of conversation today. (4) Alcoholic hepatitis without ascites: Status: Chronic Assessment and plan: Was never severe with normal INR and bili, AST/ALT now normalizing. (5) COPD (chronic obstructive pulmonary disease) with emphysema: Status: Chronic Assessment and plan: -minimally active, PRN home nebulizers Qualifiers: Emphysema type: unspecified Qualified Code(s): J43.9 - Emphysema, unspecified (6) Tobacco abuse disorder: Status: Chronic Assessment and plan: Advised chronic cessation of tobacco use with COPD and pancreatitis. Nicotine supplement if needed. (7) Hypokalemia: Status: Acute Assessment and plan: has been a chronic issue with EtOH. Replaced, Improved today (8) Anemia: Status: Chronic Assessment and plan: Macrocytic. Get B12, folate testing less useful but should supplement given EtOH. Could be alcohol directly, also at risk for blood loss. Acute drop with admission may simply be dilution. Recheck tomorrow with B12, iron studies. Subjective Subjective Patient reports: voiding w/o difficulty, nausea (not well), vomiting (x 1) and fever; denies shortness of breath Interval history since last seen: Feeling better overall, but still episodes of more severe pain. She had one at midnight and at 6am. Neight[place] was after eating. 6am was after coffee. She did have full liquid breakfast and did not trigger pain. She feels like she needs to have a BM, was walking a lot yesterday in the [place] to help but would like more medication. She did have a fever to 38.4 last night, came down with acetaminophen, none since. Exam Narrative Exam Narrative: well appearing female laying in bed in no acute distress, AOx4. Heart RRR without murmur. Lungs CTAB, normal effort. Abdomen active BS, soft, mildly tender tender in epigastrum, no rebound/guarding, non-distended, no masses. Ext: non-tender, no edema, no cyanosis. Objective Last Vital Signs Temp 36.8 C 05/12/24 11:26 Pulse 70 05/12/24 11:26 Resp 18 05/12/24 11:26 BP 145/76 H 05/12/24 11:26 Pulse Ox 99 05/12/24 11:26 Laboratory Results - last 24 hr 05/12/24 06:20 Sodium 125 L Potassium 3.7 Chloride 94 L Carbon Dioxide 20.7 L Anion Gap 10.3 BUN 6 L Creatinine 0.6 Est GFR (CKD-EPI 2020) 105.94 Glucose 123 H Calcium 8.6 PAWSS Have you Been Recently Intoxicated or Drunk Within the Last 30 days?: No Have you Ever Experienced Previous Episodes of Alcohol Withdrawal?: No Have you ever Experienced Withdrawal Seizures?: No Have you ever Experienced Delirium Tremens(DT)s?: No Have you ever undergone Alcohol Rehabilitation Treatment (i.e, inpt ot outpatient treatment programs)?: No Have you ever Experienced Blackouts?: No Have you ever Combined Alcohol with other Downers within the last 90 days?: No Have you ever Combined Alcohol with any other Substance of Abuse during the last 90 days?: No Positive Blood Alcohol level on Presentation? [PCS.BAL]: No Evidence of Increased Autonomic Activity (i.e. HR>120, tremor, sweating, agitation, nausea)?: No Result: 0 Time Spent with Patient Time Spent with Patient: 35-49 minutes Time was spent: preparing to see the patient(eg.review tests), obtaining and/or reviewing separately otained hiistory, ordering medications,tests, procedures, referring, communicating with other health child care sitter, indepentently interpreting results, counseling the patient and care coordination
[2024-05-12 19:00] VITALS: BP 170/83; PULSE 68; RESP 18; TEMP 36.7; O2SAT 100
[2024-05-12] MEDS: Patch Removal 1 EACH TP (19:45)
[2024-05-12 23:07] VITALS: BP 146/84; PULSE 79; RESP 18; TEMP 36.6; O2SAT 98
[2024-05-13] MEDS: MORPHine 10 MG/ML VIAL 6 MG IVP (01:20)
[2024-05-13] MEDS: Normal Saline Flush 10 ML SYR IVP ×3 (01:20→09:51)
[2024-05-13] MEDS: Acetaminophen 500 MG TAB 1000 MG PO ×2 (01:21→09:52)
[2024-05-13 03:07] VITALS: BP 120/63; PULSE 68; RESP 18; TEMP 36.7; O2SAT 99
[2024-05-13] MEDS: Heparin 5,000 UNITS/ML VIAL 5000 UNITS SC (06:14)
[2024-05-13] MEDS: Ketorolac 30 MG/ML VIAL IVP (06:31)
[2024-05-13 06:59] LABS: Abs Immature Grans 0.01 10^3/uL (0.0-0.06); Absolute Basophil Count 0.02 10^3/uL (0.0-0.2); Absolute Eosinophil Count 0.02 10^3/uL (0.0-0.7); Absolute Lymphocyte Count 0.69 10^3/uL (1.2-3.4); Absolute Monocyte Count 0.71 10^3/uL (0.1-0.8); Absolute Neutrophil Count 2.58 10^3/uL (1.2-6.7); Basophils % 0.5 %; Eosinophils % 0.5 %; HCT 27.8 % (36.0-46.0); HGB 9.5 g/dL (11.2-15.7); Immature Grans % 0.2 %; Lymphocytes % 17.1 %; MCH 33.9 pg (27.0-33.0); MCHC 34.2 % (32.0-36.0); MCV 99 fL (80-95); MPV 9.6 fL (8.0-11.0); Monocytes % 17.6 %; Neutrophils % 64.1 %; Platelet Count 159 10^3/uL (130-400); RDW 14.3 % (11.7-14.6); RDW-SD 52.4 fL; WBC 4.03 10^3/uL (4.4-10.8)
[2024-05-13 07:17] LABS: ALT 53 U/L (14-59); AST 50 U/L (15-37); Albumin 3.2 g/dL (3.4-5.0); Alkaline Phosphatase 115 U/L (46-116); Anion Gap 10.9 mmol/L (3-11); BUN 6 mg/dL (7-18); Bilirubin, Total 0.44 mg/dL (0.2-1.0); CO2 22.1 mmol/L (21.0-32.0); CREATININE 0.6 mg/dL (0.55-1.02); Calcium 8.9 mg/dL (8.5-10.1); Chloride 97 mmol/L (98-107); Estimated GFR 105.94 (mL/min/1.73m2); Glucose 94 mg/dL (74-106); Potassium 3.6 mmol/L (3.5-5.1); Sodium 130 mmol/L (136-145); Total Protein 6.6 g/dL (6.4-8.2)
[2024-05-13 07:20] LABS: Iron 30 ug/dL (50-170); Total Iron Binding Capacity 232 ug/dL (250-450); Transferrin Sat 13 % (15-50)
[2024-05-13 07:28] VITALS: BP 152/97; PULSE 69; RESP 18; TEMP 36.6; O2SAT 99
[2024-05-13 07:43] LABS: Vitamin B12 790 pg/mL (193-986)
[2024-05-13] MEDS: Pantoprazole 40 MG TABCR PO (07:46)
[2024-05-13] MEDS: Budesonide/Formoterol 160/4.5 6 GM 60 PUFF INH IH (07:55)
[2024-05-13] MEDS: Nicotine 21 MG/24 HR PATCH TD (09:49)
[2024-05-13] MEDS: Lidocaine 5% Patch 1 PATCH TP (09:50)
[2024-05-13] MEDS: Folic Acid 1 MG TAB PO (09:52)
[2024-05-13] MEDS: Spironolactone 25 MG TAB PO (09:52)
--- NOTE | 2024-05-13 10:36 | PDOC.CMDIS ---
Date of service: 05/13/24 Time of Service: 10:37 LACE Index Scoring Tool Questions: Length of Stay (in days): 4 - 6 Was the patient admitted via the E.D.?: Yes Comorbidities: Chronic Pulmonary Disease E.D. Visits: 2 Answers: Total Score: 11 Risk of Readmission: High Risk Care Management Discharge Plan Reason for Hospitalization: Acute alcoholic pancreatitis Discharge Plan: Discharge home via private vehicle with family. Follow up with community providers and discharge plan of care. Declines community resources for ETOH at this time. No new services are ordered prior to discharge. Patient/Family Education Needs: Review discharge instructions, limitations, medications and plan to follow up with community providers and supports. Discuss ask me three. SDOH Health Related Social Needs: No Data to Display
== END 2024-05-13 11:30 | disposition home or self-care (01) | DRG 439 ==
LOC: ER 14:15 → MS 21:39
PROVIDERS: Family Medicine; Admitting Provider Family Medicine; Emergency Provider Emergency Medicine; PCP Family Medicine; Visit Provider Family Medicine
DX: K85.20 Alcohol induced acute pancreatitis without necrosis or infection (principal); E87.1 Hypo-osmolality and hyponatremia; E86.0 Dehydration; K70.10 Alcoholic hepatitis without ascites; F10.90 Alcohol use, unspecified, uncomplicated; J43.9 Emphysema, unspecified; F17.210 Nicotine dependence, cigarettes, uncomplicated; E87.6 Hypokalemia; E16.2 Hypoglycemia, unspecified; R53.1 Weakness; Z66 Do not resuscitate; D53.9 Nutritional anemia, unspecified
CPT/HCPCS: 00123; 36415; 80048; 80053; 83690; 85027; 93005; 94640; 96361; 96374; 96375; 96376; 99285; 71046; 74177; 76705; 81003; 82607; 83540; 83550; 83605; 83735; 84484; 85025; 85610; 93010; 94664; 99223; 99232; 99233; J0131; J1170; J1644; J1885; J2270; J2405; J2470; J3480; J3490; J7620

== ENCOUNTER 2024-11-30 11:26 | Outpatient (REF) | payer MEDICAID, SELFPAY ==
[2024-11-30 14:46] LABS: HCT 38.9 % (36.0-46.0); HGB 12.5 g/dL (11.2-15.7); MCH 30.3 pg (27.0-33.0); MCHC 32.1 % (32.0-36.0); MCV 94 fL (80-95); MPV 10.7 fL (8.0-11.0); Platelet Count 276 10^3/uL (130-400); RBC 4.13 10^6/uL (3.93-5.22); RDW 13.2 % (11.7-14.6); RDW-SD 45.9 fL; WBC 7.31 10^3/uL (4.4-10.8)
[2024-11-30 15:06] LABS: Iron 78 ug/dL (50-170); Total Iron Binding Capacity 400 ug/dL (250-450); Transferrin Sat 20 % (15-50)
[2024-11-30 15:25] LABS: ALT 22 U/L (14-59); AST 24 U/L (15-37); Albumin 4.1 g/dL (3.4-5.0); Alkaline Phosphatase 143 U/L (46-116); Anion Gap 12.8 mmol/L (3-11); BUN 10 mg/dL (7-18); Bilirubin, Total 0.3 mg/dL (0.2-1.0); CO2 24.2 mmol/L (21.0-32.0); CREATININE 0.8 mg/dL (0.55-1.02); Calcium 9.8 mg/dL (8.5-10.1); Chloride 102 mmol/L (98-107); Estimated GFR 86.96 (mL/min/1.73m2); Ferritin 72 ng/mL (8-252); Glucose 88 mg/dL (74-106); Potassium 4.6 mmol/L (3.5-5.1); Sodium 139 mmol/L (136-145); TSH (W/Ref FT4) 1.31 uIU/mL (0.36-3.74); Vitamin B12 549 pg/mL (193-986)
[2024-12-01 13:01] LABS: Albumin 59.9 % (55.8-66.1); Albumin g/dL 4.9 g/dL (3.6-5.2); Total Protein 8.1 g/dL (6.3-8.2)
== END 2024-11-30 11:27 | disposition home or self-care (01) ==
LOC: NCHCN 11:26
PROVIDERS: PCP Family Medicine; Visit Provider Family Medicine
DX: K03.1 Abrasion of teeth (principal); R20.2 Paresthesia of skin; D64.9 Anemia, unspecified
CPT/HCPCS: 80053; 85027; 82607; 82728; 82746; 83540; 83550; 84165; 84443

== ENCOUNTER 2025-03-07 21:58 | Outpatient (REF) | payer MEDICAID, SELFPAY ==
[2025-03-07 16:38] LABS: Abs Immature Grans 0.01 10^3/uL (0.0-0.06); Absolute Basophil Count 0.03 10^3/uL (0.0-0.2); Absolute Eosinophil Count 0.03 10^3/uL (0.0-0.7); Absolute Lymphocyte Count 1.46 10^3/uL (1.2-3.4); Absolute Monocyte Count 0.68 10^3/uL (0.1-0.8); Absolute Neutrophil Count 3.03 10^3/uL (1.2-6.7); Basophils % 0.6 %; Eosinophils % 0.6 %; HCT 37.7 % (36.0-46.0); HGB 12.6 g/dL (11.2-15.7); Immature Grans % 0.2 %; Lymphocytes % 27.9 %; MCH 29.9 pg (27.0-33.0); MCHC 33.4 % (32.0-36.0); MCV 89 fL (80-95); MPV 10.3 fL (8.0-11.0); Neutrophils % 57.7 %; Platelet Count 297 10^3/uL (130-400); RBC 4.22 10^6/uL (3.93-5.22); RDW 13.2 % (11.7-14.6); RDW-SD 43.3 fL; WBC 5.24 10^3/uL (4.4-10.8)
[2025-03-07 17:00] LABS: ALT 28 U/L (14-59); AST 25 U/L (15-37); Albumin 4.6 g/dL (3.4-5.0); Alkaline Phosphatase 123 U/L (46-116); Amylase 65 U/L (25-115); Anion Gap 11.7 mmol/L (3-11); BUN 12 mg/dL (7-18); Bilirubin, Total 0.6 mg/dL (0.2-1.0); CO2 24.3 mmol/L (21.0-32.0); CREATININE 0.7 mg/dL (0.55-1.02); Calcium 10.1 mg/dL (8.5-10.1); Chloride 97 mmol/L (98-107); Estimated GFR 101.44 (mL/min/1.73m2); Glucose 93 mg/dL (74-106); Lipase 20 U/L (<78); Potassium 4.8 mmol/L (3.5-5.1); Sodium 133 mmol/L (136-145); Total Protein 8.2 g/dL (6.4-8.2)
== END 2025-03-07 21:59 | disposition home or self-care (01) ==
LOC: NCHCN 21:58
PROVIDERS: PCP Family Medicine; Visit Provider Family Medicine
DX: R10.9 Unspecified abdominal pain (principal)
CPT/HCPCS: 80053; 83690; 82150; 85025

== ENCOUNTER 2025-03-23 00:30 | Outpatient (CLI) | payer MEDICAID, SELFPAY ==
[2025-03-23] MEDS: Barium Sulfate 2% W/V-Berry Smoothie 450 ML BTL PO ×2 (11:10→11:11)
--- NOTE | 2025-03-23 13:30 | DI.CT_ITS ---
Exam(s) CT ABDOMEN PELVIS W EXAM: CT ABDOMEN PELVIS W CLINICAL HISTORY: Acute abd pain, R10.9. TECHNIQUE: Imaging Protocol: Axial computed tomography images with coronal and sagittal reformatted images were created and reviewed CONTRAST MATERIAL: Intravenous: Omnipaque-350 75cc Oral: Yes. Oral contrast was also administered for bowel opacification. COMPARISON: CT CT ABDOMEN PELVIS W from 05/09/2024 FINDINGS: VISUALIZED LUNG BASES: There are mild increased subpleural markings in the lateral basal segment left lower lobe. There are no pleural effusions.. ABDOMEN: There is no ascites. LIVER: There are no significant focal hepatic lesions evident. No dilated intrahepatic ducts. GALLBLADDER/BILIARY: There is some uniform enhancement of the gallbladder wall but gallbladder does not appear thickened nor grossly edematous and there is no pericholecystic fluid. No obvious intraluminal gallstones. CBD is not dilated. PANCREAS: No evidence of acute pancreatitis, as was evident on prior CT scan of April 2024. There is a tiny cyst in the pancreatic tail measuring 3 mm. This may be remnant intrapancreatic pseudocyst related to the previously present pancreatitis which was evident in April 2024. Remainder of the pancreas appears unremarkable and the pancreatic duct is not dilated. SPLEEN: Spleen is not enlarged. No obvious intrasplenic lesions. Splenic and portal veins are patent. ADRENALS: There are no significant adrenal masses. KIDNEYS:No cysts evident. No solid renal masses. No calculi nor hydronephrosis.. ABDOMINAL AORTA: Calcified but not enlarged. Iliac arteries exhibits some calcified plaque but without critical stenosis nor aneurysmal dilatation. LYMPH NODES:There is no retroperitoneal nor paraaortic adenopathy. ABDOMINAL WALL: No evidence of significant anterior abdominal wall nor inguinal hernia. GI: The administered oral contrast has reached the rectum by the time of imaging acquisition. There is no evidence of bowel obstruction, free air, nor abscess. PELVIS: GI: No evidence of appendicitis.No evidence of sigmoid diverticulitis. LYMPH NODES: There is no intrapelvic nor inguinal adenopathy. REPRODUCTIVE: Uterus size age-appropriate. There are again noted prominent nonthrombosed veins on both sides of the uterus which drain into gonadal veins. This findings consistent with pelvic congestion syndrome. URINARY BLADDER: No calculi nor obvious masses evident OSSEOUS: No fractures and no significant osseous lesions. IMPRESSION: 1. Compared to the prior CT scan of 05/09/2024 there has been significant improvement in the extensive pancreatitis pattern which was evident on the prior CT scan. The only abnormality in the pancreas at this time is a tiny 3 millimeter benign-appearing cyst in the pancreatic tail which was not previously present and suspect that this is possibly small intrapancreatic postinflammatory pseudocyst or incidental new development. The pancreatic duct is not dilated. 2. There is some thin uniform enhancement of the gallbladder wall, possibly significant. The gallbladder does not appear edema there are no obvious visible gallstones. The CBD is not dilated. 3. Pelvic congestion syndrome again noted. There prominent nonthrombosed veins on both sides of the uterus again noted and and these drain into slightly prominent bilateral gonadal veins. 4. Other findings as above. RADIATION DOSE DELIVERED: 274.77mGy.cm Total DLP DATA REPOSITORY: All CT scans at this facility are submitted to the National Radiology Data Registry (NRDR) Dose Index Registry (DIR) with the [employer] (ACR). RADIATION OPTIMIZATION: All CT scans at this facility use at least one of these dose optimization techniques: automated exposure control; mA and/or kV adjustment per patient size (includes targeted exams where dose is matched to clinical indication); or iterative reconstruction.
[2025-03-23] MEDS: Omnipaque 350 MG/ML 100 ML BTL IJ (13:42)
[2025-03-23] MEDS: Normal Saline - Diluent 50 ML VIAL IJ (13:43)
== END 2025-03-23 00:50 ==
LOC: DI 00:30
PROVIDERS: PCP Family Medicine; Visit Provider Family Medicine
DX: R93.2 Abnormal findings on diagnostic imaging of liver and biliary tract (principal)
CPT/HCPCS: 74177; J3490

== ENCOUNTER 2025-04-12 02:10 | Outpatient (CLI) | payer MEDICAID, SELFPAY ==
--- NOTE | 2025-04-12 07:45 | DI.US_ITS ---
Exam(s) US PELVIS TRANSVAGINAL EXAM: US PELVIS TRANSVAGINAL CLINICAL HISTORY: History of ascites, cirrhosis, dilated vasculature TECHNIQUE: Ultrasound of the pelvis was performed both transabdominal and transvaginal. COMPARISON: US US ABDOMEN LIMITED from 05/10/[address] ABDOMEN PELVIS W from 03/23/2025 FINDINGS: UTERUS: Nongravid. Measures 5 cm length by 3 cm height by 5 cm wide. As evident on recent CT scan there are dilated veins on both size of the uterus consistent with pelvic congestion syndrome. These drain into the gonadal veins which in turn drain into the left renal vein on the left side and into the IVC on the right side, as best evident on recent CT scan. There are no uterine fibroids. Endometrial thickness measures 4 mm. There is no fluid in the endometrial canal. There are a few scattered hyperechoic foci in the uterus of questionable clinical significance. Some of these are at the junction of the endometrium and myometrium. CERVIX: There are no obvious nabothian cysts. RIGHT OVARY: Measures 2.5 x 0.7 x 1.2 cm No significant cysts nor masses evident in the right ovary. LEFT OVARY: Measures 1.5 x 0.8 x 1.5 cm No significant cysts nor masses evident in the left ovary. There are no extraovarian adnexal masses and there is no free fluid in the cul-de-sac. IMPRESSION: 1. There are dilated veins on both sides the uterus as described above, consistent with pelvic congestion syndrome. These dilated periuterine veins drain into the gonadal veins bilaterally. The right gonadal vein drains into the IVC and left gonadal vein drains into the left renal vein, as seen on recent CT scan. 2. Endometrial thickness is upper normal. There is no fluid in the endometrial canal. Few non-specific hyperechoic foci are noted in the myometrium. 3. No ovarian nor extra ovarian adnexal masses. DATA REPOSITORY:
== END 2025-04-12 02:30 ==
LOC: DI 02:10
PROVIDERS: PCP Family Medicine; Visit Provider Obstetrics & Gynecology
DX: R10.9 Unspecified abdominal pain (principal); R93.5 Abnormal findings on diagnostic imaging of other abdominal regions, including retroperitoneum
CPT/HCPCS: 76830; 76856